=== PATIENT | male | born 1955 | race Caucasian/White ===

== ENCOUNTER 2024-01-02 11:00 | Inpatient (IN) | payer OTHER, SELFPAY ==
[2024-01-02] VITALS (14 sets, daily range): BP systolic 127–182; BP diastolic 35–68; PULSE 38–83; RESP 12–20; TEMP 36.4–36.8; O2SAT 93–99; BMI 33.1
--- NOTE | ~2024-01-02 | XR_ITS ---
EXAMINATION: XR CHEST CLINICAL INFORMATION: Shortness of breath, hypoxic, rule out CHF/pneumonia. COMPARISON: None available. TECHNIQUE: Frontal view of the chest was obtained. FINDINGS: Cardiomediastinal silhouette is within normal limits. There is central vascular congestion and perivascular haziness. Patchy groundglass airspace opacities are seen bilaterally. No dense consolidation. No effusion or pneumothorax. Left axillosubclavian stent, query hemodialysis patient. XR/XR chest 1V IMPRESSION: Central vascular congestion, perivascular haziness, patchy groundglass airspace opacities favor volume overload with mild to moderate pulmonary edema. Multifocal pneumonia not excluded radiographically. Clinical correlation is necessary.
--- NOTE | 2024-01-02 11:30 | ED.GENADULT ---
HPI - General Adult General Chief complaint: Back Pain/Injury Stated complaint: BODY ACHES,REFUSES DIALYSIS FROM SNF PER EMS Time Seen by Provider: 01/02/24 11:21 Source: patient and EMS Mode of arrival: EMS Limitations: no limitations History of Present Illness ED Provider: Dr. Stephen Chand HPI narrative: 68-year-old male with a history of anemia, coronary artery disease, diastolic congestive heart failure, end-stage renal disease on dialysis, diabetes mellitus, hypertension, hyperlipidemia, peripheral vascular disease, right oqgwd-azg-iajh amputation, bradycardia, depression, mood disorder who presents emergency department for evaluation of back pain and shortness of breath. EMS reports that the patient is a dialysis patient but he has been refusing dialysis. The patient denies this and states that he was last dialyzed on 12/28/2023. The patient was found to be hypoxic with an O2 saturation of 80% on room air. Patient was transported on a non-rebreather mask. Here in the emergency department the patient was changed over to an OxyMask on 11 liters/minute. The patient states that he was feeling fatigued but otherwise has no complaints. He denied fever, chills, cough, chest pain, shortness of breath, nausea, vomiting or diarrhea. Related Data Allergies Allergy/AdvReac Type Severity Reaction Status Date / Time garlic Allergy Hives Verified 01/02/24 11:24 onion Allergy Unknown Verified 01/02/24 11:25 Peppers, Green Allergy Unknown Verified 01/02/24 11:25 Review of Systems Review of Systems: Yes all other systems are reviewed and are negative [facility] Past Medical History [facility] Narrative: Social history: Patient states that he has been in the nursing facility for proximally 6 months he states that his was no longer able to care for him at home. Patient is currently residing at the [facility] in [place]. Social History Social History Smoked in Last 30 Days: No Advance Directives: No Advance Directives Information Provided: No Do you have a plan to hurt others: No Plan Physical Exam ED Vital Signs: Vital Signs - 24 hr 01/02/24 11:08 01/02/24 11:30 01/02/24 12:00 Temperature 97.8 F 97.8 F 97.5 F Pulse Rate 38 L 38 L 40 L Respiratory Rate 20 20 13 Blood Pressure 127/46 L 136/35 L 146/46 H Pulse Oximetry 94 95 Oxygen Delivery Method Oxymask Oxymask Room Air Oxygen Flow Rate 11 01/02/24 12:43 Temperature Pulse Rate Respiratory Rate Blood Pressure 146/46 H Pulse Oximetry Oxygen Delivery Method Oxygen Flow Rate BMI result Body Mass Index 33.1 Vital signs revealed a low heart rate of 38 and an O2 saturation of 80% on room air and 94% on OxyMask 11 L per minute. Exam: General: Awake, answers questions appropriately, appears dyspneic but able to talk in full sentences Head: Normocephalic, atraumatic EENT: PERRL, Lids normal, sclera normal, conjunctiva normal, nose normal , ears normal, throat without erythema or exudates Neck: Supple, no adenopathy Lung: Rhonchi and rales at the bases, breath sounds symmetric, no wheezing Chest: symmetric movement, nontender Heart: Bradycardia with a regular rhythm, normal S1, S2, 2/6 systolic murmur best heard at the left lower sternal border Abdomen: soft, non-tender, nondistended, normal bowel sounds Back: no vertebral tenderness, no CVAT Extremities: Right [id number] amputation, left lower extremity with no erythema Neuro: Awake, alert, oriented, normal speech, cranial nerves intact, moves all extremities symmetrically Psych: Pleasant, cooperative Medications Administered Generic Name Dose Route Start Last Admin Trade Name Freq PRN Reason Stop Dose Admin Calcium Gluconate 2 gm in 100 mls @ 50 mls/hr 01/02/24 12:38 01/02/24 12:43 Calcium Gluconate IV 01/02/24 14:37 50 mls/hr ONCE ONE Administration Discontinued Medications Generic Name Dose Route Start Last Admin Trade Name Freq PRN Reason Stop Dose Admin Furosemide 60 mg 01/02/24 12:32 01/02/24 12:43 Furosemide 100 Mg/10 Ml Vial IVPUSH 01/02/24 12:33 60 mg ONCE ONE Administration Protocol Sodium Bicarbonate 50 meq 01/02/24 12:32 01/02/24 12:43 Sodium Bicarbonate 8.4% 50 Meq/50 Ml Syringe IVPUSH 01/02/24 12:33 50 meq ONCE ONE Administration Sodium Zirconium Cyclosilicate 10 gm 01/02/24 12:32 01/02/24 12:43 Sodium Zirconium Cyclosilicate 10 Gm Powd.Pack PO 08/12/24 12:33 10 gm ONCE ONE Administration Medical Decision Making Medical Decision Making MDM Narrative: 68-year-old male with a history of anemia, coronary artery disease, diastolic congestive heart failure, end-stage renal disease on dialysis, diabetes mellitus, hypertension, hyperlipidemia, peripheral vascular disease, right gslgb-vou-jlli amputation, bradycardia, depression, mood disorder who presents emergency department for evaluation of back pain and shortness of breath. Patient states he was last dialyzed on Tuesday12/28/2023 and EMS reports that the patient has refused dialysis who presents for shortness of breath and lethargy. Patient was hypoxic with an O2 saturation of 80% on room air and is currently on OxyMask at 11 liters/minute. Lung exam did reveal rales and rhonchi at the bases otherwise unremarkable. Patient was bradycardic Patient is lethargic but is answering questions appropriately.. Differential diagnosis: ?Includes but is not limited to myocardial infarction, myocardial ischemia, congestive heart failure, hyperkalemia, electrolyte abnormalities, pneumonia, anemia Following evaluation was ordered: CBC, CMP, BNP, magnesium, lactic acid, PTT, lipase, troponin, venous blood gas, blood cultures x2, COVID-19, influenza, RSV, EKG, chest x-ray one view Patient was initially treated with the following: Course: 12:55 My interpretation patient's laboratory evaluation as follows: Normocytic anemia with an H&H of 8.0 and 23.4 with low platelet count of 158,000-most likely caused by his chronic renal disease. Sodium, chloride, CO2 were low 123, 88 and 18. Anion gap was elevated 24. Lactic acid was elevated at 3.2. These abnormalities are secondary to his renal disease and missing 2 dialysis appointments-this is not caused by sepsis/infectious process. Patient's potassium was elevated 7.3. BUN creatinine elevated 64 and 10.8. Troponin was elevated 52.4. BNP elevated 521. Chest x-ray is consistent with congestive heart failure. Patient is elevated potassium, electrolyte abnormality and CHF are secondary to his chronic kidney disease and missing 2 dialysis appointments. Patient's bradycardia may also be caused by these electrolyte abnormalities. The nurse was able to confirm that the patient did miss his Tuesday dialysis and refused to go to dialysis today. Patient's hyper kalemia calcium gluconate 2 g IV, D10 750 mL x1, regular insulin 10 units IV, Lokelma 10 g orally and Lasix 60 mg IV. 13:55 I did discuss the patient's presentation with the covering assistant editor, Dr. Degroot and he states the patient needs urgent dialysis and recommended that the patient be admitted to the intensive care unit. I also discuss the patient's presentation with our rehabilitation services counselor, Dr. Melanie Fontanez and she accepted the patient onto her service. Lab Data 01/02/24 11:34 01/02/24 11:34 Labs: Lab Results 01/02/24 01/02/24 01/02/24 Range/Units 11:34 11:40 12:03 WBC 9.2 (4.8-10.8) X10*3/uL RBC 2.57 L (4.60-5.80) X10*6/uL Hgb 8.0 L (14.0-18.0) g/dl Hct 23.4 L (42.0-52.0) % MCV 91.1 (80.0-98.0) fL MCH 31.1 (27.0-33.0) pg MCHC 34.2 (31.0-36.0) g/dl RDW 13.9 (11.0-16.0) % Plt Count 158 L (160-400) X10*3/uL MPV 9.7 (9.4-12.4) fL Immature Gran % (Auto) 0.8 H (0.0-0.4) % Neut % (Auto) 88.2 H (45-73) % Lymph % (Auto) 5.5 L (20-40) % [place] % (Auto) 5.2 (2-11) % Eos % (Auto) 0.1 (0-4) % Baso % (Auto) 0.2 (0-2) % Lymph # (Auto) 0.5 L (1.2-4.9) X10*3/uL [place] # (Auto) 0.5 (0.1-1.2) X10*3/uL Eos # (Auto) 0.0 (0.0-0.4) X10*3/uL Baso # (Auto) 0.0 (0.0-0.2) X10*3/uL Abs Immat Gran (auto) 0.07 H (0.00-0.03) X10*3/uL Absolute Neuts (auto) 8.1 (2.0-8.3) x10*3/uL Absolute Nucleated RBC 0.000 (0.0-0.012) X10*3/uL Nucleated RBC % (auto) 0.0 (0.0-0.2) /100WBC APTT 33.3 (26.0-36.8) SEC VBG pH 7.28 L (7.32-7.43) VBG pCO2 41 mmHg VBG pO2 51 mmHg VBG HCO3 19 L (22-26) mmol/L VBG O2 Saturation 65.0 % VBG Base Excess -6.2 mmol/L Sodium 123 L (135-145) mmol/L Potassium 7.3 H* (3.3-5.1) mmol/L Chloride 88 L (96-108) mmol/L Carbon Dioxide 18 L (22-29) mmol/L Anion Gap 24 H (12-20) BUN 64 H (9-16) mg/dL Creatinine 10.08 H* (0.5-1.4) mg/dL Estim Creat Clear Calc 8.2 Estimated GFR 5 Random Glucose 139 H (60-115) mg/dL Lactic Acid 3.2 H* (0.5-2.0) mmol/L Calcium 8.4 (8.4-10.2) mg/dL Magnesium 2.3 (1.6-2.6) mg/dL Total Bilirubin 0.5 (0.0-1.0) mg/dL AST 53 H (5-37) U/L ALT 34 (0-40) U/L Alkaline Phosphatase 143 H (39-117) U/L Troponin I High Sens 52.4 H (<3.5-35.0) ng/L B-Natriuretic Peptide 521 H (<100) pg/mL Total Protein 7.2 (6.5-8.0) g/dL Albumin 3.5 (3.5-5.0) g/dL Lipase 24 (8-78) U/L Influenza Type A (PCR) NEGATIVE (Negative) Influenza Type B (PCR) NEGATIVE (Negative) RSV RNA Qual (PCR) NEGATIVE (Negative) SARS-CoV-2 RNA (RT-PCR) NEGATIVE (Negative) Critical Care Time Critical Care Time Critical Care Time: Yes Total Critical Care Time: 80 Attestation: Critical Care: The patient was critically ill with a high probability of imminent or life threatening deterioration. I spent greater than 30 minutes of discontinuous time evaluating the patient,delivering critical care at the bedside, discussing and evaluating pertinent data with consultants. Critical care time does not include time spent performing separately billable procedures or teaching. Total time spent performing critical care was 80 minutes. Discharge Plan Discharge Clinical Impression: Congestive heart failure, Acute hyperkalemia, Bradycardia Patient Disposition: Admitted As Inpatient Print Language: Hong Konger
--- NOTE | 2024-01-02 11:31 | ECG_ITS ---
Test Reason : BRADYCARDIA Blood Pressure : / mmHG Vent. Rate : 038 BPM Atrial Rate : 000 BPM P-R Int : 000 ms QRS Dur : 106 ms QT Int : 568 ms P-R-T Axes : 000 -14 -23 degrees QTc Int : 451 ms Junctional bradycardia Nonspecific T wave abnormality Abnormal ECG No previous ECGs available Referred By: Stephen Chand Electronically Signed By:ROSA JIMENEZ
[2024-01-02 11:48] LABS: VBG Base Excess -6.2 mmol/L; VBG HCO3 19 mmol/L (22-26); VBG pCO2 41 mmHg; VBG pH 7.28 (7.32-7.43); VBG pO2 51 mmHg
[2024-01-02 11:49] LABS: MANUAL DIFF FLAG NO; Venous Blood Gas Refer to POC result
[2024-01-02 11:54] LABS: Basophils Percent Auto 0.2 % (0-2); Eosinophils Percent Auto 0.1 % (0-4); Hematocrit 23.4 % (42.0-52.0); Imm Gran Abs Auto 0.07 X10*3/uL (0.00-0.03); Imm Gran Pct Auto 0.8 % (0.0-0.4); Lymphocytes Absolute Auto 0.5 X10*3/uL (1.2-4.9); Lymphocytes Percent Auto 5.5 % (20-40); Mean Corpuscular HGB Conc 34.2 g/dl (31.0-36.0); Mean Corpuscular Hemoglobin 31.1 pg (27.0-33.0); Mean Corpuscular Volume 91.1 fL (80.0-98.0); Mean Platelet Volume 9.7 fL (9.4-12.4); Monocytes Absolute Auto 0.5 X10*3/uL (0.1-1.2); Monocytes Percent Auto 5.2 % (2-11); Neutrophils Absolute Auto 8.1 x10*3/uL (2.0-8.3); Neutrophils Percent Auto 88.2 % (45-73); Platelet Count 158 X10*3/uL (160-400); Red Blood Count 2.57 X10*6/uL (4.60-5.80); Red Cell Distribution Width 13.9 % (11.0-16.0); White Blood Count 9.2 X10*3/uL (4.8-10.8)
[2024-01-02 12:07] LABS: Lactic Acid 3.2 mmol/L (0.5-2.0); Partial Thromboplastin Time 33.3 SEC (26.0-36.8)
[2024-01-02 12:14] LABS: B Type Natriuretic Peptide 521 pg/mL (<100)
[2024-01-02 12:16] LABS: Troponin-I High Sensitivity 52.4 ng/L (<3.5-35.0)
[2024-01-02 12:26] LABS: Alanine Aminotransferase 34 U/L (0-40); Albumin Level 3.5 g/dL (3.5-5.0); Alkaline Phosphatase 143 U/L (39-117); Anion Gap 24 (12-20); Aspartate Amino Transferase 53 U/L (5-37); Bilirubin Total 0.5 mg/dL (0.0-1.0); Blood Urea Nitrogen 64 mg/dL (9-16); Calcium 8.4 mg/dL (8.4-10.2); Carbon Dioxide 18 mmol/L (22-29); Chloride 88 mmol/L (96-108); Creatinine Clr Calc Pharmacy 8.2; Estimated Glomerular Filt Rate 5; Glucose Random 139 mg/dL (60-115); Lipase 24 U/L (8-78); Magnesium 2.3 mg/dL (1.6-2.6); Potassium 7.3 mmol/L (3.3-5.1); Sodium 123 mmol/L (135-145); Total Protein 7.2 g/dL (6.5-8.0)
[2024-01-02] MEDS: Calcium Gluconate/NaCl,Iso-Osm 2 GM/100 ML PLAST..BAG IV (12:43)
[2024-01-02] MEDS: Sodium Zirconium Cyclosilicate 10 GM POWD.PACK PO (12:43)
[2024-01-02] MEDS: Furosemide 100 MG/10 ML VIAL 60 MG IVPUSH (12:43)
[2024-01-02] MEDS: Sodium Bicarbonate 8.4% 50 MEQ/50 ML SYRINGE IVPUSH ×2 (12:43→15:27)
[2024-01-02 12:49] LABS: Influenza A PCR NEGATIVE (Negative); Influenza B PCR NEGATIVE (Negative); Resp Syncy Virus RNA Qual PCR NEGATIVE (Negative); SARS COV2 PCR INHOUSE NEGATIVE (Negative)
[2024-01-02 13:42] LABS: Reflex Lactate? Lactic Acid Added
--- NOTE | 2024-01-02 13:56 | P.HPCC_ITS ---
History of Present Illness Date of Service: 01/02/24 Attending physician on admission: Melanie Fontanez Chief Complaint: Missed Hemodialysis, Hyperkalemia Patient is a 68 Y M with metabolic syndrome, diabetes mellitus, end-stage renal disease, on hemodialysis M/W/F, reportedly refusing hemodialysis, last dialysis session 12/27, presenting to emergency department on 01/01 w/ dyspnea, found to be hypoxic 80s, bradycardic 30s, and hyperkalemic 7 w/ EKG changes; patient admitted to ICU for emergent hemodialysis Review of Systems 2 Review of Systems: Yes all other systems are reviewed and are negative PMFSH Social History Social History Smoked in Last 30 Days: No Advance Directives: No Advance Directives Information Provided: No Do you have a plan to hurt others: No Plan Meds Allergies Allergy/AdvReac Type Severity Reaction Status Date / Time garlic Allergy Hives Verified 01/02/24 11:24 onion Allergy Unknown Verified 01/02/24 11:25 Peppers, Green Allergy Unknown Verified 01/02/24 11:25 Active Medications: Current Medications Dextrose (D10) 250 mls @ 750 mls/hr IV Q15M PRN PRN Reason: per Hypoglycemia Standing Ord. Calcium Gluconate (Calcium Gluconate) 2 gm in 100 mls @ 50 mls/hr IV ONCE ONE Stop: 01/02/24 14:37 Last Admin: 01/02/24 12:43 Dose: 50 mls/hr Calcium Gluconate (Calcium Gluconate) 1 gm in 50 mls @ 50 mls/hr IV ONCE ONE Stop: 01/02/24 14:50 Sodium Bicarbonate (Sodium Bicarbonate 8.4% 50 Meq/50 Ml Syringe) 50 meq IVPUSH ONCE ONE Stop: 01/02/24 13:55 Home Medications ?Medication ?Instructions ?Recorded ?Confirmed ?Last Taken ?Type acetaminophen 325 mg tablet 650 mg PO Q6H PRN Fever/Pain 01/02/24 01/02/24 Unknown History amlodipine 5 mg tablet 5 mg PO DAILY 01/02/24 01/02/24 Unknown History aspirin 81 mg tablet,delayed 81 mg PO DAILY 01/02/24 01/02/24 Unknown History release atorvastatin 80 mg tablet 80 mg PO DAILY 01/02/24 01/02/24 Unknown History bisacodyl 10 mg rectal suppository 10 mg MD DAILY PRN No BM in 8 Hrs 01/02/24 01/02/24 Unknown History after MoM citalopram 20 mg tablet 20 mg PO DAILY 01/02/24 01/02/24 Unknown History clonazepam 0.5 mg tablet 0.5 mg PO BID anxiety 01/02/24 01/02/24 Unknown History glipizide 2.5 mg tablet 2.5 mg PO DAILY 01/02/24 01/02/24 Unknown History ibuprofen 600 mg tablet 600 mg PO Q6H PRN Pain 01/02/24 01/02/24 Unknown History isosorbide mononitrate 20 mg tablet 40 mg PO DAILY 01/02/24 01/02/24 Unknown History omeprazole 20 mg capsule,delayed 20 mg PO DAILY 01/02/24 01/02/24 Unknown History release ondansetron 4 mg disintegrating 4 mg PO Q8H PRN Nausea/Vomiting 01/02/24 01/02/24 Unknown History tablet polyethylene glycol 3350 17 17 g PO Q24H PRN Constipation 01/02/24 01/02/24 Unknown History gram/dose oral powder sennosides 8.6 mg-docusate sodium 1 tab-cap PO Q24H PRN Constipation 01/02/24 01/02/24 Unknown History 50 mg capsule (Senna Plus) sevelamer HCl 800 mg tablet 1,600 mg PO TID 01/02/24 01/02/24 Unknown History simethicone 80 mg chewable tablet 80 mg PO BEDTIME 01/02/24 01/02/24 Unknown History sodium phosphates 19 gram-7 118 ml MD DAILY PRN No BM in 8 Hrs 01/02/24 01/02/24 Unknown History gram/118 mL enema (Fleet Enema) after Bisacodyl sodium zirconium cyclosilicate 10 10 g PO SUTUTHSA 01/02/24 01/02/24 Unknown History gram oral powder packet (Lokelma) trazodone 50 mg tablet 50 mg PO BEDTIME 01/02/24 01/02/24 Unknown History Physical Exam 2 Vital Signs: Vital Signs: Last Vital Signs Temp 97.5 F 01/02/24 12:00 Pulse 40 L 01/02/24 12:00 Resp 13 01/02/24 12:00 BP 146/46 H 01/02/24 12:43 Pulse Ox 95 01/02/24 12:00 O2 Del Method Room Air 01/02/24 12:00 O2 Flow Rate 11 01/02/24 11:30 Oxygen Flow Rate 01/02/24 11:08 BMI result Body Mass Index 33.1 Const: General: cooperative, no acute distress, well developed, alert, awake and Physically active Orientation/consciousness: patient oriented x3 HEENT: Head: Yes normal to inspection, Yes normocephalic and Yes atraumatic Eyes: General: appearance normal, both eyes and all related structures Neck: Neck: Yes normal visual inspection, Yes full ROM, Yes trachea midline and Yes supple Chest: Chest palpation & inspection: normal inspection of the chest Resp: Other: appreciable rales; no appreciable rhonchi, wheezing Effort & Inspection: normal respiratory effort Cardio: Rate: bradycardic Rhythm: regular rhythm GI: Inspection: Yes normal to inspection, No Abdominal wall edema and No distended Palpation (GI): Soft to palpation, not firm, nontender, no guarding and not rigid : Male General Exam: Yes normal external exam Skin: Other: diffuse abrasions Neuro: General: patient oriented x3, tone normal and moves all extremities Extrem: Other: appreciable R BKA General: Yes full ROM, Yes capillary refill normal and Yes no clubbing, cyanosis or edema Psych: Appearance: grossly normal Results Labs 01/02/24 11:34 01/02/24 11:34 Labs: Laboratory Results - last 24 hr 01/02/24 01/02/24 01/02/24 11:34 11:40 12:03 MCV 91.1 MCH 31.1 MCHC 34.2 RDW 13.9 Plt Count 158 L MPV 9.7 Immature Gran % (Auto) 0.8 H Neut % (Auto) 88.2 H Lymph % (Auto) 5.5 L [place] % (Auto) 5.2 Eos % (Auto) 0.1 Baso % (Auto) 0.2 Lymph # (Auto) 0.5 L [place] # (Auto) 0.5 Eos # (Auto) 0.0 Baso # (Auto) 0.0 Abs Immat Gran (auto) 0.07 H Absolute Neuts (auto) 8.1 Absolute Nucleated RBC 0.000 Nucleated RBC % (auto) 0.0 APTT 33.3 VBG pH 7.28 L VBG pCO2 41 VBG pO2 51 VBG HCO3 19 L VBG O2 Saturation 65.0 VBG Base Excess -6.2 Anion Gap 24 H Estim Creat Clear Calc 8.2 Estimated GFR 5 Random Glucose 139 H Lactic Acid 3.2 H* Calcium 8.4 Magnesium 2.3 Total Bilirubin 0.5 AST 53 H ALT 34 Alkaline Phosphatase 143 H Troponin I High Sens 52.4 H B-Natriuretic Peptide 521 H Total Protein 7.2 Albumin 3.5 Lipase 24 Influenza Type A (PCR) NEGATIVE Influenza Type B (PCR) NEGATIVE RSV RNA Qual (PCR) NEGATIVE SARS-CoV-2 RNA (RT-PCR) NEGATIVE Assessment and Plan (1) Acute hyperkalemia: Status: Acute (2) End stage renal disease on dialysis: Status: Acute (3) Dialysis patient, noncompliant: Status: Acute (4) Hypertension: Status: Acute (5) Diabetes mellitus: Status: Acute Plan Patient is a 68 Y M with metabolic syndrome, diabetes mellitus, end-stage renal disease, on hemodialysis M/W/F, reportedly refusing hemodialysis, last dialysis session 12/27, presenting to emergency department on 01/01 w/ dyspnea, found to be hypoxic 80s, bradycardic 30s, and hyperkalemic 7 w/ EKG changes; patient admitted to ICU for emergent hemodialysis N: no acute issues CV: bradycardia, in setting of hyperkalemia, though w/o hemodynamic compromise; to monitor very closely R: acute hypoxic respiratory failure, in setting of volume overload; to monitor GI: NPO; advance to renal diet as tolerated : end-stage renal disease, non-compliant w/ hemodialysis; emergent hemodialysis 01/01 H: anemia, reportedly chronic ID: no acute issues E: diabetes mellitus; to monitor hypo-/hyper-glycemia
[2024-01-02] MEDS: Albuterol Sulfate 2.5 MG, Albuterol Sulfate (0.083%) 2.5 MG 5 MG INHALE ×2 (14:21→15:49)
--- NOTE | 2024-01-02 14:26 | PC.NURSE ---
Nurse to Nurse report given to Asley RN on ICU.
[2024-01-02 14:36] LABS: ~Lactic Acid-LAB USE ONLY 2.6 mmol/L (0.5-2.0)
--- NOTE | 2024-01-02 14:52 | PHA.MEDREC ---
Addendum entered by Lon Purvis RP 01/02/24 16:50: MED REC CHECKED BY [facility] Original Note: Pharmacy Consult ? Medication Reconciliation Pharmacy has completed the medication reconciliation. Confirmed medications with list provided by [facility] and [facility].
--- NOTE | 2024-01-02 15:00 | PM.CNNEP ---
History of Present Illness Reason for Consult Consult date: 01/02/24 Reason for consult: Hyperkalemia Chief Complaint Chief complaint: Renal Failure Hyperkalemia History of Present Illness Narrative: 68-year-old male with coronary artery disease, diastolic congestive heart failure, end-stage renal disease on dialysis, diabetes mellitus, hypertension, peripheral vascular disease, right ulgbj-nsd-[id number] amputation presented to the emergency department for evaluation of back pain and shortness of breath. EMS reported that the patient is a dialysis patient but he has been refusing dialysis. The patient denies this and states that he was last dialyzed on 12/28/2023. The patient was found to be hypoxic with an O2 saturation of 80% on room air. Patient was transported on a non-rebreather mask. Here in the emergency department the patient was changed over to an OxyMask on 11 liters/minute. The patient states that he was feeling fatigued but otherwise has no complaints. He denied fever, chills, cough, chest pain, shortness of breath, nausea, vomiting or diarrhea. Further workup showed him to have hyperkalemia and bradycardia. Nephrology has been consulted to assist in his clinical care during his current hospital stay. Review of Systems Review of Systems Yes all other systems are reviewed and are negative PMFSH Social History Social History Smoked in Last 30 Days: No Advance Directives: No Advance Directives Information Provided: No Do you have a plan to hurt others: No Plan Meds Allergies Allergy/AdvReac Type Severity Reaction Status Date / Time garlic Allergy Hives Verified 01/02/24 11:24 onion Allergy Unknown Verified 01/02/24 11:25 Peppers, Green Allergy Unknown Verified 01/02/24 11:25 Active Medications: Current Medications Glucose (Glucose Gel 15 Gm Gel..Gram.) 15 gm PO Q15M PRN; Protocol PRN Reason: per Hypoglycemia Standing Ord. Dextrose (D10) 250 mls @ 750 mls/hr IV Q15M PRN PRN Reason: per Hypoglycemia Standing Ord. Dextrose (D10) 250 mls @ 750 mls/hr IV Q15M PRN; Protocol PRN Reason: per Hypoglycemia Standing Ord. Insulin Human Lispro (Insulin Lispro 100 Unit/Ml 3 Ml Vial) [facility]; Protocol Home Medications ?Medication ?Instructions ?Recorded ?Confirmed ?Last Taken ?Type acetaminophen 325 mg tablet 650 mg PO Q6H PRN Fever/Pain 01/02/24 01/02/24 Unknown History amlodipine 5 mg tablet 5 mg PO DAILY 01/02/24 01/02/24 Unknown History aspirin 81 mg tablet,delayed 81 mg PO DAILY 01/02/24 01/02/24 Unknown History release atorvastatin 80 mg tablet 80 mg PO DAILY 01/02/24 01/02/24 Unknown History bisacodyl 10 mg rectal suppository 10 mg LA DAILY PRN No BM in 8 Hrs 01/02/24 01/02/24 Unknown History after MoM citalopram 20 mg tablet 20 mg PO DAILY 01/02/24 01/02/24 Unknown History clonazepam 0.5 mg tablet 0.5 mg PO BID anxiety 01/02/24 01/02/24 Unknown History glipizide 2.5 mg tablet 2.5 mg PO DAILY 01/02/24 01/02/24 Unknown History ibuprofen 600 mg tablet 600 mg PO Q6H PRN Pain 01/02/24 01/02/24 Unknown History isosorbide mononitrate 20 mg tablet 40 mg PO DAILY 01/02/24 01/02/24 Unknown History omeprazole 20 mg capsule,delayed 20 mg PO DAILY 01/02/24 01/02/24 Unknown History release ondansetron 4 mg disintegrating 4 mg PO Q8H PRN Nausea/Vomiting 01/02/24 01/02/24 Unknown History tablet polyethylene glycol 3350 17 17 g PO Q24H PRN Constipation 01/02/24 01/02/24 Unknown History gram/dose oral powder sennosides 8.6 mg-docusate sodium 1 tab-cap PO Q24H PRN Constipation 01/02/24 01/02/24 Unknown History 50 mg capsule (Senna Plus) sevelamer HCl 800 mg tablet 1,600 mg PO TID 01/02/24 01/02/24 Unknown History simethicone 80 mg chewable tablet 80 mg PO BEDTIME 01/02/24 01/02/24 Unknown History sodium phosphates 19 gram-7 118 ml LA DAILY PRN No BM in 8 Hrs 01/02/24 01/02/24 Unknown History gram/118 mL enema (Fleet Enema) after Bisacodyl sodium zirconium cyclosilicate 10 10 g PO SUTUTHSA 01/02/24 01/02/24 Unknown History gram oral powder packet (Mihaelakelwy) trazodone 50 mg tablet 50 mg PO BEDTIME 01/02/24 01/02/24 Unknown History Physical Exam Vital Signs: Last Vital Signs Temp 97.5 F 01/02/24 12:00 Pulse 39 L 01/02/24 14:22 Resp 18 01/02/24 14:22 BP 146/46 H 01/02/24 12:43 Pulse Ox 95 01/02/24 12:00 O2 Del Method Room Air 01/02/24 12:00 O2 Flow Rate 11 01/02/24 11:30 Oxygen Flow Rate 01/02/24 11:08 BMI result Body Mass Index 33.1 Const General: no acute distress Orientation/consciousness: patient oriented x3 Eyes EOM: EOMs intact bilaterally Resp Auscultation: diminished lung sounds Cardio Rate: regular rate GI Palpation (GI): Soft to palpation Neuro General: patient oriented x3 Results Lab Results 01/02/24 11:34 01/02/24 11:34 Lab results: Chemistry 01/02/24 11:34 Sodium 123 L Potassium 7.3 H* Carbon Dioxide 18 L BUN 64 H Creatinine 10.08 H* Calcium 8.4 Hematology 01/02/24 11:34 WBC 9.2 Hgb 8.0 L Plt Count 158 L Assessment and Plan (1) Bradycardia: Status: Acute (2) Acute hyperkalemia: Status: Acute (3) End stage renal disease on dialysis: Status: Acute Plan Hamzah has hyperkalemia and hypervolemia He needs emergent dialysis(arranged) Has a functioning dialysis access Counseled about compliance with dialysis treatment Low-sodium, low-potassium diet with a fluid and phosphorus restrict Phosphorus binders with meals May need another session of dialysis tomorrow If he continues to be hyperkalemic he will need fistulogram Shall optimize his volume status on hemodialysis Shall continue to closely follow-up Procedures Date of Service Date of Service: 01/02/24
[2024-01-02] MEDS: Calcium Gluconate/NaCl,Iso-Osm 1 GM/50 ML PLAST..BAG IV (15:27)
--- NOTE | 2024-01-02 15:50 | PC.NURSE ---
Handoff received from BRYON Strange at 1425. Patient transported to ICU via stretcher by this RN and tap and die maker technician at 1540 without incident. chief drafter at bedside upon arrival to ICU for emergent dialysis.
[2024-01-02 16:21] LABS: Reflex Lactate? 2 Y
[2024-01-02 16:30] LABS: Glucose, Whole Blood 93 mg/dL (60-115)
[2024-01-02 17:05] LABS: ~Lactic Acid-LAB USE ONLY 1.6 mmol/L (0.5-2.0)
[2024-01-02 21:11] LABS: Anion Gap 18 (12-20); Blood Urea Nitrogen 19 mg/dL (9-16); Calcium 9.4 mg/dL (8.4-10.2); Carbon Dioxide 29 mmol/L (22-29); Chloride 96 mmol/L (96-108); Creatinine Clr Calc Pharmacy 20.7; Estimated Glomerular Filt Rate 15; Glucose Random 80 mg/dL (60-115); Magnesium 2.1 mg/dL (1.6-2.6); Phosphorus 3.2 mg/dL (2.7-4.5); Potassium 3.2 mmol/L (3.3-5.1); Sodium 140 mmol/L (135-145)
[2024-01-02] MEDS: Sevelamer Carbonate Tablet 800 MG TABLET 1600 MG PO (21:31)
[2024-01-02] MEDS: Acetaminophen 325 MG TABLET 975 MG PO (21:32)
[2024-01-02] MEDS: Potassium Chloride ER 20 MEQ TAB.ER.PRT 40 MEQ PO (22:53)
[2024-01-03] VITALS (16 sets, daily range): BP systolic 138–176; BP diastolic 42–88; PULSE 66–79; RESP 14–20; TEMP 36.3–37.2; O2SAT 90–97; BMI 29.7
[2024-01-03 05:34] LABS: MANUAL DIFF FLAG NO
[2024-01-03 05:38] LABS: Basophils Percent Auto 0.2 % (0-2); Eosinophils Absolute Auto 0.1 X10*3/uL (0.0-0.4); Eosinophils Percent Auto 1.4 % (0-4); Hematocrit 21.4 % (42.0-52.0); Hemoglobin 7.2 g/dl (14.0-18.0); Imm Gran Abs Auto 0.01 X10*3/uL (0.00-0.03); Imm Gran Pct Auto 0.2 % (0.0-0.4); Lymphocytes Absolute Auto 0.5 X10*3/uL (1.2-4.9); Lymphocytes Percent Auto 10.3 % (20-40); Mean Corpuscular HGB Conc 33.6 g/dl (31.0-36.0); Mean Corpuscular Hemoglobin 30.1 pg (27.0-33.0); Mean Corpuscular Volume 89.5 fL (80.0-98.0); Mean Platelet Volume 9.4 fL (9.4-12.4); Monocytes Absolute Auto 0.4 X10*3/uL (0.1-1.2); Monocytes Percent Auto 7.2 % (2-11); Neutrophils Absolute Auto 3.9 x10*3/uL (2.0-8.3); Neutrophils Percent Auto 80.7 % (45-73); Platelet Count 171 X10*3/uL (160-400); Red Blood Count 2.39 X10*6/uL (4.60-5.80); White Blood Count 4.9 X10*3/uL (4.8-10.8)
[2024-01-03 05:58] LABS: Anion Gap 18 (12-20); Blood Urea Nitrogen 22 mg/dL (9-16); Calcium 9.2 mg/dL (8.4-10.2); Carbon Dioxide 26 mmol/L (22-29); Chloride 97 mmol/L (96-108); Creatinine Clr Calc Pharmacy 14.5; Estimated Glomerular Filt Rate 11; Glucose Random 74 mg/dL (60-115); Magnesium 2.1 mg/dL (1.6-2.6); Phosphorus 3.8 mg/dL (2.7-4.5); Potassium 4.3 mmol/L (3.3-5.1); Sodium 137 mmol/L (135-145)
[2024-01-03 07:24] LABS: Glucose, Whole Blood 76 mg/dL (60-115)
--- NOTE | 2024-01-03 07:59 | P.PNCC_ITS ---
Subjective Subjective Date of Service: 01/03/24 Interval History: no significant overnight events; interval improvement of hyperkalemia s/p hemodialysis Critical Care Time (minutes): 0 Physical Exam 2 Vital Signs: Vital Signs: Last Vital Signs Temp 99.0 F 01/03/24 00:00 Pulse 75 01/03/24 07:00 Resp 15 01/03/24 07:00 BP 161/61 H 01/03/24 07:00 Pulse Ox 92 01/03/24 07:00 O2 Del Method Nasal Cannula 01/03/24 07:00 O2 Flow Rate 2 01/03/24 07:00 Oxygen Flow Rate 11 01/02/24 11:08 BMI result Body Mass Index 29.7 Const: Other: intermittently cooperative w/ care General: comfortable, no acute distress, well developed, alert, awake and Physically active Orientation/consciousness: patient oriented x3 HEENT: Head: Yes normal to inspection, Yes normocephalic and Yes atraumatic Eyes: General: appearance normal, both eyes and all related structures Neck: Neck: Yes normal visual inspection, Yes full ROM, Yes trachea midline and Yes supple Chest: Chest palpation & inspection: normal inspection of the chest Resp: Other: no appreciable rales, rhonchi, wheezing Effort & Inspection: normal respiratory effort Cardio: Rate: regular rate Rhythm: regular rhythm GI: Inspection: Yes normal to inspection, No Abdominal wall edema and No distended Palpation (GI): Soft to palpation, not firm, nontender, no guarding and not rigid Skin: Other: scattered abrasions throughout Neuro: General: patient oriented x3, tone normal and no focal motor deficits Extrem: Other: R BKA General: Yes normal to inspection, Yes full ROM, Yes capillary refill normal and Yes no clubbing, cyanosis or edema Psych: Affect: Indifferent affect present and Irritable affect present Objective Data Labs 01/03/24 05:26 01/03/24 05:26 Labs: Laboratory Results - last 24 hr 01/02/24 01/02/24 01/02/24 11:34 11:40 12:03 WBC 9.2 RBC 2.57 L Hgb 8.0 L Hct 23.4 L MCV 91.1 MCH 31.1 MCHC 34.2 RDW 13.9 Plt Count 158 L MPV 9.7 Immature Gran % (Auto) 0.8 H Neut % (Auto) 88.2 H Lymph % (Auto) 5.5 L [place] % (Auto) 5.2 Eos % (Auto) 0.1 Baso % (Auto) 0.2 Lymph # (Auto) 0.5 L [place] # (Auto) 0.5 Eos # (Auto) 0.0 Baso # (Auto) 0.0 Abs Immat Gran (auto) 0.07 H Absolute Neuts (auto) 8.1 Absolute Nucleated RBC 0.000 Nucleated RBC % (auto) 0.0 APTT 33.3 VBG pH 7.28 L VBG pCO2 41 VBG pO2 51 VBG HCO3 19 L VBG O2 Saturation 65.0 VBG Base Excess -6.2 Sodium 123 L Potassium 7.3 H* Chloride 88 L Carbon Dioxide 18 L Anion Gap 24 H BUN 64 H Creatinine 10.08 H* Estim Creat Clear Calc 8.2 Estimated GFR 5 POC Glucose Random Glucose 139 H Lactic Acid 3.2 H* Lactic Acid F/U @ 2Hr Lactic Acid F/U @ 4Hr Calcium 8.4 Phosphorus Magnesium 2.3 Total Bilirubin 0.5 AST 53 H ALT 34 Alkaline Phosphatase 143 H Troponin I High Sens 52.4 H B-Natriuretic Peptide 521 H Total Protein 7.2 Albumin 3.5 Lipase 24 Influenza Type A (PCR) NEGATIVE Influenza Type B (PCR) NEGATIVE RSV RNA Qual (PCR) NEGATIVE SARS-CoV-2 RNA (RT-PCR) NEGATIVE Blood Type Antibody Screen 01/02/24 01/02/24 01/02/24 14:18 16:27 16:40 WBC RBC Hgb Hct MCV MCH MCHC RDW Plt Count MPV Immature Gran % (Auto) Neut % (Auto) Lymph % (Auto) [place] % (Auto) Eos % (Auto) Baso % (Auto) Lymph # (Auto) [place] # (Auto) Eos # (Auto) Baso # (Auto) Abs Immat Gran (auto) Absolute Neuts (auto) Absolute Nucleated RBC Nucleated RBC % (auto) APTT VBG pH VBG pCO2 VBG pO2 VBG HCO3 VBG O2 Saturation VBG Base Excess Sodium Potassium Chloride Carbon Dioxide Anion Gap BUN Creatinine Estim Creat Clear Calc Estimated GFR POC Glucose 93 Random Glucose Lactic Acid Lactic Acid F/U @ 2Hr 2.6 H* Lactic Acid F/U @ 4Hr 1.6 Calcium Phosphorus Magnesium Total Bilirubin AST ALT Alkaline Phosphatase Troponin I High Sens B-Natriuretic Peptide Total Protein Albumin Lipase Influenza Type A (PCR) Influenza Type B (PCR) RSV RNA Qual (PCR) SARS-CoV-2 RNA (RT-PCR) Blood Type O Positive Antibody Screen NEGATIVE 01/02/24 01/03/24 01/03/24 20:31 05:26 07:20 WBC 4.9 RBC 2.39 L Hgb 7.2 L Hct 21.4 L MCV 89.5 MCH 30.1 MCHC 33.6 RDW 14.0 Plt Count 171 MPV 9.4 Immature Gran % (Auto) 0.2 Neut % (Auto) 80.7 H Lymph % (Auto) 10.3 L [place] % (Auto) 7.2 Eos % (Auto) 1.4 Baso % (Auto) 0.2 Lymph # (Auto) 0.5 L [place] # (Auto) 0.4 Eos # (Auto) 0.1 Baso # (Auto) 0.0 Abs Immat Gran (auto) 0.01 Absolute Neuts (auto) 3.9 Absolute Nucleated RBC 0.000 Nucleated RBC % (auto) 0.0 APTT VBG pH VBG pCO2 VBG pO2 VBG HCO3 VBG O2 Saturation VBG Base Excess Sodium 140 137 Potassium 3.2 L D 4.3 D Chloride 96 97 Carbon Dioxide 29 26 Anion Gap 18 18 BUN 19 H 22 H Creatinine 3.98 H 5.42 H* Estim Creat Clear Calc 20.7 14.5 Estimated GFR 15 11 POC Glucose 76 Random Glucose 80 74 Lactic Acid Lactic Acid F/U @ 2Hr Lactic Acid F/U @ 4Hr Calcium 9.4 D 9.2 Phosphorus 3.2 3.8 Magnesium 2.1 2.1 Total Bilirubin AST ALT Alkaline Phosphatase Troponin I High Sens B-Natriuretic Peptide Total Protein Albumin Lipase Influenza Type A (PCR) Influenza Type B (PCR) RSV RNA Qual (PCR) SARS-CoV-2 RNA (RT-PCR) Blood Type Antibody Screen Progress Note: A&P Assessment and plan (1) Acute hyperkalemia: Status: Acute (2) End stage renal disease on dialysis: Status: Acute (3) Dialysis patient, noncompliant: Status: Acute (4) Diabetes mellitus: Status: Acute (5) Hypertension: Status: Acute Plan Patient is a 68 Y M with metabolic syndrome, diabetes mellitus, end-stage renal disease, on hemodialysis M/W/F, reportedly refusing hemodialysis, last dialysis session 12/27, presenting to emergency department on 01/01 w/ dyspnea, found to be hypoxic 80s, bradycardic 30s, and hyperkalemic 7 w/ EKG changes; patient admitted to ICU for emergent hemodialysis N: no acute issues CV: bradycardia, in setting of hyperkalemia, resolved R: acute hypoxic respiratory failure, in setting of volume overload, improved GI: renal diet : end-stage renal disease, non-compliant w/ hemodialysis; emergent hemodialysis 01/01 H: anemia, reportedly chronic; to avoid chemical DVT prophylaxis until improvement; mechanical device ID: no acute issues E: diabetes mellitus; to monitor hypo-/hyper-glycemia Quality Stroke Does the patient have a stroke diagnosis?: No VTE Prior VTE?: No VTE Risk Level:: Medical - moderate - high VTE Device Contraindication: N/A - Device Ordered VTE Drug Contraindication: Treatment Not Tolerated
[2024-01-03] MEDS: Aspirin 81 MG TAB.CHEW PO (08:57)
[2024-01-03] MEDS: Atorvastatin Calcium 80 MG TABLET PO (08:58)
[2024-01-03] MEDS: Sevelamer Carbonate Tablet 800 MG TABLET 1600 MG PO ×3 (08:58→22:37)
--- NOTE | 2024-01-03 09:37 | MHC.CM.PN ---
IMM DELIVERED PT IS A LTC RESIDENT AT [facility]. PT'S PLAN IS TO RETURN TO CENTER ON DC. PT GIVES PERMISSION TO SPEAK WITH IF NEEDED. RETURN REFERRAL TO [facility] VIA BLS, RETURN REFERRAL SENT. COPY OF HCP REQUESTED. CM WILL CONTINUE TO FOLLOW FOR ANY CHANGE TO DC PLAN/NEEDS.
[2024-01-03] MEDS: amLODIPine Besylate 5 MG TABLET PO (10:26)
[2024-01-03 11:20] LABS: Glucose, Whole Blood 103 mg/dL (60-115)
--- NOTE | 2024-01-03 12:28 | P.PNNP_ITS ---
Subjective Subjective Date of Service: 01/03/24 Interval history: no significant overnight events; interval improvement of hyperkalemia s/p hemodialysis Physical Exam 2 Vital Signs: Vital Signs: Last Vital Signs Temp 98.9 F 01/03/24 12:00 Pulse 75 01/03/24 12:00 Resp 15 01/03/24 12:00 BP 167/54 H 01/03/24 12:00 Pulse Ox 92 01/03/24 12:00 O2 Del Method Nasal Cannula 01/03/24 12:00 O2 Flow Rate 2 01/03/24 12:00 Oxygen Flow Rate 11 01/02/24 11:08 BMI result Body Mass Index 29.7 Const: General: no acute distress Orientation/consciousness: patient oriented x3 Eyes: EOM: EOMs intact bilaterally Neck: Neck: Yes supple Resp: Auscultation: diminished lung sounds Cardio: Rate: regular rate GI: Palpation (GI): Soft to palpation Neuro: General: patient oriented x3 Extrem: Other: R BKA Objective Data Labs 01/03/24 05:26 01/03/24 05:26 Labs: Laboratory Results - last 24 hr 01/02/24 01/02/24 01/02/24 12:03 14:18 16:27 WBC RBC Hgb Hct MCV MCH MCHC RDW Plt Count MPV Immature Gran % (Auto) Neut % (Auto) Lymph % (Auto) [place] % (Auto) Eos % (Auto) Baso % (Auto) Lymph # (Auto) [place] # (Auto) Eos # (Auto) Baso # (Auto) Abs Immat Gran (auto) Absolute Neuts (auto) Absolute Nucleated RBC Nucleated RBC % (auto) Sodium Potassium Chloride Carbon Dioxide Anion Gap BUN Creatinine Estim Creat Clear Calc Estimated GFR POC Glucose 93 Random Glucose Lactic Acid F/U @ 2Hr 2.6 H* Lactic Acid F/U @ 4Hr Calcium Phosphorus Magnesium Influenza Type A (PCR) NEGATIVE Influenza Type B (PCR) NEGATIVE RSV RNA Qual (PCR) NEGATIVE SARS-CoV-2 RNA (RT-PCR) NEGATIVE Blood Type O Positive Antibody Screen NEGATIVE 01/02/24 01/02/24 01/03/24 16:40 20:31 05:26 WBC 4.9 RBC 2.39 L Hgb 7.2 L Hct 21.4 L MCV 89.5 MCH 30.1 MCHC 33.6 RDW 14.0 Plt Count 171 MPV 9.4 Immature Gran % (Auto) 0.2 Neut % (Auto) 80.7 H Lymph % (Auto) 10.3 L [place] % (Auto) 7.2 Eos % (Auto) 1.4 Baso % (Auto) 0.2 Lymph # (Auto) 0.5 L [place] # (Auto) 0.4 Eos # (Auto) 0.1 Baso # (Auto) 0.0 Abs Immat Gran (auto) 0.01 Absolute Neuts (auto) 3.9 Absolute Nucleated RBC 0.000 Nucleated RBC % (auto) 0.0 Sodium 140 137 Potassium 3.2 L D 4.3 D Chloride 96 97 Carbon Dioxide 29 26 Anion Gap 18 18 BUN 19 H 22 H Creatinine 3.98 H 5.42 H* Estim Creat Clear Calc 20.7 14.5 Estimated GFR 15 11 POC Glucose Random Glucose 80 74 Lactic Acid F/U @ 2Hr Lactic Acid F/U @ 4Hr 1.6 Calcium 9.4 D 9.2 Phosphorus 3.2 3.8 Magnesium 2.1 2.1 Influenza Type A (PCR) Influenza Type B (PCR) RSV RNA Qual (PCR) SARS-CoV-2 RNA (RT-PCR) Blood Type Antibody Screen 01/03/24 01/03/24 07:20 11:16 WBC RBC Hgb Hct MCV MCH MCHC RDW Plt Count MPV Immature Gran % (Auto) Neut % (Auto) Lymph % (Auto) [place] % (Auto) Eos % (Auto) Baso % (Auto) Lymph # (Auto) [place] # (Auto) Eos # (Auto) Baso # (Auto) Abs Immat Gran (auto) Absolute Neuts (auto) Absolute Nucleated RBC Nucleated RBC % (auto) Sodium Potassium Chloride Carbon Dioxide Anion Gap BUN Creatinine Estim Creat Clear Calc Estimated GFR POC Glucose 76 103 Random Glucose Lactic Acid F/U @ 2Hr Lactic Acid F/U @ 4Hr Calcium Phosphorus Magnesium Influenza Type A (PCR) Influenza Type B (PCR) RSV RNA Qual (PCR) SARS-CoV-2 RNA (RT-PCR) Blood Type Antibody Screen Procedures Date of Service Date of Service: 01/03/24 Assessment & Plan Assessment and plan (1) Hypertension: Status: Acute (2) End stage renal disease on dialysis: Status: Acute (3) Anemia in chronic kidney disease (CKD): Status: Acute Plan Hamzah had hyperkalemia and hypervolemia needing emergent dialysis yesterday Has a functioning dialysis access; Counseled about compliance with dialysis treatment Low-sodium, low-potassium diet with a fluid and phosphorus restrict Phosphorus binders with meals; If he continues to be hyperkalemic he will need fistulogram Shall optimize his volume status on hemodialysis; Procrit 10992 Units today ( ordered) HD tomorrow ( ordered); Shall continue to closely follow-up Progress Note: Quality Stroke Does the patient have a stroke diagnosis?: No
--- NOTE | 2024-01-03 15:13 | HO.WOUND ---
Wound Consult: Initial 68yr old Male? admitted to [facility] on 01/02/24 13:49 - See progress notes and H&P for detailed history.? Wound consult placed for Left Foot and Leg.? Left Lower Leg Upper lateral area Etiology: ??Excoriation / Abrasions Wound Bed: various sizes and various stages of healing - many are dry stable scabs the upper lateral area has some dry moist slough noted Drainage / Odor: dried Edges: ?irregular [place] wound: ?dry scabs noted No Induration, Fluctuance or Warmth noted Goals of Treatment: ? Foam dressing to allow for moist wound healing Left Lateral Foot Etiology: ??Diabetic Wound Measurements: 1cm x 1cm x 0.1cm Wound Bed: thick adherent yellow slough Drainage / Odor: Erazo drainage no odor noted Edges: ? well defined [place] wound: ? hyperpigmentation noted - dry desquamation noted - scar tissue noted - No Induration, Fluctuance or Warmth noted Goals of Treatment: Triad to aid in autolytic debridement and foam dressing ? Recommendations: 1. Turn and Reposition every 2 hours and as needed for patient comfort.? Use pillows or wedges to support off loading positions. 2. Off Load all bony prominences with use of pillows and heel boots if needed.? Apply Preventative foams where needed. ? 3. Monitor for incontinence and moisture control, use barrier creams when needed for prevention and treatment. 4. Provide adequate and supplemental nutrition.? 5. Continue low air loss mattress. 6. When applicable maintain blood glucose levels per Providers order. 7. Left Lower Leg - Cleanse with NS moist gauze, pat dry. Cover with Foam dressing. Change every 3 days. 8. Left Lateral Foot - [place]man dry eschar with betadine allow to dry. Apply Triad to moist wound bed to allow for autolytic debridement. Cover with foam dressing and change every 3 days. Re-consult wound care Nurse for wound deterioration or wound changes.
[2024-01-03 16:15] LABS: Glucose, Whole Blood 102 mg/dL (60-115)
[2024-01-03 20:47] LABS: Glucose, Whole Blood 118 mg/dL (60-115)
[2024-01-03] MEDS: Acetaminophen 325 MG TABLET 975 MG PO (22:40)
[2024-01-04 03:31] VITALS: BP 180/79; PULSE 63; RESP 18; TEMP 36.9; O2SAT 95
[2024-01-04 05:42] VITALS: BMI 29.7
[2024-01-04 08:36] LABS: MANUAL DIFF FLAG NO
[2024-01-04 08:42] LABS: Basophils Percent Auto 0.6 % (0-2); Eosinophils Absolute Auto 0.2 X10*3/uL (0.0-0.4); Eosinophils Percent Auto 3.7 % (0-4); Hematocrit 24.2 % (42.0-52.0); Hemoglobin 8.1 g/dl (14.0-18.0); Imm Gran Abs Auto 0.02 X10*3/uL (0.00-0.03); Imm Gran Pct Auto 0.4 % (0.0-0.4); Lymphocytes Absolute Auto 0.5 X10*3/uL (1.2-4.9); Lymphocytes Percent Auto 10.2 % (20-40); Mean Corpuscular HGB Conc 33.5 g/dl (31.0-36.0); Mean Corpuscular Hemoglobin 30.7 pg (27.0-33.0); Mean Corpuscular Volume 91.7 fL (80.0-98.0); Mean Platelet Volume 9.1 fL (9.4-12.4); Monocytes Absolute Auto 0.3 X10*3/uL (0.1-1.2); Monocytes Percent Auto 6.6 % (2-11); Neutrophils Absolute Auto 4.1 x10*3/uL (2.0-8.3); Neutrophils Percent Auto 78.5 % (45-73); Platelet Count 193 X10*3/uL (160-400); Red Blood Count 2.64 X10*6/uL (4.60-5.80); Red Cell Distribution Width 14.1 % (11.0-16.0); White Blood Count 5.2 X10*3/uL (4.8-10.8)
[2024-01-04 08:55] LABS: Anion Gap 15 (12-20); Blood Urea Nitrogen 14 mg/dL (9-16); Calcium 9.6 mg/dL (8.4-10.2); Carbon Dioxide 29 mmol/L (22-29); Chloride 96 mmol/L (96-108); Creatinine Clr Calc Pharmacy 24.1; Estimated Glomerular Filt Rate 19; Glucose Random 88 mg/dL (60-115); Magnesium 2.1 mg/dL (1.6-2.6); Phosphorus 1.7 mg/dL (2.7-4.5); Sodium 137 mmol/L (135-145)
--- NOTE | 2024-01-04 09:18 | PM.PNNEP ---
Subjective Subjective Date of Service: 01/04/24 Interval history: no significant overnight events; interval improvement of hyperkalemia s/p hemodialysis; Seen on HD this AM. All recent data reviewed; D/W HD RN Physical Exam Vital Signs: Vital Signs: Last Vital Signs Temp 98.4 F 01/04/24 03:31 Pulse 63 01/04/24 03:31 Resp 18 01/04/24 03:31 BP 180/79 H 01/04/24 03:31 Pulse Ox 95 01/04/24 03:31 O2 Del Method Nasal Cannula 01/04/24 03:31 O2 Flow Rate 2 01/04/24 03:31 Oxygen Flow Rate 11 01/02/24 11:08 BMI result Body Mass Index 29.7 Const: General: comfortable and no acute distress Orientation/consciousness: patient oriented x3 HEENT: Head: Yes normocephalic Mouth: Normal oral and palatal mucosa present Eyes: EOM: EOMs intact bilaterally Neck: Neck: Yes supple Resp: Auscultation: clear to auscultation bilaterally Cardio: Jugular venous distension: no JVD Rate: regular rate Heart sounds: Murmur heart sound present GI: Palpation (GI): Soft to palpation Auscultation: normal bowel sounds : General: Yes no CVA tenderness Back/Spine/Pelvis: Back: no CVA tenderness Skin: General skin exam: no rashes or lesions noted Neuro: General: patient oriented x3 and moves all extremities Extrem: Other: R BKA Objective Data Labs 01/04/24 08:30 01/04/24 08:30 Labs: Laboratory Results - last 24 hr 01/03/24 01/03/24 01/03/24 11:16 16:12 20:44 WBC RBC Hgb Hct MCV MCH MCHC RDW Plt Count MPV Immature Gran % (Auto) Neut % (Auto) Lymph % (Auto) [place] % (Auto) Eos % (Auto) Baso % (Auto) Lymph # (Auto) [place] # (Auto) Eos # (Auto) Baso # (Auto) Abs Immat Gran (auto) Absolute Neuts (auto) Absolute Nucleated RBC Nucleated RBC % (auto) Sodium Potassium Chloride Carbon Dioxide Anion Gap BUN Creatinine Estim Creat Clear Calc Estimated GFR POC Glucose 103 102 118 H Random Glucose Calcium Phosphorus Magnesium 01/04/24 08:30 WBC 5.2 RBC 2.64 L Hgb 8.1 L Hct 24.2 L MCV 91.7 MCH 30.7 MCHC 33.5 RDW 14.1 Plt Count 193 MPV 9.1 L Immature Gran % (Auto) 0.4 Neut % (Auto) 78.5 H Lymph % (Auto) 10.2 L [place] % (Auto) 6.6 Eos % (Auto) 3.7 Baso % (Auto) 0.6 Lymph # (Auto) 0.5 L [place] # (Auto) 0.3 Eos # (Auto) 0.2 Baso # (Auto) 0.0 Abs Immat Gran (auto) 0.02 Absolute Neuts (auto) 4.1 Absolute Nucleated RBC 0.000 Nucleated RBC % (auto) 0.0 Sodium 137 Potassium 3.0 L D Chloride 96 Carbon Dioxide 29 Anion Gap 15 BUN 14 Creatinine 3.26 H Estim Creat Clear Calc 24.1 Estimated GFR 19 POC Glucose Random Glucose 88 Calcium 9.6 Phosphorus 1.7 L Magnesium 2.1 Microbiology Microbiology Results: Microbiology 01/02/24 12:03 Blood - Venous Blood Culture - Preliminary No growth after 24 hours. 01/02/24 12:03 Blood - Venous Blood Culture - Preliminary No growth after 24 hours. Procedures Date of Service Date of Service: 01/04/24 Assessment & Plan Assessment and plan (1) End stage renal disease on dialysis: Status: Acute (2) Anemia in chronic kidney disease (CKD): Status: Acute (3) Hypertension: Status: Acute Plan Hamzah had hyperkalemia and hypervolemia needing emergent dialysis; Seen on HD this AM Has a functioning dialysis access; Counseled about compliance with dialysis treatment Low-sodium, low-potassium diet with a fluid and phosphorus restrict Phosphorus binders with meals;Procrit 31653 Units given yesterday Progress Note: Quality Stroke Does the patient have a stroke diagnosis?: No
--- NOTE | 2024-01-04 11:27 | MHC.CM.PN ---
Addendum entered by Bhumika Spencer 01/04/24 12:25: The [facility] transport auth # is [id number]. Original Note: Per MD, Patient is medically cleared for dc to return to LTC today. Patient will return to LTC @ [facility] today at 2PM, via [facility]. IMM last addressed yesterday. TD spoke with /HCP/Cony @ [phone] and informed her of the dc plan.
[2024-01-04 11:34] LABS: Glucose, Whole Blood 74 mg/dL (60-115)
[2024-01-04 11:44] VITALS: BP 160/108; PULSE 69; O2SAT 97
--- NOTE | 2024-01-04 11:48 | PM.DS ---
DS: Providers Provider Date of Service: 01/04/24 Date of admission: 01/02/24 13:49 Date of discharge: 01/04/24 Primary care physician: Va Kurtz MD Consults: 01/03/24 07:47 Consult to Wound Care Routine Reason for consultation: left foot wound DS: Diagnosis Discharge Diagnosis (1) End stage renal disease on dialysis: Status: Acute (2) Anemia in chronic kidney disease (CKD): Status: Acute (3) Hypertension: Status: Acute DS: Summary Hospital Course Hospital Course: 68-year-old male with coronary artery disease, diastolic congestive heart failure, end-stage renal disease on dialysis, diabetes mellitus, hypertension, peripheral vascular disease, right [id number] amputation presented to the emergency department for evaluation of back pain and shortness of breath. EMS reported that the patient is a dialysis patient but he has been refusing dialysis. The patient denies this and states that he was last dialyzed on 12/28/2023. The patient was found to be hypoxic with an O2 saturation of 80% on room air. Patient was transported on a non-rebreather mask. Here in the emergency department the patient was changed over to an OxyMask on 11 liters/minute. The patient states that he was feeling fatigued but otherwise has no complaints. He denied fever, chills, cough, chest pain, shortness of breath, nausea, vomiting or diarrhea. Further workup showed him to have hyperkalemia and bradycardia. Seen in consultation in the ER by nephro who recommended urgent dialysis. Given his hyperkalemia and degree of hyperkalemia he was transferred to the unit for urgent dialysis. He remained in unit overnight without acute issues. The next morning was transferred to the telemetry unit where monitor failed to demonstrate any acute changes. On the day of discharge he was seen by Nephrology and was deemed medically acceptable for transfer back to long-term care. He will resume his outpatient dialysis spot and is encouraged to be compliant Time Attestation Discharge Coordination Time (in mins): 35 Quality: Safe Use of Opioids Does Pt have an Active Cancer Diagnosis on the Problem List?: No Quality: Stroke Does the patient have a stroke diagnosis?: No Physical Exam Vital Signs: Vital Signs: Last Vital Signs Temp 98.4 F 01/04/24 03:31 Pulse 69 01/04/24 11:44 Resp 18 01/04/24 03:31 BP 160/108 H 01/04/24 11:44 Pulse Ox 97 01/04/24 11:44 O2 Del Method Nasal Cannula 01/04/24 11:44 O2 Flow Rate 2 01/04/24 11:44 Oxygen Flow Rate 11 01/02/24 11:08 BMI result Body Mass Index 29.7 Const: Other: Awake alert no acute distress Resp: Other: Clear to auscultation bilaterally no rales rhonchi or wheezes Cardio: Other: No S4; positive S1-S2; no S3 murmurs rubs or gallops GI: Other: Soft nontender nondistended normoactive bowel sounds Extrem: Other: No edema DS: Data Data Completed and Pending Labs on day of discharge: Laboratory Results - last 24 hr 01/03/24 01/03/24 01/04/24 16:12 20:44 08:30 WBC 5.2 RBC 2.64 L Hgb 8.1 L Hct 24.2 L MCV 91.7 MCH 30.7 MCHC 33.5 RDW 14.1 Plt Count 193 MPV 9.1 L Immature Gran % (Auto) 0.4 Neut % (Auto) 78.5 H Lymph % (Auto) 10.2 L [place] % (Auto) 6.6 Eos % (Auto) 3.7 Baso % (Auto) 0.6 Lymph # (Auto) 0.5 L [place] # (Auto) 0.3 Eos # (Auto) 0.2 Baso # (Auto) 0.0 Abs Immat Gran (auto) 0.02 Absolute Neuts (auto) 4.1 Absolute Nucleated RBC 0.000 Nucleated RBC % (auto) 0.0 Sodium 137 Potassium 3.0 L D Chloride 96 Carbon Dioxide 29 Anion Gap 15 BUN 14 Creatinine 3.26 H Estim Creat Clear Calc 24.1 Estimated GFR 19 POC Glucose 102 118 H Random Glucose 88 Calcium 9.6 Phosphorus 1.7 L Magnesium 2.1 01/04/24 11:26 WBC RBC Hgb Hct MCV MCH MCHC RDW Plt Count MPV Immature Gran % (Auto) Neut % (Auto) Lymph % (Auto) [place] % (Auto) Eos % (Auto) Baso % (Auto) Lymph # (Auto) [place] # (Auto) Eos # (Auto) Baso # (Auto) Abs Immat Gran (auto) Absolute Neuts (auto) Absolute Nucleated RBC Nucleated RBC % (auto) Sodium Potassium Chloride Carbon Dioxide Anion Gap BUN Creatinine Estim Creat Clear Calc Estimated GFR POC Glucose 74 Random Glucose Calcium Phosphorus Magnesium Preliminary micro results at discharge 01/02/24 12:03 Blood Culture - Preliminary Blood - Venous No growth after 24 hours. 01/02/24 12:03 Blood Culture - Preliminary Blood - Venous No growth after 24 hours. Discharge Plan Discharge Anticipated Discharge Date/Time: 01/04/24 11:48 Patient Disposition: [facility] Discharge Diagnosis: Acute hyperkalemia Referrals: [facility] [Outside] - 1 Week Va Kurtz MD [Primary Care Provider] - 1 Week Discharge Medications: Continued atorvastatin 80 mg tablet 80 mg PO DAILY acetaminophen 325 mg Tablet 650 mg PO Q6H PRN (Reason: Fever/Pain) trazodone 50 mg Tablet 50 mg PO BEDTIME isosorbide mononitrate 20 mg Tablet 40 mg PO DAILY Rx Instructions: give doses 7 hrs apart sevelamer HCl 800 mg Tablet 1,600 mg PO TID Rx Instructions: must administer with a meal/food clonazepam 0.5 mg tablet 1 mg PO BID amlodipine 5 mg tablet 5 mg PO DAILY aspirin 81 mg tablet,delayed release (DR/EC) 81 mg PO DAILY citalopram 20 mg tablet 20 mg PO DAILY bisacodyl 10 mg Suppository 10 mg SD DAILY PRN (Reason: No BM in 8 Hrs after MoM) Fleet Enema 19-7 gram/118 mL Enema 118 ml SD DAILY PRN (Reason: No BM in 8 Hrs after Bisacodyl ) omeprazole 20 mg Capsule,Delayed Release(Dr/Ec) 20 mg PO DAILY ibuprofen 600 mg Tablet 600 mg PO Q6H PRN (Reason: Pain) polyethylene glycol 3350 17 gram/dose Powder 17 g PO Q24H PRN (Reason: Constipation) ondansetron 4 mg Tablet,Disintegrating 4 mg PO Q8H PRN (Reason: Nausea/Vomiting) simethicone 80 mg Tablet,Chewable 80 mg PO BEDTIME Lokelma 10 gram Powder In Packet 10 g PO SUTUTHSA Senna Plus 8.6-50 mg Capsule 1 tab-cap PO Q24H PRN (Reason: Constipation) glipizide 2.5 mg Tablet 2.5 mg PO DAILY Discharge Orders: Discharge Order (Routine); Ordered 01/04/24 Ordered By: Ruben Pendleton Diet: Advance to usual diet Activity on Discharge: As tolerated Stand Alone Forms: Patient Portal Discharge page Print Language: Swedish Care Plan Goals: Patient is encouraged to keep his hemodialysis appointments; may resume his regular schedule Health Concerns: Continue all medicines as taken prior to hospitalization Plan of Treatment: Resume plan of care as outlined by receiving facility Assessment: See discharge summary
[2024-01-04] MEDS: Acetaminophen 325 MG TABLET 975 MG PO (13:12)
== END 2024-01-04 14:25 | DRG 640 ==
LOC: HO.ED 13:51 → HO.EDOVER 13:54 → HO.ICU 14:15 → HO.IMC 01-03 15:04
PROVIDERS: Admitting Provider Internal Medicine Critical Care Medicine; Emergency Provider Emergency Medicine Emergency Medical Services; PCP Internal Medicine; Visit Provider Hospitalist
DX: E87.70 Fluid overload, unspecified (principal); J96.01 Acute respiratory failure with hypoxia; N18.6 End stage renal disease; I50.32 Chronic diastolic (congestive) heart failure; I13.2 Hypertensive heart and chronic kidney disease with heart failure and with stage 5 chronic kidney disease, or end stage renal disease; E87.5 Hyperkalemia; E11.51 Type 2 diabetes mellitus with diabetic peripheral angiopathy without gangrene; Z89.511 Acquired absence of right leg below knee; I25.10 Atherosclerotic heart disease of native coronary artery without angina pectoris; D63.1 Anemia in chronic kidney disease; E88.810 Metabolic syndrome; Z99.2 Dependence on renal dialysis; Z20.822 Contact with and (suspected) exposure to COVID-19; Z91.158 Patient's noncompliance with renal dialysis for other reason; E11.22 Type 2 diabetes mellitus with diabetic chronic kidney disease; Z79.82 Long term (current) use of aspirin; Z79.899 Other long term (current) drug therapy
CPT/HCPCS: 0241U; 36415; 71045; 80048; 80053; 82803; 82947; 83605; 83690; 83735; 83880; 84100; 84484; 85025; 85730; 86850; 86900; 86901; 87040; 90999; 93005; 94640; 99285; J0613; J0885; J1940

== ENCOUNTER → 2024-01-02 11:31 | Outpatient (BNV) | payer OTHER, SELFPAY | PROVIDERS: Admitting Provider Internal Medicine Critical Care Medicine; Emergency Provider Emergency Medicine Emergency Medical Services; PCP Internal Medicine; Visit Provider Internal Medicine | DX: R00.1 Bradycardia, unspecified (principal) | CPT/HCPCS: 93010 ==

== ENCOUNTER → 2024-01-02 13:49 | Outpatient (BNV) | payer OTHER, SELFPAY | PROVIDERS: Admitting Provider Internal Medicine Critical Care Medicine; Emergency Provider Emergency Medicine Emergency Medical Services; PCP Internal Medicine; Visit Provider Internal Medicine Critical Care Medicine | DX: E87.5 Hyperkalemia (principal); N18.6 End stage renal disease; Z99.2 Dependence on renal dialysis; Z91.158 Patient's noncompliance with renal dialysis for other reason; E11.9 Type 2 diabetes mellitus without complications; I12.0 Hypertensive chronic kidney disease with stage 5 chronic kidney disease or end stage renal disease | CPT/HCPCS: 99233; 99291 ==

== ENCOUNTER → 2024-01-02 13:49 | Outpatient (BNV) | payer OTHER, SELFPAY | PROVIDERS: Admitting Provider Internal Medicine Critical Care Medicine; Emergency Provider Emergency Medicine Emergency Medical Services; PCP Internal Medicine; Visit Provider Internal Medicine Nephrology | DX: I12.9 Hypertensive chronic kidney disease with stage 1 through stage 4 chronic kidney disease, or unspecified chronic kidney disease (principal); N18.6 End stage renal disease; Z99.2 Dependence on renal dialysis; D63.1 Anemia in chronic kidney disease | CPT/HCPCS: 90935; 99232 ==

== ENCOUNTER → 2024-01-02 13:49 | Outpatient (BNV) | payer OTHER, SELFPAY | PROVIDERS: Admitting Provider Internal Medicine Critical Care Medicine; Emergency Provider Emergency Medicine Emergency Medical Services; PCP Internal Medicine; Visit Provider Hospitalist | DX: I12.0 Hypertensive chronic kidney disease with stage 5 chronic kidney disease or end stage renal disease (principal); N18.6 End stage renal disease; Z99.2 Dependence on renal dialysis; D63.1 Anemia in chronic kidney disease | CPT/HCPCS: 99239 ==

== ENCOUNTER 2024-01-15 14:04 | Emergency (ER) | payer OTHER, SELFPAY ==
[2024-01-15] VITALS (15 sets, daily range): BP systolic 115–218; BP diastolic 51–92; PULSE 62–67; RESP 13–20; TEMP 36.5–37.1; O2SAT 91–100; BMI 25.1
--- NOTE | ~2024-01-15 | XR_ITS ---
EXAMINATION: XR CHEST CLINICAL INFORMATION: Dyspnea. Recent coated. COMPARISON: January 02, 2024. TECHNIQUE: Portable AP view of the chest was obtained. FINDINGS: The study is limited by portable technique and suboptimal inspiration. There may be patchy, predominantly peripheral, bilateral groundglass lung parenchymal densities. Difference diagnosis includes, but is not limited to, viral pneumonia. The findings appear improved compared with January 02, 2024. No consolidation, effusion, or pneumothorax is seen. The cardiac silhouette is suboptimally evaluated, probably within normal limits. The aorta may be mildly atherosclerotic. The mediastinum and diaphragm appear unremarkable. Mild degenerative changes of the spine. Metallic vascular stent projects over the left subclavian region. XR/XR chest 1V IMPRESSION: Findings as above. Electronically signed by: Bogdan Castano MD 01/15/2024 04:55 PM EDT
[2024-01-15] MEDS: Oxymetazoline HCl 0.05 % Nasal 15 ML SPRAY 2 SPRAY NOSTRIL-B (15:30)
--- NOTE | 2024-01-15 15:46 | PC.NURSE ---
rec call from day shift nurse at [facility] checking status of pt- advised pt is still rec tx for nosebleed, unknown disposition at this time.
--- NOTE | 2024-01-15 15:48 | PC.NURSE ---
awaiting silver nitrate from pharmacy
--- NOTE | 2024-01-15 16:21 | ED_ITS ---
History of Present Illness General Chief Complaint: Epistaxis Stated Complaint: nose bleed Time Seen by Provider: 01/15/24 14:11 Source: patient, EMS and old records reviewed Mode of arrival: EMS Limitations: other (very poor historian) History of Present Illness HPI Narrative: 68 yo male with PMH of ESRD on HD, CHF, DM, HTN, PVD, R BKA, HLD, is currently at [facility] he is not a good historian and is adversarial when I ask him questions. I gather he has had a nose bleed since last night. He denies trauma. He is not on blood thinners. He states it was out of the R nares but it is clearly out of the L. He has blood out of the mouth as well. He reportedly is on day 6 of COVID. He told the RN he felt woozy but when I asked him he tells me nothing - he states he is fine. He comes in with gauze stuffed up his nose Location: Yes left naris Onset/current episode: Yes day(s) (1) Duration: Yes intermittent Pertinent past history: Yes hypertension Associated symptoms: Yes weakness and Yes other (states he is dizzy) Treatment prior to arrival: Yes stuff nose with tissue Related Data Home Medications ?Medication ?Instructions ?Recorded ?Confirmed acetaminophen 325 mg tablet 650 mg PO Q6H PRN Fever/Pain 01/02/24 01/02/24 amlodipine 5 mg tablet 5 mg PO DAILY 01/02/24 01/02/24 aspirin 81 mg tablet,delayed 81 mg PO DAILY 01/02/24 01/02/24 release atorvastatin 80 mg tablet 80 mg PO DAILY 01/02/24 01/02/24 bisacodyl 10 mg rectal suppository 10 mg NJ DAILY PRN No BM in 8 Hrs 01/02/24 01/02/24 after MoM citalopram 20 mg tablet 20 mg PO DAILY 01/02/24 01/02/24 clonazepam 0.5 mg tablet 1 mg PO BID anxiety 01/02/24 01/02/24 glipizide 2.5 mg tablet 2.5 mg PO DAILY 01/02/24 01/02/24 ibuprofen 600 mg tablet 600 mg PO Q6H PRN Pain 01/02/24 01/02/24 isosorbide mononitrate 20 mg tablet 40 mg PO DAILY 01/02/24 01/02/24 omeprazole 20 mg capsule,delayed 20 mg PO DAILY 01/02/24 01/02/24 release ondansetron 4 mg disintegrating 4 mg PO Q8H PRN Nausea/Vomiting 01/02/24 01/02/24 tablet polyethylene glycol 3350 17 17 g PO Q24H PRN Constipation 01/02/24 01/02/24 gram/dose oral powder sennosides 8.6 mg-docusate sodium 1 tab-cap PO Q24H PRN Constipation 01/02/24 01/02/24 50 mg capsule (Senna Plus) sevelamer HCl 800 mg tablet 1,600 mg PO TID 01/02/24 01/02/24 simethicone 80 mg chewable tablet 80 mg PO BEDTIME 01/02/24 01/02/24 sodium phosphates 19 gram-7 118 ml NJ DAILY PRN No BM in 8 Hrs 01/02/24 01/02/24 gram/118 mL enema (Fleet Enema) after Bisacodyl sodium zirconium cyclosilicate 10 10 g PO SUTUTHSA 01/02/24 01/02/24 gram oral powder packet (Lokelma) trazodone 50 mg tablet 50 mg PO BEDTIME 01/02/24 01/02/24 Allergies Allergy/AdvReac Type Severity Reaction Status Date / Time garlic Allergy Severe Hives Verified 01/15/24 14:33 onion Allergy Severe Hives Verified 01/15/24 14:33 Peppers, Green Allergy Severe Hives Verified 01/15/24 14:33 Review of Systems Review of Systems: ROS unable to be obtained due to poor historian not answering questions [facility] Past Medical History Source: old records reviewed Medical History Anemia in chronic kidney disease (CKD) Diabetes mellitus Hypertension Dialysis patient, noncompliant End stage renal disease on dialysis Bradycardia Below-knee amputation of right lower extremity Hyperlipidemia Hypertension Peripheral vascular disease Chronic kidney disease on chronic dialysis Diabetes Social History Social History Household Members: Other Household Members Other:: [facility] Do you presently have visiting nurse or other home services: No Patient Tobacco Use Status: Never used Tobacco Advance Directives: No Advance Directives Information Provided: Yes service: No Physical Exam Vital Signs: Vital Signs: Last Vital Signs Temp 97.8 F 01/15/24 14:29 Pulse 63 01/15/24 14:29 Resp 20 01/15/24 14:29 BP 161/51 H 01/15/24 14:29 Pulse Ox 91 L 01/15/24 14:29 O2 Del Method Room Air 01/15/24 14:29 BMI result Body Mass Index 25.1 Appearance: Alert. Oriented X person and place. Mild acute distress. Not answering questions looks unwell agitated Eyes: Pupils equal, round and reactive to light. ENT: Pharynx dried blood in back of tongue and on anterior tongue, coughed up clot x 1, L nares steady non brisk bleeding noted though after afrin it decreased source of ooze seems near turbinates Neck: Normal inspection. Neck supple. CVS: Normal heart rate and rhythm. Pulses normal. Respiratory: Mild respiratory distress - poor effort. Breath sounds diminished Abdomen: Soft and nontender. Skin: Skin warm and dry. pale skin color. chronic ulcerations on anterior leg Extremities: decreased pulses, 1+ ankle edema, R BKA Neuro: Oriented X 2. No motor deficit. No sensory deficit. Medications Administered Discontinued Medications Generic Name Dose Route Start Last Admin Trade Name Freq PRN Reason Stop Dose Admin Oxymetazoline HCl 2 spray 01/15/24 14:37 01/15/24 15:30 Oxymetazoline Hcl 0.05 % Nasal 15 Ml [place] NOSTRIL-B 01/15/24 14:38 2 spray ONCE ONE Administration Medical Decision Making Medical Decision Making MDM Narrative: 68 yo male with PMH of ESRD on HD, CHF, DM, HTN, PVD, R BKA, HLD here with epistaxis L nare but also agitated and RN was told he doesn't like to wear O2 at [facility] at this time he is not responding to topical medications and nasal tongs cannot cauterize anterior site will apply packing. As for his dizziness and his possible encephalopathy I am going to order CXR, EKG, labs possible anemia, metabolic, toxic encephalopathy. He is currently on 4L oxymask sats 92%. He will be signed out to Dr. Chand will need antibiotics prior to discharge or admission. Differential Diagnosis Differential Diagnoses: The differential diagnosis associated with the presentation includes anemia, lyte abnormality, metabolic or toxic encephalopathy Admission/Observation Consideration of admission/observation: Escalation of care including admission/observation considered Independent Interpretation I performed an independent interpretation of an: Plain X-Ray Independent Historian Clinical information obtained from an independent historian. History obtained from or confirmed by: EMS External Record Review External record reviewed: Inpatient record Procedures Epistaxis Control Time Out Performed: Yes Nostril: Yes left Nose prepped with: Yes oxymetazoline Direct inspection: Yes unable to visualize Direct inspection method: Yes nasal speculum Clots removed by: Yes suction and Yes manually Epistaxis treatment: Yes inflatable pack Results of treatment: Yes bleeding controlled Complications: Yes none Discharge Plan Discharge Clinical Impression: Epistaxis Patient Disposition: Still a Patient Prescriptions: No Action atorvastatin 80 mg tablet 80 mg PO DAILY acetaminophen 325 mg Tablet 650 mg PO Q6H PRN (Reason: Fever/Pain) trazodone 50 mg Tablet 50 mg PO BEDTIME isosorbide mononitrate 20 mg Tablet 40 mg PO DAILY Rx Instructions: give doses 7 hrs apart sevelamer HCl 800 mg Tablet 1,600 mg PO TID Rx Instructions: must administer with a meal/food clonazepam 0.5 mg tablet 1 mg PO BID amlodipine 5 mg tablet 5 mg PO DAILY aspirin 81 mg tablet,delayed release (DR/EC) 81 mg PO DAILY citalopram 20 mg tablet 20 mg PO DAILY bisacodyl 10 mg Suppository 10 mg NJ DAILY PRN (Reason: No BM in 8 Hrs after MoM) Fleet Enema 19-7 gram/118 mL Enema 118 ml NJ DAILY PRN (Reason: No BM in 8 Hrs after Bisacodyl ) omeprazole 20 mg Capsule,Delayed Release(Dr/Ec) 20 mg PO DAILY ibuprofen 600 mg Tablet 600 mg PO Q6H PRN (Reason: Pain) polyethylene glycol 3350 17 gram/dose Powder 17 g PO Q24H PRN (Reason: Constipation) ondansetron 4 mg Tablet,Disintegrating 4 mg PO Q8H PRN (Reason: Nausea/Vomiting) simethicone 80 mg Tablet,Chewable 80 mg PO BEDTIME Lokelma 10 gram Powder In Packet 10 g PO SUTUTHSA Senna Plus 8.6-50 mg Capsule 1 tab-cap PO Q24H PRN (Reason: Constipation) glipizide 2.5 mg Tablet 2.5 mg PO DAILY Print Language: [place]
--- NOTE | 2024-01-15 16:35 | ECG_ITS ---
Test Reason : dyspnea Blood Pressure : / mmHG Vent. Rate : 062 BPM Atrial Rate : 062 BPM P-R Int : 258 ms QRS Dur : 106 ms QT Int : 476 ms P-R-T Axes : 036 -35 -03 degrees QTc Int : 483 ms Sinus rhythm with 1st degree A-V block Left axis deviation Minimal voltage criteria for LVH, may be normal variant ( [place] product ) Prolonged QT Abnormal ECG When compared with ECG of 02-JAN-2024 11:33, Sinus rhythm has replaced Junctional rhythm Vent. rate has increased BY 24 BPM T wave inversion no longer evident in Anterior leads Referred By: Flower Patel Electronically Signed By:JOSE MURRAY
[2024-01-15 17:04] LABS: Hematocrit 24.8 % (42.0-52.0); Hemoglobin 8.2 g/dl (14.0-18.0); Mean Corpuscular HGB Conc 33.1 g/dl (31.0-36.0); Mean Corpuscular Hemoglobin 30.8 pg (27.0-33.0); Mean Corpuscular Volume 93.2 fL (80.0-98.0); Mean Platelet Volume 9.7 fL (9.4-12.4); Platelet Count 203 X10*3/uL (160-400); Red Blood Count 2.66 X10*6/uL (4.60-5.80); Red Cell Distribution Width 13.8 % (11.0-16.0); White Blood Count 3.9 X10*3/uL (4.8-10.8)
[2024-01-15 17:09] LABS: Venous Blood Gas Refer to POC result
[2024-01-15 17:09] LABS: VBG Base Excess 3.3 mmol/L; VBG HCO3 25 mmol/L (22-26); VBG pCO2 30 mmHg; VBG pH 7.52 (7.32-7.43); VBG pO2 211 mmHg
[2024-01-15 17:12] LABS: Prothrombin Time 11.8 SEC (11.1-13.3)
--- NOTE | 2024-01-15 17:27 | PC.NURSE ---
t/w notified of pt B/P 197/64 via [facility] no new orders at this time
[2024-01-15 17:42] LABS: B Type Natriuretic Peptide 962 pg/mL (<100)
[2024-01-15 17:50] LABS: Troponin-I High Sensitivity 64.1 ng/L (<3.5-35.0)
[2024-01-15 17:59] LABS: Anion Gap 17 (12-20); Blood Urea Nitrogen 32 mg/dL (9-16); Calcium 8.5 mg/dL (8.4-10.2); Carbon Dioxide 25 mmol/L (22-29); Chloride 95 mmol/L (96-108); Creatinine Clr Calc Pharmacy 10.2; Estimated Glomerular Filt Rate 8; Glucose Random 125 mg/dL (60-115); Potassium 4.5 mmol/L (3.3-5.1); Sodium 132 mmol/L (135-145)
--- NOTE | 2024-01-15 17:59 | PC.NURSE ---
critical creatinine rec 6.85- MD notified via [facility] connect no new orders at this time
--- NOTE | 2024-01-15 19:23 | PC.NURSE ---
rhino rocket in place in left nare, no active bleeding at this time, pending provider re-eval
--- NOTE | 2024-01-15 19:58 | PC.NURSE ---
spoke with BRYON Chan on at [facility]- confirmed last medication admin times- pt medicated up to 1400, med rec completed
[2024-01-15] MEDS: cephALEXin 500 MG CAPSULE PO (21:02)
--- NOTE | 2024-01-15 22:25 | PC.NURSE ---
pt medicated per JUL w/ cephalexin- rhino rocket in place in left nare, no active bleeding. Plan is for pt to return to [facility] rehab.
--- NOTE | 2024-01-15 22:32 | PC.NURSE ---
report given to [facility], BRYON Chan
== END 2024-01-15 23:13 ==
PROVIDERS: Emergency Medicine; Emergency Provider Emergency Medicine Emergency Medical Services; PCP Internal Medicine
DX: R04.0 Epistaxis (principal); R94.31 Abnormal electrocardiogram [ECG] [EKG]; I44.0 Atrioventricular block, first degree; I10 Essential (primary) hypertension; R06.02 Shortness of breath; D52.9 Folate deficiency anemia, unspecified; Z79.899 Other long term (current) drug therapy
CPT/HCPCS: 30901; 36415; 71045; 80048; 82803; 83880; 84484; 85027; 85610; 86850; 86900; 86901; 93005; 99284

== ENCOUNTER → 2024-01-17 18:06 | Outpatient (BNV) | payer OTHER, SELFPAY | PROVIDERS: Emergency Provider Internal Medicine; Visit Provider Student in an Organized Health Care Education/Training Program | DX: U07.1 COVID-19 (principal); N18.6 End stage renal disease; Z99.2 Dependence on renal dialysis; Z91.158 Patient's noncompliance with renal dialysis for other reason | CPT/HCPCS: 99223; 99232; 99233; 99239 ==

== ENCOUNTER 2024-01-17 18:12 | Inpatient (IN) | payer OTHER, SELFPAY ==
--- NOTE | ~2024-01-17 | XR_ITS ---
EXAMINATION: PORTABLE CHEST 1 VIEW CLINICAL INFORMATION: chf. COMPARISON: 01/15/2024. TECHNIQUE: Portable frontal view of the chest was obtained. FINDINGS: The lungs are mildly hypoexpanded. Patchy bilateral airspace disease is seen, increased from the prior study. No dense focal infiltrate, effusion, edema, or pneumothorax. Cardiac and mediastinal silhouettes are within normal limits for technique. No acute bony abnormality seen. XR/XR chest 1V IMPRESSION: Patchy bilateral airspace disease, increased from the prior study. Asymmetric pulmonary edema/fluid overload could have this appearance atypical infectious etiology considered less likely. Electronically signed by: Rayshawn Gomez MD 01/17/2024 08:07 PM EDT RP
--- NOTE | 2024-01-17 18:22 | ED_ITS ---
HPI - General Adult General Chief complaint: Dyspnea Stated complaint: from snf, refuses to wear O2 Time Seen by Provider: 01/17/24 18:21 Source: patient and EMS Mode of arrival: EMS Limitations: no limitations History of Present Illness ED Provider: compa IZAGUIRRE narrative: 68 yo male with PMH of ESRD on HD, CHF, DM, HTN, PVD, R BKA, HLD, [facility] for epistaxis had COVID about 9 days ago comes here as he missed his dialysis and refusing to use oxygen last dialysis was over a week ago patient does not make any urine on arrival patient's blood pressure was 195/60 respiratory 21 pulse was 45 coughing frequently was saturating in 70s at shelter Related Data Home Medications ?Medication ?Instructions ?Recorded ?Confirmed acetaminophen 325 mg tablet 650 mg PO Q6H PRN Fever/Pain 01/02/24 01/17/24 amlodipine 5 mg tablet 5 mg PO DAILY 01/02/24 01/17/24 aspirin 81 mg tablet,delayed 81 mg PO DAILY 01/02/24 01/17/24 release atorvastatin 80 mg tablet 80 mg PO DAILY 01/02/24 01/17/24 bisacodyl 10 mg rectal suppository 10 mg AL DAILY PRN No BM in 8 Hrs 01/02/24 01/17/24 after MoM citalopram 20 mg tablet 20 mg PO DAILY 01/02/24 01/17/24 clonazepam 0.5 mg tablet 1 mg PO BID anxiety 01/02/24 01/17/24 glipizide 2.5 mg tablet 2.5 mg PO DAILY 01/02/24 01/17/24 ibuprofen 600 mg tablet 600 mg PO Q6H PRN Pain 01/02/24 01/17/24 isosorbide mononitrate 20 mg tablet 40 mg PO DAILY 01/02/24 01/17/24 omeprazole 20 mg capsule,delayed 20 mg PO DAILY@0630 01/02/24 01/17/24 release ondansetron 4 mg disintegrating 4 mg PO Q8H PRN Nausea/Vomiting 01/02/24 01/17/24 tablet polyethylene glycol 3350 17 17 g PO Q24H PRN Constipation 01/02/24 01/17/24 gram/dose oral powder sennosides 8.6 mg-docusate sodium 1 tab-cap PO Q24H PRN Constipation 01/02/24 01/17/24 50 mg capsule (Senna Plus) sevelamer HCl 800 mg tablet 1,600 mg PO TID 01/02/24 01/17/24 simethicone 80 mg chewable tablet 80 mg PO Q6H PRN GAS 01/02/24 01/17/24 sodium phosphates 19 gram-7 118 ml AL DAILY PRN No BM in 8 Hrs 01/02/24 01/17/24 gram/118 mL enema (Fleet Enema) after Bisacodyl sodium zirconium cyclosilicate 10 10 g PO SUTUTHSA 01/02/24 01/17/24 gram oral powder packet (Lokelma) trazodone 50 mg tablet 50 mg PO BEDTIME 01/02/24 01/17/24 guaifenesin 100 mg/5 mL oral liquid 200 mg PO Q4H PRN Cough 01/17/24 01/17/24 Previous Rx's ?Medication ?Instructions ?Recorded cephalexin 500 mg capsule 500 mg PO QID 5 days #20 caps 01/15/24 Allergies Allergy/AdvReac Type Severity Reaction Status Date / Time garlic Allergy Severe Hives Verified 01/17/24 18:30 onion Allergy Severe Hives Verified 01/17/24 18:30 Peppers, Green Allergy Severe Hives Verified 01/17/24 18:30 Review of Systems 2 Review of Systems: Yes all other systems are reviewed and are negative PMFSH Past Medical History Medical History Dialysis patient, noncompliant End stage renal disease on dialysis Anemia in chronic kidney disease (CKD) Diabetes mellitus Hypertension Bradycardia Below-knee amputation of right lower extremity Hyperlipidemia Hypertension Peripheral vascular disease Chronic kidney disease on chronic dialysis Diabetes Social History Social History Household Members: Other Household Members Other:: LTC Housing Other:: [facility] Do you presently have visiting nurse or other home services: No Patient Tobacco Use Status: Never used Tobacco Advance Directives: Yes Advance Directives on File: Yes Advance Directives Date on File: 01/17/24 Do you have a plan to hurt others: No Plan service: No Physical Exam ED Vital Signs: Vital Signs - 24 hr 01/17/24 18:23 01/17/24 18:26 01/17/24 19:12 Temperature Pulse Rate 64 45 L 64 Respiratory Rate 21 H 16 20 Blood Pressure 195/60 H 165/45 H 147/45 H Pulse Oximetry 100 100 98 Oxygen Delivery Method Non-Rebreather Mask Non-Rebreather Mask Oxymask Oxygen Flow Rate 8 3 01/17/24 20:06 01/17/24 21:03 Temperature 97.7 F Pulse Rate 63 38 L Respiratory Rate 14 18 Blood Pressure 188/50 H 155/42 H Pulse Oximetry 100 98 Oxygen Delivery Method Oxymask Oxymask Oxygen Flow Rate 3 3 BMI result Body Mass Index 32.4 Appearance: Alert. Oriented X3. No acute distress. Eyes: Pallor++ ENT: Pharynx normal. Oral Mucosa moist Neck: Normal inspection. Neck supple. CVS: Normal heart rate and rhythm. Pulses normal. Respiratory: No respiratory distress. Equal air entry bilateral, bilateral diffuse crackles with decreased air entry Abdomen: Soft and nontender. Bowel sounds are present, no mass palpable, no CVA tenderness Skin: Skin warm and dry. Normal skin color. Normal skin turgor. Extremities: No lower extremity edema. No calf tenderness right BKA Neuro: Oriented X 3. No motor deficit. No sensory deficit.No cerebellar signs , cranial nerves II-XII intact Medications Administered Generic Name Dose Route Start Last Admin Trade Name Freq PRN Reason Stop Dose Admin Heparin Sodium (Porcine) 5,000 unit 01/17/24 20:30 01/17/24 20:55 Heparin Sodium,Porcine 5,000 Unit/Ml Vial SUBCUT Not Given Q12H [facility] Insulin Human Lispro 0 unit 01/17/24 21:00 01/17/24 20:55 Insulin Lispro 100 Unit/Ml 3 Ml Vial SUBCUT Not Given QIDACHS [facility] Protocol Discontinued Medications Generic Name Dose Route Start Last Admin Trade Name Freq PRN Reason Stop Dose Admin Sodium Bicarbonate 50 meq 01/17/24 18:39 01/17/24 18:51 Sodium Bicarbonate 8.4% 50 Meq/50 Ml Syringe IVPUSH 01/17/24 18:40 50 meq ONCE ONE Administration Medical Decision Making Medical Decision Making MDM Narrative: Patient with recent COVID end-stage renal disease on dialysis missed his dialysis with fluid overload with increased shortness of breath refusing to use oxygen saturating 96% on Ventimask in the ER will admit patient plan for dialysis in a.m. chest x-ray with infiltrate from atypical viral infection/CHF Differential Diagnosis Differential Diagnoses: The differential diagnosis associated with the presentation includes Renal failure/fluid overload/atypical pneumonia Admission/Observation Consideration of admission/observation: Escalation of care including admission/observation considered Consult Healthcare Provider Management of the patient was discussed with: Hospitalist Lab Data [facility] Lab Attestation statement: I reviewed the patient's lab results. 01/17/24 18:42 01/17/24 18:41 Labs: Lab Results 01/17/24 01/17/24 01/17/24 Range/Units 18:41 18:42 18:46 WBC 4.9 (4.8-10.8) X10*3/uL RBC 2.69 L (4.60-5.80) X10*6/uL Hgb 8.2 L (14.0-18.0) g/dl Hct 23.8 L (42.0-52.0) % MCV 88.5 (80.0-98.0) fL MCH 30.5 (27.0-33.0) pg MCHC 34.5 (31.0-36.0) g/dl RDW 13.6 (11.0-16.0) % Plt Count 222 (160-400) X10*3/uL MPV 9.5 (9.4-12.4) fL Immature Gran % (Auto) 0.4 (0.0-0.4) % Neut % (Auto) 69.1 (45-73) % Lymph % (Auto) 18.5 L (20-40) % [place] % (Auto) 7.5 (2-11) % Eos % (Auto) 4.1 H (0-4) % Baso % (Auto) 0.4 (0-2) % Lymph # (Auto) 0.9 L (1.2-4.9) X10*3/uL [place] # (Auto) 0.4 (0.1-1.2) X10*3/uL Eos # (Auto) 0.2 (0.0-0.4) X10*3/uL Baso # (Auto) 0.0 (0.0-0.2) X10*3/uL Abs Immat Gran (auto) 0.02 (0.00-0.03) X10*3/uL Absolute Neuts (auto) 3.4 (2.0-8.3) x10*3/uL Absolute Nucleated RBC 0.000 (0.0-0.012) X10*3/uL Nucleated RBC % (auto) 0.0 (0.0-0.2) /100WBC PT 11.9 (11.1-13.3) SEC INR 1.0 (0.9-1.1) VBG pH 7.36 (7.32-7.43) VBG pCO2 41 mmHg VBG pO2 43 mmHg VBG HCO3 23 (22-26) mmol/L VBG O2 Saturation 61.0 % VBG Base Excess -1.5 mmol/L Sodium 127 L (135-145) mmol/L Potassium 4.9 (3.3-5.1) mmol/L Chloride 91 L (96-108) mmol/L Carbon Dioxide 20 L (22-29) mmol/L Anion Gap 21 H (12-20) BUN 63 H (9-16) mg/dL Creatinine 9.76 H* (0.5-1.4) mg/dL Estim Creat Clear Calc 8.1 Estimated GFR 5 POC Glucose (60-115) mg/dL Random Glucose 117 H (60-115) mg/dL Calcium 9.1 D (8.4-10.2) mg/dL Magnesium 2.1 (1.6-2.6) mg/dL Total Bilirubin 0.5 (0.0-1.0) mg/dL AST 9 (5-37) U/L ALT 8 (0-40) U/L Alkaline Phosphatase 163 H (39-117) U/L Troponin I High Sens 65.7 H (<3.5-35.0) ng/L Total Protein 7.3 (6.5-8.0) g/dL Albumin 3.4 L (3.5-5.0) g/dL Influenza Type A (PCR) (Negative) Influenza Type B (PCR) (Negative) RSV RNA Qual (PCR) (Negative) SARS-CoV-2 RNA (RT-PCR) (Negative) 01/17/24 01/17/24 Range/Units 20:52 21:30 WBC (4.8-10.8) X10*3/uL RBC (4.60-5.80) X10*6/uL Hgb (14.0-18.0) g/dl Hct (42.0-52.0) % MCV (80.0-98.0) fL MCH (27.0-33.0) pg MCHC (31.0-36.0) g/dl RDW (11.0-16.0) % Plt Count (160-400) X10*3/uL MPV (9.4-12.4) fL Immature Gran % (Auto) (0.0-0.4) % Neut % (Auto) (45-73) % Lymph % (Auto) (20-40) % [place] % (Auto) (2-11) % Eos % (Auto) (0-4) % Baso % (Auto) (0-2) % Lymph # (Auto) (1.2-4.9) X10*3/uL [place] # (Auto) (0.1-1.2) X10*3/uL Eos # (Auto) (0.0-0.4) X10*3/uL Baso # (Auto) (0.0-0.2) X10*3/uL Abs Immat Gran (auto) (0.00-0.03) X10*3/uL Absolute Neuts (auto) (2.0-8.3) x10*3/uL Absolute Nucleated RBC (0.0-0.012) X10*3/uL Nucleated RBC % (auto) (0.0-0.2) /100WBC PT (11.1-13.3) SEC INR (0.9-1.1) VBG pH (7.32-7.43) VBG pCO2 mmHg VBG pO2 mmHg VBG HCO3 (22-26) mmol/L VBG O2 Saturation % VBG Base Excess mmol/L Sodium (135-145) mmol/L Potassium (3.3-5.1) mmol/L Chloride (96-108) mmol/L Carbon Dioxide (22-29) mmol/L Anion Gap (12-20) BUN (9-16) mg/dL Creatinine (0.5-1.4) mg/dL Estim Creat Clear Calc Estimated GFR POC Glucose 95 (60-115) mg/dL Random Glucose (60-115) mg/dL Calcium (8.4-10.2) mg/dL Magnesium (1.6-2.6) mg/dL Total Bilirubin (0.0-1.0) mg/dL AST (5-37) U/L ALT (0-40) U/L Alkaline Phosphatase (39-117) U/L Troponin I High Sens (<3.5-35.0) ng/L Total Protein (6.5-8.0) g/dL Albumin (3.5-5.0) g/dL Influenza Type A (PCR) NEGATIVE (Negative) Influenza Type B (PCR) NEGATIVE (Negative) RSV RNA Qual (PCR) NEGATIVE (Negative) SARS-CoV-2 RNA (RT-PCR) POSITIVE A (Negative) ABG Data Attestation ABG: I personally reviewed and interpreted this ABG as follows: Interpretation: Respiratory hypoxia Independent Interpretation I performed an independent interpretation of an: EKG Interpretation: Sinus bradycardia heart rate 77 beats per minute LVH nonspecific STT wave changes no acute ST elevation Critical Care Time Critical Care Time Critical Care Time: Yes Total Critical Care Time: 60 Attestation: The patient was critically ill with a high probability of imminent or life threatening deterioration. I spent greater than ?65?minutes of discontinuous time evaluating the patient,delivering critical care at the bedside, discussing and evaluating pertinent data with consultants. Critical care time does not include time spent performing separately billable procedures or teaching. Total time spent performing critical care was 60???minutes. Discharge Plan Discharge Clinical Impression: End stage renal disease on dialysis, Congestive heart failure, COVID-19 virus infection Patient Disposition: Admitted As Inpatient
[2024-01-17 18:23] VITALS: BP 195/60; PULSE 64; RESP 21; O2SAT 100
[2024-01-17 18:26] VITALS: BP 165/45; BP 190/54; PULSE 45; PULSE 63; RESP 16; O2SAT 100; BMI 32.4
--- NOTE | 2024-01-17 18:27 | ECG_ITS ---
Test Reason : heather Blood Pressure : / mmHG Vent. Rate : 037 BPM Atrial Rate : 037 BPM P-R Int : 208 ms QRS Dur : 098 ms QT Int : 554 ms P-R-T Axes : 036 -24 -20 degrees QTc Int : 434 ms Marked sinus bradycardia Minimal voltage criteria for LVH, may be normal variant ( [place] product ) ST & T wave abnormality, consider anterior ischemia Abnormal ECG When compared with ECG of 15-JAN-2024 16:53, SD interval has decreased Vent. rate has decreased BY 25 BPM T wave inversion now evident in Anterior leads QT has shortened Referred By: Bear Dubon Electronically Signed By:JOSE MURRAY
[2024-01-17 18:47] LABS: MANUAL DIFF FLAG NO
[2024-01-17 18:49] LABS: Venous Blood Gas Refer to POC result
[2024-01-17 18:50] LABS: VBG Base Excess -1.5 mmol/L; VBG HCO3 23 mmol/L (22-26); VBG pCO2 41 mmHg; VBG pH 7.36 (7.32-7.43); VBG pO2 43 mmHg
[2024-01-17] MEDS: Sodium Bicarbonate 8.4% 50 MEQ/50 ML SYRINGE IVPUSH (18:51)
[2024-01-17 18:56] LABS: Basophils Percent Auto 0.4 % (0-2); Eosinophils Absolute Auto 0.2 X10*3/uL (0.0-0.4); Eosinophils Percent Auto 4.1 % (0-4); Hematocrit 23.8 % (42.0-52.0); Hemoglobin 8.2 g/dl (14.0-18.0); Imm Gran Abs Auto 0.02 X10*3/uL (0.00-0.03); Imm Gran Pct Auto 0.4 % (0.0-0.4); Lymphocytes Absolute Auto 0.9 X10*3/uL (1.2-4.9); Lymphocytes Percent Auto 18.5 % (20-40); Mean Corpuscular HGB Conc 34.5 g/dl (31.0-36.0); Mean Corpuscular Hemoglobin 30.5 pg (27.0-33.0); Mean Corpuscular Volume 88.5 fL (80.0-98.0); Mean Platelet Volume 9.5 fL (9.4-12.4); Monocytes Absolute Auto 0.4 X10*3/uL (0.1-1.2); Monocytes Percent Auto 7.5 % (2-11); Neutrophils Absolute Auto 3.4 x10*3/uL (2.0-8.3); Neutrophils Percent Auto 69.1 % (45-73); Platelet Count 222 X10*3/uL (160-400); Red Blood Count 2.69 X10*6/uL (4.60-5.80); Red Cell Distribution Width 13.6 % (11.0-16.0); White Blood Count 4.9 X10*3/uL (4.8-10.8)
[2024-01-17 18:59] LABS: Prothrombin Time 11.9 SEC (11.1-13.3)
[2024-01-17 19:12] VITALS: BP 147/45; PULSE 64; RESP 20; O2SAT 98
[2024-01-17 19:15] LABS: Troponin-I High Sensitivity 65.7 ng/L (<3.5-35.0)
--- NOTE | 2024-01-17 19:15 | PC.NURSE ---
assumed care of pt at 1900. RT at bedside as pt hypoxic, placed on 6L oxymask and able to titrate down to 3L. pt is now 98%. nsr on monitor at 64 bpm. pt denies cp/sob resp even and unlabored and resting comfortably. awaiting lab results. call beauchamp within reach.
[2024-01-17 19:45] LABS: Alanine Aminotransferase 8 U/L (0-40); Albumin Level 3.4 g/dL (3.5-5.0); Alkaline Phosphatase 163 U/L (39-117); Anion Gap 21 (12-20); Aspartate Amino Transferase 9 U/L (5-37); Bilirubin Total 0.5 mg/dL (0.0-1.0); Blood Urea Nitrogen 63 mg/dL (9-16); Calcium 9.1 mg/dL (8.4-10.2); Carbon Dioxide 20 mmol/L (22-29); Chloride 91 mmol/L (96-108); Creatinine Clr Calc Pharmacy 8.1; Estimated Glomerular Filt Rate 5; Glucose Random 117 mg/dL (60-115); Magnesium 2.1 mg/dL (1.6-2.6); Potassium 4.9 mmol/L (3.3-5.1); Sodium 127 mmol/L (135-145); Total Protein 7.3 g/dL (6.5-8.0)
[2024-01-17 20:06] VITALS: BP 188/50; PULSE 63; RESP 14; TEMP 36.5; O2SAT 100
--- NOTE | 2024-01-17 20:06 | PC.NURSE ---
MD aware of BP. no further orders at this time.
--- NOTE | 2024-01-17 20:28 | PM.IMHP ---
History of Present Illness Date of Service: 01/17/24 Chief Complaint: Dyspnea This is a 68-year-old male with pertinent history of peripheral vascular disease status post right BKA, congestive heart failure with preserved ejection fraction, ESRD on hemodialysis M/W/F with history of noncompliance with dialysis, metabolic syndrome, non insulin-dependent diabetes mellitus, coronary artery disease who presents to the emergency department for evaluation of dyspnea. Patient does have a history of noncompliance with dialysis and did not go for his last dialysis session. Patient does endorse dyspnea with orthopnea. No cough, fever or chills. No chest pain or palpitations. He denies abdominal pain, changes in urinary or bowel habits. He does not make urine In the emergency department, imaging concerning for pulmonary edema Review of Systems Constitutional: Constitutional: Reports fatigue Cardiovascular: Cardiovascular: Reports dyspnea on exertion and Reports orthopnea Respiratory: Respiratory: Reports dyspnea on exertion Gastrointestinal: Gastrointestinal: Reports no additional gastrointestinal complaints Genitourinary: Genitourinary: Reports no additional male genitourinary complaints Endocrine: Endocrine: Reports fatigue COUNTS INCLUDE 234 BEDS AT THE [facility] Medical History Dialysis patient, noncompliant End stage renal disease on dialysis Anemia in chronic kidney disease (CKD) Diabetes mellitus Hypertension Bradycardia Below-knee amputation of right lower extremity Hyperlipidemia Hypertension Peripheral vascular disease Chronic kidney disease on chronic dialysis Diabetes Social History Household Members: Other Household Members Other:: [facility] Do you presently have visiting nurse or other home services: No Patient Tobacco Use Status: Never used Tobacco Do you have a plan to hurt others: No Plan service: No Meds Allergies Allergy/AdvReac Type Severity Reaction Status Date / Time garlic Allergy Severe Hives Verified 01/17/24 18:30 onion Allergy Severe Hives Verified 01/17/24 18:30 Peppers, Green Allergy Severe Hives Verified 01/17/24 18:30 Home Medications ?Medication ?Instructions ?Recorded ?Confirmed ?Last Taken ?Type acetaminophen 325 mg tablet 650 mg PO Q6H PRN Fever/Pain 01/02/24 01/15/24 Unknown History amlodipine 5 mg tablet 5 mg PO DAILY 01/02/24 01/15/24 01/15/24 08:00 History aspirin 81 mg tablet,delayed 81 mg PO DAILY 01/02/24 01/15/24 01/15/24 08:00 History release atorvastatin 80 mg tablet 80 mg PO DAILY 01/02/24 01/15/24 01/14/24 20:00 History bisacodyl 10 mg rectal suppository 10 mg ME DAILY PRN No BM in 8 Hrs 01/02/24 01/15/24 Unknown History after MoM citalopram 20 mg tablet 20 mg PO DAILY 01/02/24 01/15/24 01/15/24 08:00 History clonazepam 0.5 mg tablet 1 mg PO BID anxiety 01/02/24 01/15/24 Unknown History glipizide 2.5 mg tablet 2.5 mg PO DAILY 01/02/24 01/15/24 01/15/24 08:00 History ibuprofen 600 mg tablet 600 mg PO Q6H PRN Pain 01/02/24 01/15/24 Unknown History isosorbide mononitrate 20 mg tablet 40 mg PO DAILY 01/02/24 01/15/24 01/15/24 08:00 History omeprazole 20 mg capsule,delayed 20 mg PO DAILY 01/02/24 01/15/24 01/15/24 08:00 History release ondansetron 4 mg disintegrating 4 mg PO Q8H PRN Nausea/Vomiting 01/02/24 01/15/24 Unknown History tablet polyethylene glycol 3350 17 17 g PO Q24H PRN Constipation 01/02/24 01/15/24 Unknown History gram/dose oral powder sennosides 8.6 mg-docusate sodium 1 tab-cap PO Q24H PRN Constipation 01/02/24 01/15/24 Unknown History 50 mg capsule (Senna Plus) sevelamer HCl 800 mg tablet 1,600 mg PO TID 01/02/24 01/15/24 01/15/24 12:00 History simethicone 80 mg chewable tablet 80 mg PO BEDTIME 01/02/24 01/15/24 01/14/24 20:00 History sodium phosphates 19 gram-7 118 ml ME DAILY PRN No BM in 8 Hrs 01/02/24 01/15/24 Unknown History gram/118 mL enema (Fleet Enema) after Bisacodyl sodium zirconium cyclosilicate 10 10 g PO SUTUTHSA 01/02/24 01/15/24 01/15/24 14:00 History gram oral powder packet (Lokelal) trazodone 50 mg tablet 50 mg PO BEDTIME 01/02/24 01/15/24 01/14/24 20:00 History Physical Exam Vital Signs and Narrative: Vital Signs: Last Vital Signs Temp 97.7 F 01/17/24 20:06 Pulse 63 01/17/24 20:06 Resp 14 01/17/24 20:06 BP 188/50 H 01/17/24 20:06 Pulse Ox 100 01/17/24 20:06 O2 Del Method Oxymask 01/17/24 20:06 O2 Flow Rate 3 01/17/24 20:06 Oxygen Flow Rate 8 01/17/24 18:26 BMI result Body Mass Index 32.4 Middle-aged male lying in bed in mild distress on supplemental oxygen Neck supple Regular rate and rhythm, S1-S2 heard Bilateral crackles present Abdomen soft nontender, no guarding, no rigidity Patient is awake, alert and oriented to self, place, time and person ; no focal motor deficit Psych: Normal mood Right BKA Results Labs 01/17/24 18:42 01/17/24 18:41 Labs: Laboratory Results - last 24 hr 01/17/24 01/17/24 01/17/24 18:41 18:42 18:46 MCV 88.5 MCH 30.5 MCHC 34.5 RDW 13.6 Plt Count 222 MPV 9.5 Immature Gran % (Auto) 0.4 Neut % (Auto) 69.1 Lymph % (Auto) 18.5 L [place] % (Auto) 7.5 Eos % (Auto) 4.1 H Baso % (Auto) 0.4 Lymph # (Auto) 0.9 L [place] # (Auto) 0.4 Eos # (Auto) 0.2 Baso # (Auto) 0.0 Abs Immat Gran (auto) 0.02 Absolute Neuts (auto) 3.4 Absolute Nucleated RBC 0.000 Nucleated RBC % (auto) 0.0 PT 11.9 INR 1.0 VBG pH 7.36 VBG pCO2 41 VBG pO2 43 VBG HCO3 23 VBG O2 Saturation 61.0 VBG Base Excess -1.5 Anion Gap 21 H Estim Creat Clear Calc 8.1 Estimated GFR 5 Random Glucose 117 H Calcium 9.1 D Magnesium 2.1 Total Bilirubin 0.5 AST 9 ALT 8 Alkaline Phosphatase 163 H Troponin I High Sens 65.7 H Total Protein 7.3 Albumin 3.4 L Imaging Radiologist's Impressions: Impressions Chest X-Ray 01/17/24 18:40 IMPRESSION: Patchy bilateral airspace disease, increased from the prior study. Asymmetric pulmonary edema/fluid overload could have this appearance atypical infectious etiology considered less likely. Electronically signed by: Rayshawn Gomez MD 01/17/2024 08:07 PM EDT RP Assessment and Plan (1) Congestive heart failure: Status: Acute (2) End stage renal disease on dialysis: Status: Acute (3) Dialysis patient, noncompliant: Status: Acute Plan This is a 68-year-old male with pertinent history of peripheral vascular disease status post right BKA, congestive heart failure with preserved ejection fraction, ESRD on hemodialysis M/W/F with history of noncompliance with dialysis, metabolic syndrome, non insulin-dependent diabetes mellitus, coronary artery disease who presents to the emergency department for evaluation of dyspnea. #. Acute hypoxemic respiratory failure due to decompensated diastolic congestive heart failure in the setting of missed hemodialysis: Will admit patient with supplemental oxygen. Currently on 3 L, monitor and wean as tolerated. Consulted Nephrology, appreciate assistance. #. Hyponatremia, hypervolemic #. Metabolic acidosis due to missed hemodialysis #. Gog-txqumzz-xykadnzhc diabetes mellitus: Initiating Accu-Cheks with sliding scale insulin #. Mood disorder: Continue home mood stabilizers #. Peripheral vascular disease/coronary artery disease: On aspirin and high-intensity statin Med rec pending DVT prophylaxis: Heparin Full code Admit as inpatient and will require two night minimum hospital stay for supplemental oxygen, close monitoring of respiratory status (as above), which is not possible in a lesser acute setting. Specialist consult pending Quality Stroke Does the patient have a stroke diagnosis?: No VTE Prior VTE?: No VTE Risk Level:: Medical - moderate - high VTE Device Contraindication: Treatment Not Indicated VTE Drug Contraindication: N/A - Med Ordered
--- NOTE | 2024-01-17 20:53 | PC.NURSE ---
pt is heather on monitor. asymptomatic pt is axo speaking full clear sentences. poc 95. pt refusing heparin states no belly shots, i dont care what it does. pt educated on risks. made aware of all above.
--- NOTE | 2024-01-17 20:54 | MHC.EDTECH ---
Night time POC taken by this tech and reported to RN. POC 95 mg/dL. Belongings list done with pt. Pt signed and states he has no belongings at [facility]. Belongings list placed in pt chart.
[2024-01-17 21:02] LABS: Glucose, Whole Blood 95 mg/dL (60-115)
[2024-01-17 21:03] VITALS: BP 155/42; PULSE 38; RESP 18; O2SAT 98
[2024-01-17 22:11] LABS: Influenza A PCR NEGATIVE (Negative); Influenza B PCR NEGATIVE (Negative); Resp Syncy Virus RNA Qual PCR NEGATIVE (Negative); SARS COV2 PCR INHOUSE POSITIVE (Negative)
[2024-01-17 22:18] VITALS: BP 186/62; PULSE 68; RESP 20; O2SAT 96
--- NOTE | 2024-01-17 22:18 | PC.NURSE ---
MD aware of BP. no further orders at this time.
--- NOTE | 2024-01-17 22:34 | PHA.MEDREC ---
Addendum entered by Rayshawn Haskins, [facility] 01/17/24 22:42: med rec reviewed Original Note: Pharmacy Consult ? Medication Reconciliation Pharmacy has completed the medication reconciliation. Confirmed medications with list provided by [facility]. Patient was able to confirm the facility gave him his medication today at 1200.
[2024-01-18 03:16] VITALS: BP 191/49; PULSE 64; RESP 17; TEMP 36.4; O2SAT 96
--- NOTE | 2024-01-18 03:21 | PC.NURSE ---
MD made aware of BP; to order iv hydralazine.
[2024-01-18] MEDS: hydrALAZINE HCl 20 MG/ML VIAL 10 MG IVPUSH (03:45)
--- NOTE | 2024-01-18 03:45 | PC.NURSE ---
pt medicated per jul. bp cycling q10min to monitor BP.
[2024-01-18 04:11] VITALS: BP 170/48; PULSE 65; RESP 20; O2SAT 98
--- NOTE | 2024-01-18 04:11 | PC.NURSE ---
pt reports back pain, offered prn/other meds pt states no i dont want anything i just want to sleep. pt helped to reposition. call beauchamp within reach.
--- NOTE | 2024-01-18 04:12 | PC.NURSE ---
MD made aware of BP; to order iv hydralazine.
--- NOTE | 2024-01-18 04:13 | PC.NURSE ---
MD made aware of BP; to order iv hydralazine.
[2024-01-18 05:56] VITALS: BP 177/44; PULSE 66; RESP 20; TEMP 37.1; O2SAT 95
--- NOTE | 2024-01-18 06:06 | PC.NURSE ---
MD aware of BP. no further orders at this time.
--- NOTE | 2024-01-18 07:42 | HO.PM.IMPN ---
Subjective Subjective Date of Service: 01/18/24 Interval History: Seen in follow up for ESRD with missed HD with volume overload Interval history: Weak, positional lightheadedness. HR variable intermittently bradycardic in the 40s into 70s with change of position. BP stable. Currently maintaining HR 70s. 95% on oxymask, drops to 88% with exertion. Review of Systems Review of Systems: Yes all other systems are reviewed and are negative Physical Exam Vital Signs: Vital Signs: Last Vital Signs Temp 98.7 F 01/18/24 05:56 Pulse 66 01/18/24 05:56 Resp 20 01/18/24 05:56 BP 177/44 H 01/18/24 05:56 Pulse Ox 95 01/18/24 05:56 O2 Del Method Oxymask 01/18/24 05:56 O2 Flow Rate 3 01/18/24 05:56 Oxygen Flow Rate 8 01/17/24 18:26 BMI result Body Mass Index 32.4 Constitutional - Awake and Alert, No apparent distress Eyes - PERRLA, EOMI Cardiovascular - S1S2, RRR, No edema Respiratory - Normal lung expansion, Normal respiratory effort, No respiratory distress, crackles bilaterally Gastrointestinal - NT / ND; +BS; No rebound or guarding Extremities - no calf tenderness bilaterally, no swelling Skin - Warm/Dry Neurological - Alert & oriented x3 Psychological - Appropriate affect Objective Data Active Medications Acetaminophen (Acetaminophen 325 Mg Tablet) 650 mg PO Q6H PRN PRN Reason: Pain, Mild (Pain Scale 1-3), fever or headache Calcium Carbonate (Calcium Carbonate 750 Mg Tab.Chew) 750 mg PO Q4H PRN PRN Reason: Heartburn Glucose (Glucose Gel 15 Gm Gel..Gram.) 15 gm PO Q15M PRN; Protocol PRN Reason: per Hypoglycemia Standing Ord. Heparin Sodium (Porcine) (Heparin Sodium,Porcine 5,000 Unit/Ml Vial) 5,000 unit SUBCUT Q12H [facility] Last Admin: 01/17/24 20:55 Dose: Not Given Documented By: COURTNEY Non-Admin Reason: Patient Refused Dextrose (D10) 250 mls @ 750 mls/hr IV Q15M PRN; Protocol PRN Reason: per Hypoglycemia Standing Ord. Insulin Human Lispro (Insulin Lispro 100 Unit/Ml 3 Ml Vial) 0 unit SUBCUT QIDACHS [facility]; Protocol Last Admin: 01/18/24 07:40 Dose: Not Given Documented By: SHANE Non-Admin Reason: No Insulin Coverage Magnesium Hydroxide (Milk Of Magnesia 30 Ml Oral.Susp) 30 ml PO DAILY PRN PRN Reason: Constipation Melatonin (Melatonin 3 Mg Tablet) 6 mg PO BEDTIME PRN PRN Reason: Insomnia Ondansetron HCl (Ondansetron Hcl 4 Mg/2 Ml Vial) 4 mg IVPUSH Q8H PRN PRN Reason: Nausea and Vomiting Sodium Chloride (0.9 % Sodium Chloride Flush 3 Ml Syringe) 3 ml IVFLUSH QSINFT [facility] Last Admin: 01/17/24 23:57 Dose: Not Given Documented By: COURTNEY Non-Admin Reason: Patient Asleep Labs 01/17/24 18:42 01/17/24 18:41 Labs: Laboratory Results - last 24 hr 01/17/24 01/17/24 01/17/24 18:41 18:42 18:46 MCV 88.5 MCH 30.5 MCHC 34.5 RDW 13.6 Plt Count 222 MPV 9.5 Immature Gran % (Auto) 0.4 Neut % (Auto) 69.1 Lymph % (Auto) 18.5 L [place] % (Auto) 7.5 Eos % (Auto) 4.1 H Baso % (Auto) 0.4 Lymph # (Auto) 0.9 L [place] # (Auto) 0.4 Eos # (Auto) 0.2 Baso # (Auto) 0.0 Abs Immat Gran (auto) 0.02 Absolute Neuts (auto) 3.4 Absolute Nucleated RBC 0.000 Nucleated RBC % (auto) 0.0 PT 11.9 INR 1.0 VBG pH 7.36 VBG pCO2 41 VBG pO2 43 VBG HCO3 23 VBG O2 Saturation 61.0 VBG Base Excess -1.5 Anion Gap 21 H Estim Creat Clear Calc 8.1 Estimated GFR 5 POC Glucose Random Glucose 117 H Calcium 9.1 D Magnesium 2.1 Total Bilirubin 0.5 AST 9 ALT 8 Alkaline Phosphatase 163 H Troponin I High Sens 65.7 H Total Protein 7.3 Albumin 3.4 L Influenza Type A (PCR) Influenza Type B (PCR) RSV RNA Qual (PCR) SARS-CoV-2 RNA (RT-PCR) 01/17/24 01/17/24 20:52 21:30 MCV MCH MCHC RDW Plt Count MPV Immature Gran % (Auto) Neut % (Auto) Lymph % (Auto) [place] % (Auto) Eos % (Auto) Baso % (Auto) Lymph # (Auto) [place] # (Auto) Eos # (Auto) Baso # (Auto) Abs Immat Gran (auto) Absolute Neuts (auto) Absolute Nucleated RBC Nucleated RBC % (auto) PT INR VBG pH VBG pCO2 VBG pO2 VBG HCO3 VBG O2 Saturation VBG Base Excess Anion Gap Estim Creat Clear Calc Estimated GFR POC Glucose 95 Random Glucose Calcium Magnesium Total Bilirubin AST ALT Alkaline Phosphatase Troponin I High Sens Total Protein Albumin Influenza Type A (PCR) NEGATIVE Influenza Type B (PCR) NEGATIVE RSV RNA Qual (PCR) NEGATIVE SARS-CoV-2 RNA (RT-PCR) POSITIVE A Assessment and Plan (1) Dialysis patient, noncompliant: Status: Acute (2) COVID-19 virus infection: Status: Acute (3) Congestive heart failure: Status: Acute Plan 68-year-old male with pertinent history of peripheral vascular disease status post right BKA, congestive heart failure with preserved ejection fraction, ESRD on hemodialysis M/W/F with history of noncompliance with dialysis, metabolic syndrome, non insulin-dependent diabetes mellitus, coronary artery disease who presents to the emergency department for evaluation of dyspnea. # Acute hypoxemic respiratory failure due to decompensated diastolic congestive heart failure in the setting of missed hemodialysis -continue supplemental O2, wean as tolerated per protocol -Resume HD, plan for 4pm this afternoon -nephrology consult -follow renal function/lytes #COVID-19 infection -hypoxia r/t above, no indication for steroids or antivirals at this time -symptomatic management -airborne/contact precautions. Initial dx 01/14 #Near syncope/intermittent bradycardia -intermittently bradycardic into the 40s, no rate lowering medication. With movement, increase to 70s and then maintains. Does report lightheadedness with change of position. No hypotension -?autonomic r/t COVID-19 infection or DM. ?Vagal- symptoms occurred with need for BM -Check echo. EKK ordered -if recurrent then consider cardiology consult #Weakness -likely r/t COVID-19 infection and missed HD -PT evalulation following HD #Hyponatremia, hypervolemic -as above #Metabolic acidosis due to missed hemodialysis #Cml-ezvjwar-spirxakkn diabetes mellitus -poc glucose, diabetic diet -admelog ss. Hold glipizide #Mood disorder -Continue home mood stabilizers #Peripheral vascular disease/coronary artery disease -On aspirin and high-intensity statin DVT prophylaxis: Heparin Full code Requires ongoing inpt stay due to covid 19 with significant weakness resulting in missed HD now with volume overload and hypoxia resulting Quality Stroke Does the patient have a stroke diagnosis?: No VTE Prior VTE?: No VTE Risk Level:: Medical - moderate - high VTE Device Contraindication: Treatment Not Indicated VTE Drug Contraindication: N/A - Med Ordered
[2024-01-18 07:43] LABS: Glucose, Whole Blood 103 mg/dL (60-115)
--- NOTE | 2024-01-18 08:17 | PC.NURSE ---
Pt assisted to bathroom this morning, 2 assist via wheelchair per pt request. Pt did have bowel movement. Pt is alert and oriented, breathing even and unlabored while at rest, SPO2 >93% on 3L oxymask. Pt is upset and agitated, refusing heparin and flush this morning, wants to be left along to rest.
--- NOTE | 2024-01-18 09:18 | PC.NURSE ---
Attempted to go in and give morning meds, pt sleeping and wants to be left alone.
[2024-01-18 09:51] VITALS: BP 182/84; PULSE 68; RESP 20; TEMP 36.3; O2SAT 96
[2024-01-18] MEDS: Aspirin Enteric Coated 81 MG TABLET.DR PO (09:52)
[2024-01-18] MEDS: Sevelamer Carbonate Tablet 800 MG TABLET 1600 MG PO ×2 (09:52→22:12)
[2024-01-18] MEDS: clonazePAM 1 MG TABLET PO ×2 (09:52→22:12)
[2024-01-18] MEDS: Atorvastatin Calcium 80 MG TABLET PO (09:52)
[2024-01-18] MEDS: amLODIPine Besylate 5 MG TABLET PO (09:53)
[2024-01-18] MEDS: Escitalopram Oxalate 10 MG TABLET PO (09:54)
[2024-01-18 10:12] VITALS: BMI 31.3
--- NOTE | 2024-01-18 10:47 | MHC.CM.PN ---
IMM 01/18/24, Pt resides LTC at [facility]. He uses a W/C for DMe, and goes to HD MWF in [place]. HCP is on file and confirmed: Juanita. PCP at [facility], is Dr. Kurtz. DCP is for pt to return to [facility] via BLS. CM will follow for DC needs.
[2024-01-18 11:45] LABS: Glucose, Whole Blood 116 mg/dL (60-115)
[2024-01-18 11:54] VITALS: BP 162/79; PULSE 67; RESP 18; TEMP 36.6; O2SAT 95
--- NOTE | 2024-01-18 14:10 | CA_ITS ---
Transthoracic Echocardiogram Patient (Last, First, Middle): Hamzah Lewis, Gender: Male Date of : 1955 Age: 68 Procedure Date: 01/18/2024 Procedure Type: Transthoracic [place] [facility] [place]: 170.18 cm Weight: 90.72 kg BSA: 2.02 m2 Heart Rate: 66 bpm BP: 162 / 79 mmHg Hide Washer: JORDAN Terry MD: Viv HICKS Cardiac Monitor Technician: Shiva Hopkins MD Symptoms: near syncope Study Quality: Technically Difficult/Contrast ECG Rhythm: Sinus Conclusions: - 1. Normal LV ejection fraction of 60 65% with moderate LVH with impaired relaxation filling pattern with elevated filling pressures 2. Mildly dilated left atrium 3. Moderate aortic stenosis 4. Mildly dilated ascending aorta at 3.9 cm 5. No gross pericardial effusion Findings Procedure Information Contrast agent, definity, is being given per protocol without apparent complications. The study quality is limited by an uncooperative patient. Left Ventricle Normal left ventricular size and systolic function. There is moderately increased left ventricular wall thickness. The visually estimated ejection fraction is between 60-65%. Spectral Doppler is indicative of an impaired relaxation filling pattern. Elevated filling pressures. E/E prime ratio is >15, consistent with elevated filling pressures. Right Ventricle Normal right ventricular cavity size and systolic function. Atria The left atrium is mildly dilated. There is no evidence of interatrial shunt. The right atrium was not well visualized. Aortic Valve There is mild calcification of the aortic valve. There is mild thickening of the aortic valve. There is moderate aortic valve stenosis. The peak aortic gradient is 27 mmHg.The mean gradient is 14 mmHg. The aortic valve area is 1.41 cm2. There is no aortic valve regurgitation. Mitral Valve There is mild anterior and moderate posterior mitral leaflet thickening. There is moderate mitral annular calcification. There is trace mitral valve regurgitation. There is no mitral valve stenosis. Pulmonic Valve The pulmonic valve was not well visualized. Tricuspid Valve Likely normal tricuspid valve structure and function. Tricuspid regurgitation envelope is inadequate for calculation of right ventricular systolic pressure. Normal right atrial pressure. Great Vessels The pulmonary artery was not well visualized. There is mild dilatation of the ascending aorta measuring 3.90 cm. Venous The inferior vena cava is normal in size and collapses greater than 50% with inspiration. Pericardium/Pleural There is no evidence of pericardial effusion. Prior Study Comparison No prior study available for comparison. Measurements 2D Linear Measurements IVSd: 1.41 0.6-0.9/0.6-1.0 cm LVIDd: 4.76 3.9-5.3/4.2-5.9 cm LVIDd Index: 2.36 2.4-3.2/2.2-3.1 cm/m2 LVIDs: 3.32 2.0-3.6 cm LVPWd: 1.49 0.7-1.1 cm LA Diam: 4.10 2.7-3.8/3.0-4.0 cm LAIDs Index: 2.03 1.5-2.3 cm/m2 LV Mass: 355.27 67-162/88-224 g LV Mass Index: 175.88 43-95/49-115 g/m2 LVOT Diam: 2.10 3.0+(-)1.3 cm 2D Systolic Function EF 4C: 64.80 >55% EF 2C: 61.30 >55% EF BiP: 63.80 >55% Mitral Valve MV Pk E: 1.29 MV PK A: 1.32 MV Decel Time: 168.00 E/A: 1.00 E'Lateral: 5.44 E'Medial: 5.22 E/E' Med: 24.70 E/E' Lat: 23.70 PHT: 49.00 MVA PHT: 4.[address] [place]: 7.69 Aortic Valve AoV Pk Arturo: 2.62 AoV Mn Arturo: 1.75 AoV VTI: 0.67 AoV Pk Grad: 27.00 Aov Mn Grad: 14.00 ERIC Cont.VTI: 1.41 LVOT LVOT Pk Arturo: 1.15 LVOT Mn Arturo: 0.74 LVOT VTI: 0.28 LVOT Pk Grad: 5.00 LVOT Mn Grad: 2.00 LVOT Diam: 2.10 LVOT Area: 3.46 Diastolic Function MV Pk E: 1.29 MV Pk A: 1.32 E/A: 1.00 E'Medial: 5.22 E/E' Med: 24.70 E' Laterial: 5.44 E/E' Lat: 23.70 Right Ventricle TAPSE (mm): 20.80 TVS' Arturo: 12.60 Tricuspid Valve TR Pk Arturo: 3.16 TR Pk Grad: 40.00 Great Vessels Aorta Sinus of Valsalva: 3.80 2.0-3.5 cm Ao Asc: 3.90 2.1-3.4 cm Pulmonary Valve PV Pk Arturo: 1.37 Peak PV Grad: 8.00 Updated in Other Vendor System with Status of Final Shiva Hopkins MD electronically signed on 01/18/2024 4:04:29 PM with status of Final
--- NOTE | 2024-01-18 14:12 | ECG_ITS ---
Test Reason : bradycardia Blood Pressure : / mmHG Vent. Rate : 041 BPM Atrial Rate : 041 BPM P-R Int : 186 ms QRS Dur : 110 ms QT Int : 556 ms P-R-T Axes : 030 -18 -08 degrees QTc Int : 458 ms Marked sinus bradycardia Incomplete left bundle branch block Minimal voltage criteria for LVH, may be normal variant ( [place] product ) ST & T wave abnormality, consider anterior ischemia Abnormal ECG When compared with ECG of 17-JAN-2024 18:23, No significant change was found Referred By: Viv Camacho Electronically Signed By:JOSE MURRAY
[2024-01-18 16:00] VITALS: BP 172/70; PULSE 40; RESP 19; TEMP 36.3; O2SAT 97
[2024-01-18 16:35] LABS: Glucose, Whole Blood 102 mg/dL (60-115)
[2024-01-18] MEDS: Acetaminophen 325 MG TABLET 650 MG PO (18:23)
[2024-01-18] MEDS: traZODone HCL 50 MG TABLET PO (22:12)
[2024-01-18] MEDS: 0.9 % Sodium Chloride Flush 3 ML SYRINGE IVFLUSH (22:12)
[2024-01-18 22:15] LABS: Glucose, Whole Blood 108 mg/dL (60-115)
[2024-01-19] VITALS (7 sets, daily range): BP systolic 133–192; BP diastolic 44–92; PULSE 60–77; RESP 18–20; TEMP 36–36.9; O2SAT 90–99
[2024-01-19] MEDS: Acetaminophen 325 MG TABLET 650 MG PO ×3 (01:01→21:44)
[2024-01-19] MEDS: Melatonin 3 MG TABLET 6 MG PO (01:02)
[2024-01-19 07:29] LABS: Glucose, Whole Blood 92 mg/dL (60-115)
[2024-01-19 09:17] LABS: Anion Gap 18 (12-20); Blood Urea Nitrogen 24 mg/dL (9-16); Calcium 9.2 mg/dL (8.4-10.2); Carbon Dioxide 25 mmol/L (22-29); Chloride 94 mmol/L (96-108); Estimated Glomerular Filt Rate 9; Glucose Random 141 mg/dL (60-115); Potassium 4.2 mmol/L (3.3-5.1); Sodium 133 mmol/L (135-145)
--- NOTE | 2024-01-19 09:53 | P.PNIM_ITS ---
Subjective Subjective Date of Service: 01/19/24 Interval History: sob improving Physical Exam 2 Vital Signs: Vital Signs: Last Vital Signs Temp 98.4 F 01/19/24 08:00 Pulse 66 01/19/24 08:00 Resp 20 01/19/24 08:00 BP 180/68 H 01/19/24 08:00 Pulse Ox 99 01/19/24 08:00 O2 Del Method Nasal Cannula 01/19/24 08:00 O2 Flow Rate 3 01/19/24 08:00 Oxygen Flow Rate 8 01/17/24 18:26 BMI result Body Mass Index 31.3 Constitutional - Awake and Alert, No apparent distress Eyes - PERRLA, EOMI Cardiovascular - S1S2, RRR, No edema Respiratory - Normal lung expansion, Normal respiratory effort, No respiratory distress, crackles bilaterally Gastrointestinal - NT / ND; +BS; No rebound or guarding Extremities - no calf tenderness bilaterally, no swelling Skin - Warm/Dry Neurological - Alert & oriented x3 Psychological - Appropriate affect Objective Data Active Medications Acetaminophen (Acetaminophen 325 Mg Tablet) 650 mg PO Q6H PRN PRN Reason: Pain, Mild (Pain Scale 1-3), fever or headache Last Admin: 01/19/24 01:01 Dose: 650 mg Documented By: LOPEZ Amlodipine Besylate (Amlodipine Besylate 5 Mg Tablet) 5 mg PO DAILY [facility]; Protocol Last Admin: 01/18/24 09:53 Dose: 5 mg Documented By: CARINE Aspirin (Aspirin Enteric Coated 81 Mg Tablet.Dr) 81 mg PO DAILY [facility] Last Admin: 01/18/24 09:52 Dose: 81 mg Documented By: CARINE Atorvastatin Calcium (Atorvastatin Calcium 80 Mg Tablet) 80 mg PO DAILY [facility] Last Admin: 01/18/24 09:52 Dose: 80 mg Documented By: CARINE Bisacodyl (Bisacodyl 10 Mg Supp.Rect) 10 mg DC DAILY PRN PRN Reason: No BM in 8 Hrs after MoM Calcium Carbonate (Calcium Carbonate 750 Mg Tab.Chew) 750 mg PO Q4H PRN PRN Reason: Heartburn Clonazepam (Clonazepam 1 Mg Tablet) 1 mg PO BID [facility] Last Admin: 01/18/24 22:12 Dose: 1 mg Documented By: LOPEZ Escitalopram Oxalate (Escitalopram Oxalate 10 Mg Tablet) 10 mg PO DAILY [facility] Last Admin: 01/18/24 09:54 Dose: 10 mg Documented By: CINDITEKMumtaz Glucose (Glucose Gel 15 Gm Gel..Gram.) 15 gm PO Q15M PRN; Protocol PRN Reason: per Hypoglycemia Standing Ord. Guaifenesin (Guaifenesin 100 Mg/5 Ml Liquid) 10 ml PO Q4H PRN PRN Reason: Cough Heparin Sodium (Porcine) (Heparin Sodium,Porcine 5,000 Unit/Ml Vial) 5,000 unit SUBCUT Q12H [facility] Last Admin: 01/18/24 22:17 Dose: Not Given Documented By: LOPEZ Non-Admin Reason: Patient Refused Dextrose (D10) 250 mls @ 750 mls/hr IV Q15M PRN; Protocol PRN Reason: per Hypoglycemia Standing Ord. Insulin Human Lispro (Insulin Lispro 100 Unit/Ml 3 Ml Vial) 0 unit SUBCUT QIDACHS [facility]; Protocol Last Admin: 01/18/24 22:22 Dose: Not Given Documented By: LOPEZ Non-Admin Reason: No Insulin Coverage Magnesium Hydroxide (Milk Of Magnesia 30 Ml Oral.Susp) 30 ml PO DAILY PRN PRN Reason: Constipation Melatonin (Melatonin 3 Mg Tablet) 6 mg PO BEDTIME PRN PRN Reason: Insomnia Last Admin: 01/19/24 01:02 Dose: 6 mg Documented By: LOPEZ Non-Formulary Medication (Isosorbide Mononitrate) 40 mg PO DAILY [facility] Omeprazole (Omeprazole 20 Mg Capsule.Dr) 20 mg PO DAILY@0630 [facility] Last Admin: 01/19/24 05:40 Dose: Not Given Documented By: LOPEZ Non-Admin Reason: Patient Refused Ondansetron HCl (Ondansetron Hcl 4 Mg/2 Ml Vial) 4 mg IVPUSH Q8H PRN PRN Reason: Nausea and Vomiting Ondansetron HCl (Ondansetron Odt 4 Mg Tab.Rapdis) 4 mg TRANSLINGU Q8H PRN PRN Reason: Nausea/Vomiting Polyethylene Glycol (Polyethylene Glycol 3350 17 Gm Powd.Pack) 17 gm PO Q24H PRN PRN Reason: Constipation Senna/Docusate Sodium (Sennosides/Docusate Sodium Tablet) 1 tab PO Q24H PRN PRN Reason: Constipation Sevelamer Carbonate (Sevelamer Carbonate Tablet 800 Mg Tablet) 1,600 mg PO TID [facility] Last Admin: 01/18/24 22:12 Dose: 1,600 mg Documented By: LOPEZ Simethicone (Simethicone 80 Mg Tab.Chew) 80 mg PO Q6H PRN PRN Reason: Gas Sodium Biphosphate/Sodium Phosphate (Sodium Phosphate,Harper-Dibasic 133 Ml Enema) 118 ml DC DAILY PRN PRN Reason: No BM in 8 Hrs after Bisacodyl Sodium Chloride (0.9 % Sodium Chloride Flush 3 Ml Syringe) 3 ml IVFLUSH QSHIFT [facility] Last Admin: 01/18/24 22:12 Dose: 3 ml Documented By: LOPEZ Sodium Zirconium Cyclosilicate (Sodium Zirconium Cyclosilicate 10 Gm Powd.Pack) 10 gm PO SUTUTHSA [facility] Trazodone HCl (Trazodone Hcl 50 Mg Tablet) 50 mg PO BEDTIME [facility] Last Admin: 01/18/24 22:12 Dose: 50 mg Documented By: LOPEZ Labs 01/17/24 18:42 01/19/24 08:27 Labs: Laboratory Results - last 24 hr 01/18/24 01/18/24 01/18/24 11:41 16:32 22:10 Anion Gap Estim Creat Clear Calc Estimated GFR POC Glucose 116 H 102 108 Random Glucose Calcium 01/19/24 01/19/24 07:24 08:27 Anion Gap 18 Estim Creat Clear Calc 13.0 Estimated GFR 9 POC Glucose 92 Random Glucose 141 H Calcium 9.2 Assessment and Plan (1) Dialysis patient, noncompliant: Status: Acute (2) COVID-19 virus infection: Status: Acute (3) Congestive heart failure: Status: Acute Plan 68M PMH peripheral vascular disease status post right BKA, congestive heart failure with preserved ejection fraction, ESRD on hemodialysis M/W/F with history of noncompliance with dialysis, metabolic syndrome, non insulin- dependent diabetes mellitus, coronary artery disease who presented to the emergency department for evaluation of dyspnea. Acute hypoxemic respiratory failure due to decompensated diastolic congestive heart failure in the setting of missed hemodialysis continue supplemental O2, wean as tolerated per protocol HD nephrology following COVID-19 infection hypoxia r/t above, no indication for steroids or antivirals at this time symptomatic management airborne/contact precautions. Initial dx 01/14 Near syncope/intermittent bradycardia intermittently bradycardic into the 40s, no rate lowering medication. With movement, increase to 70s and then maintains. Does report lightheadedness with change of position. No hypotension ?autonomic r/t COVID-19 infection or DM. ?Vagal- symptoms occurred with need for BM Check echo cardiology consult Weakness likely r/t COVID-19 infection and missed HD PT eval Hyponatremia, hypervolemic -as above Metabolic acidosis due to missed hemodialysis resolved Cic-wkhvwmw-kjasmieto diabetes mellitus poc glucose, diabetic diet admelog ss. Hold glipizide Mood disorder anitaaprleona edward Peripheral vascular disease/coronary artery disease On aspirin and high-intensity statin recent epistaxis will remove rhinorocket today DVT prophylaxis: Heparin Full code reason for continued hospitalization:hypoxia, weakness Quality Stroke Does the patient have a stroke diagnosis?: No VTE Prior VTE?: No VTE Risk Level:: Medical - moderate - high VTE Device Contraindication: Treatment Not Indicated VTE Drug Contraindication: N/A - Med Ordered
--- NOTE | 2024-01-19 10:27 | PM.CNCAR ---
History of Present Illness History of Present Illness Date of Service: 01/19/24 Requesting physician: Viv Camacho Consult reason: congestive heart failure Chief complaint: Dyspnea Narrative: I was consulted to see Hamzah in cardiology consultation today due to diastolic heart failure exacerbation and sinus bradycardia. Patient has no symptoms related to his bradycardia. Came to the hospital after missing dialysis session and not able to breathe. He said he came for days ago with epistaxis and had a nasal packing performed and said he was feeling very weak and short of breath and therefore did not go to the dialysis session. He then came with acute shortness of breath and not able to breathe and was noted to be in decompensated congestive heart failure with pulmonary edema. Underwent dialysis. He has prior history of noncompliance with dialysis. He also has history of noncompliance with meds. Patient is very table. Not a very good historian. He was evasive when asked about compliance with dialysis. He said he knows how to manage his situation. He said he has been doing this for 11 years. Echocardiogram done yesterday showed normal LV ejection fraction with moderate LVH and moderate aortic stenosis. He denies any prior cardiac issues including heart failure. His blood pressure remains uncontrolled. He said he wants his nasal packing to come out. There was concerned about sinus bradycardia although his heart rate current has improved into the 60s. Review of Systems Constitutional: Constitutional: Reports no additional constitutional complaints ENT: Reports sinus pressure Cardiovascular: Cardiovascular: Denies chest pain, Denies lightheadedness, Denies Loss of Consciousness, Denies palpitations, Reports dyspnea and Reports orthopnea Respiratory: Respiratory: Reports dyspnea Musculoskeletal: Musculoskeletal: Reports no additional musculoskeletal complaints Neurologic: Reports system reviewed and no additional complaints, except as documented Psychiatric: Psychiatric: Reports no additional psychiatric complaints Endocrine: Endocrine: Denies palpitations [facility] Past Medical History Medical History Dialysis patient, noncompliant End stage renal disease on dialysis Anemia in chronic kidney disease (CKD) Diabetes mellitus Hypertension Bradycardia Below-knee amputation of right lower extremity Hyperlipidemia Hypertension Peripheral vascular disease Chronic kidney disease on chronic dialysis Diabetes Social History Social History Household Members: Other Household Members Other:: LTC Housing: Skilled Nursing Housing Other:: [facility] [place] Do you presently have visiting nurse or other home services: Yes Patient Tobacco Use Status: Never used Tobacco Smoked in Last 30 Days: No Use of substances other than those prescribed or required for medical reasons: No Currently Displaying Signs/Symptoms of Drug Intoxication Withdrawal: No Have you been hit, kicked, punched, or otherwise hurt by someone within the past year? If so, by whom?: No Do you feel safe in your current relationship?: No Current Relationship Is there a partner from a previous relationship who is making you feel unsafe now?: No Are you made to feel afraid or neglected: No [employer] Healthcare Practices: Church Advance Directives: Yes Advance Directives on File: Yes Advance Directives Date on File: 01/17/24 Do you have a plan to hurt others: No Plan Recently lost weight without trying: No Eating poorly because of decreased appetite: No Nutrition Risks: No Nutritional Risk service: No Meds Allergies Allergy/AdvReac Type Severity Reaction Status Date / Time garlic Allergy Severe Hives Verified 01/17/24 18:30 onion Allergy Severe Hives Verified 01/17/24 18:30 Peppers, Green Allergy Severe Hives Verified 01/17/24 18:30 Active Medications: Current Medications Acetaminophen (Acetaminophen 325 Mg Tablet) 650 mg PO Q6H PRN PRN Reason: Pain, Mild (Pain Scale 1-3), fever or headache Last Admin: 01/19/24 01:01 Dose: 650 mg Amlodipine Besylate (Amlodipine Besylate 5 Mg Tablet) 5 mg PO DAILY [facility]; Protocol Last Admin: 01/18/24 09:53 Dose: 5 mg Aspirin (Aspirin Enteric Coated 81 Mg Tablet.Dr) 81 mg PO DAILY [facility] Last Admin: 01/18/24 09:52 Dose: 81 mg Atorvastatin Calcium (Atorvastatin Calcium 80 Mg Tablet) 80 mg PO DAILY [facility] Last Admin: 01/18/24 09:52 Dose: 80 mg Bisacodyl (Bisacodyl 10 Mg Supp.Rect) 10 mg ND DAILY PRN PRN Reason: No BM in 8 Hrs after MoM Calcium Carbonate (Calcium Carbonate 750 Mg Tab.Chew) 750 mg PO Q4H PRN PRN Reason: Heartburn Clonazepam (Clonazepam 1 Mg Tablet) 1 mg PO BID [facility] Last Admin: 01/18/24 22:12 Dose: 1 mg Escitalopram Oxalate (Escitalopram Oxalate 10 Mg Tablet) 10 mg PO DAILY [facility] Last Admin: 01/18/24 09:54 Dose: 10 mg Glucose (Glucose Gel 15 Gm Gel..Gram.) 15 gm PO Q15M PRN; Protocol PRN Reason: per Hypoglycemia Standing Ord. Guaifenesin (Guaifenesin 100 Mg/5 Ml Liquid) 10 ml PO Q4H PRN PRN Reason: Cough Heparin Sodium (Porcine) (Heparin Sodium,Porcine 5,000 Unit/Ml Vial) 5,000 unit SUBCUT Q12H [facility] Last Admin: 01/18/24 22:17 Dose: Not Given Dextrose (D10) 250 mls @ 750 mls/hr IV Q15M PRN; Protocol PRN Reason: per Hypoglycemia Standing Ord. Insulin Human Lispro (Insulin Lispro 100 Unit/Ml 3 Ml Vial) 0 unit SUBCUT QIDACHS [facility]; Protocol Last Admin: 01/18/24 22:22 Dose: Not Given Magnesium Hydroxide (Milk Of Magnesia 30 Ml Oral.Susp) 30 ml PO DAILY PRN PRN Reason: Constipation Melatonin (Melatonin 3 Mg Tablet) 6 mg PO BEDTIME PRN PRN Reason: Insomnia Last Admin: 01/19/24 01:02 Dose: 6 mg Non-Formulary Medication (Isosorbide Mononitrate) 40 mg PO DAILY [facility] Omeprazole (Omeprazole 20 Mg Capsule.Dr) 20 mg PO DAILY@0630 [facility] Last Admin: 01/19/24 05:40 Dose: Not Given Ondansetron HCl (Ondansetron Hcl 4 Mg/2 Ml Vial) 4 mg IVPUSH Q8H PRN PRN Reason: Nausea and Vomiting Ondansetron HCl (Ondansetron Odt 4 Mg Tab.Rapdis) 4 mg TRANSLINGU Q8H PRN PRN Reason: Nausea/Vomiting Polyethylene Glycol (Polyethylene Glycol 3350 17 Gm Powd.Pack) 17 gm PO Q24H PRN PRN Reason: Constipation Senna/Docusate Sodium (Sennosides/Docusate Sodium Tablet) 1 tab PO Q24H PRN PRN Reason: Constipation Sevelamer Carbonate (Sevelamer Carbonate Tablet 800 Mg Tablet) 1,600 mg PO TID [facility] Last Admin: 01/18/24 22:12 Dose: 1,600 mg Simethicone (Simethicone 80 Mg Tab.Chew) 80 mg PO Q6H PRN PRN Reason: Gas Sodium Biphosphate/Sodium Phosphate (Sodium Phosphate,Jerauld-Dibasic 133 Ml Enema) 118 ml ND DAILY PRN PRN Reason: No BM in 8 Hrs after Bisacodyl Sodium Chloride (0.9 % Sodium Chloride Flush 3 Ml Syringe) 3 ml IVFLUSH QSHIFT [facility] Last Admin: 01/18/24 22:12 Dose: 3 ml Sodium Zirconium Cyclosilicate (Sodium Zirconium Cyclosilicate 10 Gm Powd.Pack) 10 gm PO [facility] Trazodone HCl (Trazodone Hcl 50 Mg Tablet) 50 mg PO BEDTIME [facility] Last Admin: 01/18/24 22:12 Dose: 50 mg Home Medications ?Medication ?Instructions ?Recorded ?Confirmed ?Last Taken ?Type acetaminophen 325 mg tablet 650 mg PO Q6H PRN Fever/Pain 01/02/24 01/17/24 Unknown History amlodipine 5 mg tablet 5 mg PO DAILY 01/02/24 01/17/24 01/17/24 12:00 History aspirin 81 mg tablet,delayed 81 mg PO DAILY 01/02/24 01/17/24 01/17/24 12:00 History release atorvastatin 80 mg tablet 80 mg PO DAILY 01/02/24 01/17/24 01/17/24 12:00 History bisacodyl 10 mg rectal suppository 10 mg ND DAILY PRN No BM in 8 Hrs 01/02/24 01/17/24 Unknown History after MoM citalopram 20 mg tablet 20 mg PO DAILY 01/02/24 01/17/24 01/17/24 12:00 History clonazepam 0.5 mg tablet 1 mg PO BID anxiety 01/02/24 01/17/24 01/17/24 12:00 History glipizide 2.5 mg tablet 2.5 mg PO DAILY 01/02/24 01/17/24 01/17/24 12:00 History ibuprofen 600 mg tablet 600 mg PO Q6H PRN Pain 01/02/24 01/17/24 Unknown History isosorbide mononitrate 20 mg tablet 40 mg PO DAILY 01/02/24 01/17/24 01/17/24 12:00 History omeprazole 20 mg capsule,delayed 20 mg PO DAILY@0630 01/02/24 01/17/24 01/17/24 12:00 History release ondansetron 4 mg disintegrating 4 mg PO Q8H PRN Nausea/Vomiting 01/02/24 01/17/24 Unknown History tablet polyethylene glycol 3350 17 17 g PO Q24H PRN Constipation 01/02/24 01/17/24 Unknown History gram/dose oral powder sennosides 8.6 mg-docusate sodium 1 tab-cap PO Q24H PRN Constipation 01/02/24 01/17/24 Unknown History 50 mg capsule (Senna Plus) sevelamer HCl 800 mg tablet 1,600 mg PO TID 01/02/24 01/17/24 01/17/24 12:00 History simethicone 80 mg chewable tablet 80 mg PO Q6H PRN GAS 01/02/24 01/17/24 01/16/24 History sodium phosphates 19 gram-7 118 ml ND DAILY PRN No BM in 8 Hrs 01/02/24 01/17/24 Unknown History gram/118 mL enema (Fleet Enema) after Bisacodyl sodium zirconium cyclosilicate 10 10 g PO SUTUTHSA 01/02/24 01/17/24 01/17/24 12:00 History gram oral powder packet (Lokelma) trazodone 50 mg tablet 50 mg PO BEDTIME 01/02/24 01/17/24 01/16/24 History guaifenesin 100 mg/5 mL oral liquid 200 mg PO Q4H PRN Cough 01/17/24 01/17/24 Unknown History Physical Exam Vital Signs: Vital Signs: Last Vital Signs Temp 98.4 F 01/19/24 08:00 Pulse 66 01/19/24 08:00 Resp 20 01/19/24 08:00 BP 180/68 H 01/19/24 08:00 Pulse Ox 99 01/19/24 08:00 O2 Del Method Nasal Cannula 01/19/24 08:00 O2 Flow Rate 3 01/19/24 08:00 Oxygen Flow Rate 8 01/17/24 18:26 BMI result Body Mass Index 31.3 Const: General: comfortable, alert and awake Nutritional Appearance: obese Orientation/consciousness: patient oriented x3 HEENT: Head: Yes normocephalic and Yes atraumatic Neck: Neck: Yes trachea midline, Yes supple and Yes no JVD Resp: Effort & Inspection: decreased respiratory effort Auscultation: clear to auscultation bilaterally and diminished lung sounds Cardio: Jugular venous distension: no JVD Rate: regular rate Rhythm: regular rhythm Heart sounds: S1 normal heart sound present, S2 normal heart sound present, no click, no gallops and Murmur heart sound present systolic mid and II/ GI: Auscultation: normal bowel sounds Skin: General skin exam: no rashes or lesions noted Neuro: General: patient oriented x3 and no focal motor deficits Extrem: General: Yes no clubbing, cyanosis or edema Objective Labs and Meds 01/17/24 18:42 01/19/24 08:27 Lab results: Laboratory Results - last 24 hr 01/18/24 01/18/24 01/18/24 11:41 16:32 22:10 Sodium Potassium Chloride Carbon Dioxide Anion Gap BUN Creatinine Estim Creat Clear Calc Estimated GFR POC Glucose 116 H 102 108 Random Glucose Calcium 01/19/24 01/19/24 07:24 08:27 Sodium 133 L Potassium 4.2 Chloride 94 L Carbon Dioxide 25 Anion Gap 18 BUN 24 H Creatinine 6.00 H* Estim Creat Clear Calc 13.0 Estimated GFR 9 POC Glucose 92 Random Glucose 141 H Calcium 9.2 EKG shows marked sinus bradycardia with suggestion of left ventricular hypertrophy with repolarization abnormality Assessment and Plan (1) Acute congestive heart failure: Status: Acute Acute decompensated congestive heart failure due to missed dialysis session patient with hypertensive heart disease uncontrolled blood pressure. CHF seems to have improved with dialysis. Importance of compliance with medication and dialysis was discussed. On suggesting this patient got irritable and says that he can manage his medical condition. Blood pressure remains uncontrolled. There has history of lightheadedness with orthostatic component. Would change amlodipine to 5 mg b.i.d.. Also add hydralazine 10 mg b.i.d. to his regimen. Continue dialysis sessions as prescribed. Discussed with him underlying presence of moderate aortic stenosis as well as hypertensive heart disease. Continue aspirin and statin therapy. Will need follow-up as outpatient if he is compliant. (2) Sinus bradycardia: Status: Acute Sinus bradycardia which has not resolved. He does have appropriate heart rate response changes with change in position. He has had prior history junctional bradycardia, suggestive oral up most likely sinoatrial node dysfunction but does not qualify pacemaker therapy. Would avoid rate lowering medications in the future. Will sign of the case. Thank you for allowing me to partake in his care Procedures Date of Service Date of Service: 01/19/24
--- NOTE | 2024-01-19 10:33 | P.CDIM_ITS ---
PROVIDER RESPONSE TEXT: To clarify, the appropriate diagnosis supported by the clinical indicators: Acute QUERY TEXT: PHYSICIAN'S DOCUMENTATION REQUEST Date of Query: 01/19/2024 10:24 AM EDT Patient Name: Hamzah Lewis Admit Date: 01/18/2024 Dear Huber Morris MD, A review of the medical record indicates additional documentation may be needed. Please review below and update the documentation accordingly. Clinical Indicators: Progress notes within the Plan: Metabolic acidosis due to missed hemodialysis. Resolved. Clarify which of the following accurately represents the acuity of the metabolic acidosis: Acute Chronic Other (explain) Clinically unable to determine (explain) Thank you, Amy Noel, CCS, CDIS Use of terms such as suspected, likely, concern for, or probable (associated with a specific diagnosi s that is being evaluated, monitored, or treated as if it exists) are acceptable and can be coded in the inpatient se tting, when documented at the time of discharge. Please use your independent medical judgment in providing your response. THIS QUERY IS PART OF THE PERMANENT MEDICAL RECORD
--- NOTE | 2024-01-19 10:51 | PM.CNNEP ---
History of Present Illness Reason for Consult Consult date: 01/19/24 Reason for consult: End stage renal disease Chief Complaint Chief complaint: Dyspnea History of Present Illness Narrative: 68-year-old male with pertinent history of peripheral vascular disease status post right BKA, congestive heart failure with preserved ejection fraction, ESRD on hemodialysis M/W/F with history of noncompliance with dialysis, metabolic syndrome, non insulin-dependent diabetes mellitus, coronary artery disease who presents to the emergency department for evaluation of dyspnea. Patient does have a history of noncompliance with dialysis and did not go for his last dialysis session. Patient does endorse dyspnea with orthopnea. No cough, fever or chills. No chest pain or palpitations. He denies abdominal pain, changes in urinary or bowel habits. Had dialysis yesterday prescribed Review of Systems Review of Systems Yes Unobtainable due to mental condition PMFSH Past Medical History Medical History Dialysis patient, noncompliant End stage renal disease on dialysis Anemia in chronic kidney disease (CKD) Diabetes mellitus Hypertension Bradycardia Below-knee amputation of right lower extremity Hyperlipidemia Hypertension Peripheral vascular disease Chronic kidney disease on chronic dialysis Diabetes Social History Social History Household Members: Other Household Members Other:: LTC Housing: [facility] Do you presently have visiting nurse or other home services: Yes Patient Tobacco Use Status: Never used Tobacco Smoked in Last 30 Days: No Use of substances other than those prescribed or required for medical reasons: No Currently Displaying Signs/Symptoms of Drug Intoxication Withdrawal: No Have you been hit, kicked, punched, or otherwise hurt by someone within the past year? If so, by whom?: No Do you feel safe in your current relationship?: No Current Relationship Is there a partner from a previous relationship who is making you feel unsafe now?: No Are you made to feel afraid or neglected: No Hinduism Healthcare Practices: Synagogue Advance Directives: Yes Advance Directives on File: Yes Advance Directives Date on File: 01/17/24 Do you have a plan to hurt others: No Plan Recently lost weight without trying: No Eating poorly because of decreased appetite: No Nutrition Risks: No Nutritional Risk service: No Meds Allergies Allergy/AdvReac Type Severity Reaction Status Date / Time garlic Allergy Severe Hives Verified 01/17/24 18:30 onion Allergy Severe Hives Verified 01/17/24 18:30 Peppers, Green Allergy Severe Hives Verified 01/17/24 18:30 Active Medications: Current Medications Acetaminophen (Acetaminophen 325 Mg Tablet) 650 mg PO Q6H PRN PRN Reason: Pain, Mild (Pain Scale 1-3), fever or headache Last Admin: 01/19/24 01:01 Dose: 650 mg Amlodipine Besylate (Amlodipine Besylate 5 Mg Tablet) 5 mg PO DAILY [facility]; Protocol Last Admin: 01/18/24 09:53 Dose: 5 mg Aspirin (Aspirin Enteric Coated 81 Mg Tablet.Dr) 81 mg PO DAILY [facility] Last Admin: 01/18/24 09:52 Dose: 81 mg Atorvastatin Calcium (Atorvastatin Calcium 80 Mg Tablet) 80 mg PO DAILY [facility] Last Admin: 01/18/24 09:52 Dose: 80 mg Bisacodyl (Bisacodyl 10 Mg Supp.Rect) 10 mg [place] DAILY PRN PRN Reason: No BM in 8 Hrs after MoM Calcium Carbonate (Calcium Carbonate 750 Mg Tab.Chew) 750 mg PO Q4H PRN PRN Reason: Heartburn Clonazepam (Clonazepam 1 Mg Tablet) 1 mg PO BID [facility] Last Admin: 01/18/24 22:12 Dose: 1 mg Escitalopram Oxalate (Escitalopram Oxalate 10 Mg Tablet) 10 mg PO DAILY [facility] Last Admin: 01/18/24 09:54 Dose: 10 mg Glucose (Glucose Gel 15 Gm Gel..Gram.) 15 gm PO Q15M PRN; Protocol PRN Reason: per Hypoglycemia Standing Ord. Guaifenesin (Guaifenesin 100 Mg/5 Ml Liquid) 10 ml PO Q4H PRN PRN Reason: Cough Heparin Sodium (Porcine) (Heparin Sodium,Porcine 5,000 Unit/Ml Vial) 5,000 unit SUBCUT Q12H [facility] Last Admin: 01/18/24 22:17 Dose: Not Given Dextrose (D10) 250 mls @ 750 mls/hr IV Q15M PRN; Protocol PRN Reason: per Hypoglycemia Standing Ord. Insulin Human Lispro (Insulin Lispro 100 Unit/Ml 3 Ml Vial) 0 unit SUBCUT QIDACHS [facility]; Protocol Last Admin: 01/18/24 22:22 Dose: Not Given Magnesium Hydroxide (Milk Of Magnesia 30 Ml Oral.Susp) 30 ml PO DAILY PRN PRN Reason: Constipation Melatonin (Melatonin 3 Mg Tablet) 6 mg PO BEDTIME PRN PRN Reason: Insomnia Last Admin: 01/19/24 01:02 Dose: 6 mg Non-Formulary Medication (Isosorbide Mononitrate) 40 mg PO DAILY [facility] Omeprazole (Omeprazole 20 Mg Capsule.Dr) 20 mg PO DAILY@0630 [facility] Last Admin: 01/19/24 05:40 Dose: Not Given Ondansetron HCl (Ondansetron Hcl 4 Mg/2 Ml Vial) 4 mg IVPUSH Q8H PRN PRN Reason: Nausea and Vomiting Ondansetron HCl (Ondansetron Odt 4 Mg Tab.Rapdis) 4 mg TRANSLINGU Q8H PRN PRN Reason: Nausea/Vomiting Polyethylene Glycol (Polyethylene Glycol 3350 17 Gm Powd.Pack) 17 gm PO Q24H PRN PRN Reason: Constipation Senna/Docusate Sodium (Sennosides/Docusate Sodium Tablet) 1 tab PO Q24H PRN PRN Reason: Constipation Sevelamer Carbonate (Sevelamer Carbonate Tablet 800 Mg Tablet) 1,600 mg PO TID [facility] Last Admin: 01/18/24 22:12 Dose: 1,600 mg Simethicone (Simethicone 80 Mg Tab.Chew) 80 mg PO Q6H PRN PRN Reason: Gas Sodium Biphosphate/Sodium Phosphate (Sodium Phosphate,Valencia-Dibasic 133 Ml Enema) 118 ml [place] DAILY PRN PRN Reason: No BM in 8 Hrs after Bisacodyl Sodium Chloride (0.9 % Sodium Chloride Flush 3 Ml Syringe) 3 ml IVFLUSH QSHIFT [facility] Last Admin: 01/18/24 22:12 Dose: 3 ml Sodium Zirconium Cyclosilicate (Sodium Zirconium Cyclosilicate 10 Gm Powd.Pack) 10 gm PO SUTUTHSA [facility] Trazodone HCl (Trazodone Hcl 50 Mg Tablet) 50 mg PO BEDTIME [facility] Last Admin: 01/18/24 22:12 Dose: 50 mg Home Medications ?Medication ?Instructions ?Recorded ?Confirmed ?Last Taken ?Type acetaminophen 325 mg tablet 650 mg PO Q6H PRN Fever/Pain 01/02/24 01/17/24 Unknown History amlodipine 5 mg tablet 5 mg PO DAILY 01/02/24 01/17/24 01/17/24 12:00 History aspirin 81 mg tablet,delayed 81 mg PO DAILY 01/02/24 01/17/24 01/17/24 12:00 History release atorvastatin 80 mg tablet 80 mg PO DAILY 01/02/24 01/17/24 01/17/24 12:00 History bisacodyl 10 mg rectal suppository 10 mg [place] DAILY PRN No BM in 8 Hrs 01/02/24 01/17/24 Unknown History after MoM citalopram 20 mg tablet 20 mg PO DAILY 01/02/24 01/17/24 01/17/24 12:00 History clonazepam 0.5 mg tablet 1 mg PO BID anxiety 01/02/24 01/17/24 01/17/24 12:00 History glipizide 2.5 mg tablet 2.5 mg PO DAILY 01/02/24 01/17/24 01/17/24 12:00 History ibuprofen 600 mg tablet 600 mg PO Q6H PRN Pain 01/02/24 01/17/24 Unknown History isosorbide mononitrate 20 mg tablet 40 mg PO DAILY 01/02/24 01/17/24 01/17/24 12:00 History omeprazole 20 mg capsule,delayed 20 mg PO DAILY@0630 01/02/24 01/17/24 01/17/24 12:00 History release ondansetron 4 mg disintegrating 4 mg PO Q8H PRN Nausea/Vomiting 01/02/24 01/17/24 Unknown History tablet polyethylene glycol 3350 17 17 g PO Q24H PRN Constipation 01/02/24 01/17/24 Unknown History gram/dose oral powder sennosides 8.6 mg-docusate sodium 1 tab-cap PO Q24H PRN Constipation 01/02/24 01/17/24 Unknown History 50 mg capsule (Senna Plus) sevelamer HCl 800 mg tablet 1,600 mg PO TID 01/02/24 01/17/24 01/17/24 12:00 History simethicone 80 mg chewable tablet 80 mg PO Q6H PRN GAS 01/02/24 01/17/24 01/16/24 History sodium phosphates 19 gram-7 118 ml [place] DAILY PRN No BM in 8 Hrs 01/02/24 01/17/24 Unknown History gram/118 mL enema (Fleet Enema) after Bisacodyl sodium zirconium cyclosilicate 10 10 g PO SUTUTHSA 01/02/24 01/17/24 01/17/24 12:00 History gram oral powder packet (Lokelma) trazodone 50 mg tablet 50 mg PO BEDTIME 01/02/24 01/17/24 01/16/24 History guaifenesin 100 mg/5 mL oral liquid 200 mg PO Q4H PRN Cough 01/17/24 01/17/24 Unknown History Physical Exam Vital Signs: Last Vital Signs Temp 98.4 F 01/19/24 08:00 Pulse 66 01/19/24 08:00 Resp 20 01/19/24 08:00 BP 180/68 H 01/19/24 08:00 Pulse Ox 99 01/19/24 08:00 O2 Del Method Nasal Cannula 01/19/24 08:00 O2 Flow Rate 3 01/19/24 08:00 Oxygen Flow Rate 8 01/17/24 18:26 BMI result Body Mass Index 31.3 Const General: ill appearing Neck Neck: Yes supple Resp Auscultation: rhonchi Cardio Palpation: no palpable S3 Heart sounds: no rubs GI Palpation (GI): Soft to palpation Auscultation: normal bowel sounds Neuro Motor exam (neuro): no asterixis Results Lab Results 01/17/24 18:42 01/19/24 08:27 Lab results: Chemistry 01/17/24 01/19/24 18:41 08:27 Sodium 127 L 133 L Potassium 4.9 4.2 Carbon Dioxide 20 L 25 BUN 63 H 24 H Creatinine 9.76 H* 6.00 H* Calcium 9.1 D 9.2 Hematology 01/17/24 18:42 WBC 4.9 Hgb 8.2 L Plt Count 222 Assessment and Plan (1) End stage renal disease on dialysis: Status: Acute (2) COVID-19 virus infection: Status: Acute Plan End stage renal disease Hemodialysis 3 times weeks on Tuesday. Optimize fluid status with dialysis. Anemia multifactorial Add Retacrit Mild hyponatremia Restrict hypotonic fluids and watch sodium. Procedures Date of Service Date of Service: 01/19/24
[2024-01-19 11:11] LABS: Glucose, Whole Blood 118 mg/dL (60-115)
[2024-01-19] MEDS: Heparin Sodium,Porcine 5,000 UNIT/ML VIAL 5000 UNIT SUBCUT ×2 (11:34→20:45)
[2024-01-19] MEDS: Epoetin Alfa-epbx 10,000 UNIT/ML VIAL 10000 UNIT SUBCUT (11:35)
[2024-01-19] MEDS: Sevelamer Carbonate Tablet 800 MG TABLET 1600 MG PO ×3 (11:35→20:44)
[2024-01-19] MEDS: amLODIPine Besylate 5 MG TABLET PO (11:35)
[2024-01-19] MEDS: Atorvastatin Calcium 80 MG TABLET PO (11:35)
[2024-01-19] MEDS: clonazePAM 1 MG TABLET PO ×2 (11:35→20:45)
[2024-01-19] MEDS: Aspirin Enteric Coated 81 MG TABLET.DR PO (11:36)
[2024-01-19] MEDS: 0.9 % Sodium Chloride Flush 3 ML SYRINGE IVFLUSH ×3 (11:36→20:45)
[2024-01-19] MEDS: Escitalopram Oxalate 10 MG TABLET PO (11:36)
[2024-01-19] MEDS: Sodium Zirconium Cyclosilicate 10 GM POWD.PACK PO (15:31)
[2024-01-19 16:13] LABS: Glucose, Whole Blood 91 mg/dL (60-115)
[2024-01-19 20:21] LABS: Glucose, Whole Blood 140 mg/dL (60-115)
[2024-01-19] MEDS: traZODone HCL 50 MG TABLET PO (20:44)
[2024-01-20 04:00] VITALS: RESP 18
[2024-01-20 08:00] VITALS: BP 194/90; PULSE 61; RESP 20; TEMP 36.2; O2SAT 99
[2024-01-20 08:38] LABS: Glucose, Whole Blood 102 mg/dL (60-115)
--- NOTE | 2024-01-20 09:33 | PM.DS ---
DS: Providers Provider Date of Service: 01/20/24 Date of admission: 01/17/24 22:06 Date of discharge: 01/20/24 Primary care physician: Va Kurtz MD Consults: 01/17/24 20:27 Consult to Nephrology Stat Consulting Provider: [facility] Reason for consultation: Missed HD 01/18/24 14:44 Consult to Cardiology Routine Consulting Provider: [facility] Reason for consultation: intermittent bradycardia DS: Diagnosis Discharge Diagnosis (1) End stage renal disease on dialysis: Status: Acute (2) COVID-19 virus infection: Status: Acute DS: Summary Hospital Course Hospital Course: from initial hpi: 68-year-old male with pertinent history of peripheral vascular disease status post right BKA, congestive heart failure with preserved ejection fraction, ESRD on hemodialysis M/W/F with history of noncompliance with dialysis, metabolic syndrome, non insulin-dependent diabetes mellitus, coronary artery disease who presents to the emergency department for evaluation of dyspnea. Patient does have a history of noncompliance with dialysis and did not go for his last dialysis session. Patient does endorse dyspnea with orthopnea. No cough, fever or chills. No chest pain or palpitations. He denies abdominal pain, changes in urinary or bowel habits. He does not make urine In the emergency department, imaging concerning for pulmonary edema hospital course: Patient was admitted for acute on chronic hypoxic respiratory failure secondary to decompensated chronic diastolic CHF due to missed hemodialysis. He was treated with hemodialysis and shortness of breath resolved. Patient also noted to have COVID-19 infection, hypoxia due to CHF and not COVID therefore was not given any specific COVID directed treatment and symptomatic management only. For recent epistaxis patient had his rhino rocket removed and had no further bleeding. Patient had episode of near-syncope and intermittent bradycardia. Possibly related to rhino rocket versus conduction issue. Was seen by Cardiology who felt patient did not require pacer at this time and recommended avoiding AV li blockade/chronotropic meds. Patient's heart rate did improve appropriately on exertion. For diabetes was continue insulin sliding scale. For mood disorder was continued on Lexapro and Klonopin. For peripheral vascular disease/coronary artery disease was continued on aspirin and statin. Patient is feeling better [facility] Time Attestation Discharge Coordination Time (in mins): 37 Quality: Safe Use of Opioids Does Pt have an Active Cancer Diagnosis on the Problem List?: No Quality: Stroke Does the patient have a stroke diagnosis?: No Physical Exam Vital Signs: Vital Signs: Last Vital Signs Temp 97.1 F 01/20/24 08:00 Pulse 61 01/20/24 08:00 Resp 20 01/20/24 08:00 BP 194/90 H 01/20/24 08:00 Pulse Ox 99 01/20/24 08:00 O2 Del Method Nasal Cannula 01/20/24 08:00 O2 Flow Rate 3 01/20/24 08:00 Oxygen Flow Rate 8 01/17/24 18:26 BMI result Body Mass Index 31.3 Const: General: ill appearing Neck: Neck: Yes supple Cardio: Palpation: no palpable S3 Heart sounds: no rubs GI: Palpation (GI): Soft to palpation Auscultation: normal bowel sounds Neuro: Motor exam (neuro): no asterixis DS: Data Data Completed and Pending Completed studies during hospitalization [Text1]: Procedures Performance of Urinary Filtration, Intermittent, Less than 6 Hours Per Day (01/02/24) Labs on day of discharge: Laboratory Results - last 24 hr 01/19/24 01/19/24 01/19/24 11:02 16:06 20:17 POC Glucose 118 H 91 140 H 01/20/24 07:48 POC Glucose 102 Discharge Plan Discharge Anticipated Discharge Date/Time: 01/20/24 09:30 Patient Disposition: Xfer SNF Discharge Diagnosis: chf, htn Referrals: Va Kurtz MD [Primary Care Provider] - 1 Week Discharge Medications: New hydralazine 10 mg Tablet 10 mg PO BID Qty: 0 0RF Protocol: Hold for SBP< HOLD for SBP < : 90 amlodipine 5 mg Tablet 5 mg PO BID Qty: 0 0RF Protocol: Hold for SBP< HOLD for SBP < : 90 Continued atorvastatin 80 mg tablet 80 mg PO DAILY acetaminophen 325 mg Tablet 650 mg PO Q6H PRN (Reason: Fever/Pain) trazodone 50 mg Tablet 50 mg PO BEDTIME isosorbide mononitrate 20 mg Tablet 40 mg PO DAILY sevelamer HCl 800 mg Tablet 1,600 mg PO TID Rx Instructions: must administer with a meal/food clonazepam 0.5 mg tablet 1 mg PO BID aspirin 81 mg tablet,delayed release (DR/EC) 81 mg PO DAILY citalopram 20 mg tablet 20 mg PO DAILY bisacodyl 10 mg Suppository 10 mg [place] DAILY PRN (Reason: No BM in 8 Hrs after MoM) Fleet Enema 19-7 gram/118 mL Enema 118 ml [place] DAILY PRN (Reason: No BM in 8 Hrs after Bisacodyl ) omeprazole 20 mg Capsule,Delayed Release(Dr/Ec) 20 mg PO DAILY@0630 ibuprofen 600 mg Tablet 600 mg PO Q6H PRN (Reason: Pain) polyethylene glycol 3350 17 gram/dose Powder 17 g PO Q24H PRN (Reason: Constipation) ondansetron 4 mg Tablet,Disintegrating 4 mg PO Q8H PRN (Reason: Nausea/Vomiting) simethicone 80 mg Tablet,Chewable 80 mg PO Q6H PRN (Reason: GAS) Lokelma 10 gram Powder In Packet 10 g PO SUTUTHSA Senna Plus 8.6-50 mg Capsule 1 tab-cap PO Q24H PRN (Reason: Constipation) glipizide 2.5 mg Tablet 2.5 mg PO DAILY guaifenesin 100 mg/5 mL Liquid 200 mg PO Q4H PRN (Reason: Cough) Discontinued cephalexin 500 mg capsule 500 mg PO QID 5 Days Qty: 20 0RF amlodipine 5 mg tablet 5 mg PO DAILY Discharge Orders: Discharge Order (Routine); Ordered 01/20/24 Ordered By: Huber Morris Diet: Diabetic diet Activity on Discharge: As tolerated Stand Alone Forms: Patient Portal Discharge page Print Language: Macedonian Care Plan Goals: recovery Health Concerns: chf, covid Plan of Treatment: continue HD Assessment: see above
[2024-01-20 10:41] LABS: Hematocrit 26.4 % (42.0-52.0); Hemoglobin 8.8 g/dl (14.0-18.0); Mean Corpuscular HGB Conc 33.3 g/dl (31.0-36.0); Mean Corpuscular Hemoglobin 29.9 pg (27.0-33.0); Mean Corpuscular Volume 89.8 fL (80.0-98.0); Mean Platelet Volume 9.3 fL (9.4-12.4); Platelet Count 239 X10*3/uL (160-400); Red Blood Count 2.94 X10*6/uL (4.60-5.80); Red Cell Distribution Width 13.6 % (11.0-16.0); White Blood Count 3.9 X10*3/uL (4.8-10.8)
[2024-01-20 11:10] LABS: Anion Gap 17 (12-20); Blood Urea Nitrogen 35 mg/dL (9-16); Calcium 9.1 mg/dL (8.4-10.2); Carbon Dioxide 31 mmol/L (22-29); Chloride 88 mmol/L (96-108); Creatinine Clr Calc Pharmacy 9.9; Estimated Glomerular Filt Rate 7; Glucose Fasting 167 mg/dL (60-99); Potassium 3.9 mmol/L (3.3-5.1); Sodium 132 mmol/L (135-145)
[2024-01-20 11:10] LABS: Glucose, Whole Blood 155 mg/dL (60-115)
--- NOTE | 2024-01-20 11:18 | P.PNNP_ITS ---
Subjective Subjective Date of Service: 01/20/24 Interval history: sob improving Physical Exam 2 Vital Signs: Vital Signs: Last Vital Signs Temp 97.1 F 01/20/24 08:00 Pulse 61 01/20/24 08:00 Resp 20 01/20/24 08:00 BP 194/90 H 01/20/24 08:00 Pulse Ox 99 01/20/24 08:00 O2 Del Method Nasal Cannula 01/20/24 08:00 O2 Flow Rate 3 01/20/24 08:00 Oxygen Flow Rate 8 01/17/24 18:26 BMI result Body Mass Index 31.3 Const: General: ill appearing Neck: Neck: Yes supple Resp: Auscultation: rhonchi Cardio: Palpation: no palpable S3 Heart sounds: no rubs GI: Palpation (GI): Soft to palpation Auscultation: normal bowel sounds Neuro: Motor exam (neuro): no asterixis Objective Data Labs 01/20/24 10:32 01/20/24 10:32 Labs: Laboratory Results - last 24 hr 01/19/24 01/19/24 01/20/24 16:06 20:17 07:48 WBC RBC Hgb Hct MCV MCH MCHC RDW Plt Count MPV Absolute Nucleated RBC Nucleated RBC % (auto) Sodium Potassium Chloride Carbon Dioxide Anion Gap BUN Creatinine Estim Creat Clear Calc Estimated GFR POC Glucose 91 140 H 102 Fasting Glucose Calcium 01/20/24 01/20/24 10:32 11:05 WBC 3.9 L RBC 2.94 L Hgb 8.8 L Hct 26.4 L MCV 89.8 MCH 29.9 MCHC 33.3 RDW 13.6 Plt Count 239 MPV 9.3 L Absolute Nucleated RBC 0.000 Nucleated RBC % (auto) 0.0 Sodium 132 L Potassium 3.9 Chloride 88 L Carbon Dioxide 31 H Anion Gap 17 BUN 35 H Creatinine 7.82 H* Estim Creat Clear Calc 9.9 Estimated GFR 7 POC Glucose 155 H Fasting Glucose 167 H Calcium 9.1 Procedures Date of Service Date of Service: 01/20/24 Assessment & Plan Assessment and plan (1) End stage renal disease on dialysis: Status: Acute (2) COVID-19 virus infection: Status: Acute Plan End stage renal disease Hemodialysis 3 times weeks on Tuesday. Optimize fluid status with dialysis. Anemia multifactorial Retacrit Mild hyponatremia Restrict hypotonic fluids and watch sodium. Time Spent With Patient Time: Total time managing care of this patient today ____ minutes. Progress Note: Quality Stroke Does the patient have a stroke diagnosis?: No
[2024-01-20 11:47] VITALS: BP 149/59; PULSE 63; RESP 20; TEMP 36.4; O2SAT 99
[2024-01-20] MEDS: Heparin Sodium,Porcine 5,000 UNIT/ML VIAL 5000 UNIT SUBCUT (11:56)
[2024-01-20] MEDS: hydrALAZINE HCl 10 MG TABLET PO (11:56)
[2024-01-20] MEDS: Aspirin Enteric Coated 81 MG TABLET.DR PO (11:56)
[2024-01-20] MEDS: amLODIPine Besylate 5 MG TABLET PO (11:56)
[2024-01-20] MEDS: clonazePAM 1 MG TABLET PO (11:57)
[2024-01-20] MEDS: Escitalopram Oxalate 10 MG TABLET PO (11:57)
[2024-01-20] MEDS: Atorvastatin Calcium 80 MG TABLET PO (11:57)
[2024-01-20] MEDS: Sevelamer Carbonate Tablet 800 MG TABLET 1600 MG PO (11:57)
[2024-01-20] MEDS: 0.9 % Sodium Chloride Flush 3 ML SYRINGE IVFLUSH (11:58)
[2024-01-20] MEDS: Insulin Lispro 100 UNIT/ML 3 ML VIAL SUBCUT (11:58)
--- NOTE | 2024-01-20 14:56 | MHC.CM.PN ---
Pt has been medically cleared for DC, he will go back to [facility] today via BLS.
== END 2024-01-20 18:42 | disposition skilled nursing facility (03) | DRG 291 ==
LOC: HO.ED 22:00 → HO.EDOVER 22:06 → HO.IMC 01-18 08:32
PROVIDERS: Physician Assistant; Admitting Provider Student in an Organized Health Care Education/Training Program; Emergency Provider Internal Medicine; PCP Internal Medicine; Visit Provider Internal Medicine
DX: I13.2 Hypertensive heart and chronic kidney disease with heart failure and with stage 5 chronic kidney disease, or end stage renal disease (principal); I50.33 Acute on chronic diastolic (congestive) heart failure; N18.6 End stage renal disease; U07.1 COVID-19; J96.21 Acute and chronic respiratory failure with hypoxia; E87.21 Acute metabolic acidosis; E87.1 Hypo-osmolality and hyponatremia; E11.51 Type 2 diabetes mellitus with diabetic peripheral angiopathy without gangrene; R00.1 Bradycardia, unspecified; I25.10 Atherosclerotic heart disease of native coronary artery without angina pectoris; F39 Unspecified mood [affective] disorder; D63.1 Anemia in chronic kidney disease; E11.22 Type 2 diabetes mellitus with diabetic chronic kidney disease; Z99.2 Dependence on renal dialysis; Z91.158 Patient's noncompliance with renal dialysis for other reason; Z89.511 Acquired absence of right leg below knee; Z91.199 Patient's noncompliance with other medical treatment and regimen due to unspecified reason; Z79.82 Long term (current) use of aspirin; Z79.84 Long term (current) use of oral hypoglycemic drugs; Z79.899 Other long term (current) drug therapy
CPT/HCPCS: 0241U; 36415; 71045; 80048; 80053; 82803; 82947; 83735; 84484; 85025; 85027; 85610; 90999; 93005; 93306; 99285; J0360; J1644; Q5106; Q9957

== ENCOUNTER 2024-01-17 22:06 | Outpatient (BNV) | payer OTHER, SELFPAY | END 2024-01-18 14:10 | PROVIDERS: Admitting Provider Student in an Organized Health Care Education/Training Program; Emergency Provider Internal Medicine; Visit Provider Internal Medicine Cardiovascular Disease | DX: I35.0 Nonrheumatic aortic (valve) stenosis (principal); I34.81 Nonrheumatic mitral (valve) annulus calcification; I35.8 Other nonrheumatic aortic valve disorders | CPT/HCPCS: 93306 ==

== ENCOUNTER → 2024-01-17 22:06 | Outpatient (BNV) | payer OTHER, SELFPAY | PROVIDERS: Admitting Provider Student in an Organized Health Care Education/Training Program; Emergency Provider Internal Medicine; PCP Internal Medicine; Visit Provider Internal Medicine Hypertension Specialist | DX: N18.6 End stage renal disease (principal); Z99.2 Dependence on renal dialysis; U07.1 COVID-19 | CPT/HCPCS: 99223; 99232 ==

== ENCOUNTER → 2024-01-17 22:06 | Outpatient (BNV) | payer OTHER, SELFPAY | PROVIDERS: Admitting Provider Student in an Organized Health Care Education/Training Program; Emergency Provider Internal Medicine; PCP Internal Medicine; Visit Provider Internal Medicine Cardiovascular Disease | DX: I50.9 Heart failure, unspecified (principal); R00.1 Bradycardia, unspecified | CPT/HCPCS: 99222 ==

== ENCOUNTER 2024-01-26 19:16 | Inpatient (IN) | payer MEDICARE, OTHER, SELFPAY ==
[2024-01-26] VITALS (8 sets, daily range): BP systolic 92–193; BP diastolic 34–63; PULSE 36–47; RESP 12–20; TEMP 36.3–36.5; O2SAT 93–100; BMI 31.1; BMI 31.4
--- NOTE | ~2024-01-26 | XR_ITS ---
EXAMINATION: XR CHEST CLINICAL INFORMATION: Shortness of breath. COMPARISON: Chest x-ray January 17, 2024 TECHNIQUE: Frontal portable view of the chest was obtained. 1937 hours FINDINGS: Worsening bilateral airspace opacities primarily involving coronary lung. Findings consistent with pulmonary edema. No significant pleural effusion. No significant pleural effusion. XR/XR chest 1V IMPRESSION: Worsening bilateral airspace opacities consistent with pulmonary edema. Electronically signed by: Oracio Luna MD 01/26/2024 09:16 PM EDT RP
--- NOTE | ~2024-01-26 | XR_ITS ---
EXAMINATION: XR CHEST CLINICAL INFORMATION: Pneumonia COMPARISON: Chest radiograph 10/26/2023 TECHNIQUE: Frontal view of the chest was obtained. FINDINGS: The lungs are adequately expanded. Patchy bilateral airspace opacities, improved from prior examNo pleural effusions or pneumothorax. The cardiac mediastinal silhouette is unchanged. Degenerative changes of the thoracic spine. XR/XR chest 1V IMPRESSION: Bilateral patchy airspace opacities, improved from prior exam and likely represent improving edema or infection. Electronically signed by: Ruben Rasheed MD 01/27/2024 10:13 AM EDT
--- NOTE | 2024-01-26 19:25 | ECG_ITS ---
Test Reason : SHORTNESS OF BREATHE Blood Pressure : / mmHG Vent. Rate : 040 BPM Atrial Rate : 040 BPM P-R Int : 198 ms QRS Dur : 098 ms QT Int : 524 ms P-R-T Axes : 046 -15 012 degrees QTc Int : 427 ms Marked sinus bradycardia Minimal voltage criteria for LVH, may be normal variant ( [place] product ) Abnormal ECG When compared with ECG of 18-JAN-2024 13:10, T wave inversion no longer evident in Anterior leads Referred By: Carmen Pearce Electronically Signed By:JOSE MURRAY
[2024-01-26 19:43] LABS: Basophils Percent Auto 0.3 % (0-2); Eosinophils Absolute Auto 0.2 X10*3/uL (0.0-0.4); Eosinophils Percent Auto 2.3 % (0-4); Hematocrit 28.7 % (42.0-52.0); Hemoglobin 9.2 g/dl (14.0-18.0); Imm Gran Abs Auto 0.04 X10*3/uL (0.00-0.03); Imm Gran Pct Auto 0.5 % (0.0-0.4); Lymphocytes Absolute Auto 0.8 X10*3/uL (1.2-4.9); Lymphocytes Percent Auto 11.2 % (20-40); MANUAL DIFF FLAG NO; Mean Corpuscular HGB Conc 32.1 g/dl (31.0-36.0); Mean Corpuscular Hemoglobin 30.1 pg (27.0-33.0); Mean Corpuscular Volume 93.8 fL (80.0-98.0); Mean Platelet Volume 9.5 fL (9.4-12.4); Monocytes Absolute Auto 0.4 X10*3/uL (0.1-1.2); Monocytes Percent Auto 5.4 % (2-11); Neutrophils Percent Auto 80.3 % (45-73); Platelet Count 244 X10*3/uL (160-400); Red Blood Count 3.06 X10*6/uL (4.60-5.80); Red Cell Distribution Width 14.1 % (11.0-16.0); White Blood Count 7.4 X10*3/uL (4.8-10.8)
[2024-01-26 19:45] LABS: VBG HCO3 24 mmol/L (22-26); VBG pCO2 50 mmHg; VBG pH 7.29 (7.32-7.43); VBG pO2 38 mmHg
[2024-01-26] MEDS: hydrALAZINE HCl 20 MG/ML VIAL 10 MG IVPUSH (19:55)
[2024-01-26] MEDS: Furosemide 100 MG/10 ML VIAL 80 MG IVPUSH (19:55)
[2024-01-26] MEDS: Nitroglycerin 2 % Oint 1 GM Packet 1 INCH TRANSDERMA (19:55)
[2024-01-26 19:58] LABS: Lactic Acid 1.6 mmol/L (0.5-2.0)
--- NOTE | 2024-01-26 20:04 | MHC.EDTECH ---
at this time the RN requested to place the pt on a [place] catheter r/t the pt getting Lasix. This tech placed a 25mm [place] catheter on the pt. Pt tolerated the procedure well. Pt was also changed over and placed on continuos o2 and youth nutritional monitor
[2024-01-26 20:10] LABS: Troponin-I High Sensitivity 44.5 ng/L (<3.5-35.0)
--- NOTE | 2024-01-26 20:12 | ED.GENADULT ---
HPI - General Adult General Chief complaint: Dyspnea Stated complaint: SOB Time Seen by Provider: 01/26/24 19:17 Source: patient and EMS Mode of arrival: EMS Limitations: no limitations History of Present Illness ED Provider: Dr. Evelin Vasquez HPI narrative: Patient comes to the emergency room via ambulance from [facility]. According to EMS, the staff reported the patient's oxygen saturation was 86% on 2 L nasal cannula, looking diaphoretic and cyanotic. Per EMS, patient was placed on a non-rebreather, oxygen saturation improved to 98%. Patient is known to go to dialysis Tuesday. Patient states that yesterday he did go because he was not feeling well, was nauseous. At this time, patient complaining that he has a headache and feels a bit short of breath. Related Data Home Medications ?Medication ?Instructions ?Recorded ?Confirmed acetaminophen 325 mg tablet 650 mg PO Q6H PRN Fever/Pain 01/02/24 01/17/24 aspirin 81 mg tablet,delayed 81 mg PO DAILY 01/02/24 01/17/24 release atorvastatin 80 mg tablet 80 mg PO DAILY 01/02/24 01/17/24 bisacodyl 10 mg rectal suppository 10 mg VA DAILY PRN No BM in 8 Hrs 01/02/24 01/17/24 after MoM citalopram 20 mg tablet 20 mg PO DAILY 01/02/24 01/17/24 clonazepam 0.5 mg tablet 1 mg PO BID anxiety 01/02/24 01/17/24 glipizide 2.5 mg tablet 2.5 mg PO DAILY 01/02/24 01/17/24 ibuprofen 600 mg tablet 600 mg PO Q6H PRN Pain 01/02/24 01/17/24 isosorbide mononitrate 20 mg tablet 40 mg PO DAILY 01/02/24 01/17/24 omeprazole 20 mg capsule,delayed 20 mg PO DAILY@0630 01/02/24 01/17/24 release ondansetron 4 mg disintegrating 4 mg PO Q8H PRN Nausea/Vomiting 01/02/24 01/17/24 tablet polyethylene glycol 3350 17 17 g PO Q24H PRN Constipation 01/02/24 01/17/24 gram/dose oral powder sennosides 8.6 mg-docusate sodium 1 tab-cap PO Q24H PRN Constipation 01/02/24 01/17/24 50 mg capsule (Senna Plus) sevelamer HCl 800 mg tablet 1,600 mg PO TID 01/02/24 01/17/24 simethicone 80 mg chewable tablet 80 mg PO Q6H PRN GAS 01/02/24 01/17/24 sodium phosphates 19 gram-7 118 ml VA DAILY PRN No BM in 8 Hrs 01/02/24 01/17/24 gram/118 mL enema (Fleet Enema) after Bisacodyl sodium zirconium cyclosilicate 10 10 g PO SUTUTHSA 01/02/24 01/17/24 gram oral powder packet (Lokelma) trazodone 50 mg tablet 50 mg PO BEDTIME 01/02/24 01/17/24 guaifenesin 100 mg/5 mL oral liquid 200 mg PO Q4H PRN Cough 01/17/24 01/17/24 Previous Rx's ?Medication ?Instructions ?Recorded amlodipine 5 mg tablet 5 mg PO BID #0 tabs 01/20/24 hydralazine 10 mg tablet 10 mg PO BID #0 tabs 01/20/24 Allergies Allergy/AdvReac Type Severity Reaction Status Date / Time garlic Allergy Severe Hives Verified 01/26/24 19:40 onion Allergy Severe Hives Verified 01/26/24 19:40 Peppers, Green Allergy Severe Hives Verified 01/26/24 19:40 Review of Systems Review of Systems: Constitutional : No Weight loss, No Fever, No Chills, No Night Sweats, No Fatigue, No Malaise ENT/Mouth : No Hearing loss, No Ear Pain, No Nasal Congestion, No Sinus Pain, No Hoarseness, No sore throat, No Rhinorrhea, No Swallowing Difficulty Eyes: No Eye Pain, No Swelling, No Redness, No Foreign Body, No Discharge, No Vision Changes Cardiovascular : No Chest Pain, No SOB, No Dyspnea on Exertion, No Orthopnea, No Edema, No Palpitations Respiratory : Shortness of breath, per caretakers, oxygen saturation to 86% on his usual 2 L nasal cannula. Gastrointestinal : No Nausea, No Vomiting, No Diarrhea, No Constipation, No abdominal Pain, No Hematochezia, No Melena Genitourinary : no irregular bleeding, No Dysuria, No Urinary Frequency, No Hematuria, No Urinary Incontinence, No Urgency, No Flank Pain, No Urinary Flow Changes, No Hesitancy Musculoskeletal : No joint pain, No Myalgias, No Joint Swelling Skin : No Skin Lesions, No rash Neuro : No Weakness, No Numbness, No Paresthesias, No Loss of Consciousness, No Dizziness, No Headache Psych : No Anxiety/Panic, No Depression, No SI/HI/AH/VH, No Social Issues, Heme/Lymph: No Bruising, No Bleeding,No Lymphadenopathy Endocrine : No Polyuria, No Polydipsia, No Temperature Intolerance [facility] Past Medical History Medical History Dialysis patient, noncompliant End stage renal disease on dialysis Anemia in chronic kidney disease (CKD) Diabetes mellitus Hypertension Bradycardia Below-knee amputation of right lower extremity Hyperlipidemia Hypertension Peripheral vascular disease Chronic kidney disease on chronic dialysis Diabetes Social History Social History Household Members: Other Household Members Other:: LTC Housing: [facility] Do you presently have visiting nurse or other home services: Yes Patient Tobacco Use Status: Never used Tobacco Advance Directives: Yes Advance Directives on File: Yes Advance Directives Date on File: 01/17/24 Do you have a plan to hurt others: No Plan service: No Physical Exam ED Vital Signs: Vital Signs - 24 hr 01/26/24 19:34 01/26/24 19:41 01/26/24 20:22 Temperature 97.7 F 97.7 F Pulse Rate 39 L 38 L Respiratory Rate 20 18 20 Blood Pressure 189/44 H 189/44 H Pulse Oximetry 100 100 Oxygen Delivery Method Non-Rebreather Mask Oxymask Oxygen Flow Rate 15 BMI result Body Mass Index 31.1 Const Other: Appearance: Alert. Oriented X3. Patient ill-appearing, has a diffuse grayish lookibg skin color Eyes: Pupils equal, round and reactive to light. ENT: Pharynx normal. Neck: Normal inspection. Neck supple. No lymph nodes noted. No crepitus CVS: Normal heart rate and rhythm. Pulses normal. Normal S1 and S2 Respiratory: No respiratory distress. Breath sounds normal. No Wheezing. No rales Abdomen: Soft and nontender. No rigidity. No distention. Skin: Skin warm and dry. Grayish hue skin color Normal skin turgor. Extremities: No lower extremity edema. No Lacerations. No Rash Neuro: Oriented X 3. No motor deficit. No sensory deficit. Moving all extremities. No slurred speech. CN 2 through 12 grossly intact Psych: calm, cooperative, normal affect Medications Administered Generic Name Dose Route Start Last Admin Trade Name Freq PRN Reason Stop Dose Admin Azithromycin 500 mg/ Sodium 250 mls @ 125 mls/hr 01/26/24 20:05 01/26/24 21:06 Chloride IV 01/26/24 22:04 125 mls/hr ONCE ONE Administration Discontinued Medications Generic Name Dose Route Start Last Admin Trade Name Freq PRN Reason Stop Dose Admin Furosemide 80 mg 01/26/24 19:39 01/26/24 19:55 Furosemide 100 Mg/10 Ml Vial IVPUSH 01/26/24 19:40 80 mg ONCE ONE Administration Protocol Hydralazine HCl 10 mg 01/26/24 19:47 01/26/24 19:55 Hydralazine Hcl 20 Mg/Ml Vial IVPUSH 01/26/24 19:48 10 mg ONCE ONE Administration Protocol Ceftriaxone Sodium 1 gm/ 50 mls @ 100 mls/hr 01/26/24 20:05 01/26/24 20:25 Sodium Chloride IV 01/26/24 20:34 100 mls/hr ONCE ONE Administration Nitroglycerin 1 inch 01/26/24 19:39 01/26/24 19:55 Nitroglycerin 2 % Oint 1 Gm Packet TRANSDERMA 01/26/24 19:40 1 inch ONCE ONE Administration Medical Decision Making Medical Decision Making MDM Narrative: -patient is ill-appearing, awake. Oxygen saturation is in the mid 90s on 15 L. -a stat chest x-ray was ordered, patient has diffuse pulmonary edema, unclear if there is underlying infection. Patient will be empirically given IV antibiotics. No fluids at this time since the patient would significantly decompensate -blood pressure 189/44, heart rate 39. Patient is chronically bradycardic. -patient was put on BiPAP, given hydralazine IV, Lasix and nitroglycerin patch. -all the labs are pending. Patient's respiratory distress is secondary to pulmonary edema. Sepsis is not suspected at this time, 20:00 -patient will need emergent dialysis. I discussed the patient with Dr. Degroot from Nephrology. Patient will be taken to dialysis tonight -I discussed the patient with Dr. Hui. Patient is on rescue BiPAP, the patient will need ICU. I discussed the patient with Dr. Fontanez from intensive care unit. Patient will be admitted to the ICU for dialysis, and then they will determine if the patient can be moved to the floor or stay in the ICU. My interpretation of labs: White blood cell count 7.4. Chemistry shows sodium of 127, potassium 5.8 patient being given calcium gluconate. Patient will be taken to dialysis shortly. Patient received nebulization treatments per EMS. Creatinine 8.66. Troponin 44.5, likely secondary to a combination of demand ischemia and pulmonary edema. Serology tested positive for COVID Differential Diagnosis Differential Diagnoses: The differential diagnosis associated with the presentation includes (CHF, flash pulmonary edema, viral illness, pneumonia) Admission/Observation Consideration of admission/observation: Escalation of care including admission/observation considered Consult Healthcare Provider Management of the patient was discussed with: Hospitalist and Patient Access Specialist Lab Data MDM Lab Attestation statement: I reviewed the patient's lab results. 01/26/24 19:32 01/26/24 19:32 Labs: Lab Results 01/26/24 01/26/24 01/26/24 Range/Units 19:32 19:42 19:45 WBC 7.4 (4.8-10.8) X10*3/uL RBC 3.06 L (4.60-5.80) X10*6/uL Hgb 9.2 L (14.0-18.0) g/dl Hct 28.7 L (42.0-52.0) % MCV 93.8 (80.0-98.0) fL MCH 30.1 (27.0-33.0) pg MCHC 32.1 (31.0-36.0) g/dl RDW 14.1 (11.0-16.0) % Plt Count 244 (160-400) X10*3/uL MPV 9.5 (9.4-12.4) fL Immature Gran % (Auto) 0.5 H (0.0-0.4) % Neut % (Auto) 80.3 H (45-73) % Lymph % (Auto) 11.2 L (20-40) % [place] % (Auto) 5.4 (2-11) % Eos % (Auto) 2.3 (0-4) % Baso % (Auto) 0.3 (0-2) % Lymph # (Auto) 0.8 L (1.2-4.9) X10*3/uL [place] # (Auto) 0.4 (0.1-1.2) X10*3/uL Eos # (Auto) 0.2 (0.0-0.4) X10*3/uL Baso # (Auto) 0.0 (0.0-0.2) X10*3/uL Abs Immat Gran (auto) 0.04 H (0.00-0.03) X10*3/uL Absolute Neuts (auto) 6.0 (2.0-8.3) x10*3/uL Absolute Nucleated RBC 0.000 (0.0-0.012) X10*3/uL Nucleated RBC % (auto) 0.0 (0.0-0.2) /100WBC Hold Purple Top SEE NOTE PT (11.1-13.3) SEC INR (0.9-1.1) VBG pH 7.29 L (7.32-7.43) VBG pCO2 50 mmHg VBG pO2 38 mmHg VBG HCO3 24 (22-26) mmol/L VBG O2 Saturation 57.0 % VBG Base Excess -2.0 mmol/L Sodium 127 L (135-145) mmol/L Potassium 5.8 H D (3.3-5.1) mmol/L Chloride 92 L (96-108) mmol/L Carbon Dioxide 22 (22-29) mmol/L Anion Gap 19 (12-20) BUN 42 H (9-16) mg/dL Creatinine 8.66 H* (0.5-1.4) mg/dL Estim Creat Clear Calc 8.9 Estimated GFR 6 Random Glucose 163 H (60-115) mg/dL Lactic Acid 1.6 (0.5-2.0) mmol/L Calcium 9.7 D (8.4-10.2) mg/dL Magnesium 2.3 (1.6-2.6) mg/dL Total Bilirubin 0.5 (0.0-1.0) mg/dL Direct Bilirubin 0.4 (0.0-0.5) mg/dL AST 13 (5-37) U/L ALT 9 (0-40) U/L Alkaline Phosphatase 180 H (39-117) U/L Troponin I High Sens 44.5 H (<3.5-35.0) ng/L Total Protein 7.7 (6.5-8.0) g/dL Albumin 3.6 (3.5-5.0) g/dL COVID-19 ([facility]) Positive A (Negative) COVID-19 Clin Com See Note 01/26/24 Range/Units 19:57 WBC (4.8-10.8) X10*3/uL RBC (4.60-5.80) X10*6/uL Hgb (14.0-18.0) g/dl Hct (42.0-52.0) % MCV (80.0-98.0) fL MCH (27.0-33.0) pg MCHC (31.0-36.0) g/dl RDW (11.0-16.0) % Plt Count (160-400) X10*3/uL MPV (9.4-12.4) fL Immature Gran % (Auto) (0.0-0.4) % Neut % (Auto) (45-73) % Lymph % (Auto) (20-40) % [place] % (Auto) (2-11) % Eos % (Auto) (0-4) % Baso % (Auto) (0-2) % Lymph # (Auto) (1.2-4.9) X10*3/uL [place] # (Auto) (0.1-1.2) X10*3/uL Eos # (Auto) (0.0-0.4) X10*3/uL Baso # (Auto) (0.0-0.2) X10*3/uL Abs Immat Gran (auto) (0.00-0.03) X10*3/uL Absolute Neuts (auto) (2.0-8.3) x10*3/uL Absolute Nucleated RBC (0.0-0.012) X10*3/uL Nucleated RBC % (auto) (0.0-0.2) /100WBC Hold Purple Top PT 11.2 (11.1-13.3) SEC INR 0.9 (0.9-1.1) VBG pH (7.32-7.43) VBG pCO2 mmHg VBG pO2 mmHg VBG HCO3 (22-26) mmol/L VBG O2 Saturation % VBG Base Excess mmol/L Sodium (135-145) mmol/L Potassium (3.3-5.1) mmol/L Chloride (96-108) mmol/L Carbon Dioxide (22-29) mmol/L Anion Gap (12-20) BUN (9-16) mg/dL Creatinine (0.5-1.4) mg/dL Estim Creat Clear Calc Estimated GFR Random Glucose (60-115) mg/dL Lactic Acid (0.5-2.0) mmol/L Calcium (8.4-10.2) mg/dL Magnesium (1.6-2.6) mg/dL Total Bilirubin (0.0-1.0) mg/dL Direct Bilirubin (0.0-0.5) mg/dL AST (5-37) U/L ALT (0-40) U/L Alkaline Phosphatase (39-117) U/L Troponin I High Sens (<3.5-35.0) ng/L Total Protein (6.5-8.0) g/dL Albumin (3.5-5.0) g/dL COVID-19 ([facility]) (Negative) COVID-19 Clin Com Independent Interpretation I performed an independent interpretation of an: Plain X-Ray Radiology Impression Discussion of test interpretation with radiology: I have reviewed the radiologist's reading. Radiologist Impression: Worsening bilateral airspace opacities primarily involving coronary lung. Findings consistent with pulmonary edema. No significant pleural effusion. No significant pleural effusion. XR/XR chest 1V IMPRESSION: Worsening bilateral airspace opacities consistent with pulmonary edema. Critical Care Time Critical Care Time Critical Care Time: Yes Total Critical Care Time: 75 Attestation: I have personally provided critical care time. Time includes review of lab data, radiology results, discussion with consultants, and monitoring for potential decompensation. Intervention performed as documented. Discharge Plan Discharge Clinical Impression: Flash pulmonary edema, Dialysis patient, noncompliant, Hypertensive emergency, Acute hyperkalemia, Acute hyponatremia Patient Disposition: Admitted As Inpatient
[2024-01-26 20:17] LABS: COVID-19 Test Positive (Negative); IDNOW Serial# 08D9AD1C
[2024-01-26 20:18] LABS: INTERNATIONAL NORM RATIO 0.9 (0.9-1.1); Prothrombin Time 11.2 SEC (11.1-13.3)
[2024-01-26] MEDS: cefTRIAXone sodium 1 GM in 0.9 % Sodium Chloride 50 ML IV (20:25)
[2024-01-26 20:31] LABS: Alanine Aminotransferase 9 U/L (0-40); Albumin Level 3.6 g/dL (3.5-5.0); Alkaline Phosphatase 180 U/L (39-117); Anion Gap 19 (12-20); Aspartate Amino Transferase 13 U/L (5-37); Bilirubin Direct 0.4 mg/dL (0.0-0.5); Bilirubin Total 0.5 mg/dL (0.0-1.0); Blood Urea Nitrogen 42 mg/dL (9-16); Calcium 9.7 mg/dL (8.4-10.2); Carbon Dioxide 22 mmol/L (22-29); Chloride 92 mmol/L (96-108); Glucose Random 163 mg/dL (60-115); Magnesium 2.3 mg/dL (1.6-2.6); Sodium 127 mmol/L (135-145); Total Protein 7.7 g/dL (6.5-8.0)
[2024-01-26 20:32] LABS: Creatinine Clr Calc Pharmacy 8.9; Estimated Glomerular Filt Rate 6; Potassium 5.8 mmol/L (3.3-5.1)
[2024-01-26 20:35] LABS: Venous Blood Gas Refer to POC result
--- NOTE | 2024-01-26 21:05 | PC.NURSE ---
BP 135/34. nitro paste removed. aware
[2024-01-26] MEDS: Azithromycin 500 MG in 0.9 % Sodium Chloride 250 ML 125 MG IV (21:06)
[2024-01-26 21:53] LABS: Phosphorus 3.6 mg/dL (2.7-4.5)
--- NOTE | 2024-01-26 21:54 | PC.NURSE ---
pt projectile vomited. assist with washing and changing pt
--- NOTE | 2024-01-26 22:11 | PHA.MEDREC ---
Addendum entered by Yuni Napier RPh 01/26/24 22:37: Reviewed by [facility] Original Note: Pharmacy Consult ? Medication Reconciliation Pharmacy has completed the medication reconciliation. Utilized list from [facility] to confirm med list.
--- NOTE | 2024-01-26 22:31 | PM.CCHP ---
History of Present Illness Date of Service: 01/26/24 Attending physician on admission: Melanie Fontanez Chief Complaint: Dyspnea Mr. Lewis is a 68 Y M with ESRD on HD M/W/F, anemia in CKD, diabetes mellitus, end-stage renal disease, HTN, bradycardia, right BKA, HLD, PVD who missed hemodialysis yesterday due to nausea and not feeling well. His last dialysis session was 01/22. He presented to the emergency department today w/dyspnea, found to be hypoxic in the 80s, and bradycardic in the 30s. Serology tested positive for COVID, pulmonary edema seen on CXR. He is admitted to ICU for emergent hemodialysis. On arrival to the? emergency room his BP was 189/44, heart rate 39, O2 sat 100% on 15L non-rebreather. Laboratory data significant for hgb 9.2, hct 28.7, sodium 127, potassium 5.8, chloride 92, BUN 42, creat 8.66, Alk phos 180, Trop 44.5. VBG 7.29/50/38/24. Imaging: CXR consistent with pulmonary edema. ED course: The patient was put on BiPAP. He was given Lasix 80 mg, 1 in nitro transdermal, hydralazine 10 mg, ceftriaxone 1 g, azithromycin 500 mg, Zofran 4 mg. Review of Systems Constitutional: Constitutional: Reports as per HPI and Denies headache(s) Eyes: Eyes: Denies other visual disturbances and Denies eye pain ENT: Denies headache(s), Denies hoarseness, Denies nasal congestion, Denies post nasal drip and Denies sore throat Cardiovascular: Cardiovascular: Reports as per HPI, Denies chest pain, Reports dyspnea and Reports dyspnea on exertion Respiratory: Respiratory: Denies cough, Reports dyspnea and Reports dyspnea on exertion Gastrointestinal: Gastrointestinal: Reports nausea and Reports vomiting Genitourinary: Genitourinary: Denies hematuria and Denies flank pain Musculoskeletal: Musculoskeletal: Denies joint swelling, Denies numbness and Denies tingling Integumentary/Breasts: Skin/Breast: Denies rash, Denies sores and Denies wounds Neurologic: Denies Abnormal speech present, Denies confusion, Denies headache(s), Denies numbness and Denies tingling Psychiatric: Psychiatric: Denies anxiety, Denies confusion and Denies depression Endocrine: Endocrine: Reports no additional endocrine complaints Hematologic/Lymphatic: Hematologic/Lymphatic: Denies easy bleeding and Denies easy bruising PMFSH Past Medical History Medical History (Updated 01/26/24 @ 23:20 by Carmen Pearce NP) Anemia in chronic kidney disease (CKD) Bradycardia Dialysis patient, noncompliant End stage renal disease on dialysis Diabetes mellitus Hypertension Below-knee amputation of right lower extremity Hyperlipidemia Hypertension Peripheral vascular disease Chronic kidney disease on chronic dialysis Diabetes Social History Social History Household Members: Other Household Members Other:: LTC Housing: Skilled Nursing Housing Other:: [facility] Do you presently have visiting nurse or other home services: Yes Patient Tobacco Use Status: Never used Tobacco Use of substances other than those prescribed or required for medical reasons: No Currently Displaying Signs/Symptoms of Drug Intoxication Withdrawal: No Advance Directives: Yes Advance Directives on File: Yes Advance Directives Date on File: 01/17/24 Do you have a plan to hurt others: No Plan Recently lost weight without trying: No Nutrition Risks: No Nutritional Risk Poor oral hygiene: No service: No Meds Allergies Allergy/AdvReac Type Severity Reaction Status Date / Time garlic Allergy Severe Hives Verified 01/26/24 19:40 onion Allergy Severe Hives Verified 01/26/24 19:40 Peppers, Green Allergy Severe Hives Verified 01/26/24 19:40 Active Medications: Current Medications Heparin Sodium (Porcine) (Heparin Sodium,Porcine 5,000 Unit/Ml Vial) 5,000 unit SUBCUT Q8H [facility] Calcium Gluconate (Calcium Gluconate) 2 gm in 100 mls @ 50 mls/hr IV ONCE ONE Stop: 01/26/24 23:53 Lidocaine HCl (Lidocaine Hcl 1 % Mpf 2 Ml Vial) 0.5 ml SUBCUT MOWEFR@1645 [facility] Home Medications ?Medication ?Instructions ?Recorded ?Confirmed ?Last Taken ?Type acetaminophen 325 mg tablet 650 mg PO Q6H PRN Fever/Pain 01/02/24 01/26/24 Unknown History aspirin 81 mg tablet,delayed 81 mg PO DAILY 01/02/24 01/26/24 01/17/24 12:00 History release atorvastatin 80 mg tablet 80 mg PO DAILY 01/02/24 01/26/24 01/17/24 12:00 History bisacodyl 10 mg rectal suppository 10 mg ND DAILY PRN Constipation 01/02/24 01/26/24 Unknown History citalopram 20 mg tablet 20 mg PO DAILY 01/02/24 01/26/24 01/17/24 12:00 History clonazepam 0.5 mg tablet 1 mg PO BID anxiety 01/02/24 01/26/24 01/17/24 12:00 History glipizide 2.5 mg tablet 2.5 mg PO DAILY 01/02/24 01/26/24 01/17/24 12:00 History ibuprofen 600 mg tablet 600 mg PO Q6H PRN Pain 01/02/24 01/26/24 Unknown History isosorbide mononitrate 20 mg tablet 40 mg PO DAILY 01/02/24 01/26/24 01/17/24 12:00 History omeprazole 20 mg capsule,delayed 20 mg PO DAILY@0630 01/02/24 01/26/24 01/17/24 12:00 History release ondansetron 4 mg disintegrating 4 mg PO Q8H PRN Nausea/Vomiting 01/02/24 01/26/24 Unknown History tablet polyethylene glycol 3350 17 17 g PO Q24H PRN Constipation 01/02/24 01/26/24 Unknown History gram/dose oral powder sennosides 8.6 mg-docusate sodium 1 tab-cap PO Q24H PRN Constipation 01/02/24 01/26/24 Unknown History 50 mg capsule (Senna Plus) sevelamer HCl 800 mg tablet 1,600 mg PO TIDWM 01/02/24 01/26/24 01/17/24 12:00 History simethicone 80 mg chewable tablet 80 mg PO Q6H PRN GAS 01/02/24 01/26/24 01/16/24 History sodium phosphates 19 gram-7 118 ml ND DAILY PRN Constipation 01/02/24 01/26/24 Unknown History gram/118 mL enema (Fleet Enema) sodium zirconium cyclosilicate 10 10 g PO SUTUTHSA 01/02/24 01/26/24 01/17/24 12:00 History gram oral powder packet (Lokelma) trazodone 50 mg tablet 50 mg PO BEDTIME 01/02/24 01/26/24 01/16/24 History dextromethorphan HBr 10 mg/5 mL 10 mg PO Q4H PRN Cough 01/26/24 01/26/24 Unknown History oral liquid Physical Exam Vital Signs: Vital Signs: Last Vital Signs Temp 97.4 F 01/26/24 21:01 Pulse 39 L 01/26/24 21:01 Resp 17 01/26/24 21:01 BP 135/34 L 01/26/24 21:01 Pulse Ox 93 01/26/24 21:01 O2 Del Method BiPAP 01/26/24 21:01 O2 Flow Rate 15 01/26/24 21:01 BMI result Body Mass Index 31.1 Const: General: alert, awake and ill appearing; No no acute distress or confusion Nutritional Appearance: obese Orientation/consciousness: patient oriented x3 and No confusion HEENT: Head: Yes normocephalic and Yes atraumatic General nose exam: Normal external nose present (Nares patent, septum midline, sinuses nontender bilaterally.) Neck: Neck: Yes supple (no thyromegaly, trachea midline.) Carotids: normal carotid upstroke Resp: Effort & Inspection: labored Auscultation: no rales and no wheezes Cardio: Jugular venous distension: no JVD Rate: bradycardic Rhythm: regular rhythm GI: Inspection: Yes obesity Palpation (GI): Soft to palpation (nondistended.) and nontender Skin: General skin exam: no rashes or lesions noted Wounds: no wounds Neuro: General: patient oriented x3, CN's II-XI intact bilaterally and No confusion Cognition (Neuro): normal cognition Speech: No Abnormal speech present Extrem: General: Yes full ROM, Yes capillary refill normal and Yes no clubbing, cyanosis or edema Right lower extremity: knee (BKA) Psych: Affect: normal affect Attitude: cooperative Results Labs 01/26/24 19:32 01/26/24 19:32 Labs: Laboratory Results - last 24 hr 01/26/24 01/26/24 01/26/24 19:32 19:42 19:45 MCV 93.8 MCH 30.1 MCHC 32.1 RDW 14.1 Plt Count 244 MPV 9.5 Immature Gran % (Auto) 0.5 H Neut % (Auto) 80.3 H Lymph % (Auto) 11.2 L [place] % (Auto) 5.4 Eos % (Auto) 2.3 Baso % (Auto) 0.3 Lymph # (Auto) 0.8 L [place] # (Auto) 0.4 Eos # (Auto) 0.2 Baso # (Auto) 0.0 Abs Immat Gran (auto) 0.04 H Absolute Neuts (auto) 6.0 Absolute Nucleated RBC 0.000 Nucleated RBC % (auto) 0.0 Hold Purple Top SEE NOTE PT INR VBG pH 7.29 L VBG pCO2 50 VBG pO2 38 VBG HCO3 24 VBG O2 Saturation 57.0 VBG Base Excess -2.0 Anion Gap 19 Estim Creat Clear Calc 8.9 Estimated GFR 6 Random Glucose 163 H Lactic Acid 1.6 Calcium 9.7 D Phosphorus 3.6 Magnesium 2.3 Total Bilirubin 0.5 Direct Bilirubin 0.4 AST 13 ALT 9 Alkaline Phosphatase 180 H Troponin I High Sens 44.5 H Total Protein 7.7 Albumin 3.6 COVID-19 ([facility]) Positive A COVID-19 Clin Com See Note 01/26/24 19:57 MCV MCH MCHC RDW Plt Count MPV Immature Gran % (Auto) Neut % (Auto) Lymph % (Auto) [place] % (Auto) Eos % (Auto) Baso % (Auto) Lymph # (Auto) [place] # (Auto) Eos # (Auto) Baso # (Auto) Abs Immat Gran (auto) Absolute Neuts (auto) Absolute Nucleated RBC Nucleated RBC % (auto) Hold Purple Top PT 11.2 INR 0.9 VBG pH VBG pCO2 VBG pO2 VBG HCO3 VBG O2 Saturation VBG Base Excess Anion Gap Estim Creat Clear Calc Estimated GFR Random Glucose Lactic Acid Calcium Phosphorus Magnesium Total Bilirubin Direct Bilirubin AST ALT Alkaline Phosphatase Troponin I High Sens Total Protein Albumin COVID-19 ([facility]) COVID-19 Clin Com Imaging Radiologist's Impressions: Impressions Chest X-Ray 01/26/24 19:25 IMPRESSION: Worsening bilateral airspace opacities consistent with pulmonary edema. Electronically signed by: Oracio Luna MD 01/26/2024 09:16 PM EDT Assessment and Plan (1) Pulmonary edema: Qualifiers: Chronicity: acute Qualified Code(s): J81.0 - Acute pulmonary edema Status: Acute (2) End stage renal disease on dialysis: Status: Acute (3) Dialysis patient, noncompliant: Status: Acute (4) Acute hyponatremia: Status: Acute (5) Acute hyperkalemia: Status: Acute Plan 68 Y M with ESRD on HD M/W/F, anemia in CKD, diabetes mellitus, end-stage renal disease, HTN, bradycardia, right BKA, HLD, PVD admitted for emergent hemodialysis. Plan:? Neuro:? ? No acute issues. Cardiac: ? Hypertension, bradycardia in setting of hyperkalemia, no hemodynamic compromise. Troponin likely elevated due to demand ischemia and/or pulmonary edema. Continue home antihypertensives.? Monitor very closely. Pulmonary: Pulmonary edema, acute hypoxic respiratory failure in setting of volume overload. Received Lasix,?HD. Renal: Hyperkalemia, end-stage renal disease, non-compliant w/ hemodialysis; emergent hemodialysis 01/25.? Endo: Diabetes mellitus; to monitor hypo-/hyper-glycemia. SS per protocol. GI:? NPO; advance to renal diet as tolerated ID:? Unclear if there is underlying infection. Empiric antibiotics given in the ED.?No fluids at this time since the patient would significantly decompensate? Heme/Onc:? Anemia, reportedly chronic Psych:? No acute issues. Miscellaneous:? No acute issues. Prophylaxis:? pneumatic hoses, heparin Diet: NPO Case discussed with attending Dr. Fontanez Total time managing care of this patient today: 75 minutes.
[2024-01-26] MEDS: Calcium Gluconate/NaCl,Iso-Osm 2 GM/100 ML PLAST..BAG IV (22:59)
[2024-01-27] VITALS (23 sets, daily range): BP systolic 94–173; BP diastolic 36–93; PULSE 36–74; RESP 12–20; TEMP 36.3–36.5; O2SAT 92–100; BMI 30.6; BMI 30.3
[2024-01-27] MEDS: Acetaminophen 325 MG TABLET 650 MG PO ×4 (00:43→21:15)
--- NOTE | 2024-01-27 02:47 | PC.NURSE ---
Addendum entered by Ibrahima Gonzalez RN 01/27/24 05:04: PATIENT SLEEPING AT PRESENT..RESPIRATIONS EASY...NO DISTRESS...PROVIDER STATED 6AM 12-LEAD EKG TO BE DONE LATER IN AM WHEN PATIENT AWAKE Original Note: ADMIT TO ICU APPROX 22:30..AWAKE..ALERT..ORIENTED X3...CONVERSES IN [place]...PATIENT PREVIOUSLY TRANSITIONED TO 100% NRB MASK IN ER DEPT D/T PROJECTILE VOMITING...REMAINED TACHYPNEIC BUT NO ACUTE DISTRESS....SAO2 100%...PATIENT RESISTANT TO CARE...DIALYSIS INITIATED AFTER ARRIVAL TO ICU,,,APPROX 3.5 KG REMOVED PER ART COORDINATOR...REMAINS RESISTANT TO CARE....REFUSED BED/LINEN CHANGE POST-ARRIVAL..REFUSED HEPARIN SC....MONITOR INITIALLY SINUS SHERRELL HR 38-39 TO JUNCTIONAL RHYTHM HR 35-36...DIALYSIS IN PROGRESS AND CALCIUM GLUCONATE 2 GRAMS IV INFUSED PER JUL...MONITOR REVERTED TO NSR 1ST-DEGREE AV-BLOCK DURING DIALYSIS...HR 62-66...RR DECREASED TO 18-20...BP TRENDING UPWARD TO SBP 160'S-170'S...AM HOME BP MEDS RE-ORDERED..PER PROVIDER SBP GOAL <180...TYLENOL GIVEN FOR C/O BACK ACHE PER PATIENT..CURRENTLY DOZING..BRIEFLY AWAKE FOR ASSESSMENT AND STATED LEAVE ME ALONE..IT'S TIME TO SLEEP
[2024-01-27 04:58] LABS: VBG Base Excess 4.7 mmol/L; VBG HCO3 29 mmol/L (22-26); VBG pCO2 45 mmHg; VBG pH 7.42 (7.32-7.43); VBG pO2 41 mmHg; Venous Blood Gas Refer to POC result
[2024-01-27 05:18] LABS: MANUAL DIFF FLAG NO
[2024-01-27 05:23] LABS: Basophils Percent Auto 0.3 % (0-2); Eosinophils Absolute Auto 0.1 X10*3/uL (0.0-0.4); Eosinophils Percent Auto 0.9 % (0-4); Hematocrit 26.5 % (42.0-52.0); Hemoglobin 8.7 g/dl (14.0-18.0); Imm Gran Abs Auto 0.03 X10*3/uL (0.00-0.03); Imm Gran Pct Auto 0.5 % (0.0-0.4); Lymphocytes Absolute Auto 0.8 X10*3/uL (1.2-4.9); Lymphocytes Percent Auto 13.9 % (20-40); Mean Corpuscular HGB Conc 32.8 g/dl (31.0-36.0); Mean Corpuscular Hemoglobin 30.2 pg (27.0-33.0); Mean Platelet Volume 9.3 fL (9.4-12.4); Monocytes Absolute Auto 0.3 X10*3/uL (0.1-1.2); Monocytes Percent Auto 5.9 % (2-11); Neutrophils Absolute Auto 4.5 x10*3/uL (2.0-8.3); Neutrophils Percent Auto 78.5 % (45-73); Platelet Count 198 X10*3/uL (160-400); Red Blood Count 2.88 X10*6/uL (4.60-5.80); Red Cell Distribution Width 14.2 % (11.0-16.0); White Blood Count 5.8 X10*3/uL (4.8-10.8)
[2024-01-27 05:47] LABS: Troponin-I High Sensitivity 54.6 ng/L (<3.5-35.0)
[2024-01-27 05:52] LABS: Albumin Level 3.6 g/dL (3.5-5.0); Anion Gap 18 (12-20); Blood Urea Nitrogen 31 mg/dL (9-16); Calcium 9.9 mg/dL (8.4-10.2); Carbon Dioxide 26 mmol/L (22-29); Chloride 94 mmol/L (96-108); Creatinine Clr Calc Pharmacy 10.8; Estimated Glomerular Filt Rate 8; Glucose Random 102 mg/dL (60-115); Magnesium 2.2 mg/dL (1.6-2.6); Sodium 133 mmol/L (135-145)
--- NOTE | 2024-01-27 06:00 | ECG_ITS ---
Test Reason : bradycardia Blood Pressure : / mmHG Vent. Rate : 066 BPM Atrial Rate : 066 BPM P-R Int : 250 ms QRS Dur : 108 ms QT Int : 458 ms P-R-T Axes : 041 -31 -05 degrees QTc Int : 480 ms Sinus rhythm with 1st degree A-V block Left axis deviation Minimal voltage criteria for LVH, may be normal variant ( Junior product ) Prolonged QT Abnormal ECG When compared with ECG of 26-JAN-2024 19:22, NV interval has increased Vent. rate has increased BY 26 BPM T wave amplitude has increased in Anterior leads QT has lengthened Referred By: Carmen Pearce Electronically Signed By:JOSE MURRAY
[2024-01-27 08:02] LABS: Glucose, Whole Blood 95 mg/dL (60-115)
[2024-01-27] MEDS: amLODIPine Besylate 5 MG TABLET PO ×2 (08:45→20:38)
[2024-01-27] MEDS: Atorvastatin Calcium 80 MG TABLET PO (08:45)
[2024-01-27] MEDS: Escitalopram Oxalate 10 MG TABLET PO (08:45)
[2024-01-27] MEDS: hydrALAZINE HCl 10 MG TABLET PO ×2 (08:45→20:39)
--- NOTE | 2024-01-27 11:33 | PM.CCPN ---
Subjective Subjective Date of Service: 01/27/24 Interval History: Underwent emergent dialysis session last night, his regular session is Tuesday. Breathing much improved, on nasal cannula oxygen this morning Blood pressure is more stable Critical Care Time (minutes): 40 Physical Exam Vital Signs: Vital Signs: Last Vital Signs Temp 97.5 F 01/27/24 08:00 Pulse 67 01/27/24 11:00 Resp 13 01/27/24 11:00 BP 152/56 H 01/27/24 11:00 Pulse Ox 92 01/27/24 11:00 O2 Del Method Nasal Cannula 01/27/24 11:00 O2 Flow Rate 2 01/27/24 11:00 FiO2 100 01/27/24 07:00 BMI result Body Mass Index 30.6 General: Not in acute distress Nutritional Appearance: well nourished and normal weight Eyes: appearance normal, both eyes and all related structures; Alignment and Position: alignment normal and position normal Neck: No lymphadenopathy, no thyromegaly Resp: bilateral air entry equal, bibasilar crackles heard Cardio: Regular rate, regular rhythm; Heart sounds: S1 normal heart sound present and S2 normal heart sound present GI: soft, nontender, no guarding, no hepatosplenomegaly : bladder normal to inspection, bladder normal to palpation, no renal angle tenderness Skin: no rashes or lesions noted and elasticity normal Neuro: oriented to person, oriented to place, oriented to time and moves all extremities, status post BKA Objective Data Labs 01/27/24 04:47 01/27/24 04:47 Labs: Laboratory Results - last 24 hr 01/26/24 01/26/24 01/26/24 19:32 19:42 19:45 WBC 7.4 RBC 3.06 L Hgb 9.2 L Hct 28.7 L MCV 93.8 MCH 30.1 MCHC 32.1 RDW 14.1 Plt Count 244 MPV 9.5 Immature Gran % (Auto) 0.5 H Neut % (Auto) 80.3 H Lymph % (Auto) 11.2 L [place] % (Auto) 5.4 Eos % (Auto) 2.3 Baso % (Auto) 0.3 Lymph # (Auto) 0.8 L [place] # (Auto) 0.4 Eos # (Auto) 0.2 Baso # (Auto) 0.0 Abs Immat Gran (auto) 0.04 H Absolute Neuts (auto) 6.0 Absolute Nucleated RBC 0.000 Nucleated RBC % (auto) 0.0 Hold Purple Top SEE NOTE PT INR VBG pH 7.29 L VBG pCO2 50 VBG pO2 38 VBG HCO3 24 VBG O2 Saturation 57.0 VBG Base Excess -2.0 Sodium 127 L Potassium 5.8 H D Chloride 92 L Carbon Dioxide 22 Anion Gap 19 BUN 42 H Creatinine 8.66 H* Estim Creat Clear Calc 8.9 Estimated GFR 6 POC Glucose Random Glucose 163 H Lactic Acid 1.6 Calcium 9.7 D Phosphorus 3.6 Magnesium 2.3 Total Bilirubin 0.5 Direct Bilirubin 0.4 AST 13 ALT 9 Alkaline Phosphatase 180 H Troponin I High Sens 44.5 H Total Protein 7.7 Albumin 3.6 COVID-19 ([facility]) Positive A COVID-19 Clin Com See Note 01/26/24 01/27/24 01/27/24 19:57 04:46 04:47 WBC 5.8 RBC 2.88 L Hgb 8.7 L Hct 26.5 L MCV 92.0 MCH 30.2 MCHC 32.8 RDW 14.2 Plt Count 198 MPV 9.3 L Immature Gran % (Auto) 0.5 H Neut % (Auto) 78.5 H Lymph % (Auto) 13.9 L [place] % (Auto) 5.9 Eos % (Auto) 0.9 Baso % (Auto) 0.3 Lymph # (Auto) 0.8 L [place] # (Auto) 0.3 Eos # (Auto) 0.1 Baso # (Auto) 0.0 Abs Immat Gran (auto) 0.03 Absolute Neuts (auto) 4.5 Absolute Nucleated RBC 0.000 Nucleated RBC % (auto) 0.0 Hold Purple Top PT 11.2 INR 0.9 VBG pH 7.42 VBG pCO2 45 VBG pO2 41 VBG HCO3 29 H VBG O2 Saturation 70.0 VBG Base Excess 4.7 Sodium 133 L Potassium 5.0 Chloride 94 L Carbon Dioxide 26 Anion Gap 18 BUN 31 H Creatinine 7.08 H* Estim Creat Clear Calc 10.8 Estimated GFR 8 POC Glucose Random Glucose 102 Lactic Acid Calcium 9.9 Phosphorus Magnesium 2.2 Total Bilirubin Direct Bilirubin AST ALT Alkaline Phosphatase Troponin I High Sens 54.6 H Total Protein Albumin 3.6 COVID-19 ([facility]) COVID-19 [employer] 01/27/24 07:52 WBC RBC Hgb Hct MCV MCH MCHC RDW Plt Count MPV Immature Gran % (Auto) Neut % (Auto) Lymph % (Auto) [place] % (Auto) Eos % (Auto) Baso % (Auto) Lymph # (Auto) [place] # (Auto) Eos # (Auto) Baso # (Auto) Abs Immat Gran (auto) Absolute Neuts (auto) Absolute Nucleated RBC Nucleated RBC % (auto) Hold Purple Top PT INR VBG pH VBG pCO2 VBG pO2 VBG HCO3 VBG O2 Saturation VBG Base Excess Sodium Potassium Chloride Carbon Dioxide Anion Gap BUN Creatinine Estim Creat Clear Calc Estimated GFR POC Glucose 95 Random Glucose Lactic Acid Calcium Phosphorus Magnesium Total Bilirubin Direct Bilirubin AST ALT Alkaline Phosphatase Troponin I High Sens Total Protein Albumin COVID-19 ([facility]) COVID-19 Clin Com Progress Note: A&P Assessment and plan (1) Hypertension: Status: Acute (2) Pulmonary edema: Status: Acute (3) Anemia in chronic kidney disease (CKD): Status: Acute (4) Acute hyperkalemia: Status: Acute (5) Acute hyponatremia: Status: Acute (6) Hypertensive emergency: Status: Acute Assessment and Plan: 68-year-old male with PMH of ESRD on HD M/W/F, anemia in CKD, diabetes mellitus, HTN, bradycardia, right BKA, HLD, PVD presented to the hospital after missing sessions of dialysis, admitted last night for uremic symptoms received emergent dialysis following which his symptoms are better. Acute encephalopathy: Secondary to uremia, mental status improved after dialysis Bradycardia: Has history of bradycardia, rhythm improved after session of dialysis overnight. However this morning he had a small event of bradycardia around 08:17 a.m. self-resolved. We will avoid any beta-blockers ESRD: Disorder session of dialysis last night following which his hyperkalemia and uremic symptoms improved. He is scheduled for Tuesday dialysis sessions Hypertension: Home isosorbide mononitrate, amlodipine and hydralazine resumed Diabetes mellitus: Blood sugars under control, sliding scale insulin as needed COVID-19 disease: Initially tested positive for COVID on last week of December. We will continue to closely monitor . Hypoxemic respiratory failure: Secondary to volume overload, chest x-ray this morning post dialysis shows improvement in bilateral lung infiltrates. Currently on 2 L per minute nasal cannula oxygen Prophylaxis: Heparin We will transfer him to floor later this afternoon. Quality Stroke Does the patient have a stroke diagnosis?: No VTE Prior VTE?: No VTE Risk Level:: Medical - moderate - high VTE Device Contraindication: N/A - Device Ordered VTE Drug Contraindication: N/A - Med Ordered
[2024-01-27 12:18] LABS: Glucose, Whole Blood 108 mg/dL (60-115)
--- NOTE | 2024-01-27 13:51 | MHC.CM.PN ---
Pt continues receiving care in ICU for respiratory distress: currently on nasal cannula O2: Pt is a LTC resident of [facility] and will be returning via BLS when medically stable. Message left w/spouse to inform her of d/c plan and IMM at pt bedside. HCP and MOLST on file: MOLST not readable d/t poor quality of copy. Pt is a physical assist for ADL's. CM to follow.
--- NOTE | 2024-01-27 13:52 | HO.SKINPHOTO ---
Location: right BKA stump Location: left inner foot Location left inner foot Location: left anterior leg
[2024-01-27 16:57] LABS: Glucose, Whole Blood 152 mg/dL (60-115)
--- NOTE | 2024-01-27 17:44 | P.CONNP_ITS ---
History of Present Illness Reason for Consult Consult date: 01/27/24 Chief Complaint Chief complaint: Dyspnea History of Present Illness Narrative: 68 Y M with ESRD on HD M/W/F, HTN, PVD who missed hemodialysis on Tuesday due to nausea and not feeling well presented to the emergency department w/dyspnea, found to be hypoxic in the 80s, and bradycardic in the 30s. Serology tested positive for COVID, pulmonary edema seen on CXR. He was admitted to ICU. Nephrology has been consulted to assist in his clinical management during his current hospital stay Review of Systems Review of Systems Yes all other systems are reviewed and are negative FOR[facility]LY [facility] Past Medical History Medical History (Updated 01/26/24 @ 23:20 by Carmen Pearce NP) Anemia in chronic kidney disease (CKD) Bradycardia Dialysis patient, noncompliant End stage renal disease on dialysis Diabetes mellitus Hypertension Below-knee amputation of right lower extremity Hyperlipidemia Hypertension Peripheral vascular disease Chronic kidney disease on chronic dialysis Diabetes Social History Social History Household Members: Other Household Members Other:: LTC Housing: Intermediate Housing Other:: [facility] Do you presently have visiting nurse or other home services: Yes Patient Tobacco Use Status: Never used Tobacco Use of substances other than those prescribed or required for medical reasons: No Currently Displaying Signs/Symptoms of Drug Intoxication Withdrawal: No Advance Directives: Yes Advance Directives on File: Yes Advance Directives Date on File: 01/17/24 Do you have a plan to hurt others: No Plan Recently lost weight without trying: No Nutrition Risks: No Nutritional Risk Poor oral hygiene: No service: No Meds Allergies Allergy/AdvReac Type Severity Reaction Status Date / Time garlic Allergy Severe Hives Verified 01/26/24 19:40 onion Allergy Severe Hives Verified 01/26/24 19:40 Peppers, Green Allergy Severe Hives Verified 01/26/24 19:40 Active Medications: Current Medications Acetaminophen (Acetaminophen 325 Mg Tablet) 650 mg PO Q6H PRN PRN Reason: Fever/Pain Last Admin: 01/27/24 15:15 Dose: 650 mg Amlodipine Besylate (Amlodipine Besylate 5 Mg Tablet) 5 mg PO BID KIA; Protocol Last Admin: 01/27/24 08:45 Dose: 5 mg Atorvastatin Calcium (Atorvastatin Calcium 80 Mg Tablet) 80 mg PO DAILY [facility] Last Admin: 01/27/24 08:45 Dose: 80 mg Escitalopram Oxalate (Escitalopram Oxalate 10 Mg Tablet) 10 mg PO DAILY [facility] Last Admin: 01/27/24 08:45 Dose: 10 mg Heparin Sodium (Porcine) (Heparin Sodium,Porcine 5,000 Unit/Ml Vial) 5,000 unit SUBCUT Q8H [facility] Last Admin: 01/27/24 14:42 Dose: Not Given Hydralazine HCl (Hydralazine Hcl 10 Mg Tablet) 10 mg PO BID [facility]; Protocol Last Admin: 01/27/24 08:45 Dose: 10 mg Insulin Human Lispro (Insulin Lispro 100 Unit/Ml 3 Ml Vial) 0 unit SUBCUT QIDACHS [facility]; Protocol Last Admin: 01/27/24 17:04 Dose: Not Given Lidocaine HCl (Lidocaine Hcl 1 % Mpf 2 Ml Vial) 0.5 ml SUBCUT MOWEFR@1645 [facility] Last Admin: 01/27/24 17:05 Dose: Not Given Non-Formulary Medication (Isosorbide Mononitrate) 40 mg PO DAILY [facility] Home Medications ?Medication ?Instructions ?Recorded ?Confirmed ?Last Taken ?Type acetaminophen 325 mg tablet 650 mg PO Q6H PRN Fever/Pain 01/02/24 01/26/24 Unknown History aspirin 81 mg tablet,delayed 81 mg PO DAILY 01/02/24 01/26/24 01/17/24 12:00 History release atorvastatin 80 mg tablet 80 mg PO DAILY 01/02/24 01/26/24 01/17/24 12:00 History bisacodyl 10 mg rectal suppository 10 mg IA DAILY PRN Constipation 01/02/24 01/26/24 Unknown History citalopram 20 mg tablet 20 mg PO DAILY 01/02/24 01/26/24 01/17/24 12:00 History clonazepam 0.5 mg tablet 1 mg PO BID anxiety 01/02/24 01/26/24 01/17/24 12:00 History glipizide 2.5 mg tablet 2.5 mg PO DAILY 01/02/24 01/26/24 01/17/24 12:00 History ibuprofen 600 mg tablet 600 mg PO Q6H PRN Pain 01/02/24 01/26/24 Unknown History isosorbide mononitrate 20 mg tablet 40 mg PO DAILY 01/02/24 01/26/24 01/17/24 12:00 History omeprazole 20 mg capsule,delayed 20 mg PO DAILY@0630 01/02/24 01/26/24 01/17/24 12:00 History release ondansetron 4 mg disintegrating 4 mg PO Q8H PRN Nausea/Vomiting 01/02/24 01/26/24 Unknown History tablet polyethylene glycol 3350 17 17 g PO Q24H PRN Constipation 01/02/24 01/26/24 Unknown History gram/dose oral powder sennosides 8.6 mg-docusate sodium 1 tab-cap PO Q24H PRN Constipation 01/02/24 01/26/24 Unknown History 50 mg capsule (Senna Plus) sevelamer HCl 800 mg tablet 1,600 mg PO TIDWM 01/02/24 01/26/24 01/17/24 12:00 History simethicone 80 mg chewable tablet 80 mg PO Q6H PRN GAS 01/02/24 01/26/24 01/16/24 History sodium phosphates 19 gram-7 118 ml IA DAILY PRN Constipation 01/02/24 01/26/24 Unknown History gram/118 mL enema (Fleet Enema) sodium zirconium cyclosilicate 10 10 g PO SUTUTHSA 01/02/24 01/26/24 01/17/24 12:00 History gram oral powder packet (Lokelma) trazodone 50 mg tablet 50 mg PO BEDTIME 01/02/24 01/26/24 01/16/24 History dextromethorphan HBr 10 mg/5 mL 10 mg PO Q4H PRN Cough 01/26/24 01/26/24 Unknown History oral liquid Physical Exam Vital Signs: Last Vital Signs Temp 97.5 F 01/27/24 08:00 Pulse 65 01/27/24 16:55 Resp 14 01/27/24 16:55 BP 99/36 L 01/27/24 16:55 Pulse Ox 92 01/27/24 16:55 O2 Del Method Nasal Cannula 01/27/24 16:55 O2 Flow Rate 2 01/27/24 16:55 FiO2 100 01/27/24 07:00 BMI result Body Mass Index 30.3 Const General: no acute distress Orientation/consciousness: patient oriented x3 Eyes EOM: EOMs intact bilaterally Neck Neck: Yes supple Resp Auscultation: diminished lung sounds Cardio Rate: regular rate GI Palpation (GI): Soft to palpation Neuro General: patient oriented x3 Extrem Other: R BKA Results Lab Results 01/27/24 04:47 01/27/24 04:47 Lab results: Chemistry 01/26/24 01/27/24 19:32 04:47 Sodium 127 L 133 L Potassium 5.8 H D 5.0 Carbon Dioxide 22 26 BUN 42 H 31 H Creatinine 8.66 H* 7.08 H* Calcium 9.7 D 9.9 Phosphorus 3.6 Hematology 01/26/24 01/27/24 19:32 04:47 WBC 7.4 5.8 Hgb 9.2 L 8.7 L Plt Count 244 198 Assessment and Plan (1) End stage renal disease on dialysis: Status: Acute Plan ESRD patient- Usually gets HD on MWF Had emergent HD on admission Shall dialyze again today to be back on schedule 2 Gram Na/ K diet with phos and fluid restriction Shall continue to optimize vol status on HD Phos binders with meals; C/W rest of current mgt for now Procedures Date of Service Date of Service: 01/27/24
[2024-01-27 20:24] LABS: Glucose, Whole Blood 99 mg/dL (60-115)
[2024-01-28 03:00] VITALS: BP 136/61; PULSE 68; RESP 18; TEMP 36.2; O2SAT 91
[2024-01-28 07:00] VITALS: BP 148/60; PULSE 76; RESP 20; TEMP 37; O2SAT 94
[2024-01-28 07:16] LABS: Glucose, Whole Blood 107 mg/dL (60-115)
[2024-01-28] MEDS: Atorvastatin Calcium 80 MG TABLET PO (09:47)
[2024-01-28] MEDS: amLODIPine Besylate 5 MG TABLET PO (09:47)
[2024-01-28] MEDS: Escitalopram Oxalate 10 MG TABLET PO (09:47)
[2024-01-28] MEDS: Isosorbide Mononitrate 30 MG TAB.ER.24H PO (09:47)
[2024-01-28] MEDS: hydrALAZINE HCl 10 MG TABLET PO (09:47)
--- NOTE | 2024-01-28 09:54 | MHC.CM.PN ---
PER HOSPITALIST PT MEDICALLY CLEARED TO RETURN TO [facility], CM MEFT DETAILED MESSAGE W/ CHRIS AT 9:50AMAJ FOR BLS TRANSPORT
[2024-01-28 11:00] VITALS: BP 164/73; PULSE 71; RESP 18; TEMP 37; O2SAT 96
--- NOTE | 2024-01-28 11:15 | P.DS_ITS ---
DS: Providers Provider Date of Service: 01/28/24 Date of admission: 01/26/24 20:33 Date of discharge: 01/28/24 Primary care physician: Lucita Jeffery MD Consults: 01/27/24 13:58 Consult to Wound Care Routine Reason for consultation: diabetic ulcer left foot DS: Diagnosis Discharge Diagnosis (1) End stage renal disease on dialysis: Status: Acute (2) Toxic metabolic encephalopathy: Status: Acute (3) Pulmonary edema: Status: Acute (4) Bradycardia: Status: Acute (5) Anemia in chronic kidney disease (CKD): Status: Acute (6) Acute hyponatremia: Status: Acute (7) Acute hyperkalemia: Status: Acute (8) Dialysis patient, noncompliant: Status: Acute (9) Flash pulmonary edema: Status: Acute DS: Summary Hospital Course Hospital Course: Admission note HPI per ICU provider Mr. Lewis is a 68 Y M with ESRD on HD M/W/F, anemia in CKD, diabetes mellitus, end-stage renal disease, HTN, bradycardia, right BKA, HLD, PVD who missed hemodialysis yesterday due to nausea and not feeling well. His last dialysis session was 01/22. He presented to the emergency department today w/dyspnea, found to be hypoxic in the 80s, and bradycardic in the 30s. Serology tested positive for COVID, pulmonary edema seen on CXR. He is admitted to ICU for emergent hemodialysis. On arrival to the? emergency room his BP was 189/44, heart rate 39, O2 sat 100% on 15L non-rebreather. Laboratory data significant for hgb 9.2, hct 28.7, sodium 127, potassium 5.8, chloride 92, BUN 42, creat 8.66, Alk phos 180, Trop 44.5. VBG 7.29/50/38/24. Imaging: CXR consistent with pulmonary edema. ED course: The patient was put on BiPAP. He was given Lasix 80 mg, 1 in nitro transdermal, hydralazine 10 mg, ceftriaxone 1 g, azithromycin 500 mg, Zofran 4 mg. Hospital course # Acute Hypoxemic respiratory failure Secondary to volume overload amd flash pulmondary edema as chest x-ray showed. Resolved after dialysis session and fluid removal. Repeated CXR post dialysis showed improvement in bilateral lung infiltrates. Currently on 2 L per minute nasal cannula oxygen which seems to be his baseline at the facility. continue to wean down as tolerated. # Acute toxic metabolic encephalopathy Secondary to uremia and home medications. His mental status improved after dialysis back to baseline. # Bradycardia. presented with episodes of bradycardia lowest in 40s with no blocks which improved after session of dialysis overnight. # ESRD: He is scheduled for Tuesday dialysis sessions # Hypertension: Continue Home isosorbide mononitrate, amlodipine and hydralazine # Diabetes mellitus: Blood sugars under control, sliding scale insulin as needed. Continue home medications on discharge. # COVID-19 disease: Initially tested positive for COVID on last week of January 16. Asymptomatic at this stage. Discharge plan Continue dialysis sessions as planned Follow with nephrology as scheduled take your medications as prescribed Time Attestation Discharge Coordination Time (in mins): 42 Quality: Safe Use of Opioids Does Pt have an Active Cancer Diagnosis on the Problem List?: No Quality: Stroke Does the patient have a stroke diagnosis?: No Physical Exam Vital Signs: Vital Signs: Last Vital Signs Temp 98.6 F 01/28/24 07:00 Pulse 76 01/28/24 07:00 Resp 20 01/28/24 07:00 BP 148/60 H 01/28/24 07:00 Pulse Ox 94 01/28/24 07:00 O2 Del Method Nasal Cannula 01/28/24 07:00 O2 Flow Rate 2 01/28/24 07:00 FiO2 100 01/27/24 07:00 BMI result Body Mass Index 30.3 Const: Other: Constitutional : interactive, frail looking, not in distress Cardiovascular : no JVP, no lower extremity edema Respiratory : bilateral chest movement, not in resp distress Gastrointestinal: soft, lax, Non tender Skin : Warm, Dry Vascular: Fistula in place with no surrounding erythema Neurological : Alert & oriented , No focal deficit but weakness lower extremities DS: Data Data Completed and Pending Completed studies during hospitalization [Text1]: Procedures Performance of Urinary Filtration, Intermittent, Less than 6 Hours Per Day (01/17/24) Labs on day of discharge: Laboratory Results - last 24 hr 01/27/24 01/27/24 01/27/24 12:10 16:42 20:19 POC Glucose 108 152 H 99 01/28/24 07:07 POC Glucose 107 Preliminary micro results at discharge 01/26/24 19:57 Blood Culture - Preliminary Blood - Venous No growth after 24 hours. 01/26/24 19:32 Blood Culture - Preliminary Blood - Venous No growth after 24 hours. Imaging Chest x-ray: Radiologist's impression: ITS Impressions Chest X-Ray 01/26/24 19:25 IMPRESSION: Worsening bilateral airspace opacities consistent with pulmonary edema. Electronically signed by: Oracio Luna MD 01/26/2024 09:16 PM EDT RP Chest X-Ray 01/27/24 08:57 IMPRESSION: Bilateral patchy airspace opacities, improved from prior exam and likely represent improving edema or infection. Electronically signed by: Ruben Rasheed MD 01/27/2024 10:13 AM EDT RP Discharge Plan Discharge Anticipated Discharge Date/Time: 01/28/24 11:12 Patient Disposition: er SNF Discharge Diagnosis: Need of urgent dialysis for Pulmonary edema Referrals: [facility] [Outside] - 1 Day (RESUMPTION OF LTC) Lucita Jeffery MD [Primary Care Provider] - 1 Week Discharge Medications: Continued dextromethorphan HBr 10 mg/5 mL Liquid 10 mg PO Q4H PRN (Reason: Cough) atorvastatin 80 mg tablet 80 mg PO DAILY acetaminophen 325 mg Tablet 650 mg PO Q6H PRN (Reason: Fever/Pain) trazodone 50 mg Tablet 50 mg PO BEDTIME isosorbide mononitrate 20 mg Tablet 40 mg PO DAILY Protocol: Hold for SBP< HOLD for SBP < : 100 sevelamer HCl 800 mg Tablet 1,600 mg PO TIDWM Rx Instructions: must administer with a meal/food clonazepam 0.5 mg tablet 1 mg PO BID aspirin 81 mg tablet,delayed release (DR/EC) 81 mg PO DAILY citalopram 20 mg tablet 20 mg PO DAILY bisacodyl 10 mg Suppository 10 mg RI DAILY PRN (Reason: Constipation) Rx Instructions: No BM in 8 Hrs after MoM Fleet Enema 19-7 gram/118 mL Enema 118 ml RI DAILY PRN (Reason: Constipation) Rx Instructions: No BM in 8 Hrs after Bisacodyl omeprazole 20 mg Capsule,Delayed Release(Dr/Ec) 20 mg PO DAILY@0630 ibuprofen 600 mg Tablet 600 mg PO Q6H PRN (Reason: Pain) polyethylene glycol 3350 17 gram/dose Powder 17 g PO Q24H PRN (Reason: Constipation) ondansetron 4 mg Tablet,Disintegrating 4 mg PO Q8H PRN (Reason: Nausea/Vomiting) simethicone 80 mg Tablet,Chewable 80 mg PO Q6H PRN (Reason: GAS) Lokelma 10 gram Powder In Packet 10 g PO SUTUTHSA Senna Plus 8.6-50 mg Capsule 1 tab-cap PO Q24H PRN (Reason: Constipation) glipizide 2.5 mg Tablet 2.5 mg PO DAILY hydralazine 10 mg Tablet 10 mg PO BID Qty: 0 0RF Protocol: Hold for SBP< HOLD for SBP < : 90 amlodipine 5 mg Tablet 5 mg PO BID Qty: 0 0RF Protocol: Hold for SBP< HOLD for SBP < : 90 Discharge Orders: Discharge Order (Routine); Ordered 01/28/24 Ordered By: Zana Dorado Diet: Advance to usual diet Activity on Discharge: As tolerated Stand Alone Forms: Patient Portal Discharge page Print Language: [place] Care Plan Goals: You were admitted for the need of urgent dialysis which was done with improvement in breathing and mental status back to baseline. Continue dialysis sessions as planned Follow with nephrology as scheduled take your medications as prescribed Health Concerns: Read below Plan of Treatment: Read below Assessment: Read below Discharge Date/Time: 01/28/24 14:55
[2024-01-28 11:36] LABS: Glucose, Whole Blood 134 mg/dL (60-115)
== END 2024-01-28 14:55 | disposition skilled nursing facility (03) | DRG 640 ==
LOC: HO.ED 20:35 → HO.EDOVER 20:44 → HO.ICU 20:53 → HO.IMC 01-27 18:25
PROVIDERS: Internal Medicine Critical Care Medicine; Admitting Provider Nurse Practitioner Family; Emergency Provider Emergency Medicine; PCP Internal Medicine Geriatric Medicine; Visit Provider Student in an Organized Health Care Education/Training Program
DX: E87.70 Fluid overload, unspecified (principal); G92.8 Other toxic encephalopathy; J81.0 Acute pulmonary edema; J96.01 Acute respiratory failure with hypoxia; N18.6 End stage renal disease; U07.1 COVID-19; I12.0 Hypertensive chronic kidney disease with stage 5 chronic kidney disease or end stage renal disease; I16.1 Hypertensive emergency; E87.1 Hypo-osmolality and hyponatremia; E87.5 Hyperkalemia; Z89.511 Acquired absence of right leg below knee; Z91.158 Patient's noncompliance with renal dialysis for other reason; E11.22 Type 2 diabetes mellitus with diabetic chronic kidney disease; D63.1 Anemia in chronic kidney disease; Z99.2 Dependence on renal dialysis
CPT/HCPCS: 36415; 71045; 80048; 80076; 82040; 82803; 82947; 83605; 83735; 84100; 84484; 85025; 85610; 87040; 87635; 90999; 93005; 99285; J0360; J0456; J0613; J0696; J1940

== ENCOUNTER → 2024-01-26 20:33 | Outpatient (BNV) | payer MEDICARE, MEDICAID, SELFPAY | PROVIDERS: Admitting Provider Nurse Practitioner Family; Emergency Provider Emergency Medicine; PCP Internal Medicine Geriatric Medicine; Visit Provider Nurse Practitioner Family | DX: I12.9 Hypertensive chronic kidney disease with stage 1 through stage 4 chronic kidney disease, or unspecified chronic kidney disease (principal); N18.6 End stage renal disease; Z99.2 Dependence on renal dialysis; J81.0 Acute pulmonary edema; E87.5 Hyperkalemia; E87.1 Hypo-osmolality and hyponatremia | CPT/HCPCS: 99233; 99291 ==

== ENCOUNTER → 2024-01-26 20:33 | Outpatient (BNV) | payer MEDICARE, SELFPAY | PROVIDERS: Admitting Provider Nurse Practitioner Family; Emergency Provider Emergency Medicine; PCP Internal Medicine Geriatric Medicine; Visit Provider Student in an Organized Health Care Education/Training Program | DX: N18.6 End stage renal disease (principal); Z99.2 Dependence on renal dialysis; Z91.158 Patient's noncompliance with renal dialysis for other reason; G92.8 Other toxic encephalopathy; J81.0 Acute pulmonary edema; R00.1 Bradycardia, unspecified; D63.1 Anemia in chronic kidney disease; E87.1 Hypo-osmolality and hyponatremia; E87.5 Hyperkalemia | CPT/HCPCS: 99239 ==

== ENCOUNTER → 2024-01-26 20:33 | Outpatient (BNV) | payer MEDICARE, SELFPAY | PROVIDERS: Admitting Provider Nurse Practitioner Family; Emergency Provider Emergency Medicine; PCP Internal Medicine Geriatric Medicine; Visit Provider Internal Medicine Nephrology | DX: N18.6 End stage renal disease (principal); Z99.2 Dependence on renal dialysis | CPT/HCPCS: 90935 ==

== ENCOUNTER 2024-01-31 14:57 | Inpatient (IN) | payer MEDICARE, OTHER, SELFPAY ==
--- NOTE | ~2024-01-31 | XR_ITS ---
EXAMINATION: XR CHEST CLINICAL INFORMATION: Headache COMPARISON: 01/27/2024, 01/26/2024 and multiple priors TECHNIQUE: Frontal view of the chest was obtained. FINDINGS: On the 01/26/2024 patchy diffuse airspace disease is present which improve significantly in the next day. On the current study, the findings are similar to prior with mild interstitial prominence and cardiomegaly. There is no pleural effusion. XR/XR chest 1V IMPRESSION: Continued improvement in appearances with decrease in the diffuse airspace disease. Differential diagnosis includes CHF with interstitial edema as well as infectious etiologies. Electronically signed by: Ryan Padilla MD 01/31/2024 06:47 PM EDT RP
[2024-01-31 15:08] VITALS: BP 184/40; PULSE 42; O2SAT 93
--- NOTE | 2024-01-31 15:14 | ECG_ITS ---
Test Reason : SOB Blood Pressure : / mmHG Vent. Rate : 041 BPM Atrial Rate : 041 BPM P-R Int : 168 ms QRS Dur : 114 ms QT Int : 548 ms P-R-T Axes : 000 -29 -08 degrees QTc Int : 452 ms Unusual P axis, possible ectopic atrial bradycardia Incomplete left bundle branch block Minimal voltage criteria for LVH, may be normal variant ( Junior product ) Abnormal ECG When compared with ECG of 27-JAN-2024 08:32, NH interval has decreased Vent. rate has decreased BY 25 BPM T wave inversion now evident in Anterior leads Ectopic atrial rhythm has replaced Sinus rhythm Referred By: Generic ED Physician Electronically Signed By:JOSE MURRAY
[2024-01-31 15:15] VITALS: BMI 30.7
[2024-01-31 15:19] VITALS: BP 154/127; PULSE 41; RESP 12; TEMP 36.9; O2SAT 98; BMI 30.7
[2024-01-31 15:20] LABS: MANUAL DIFF FLAG NO
[2024-01-31 15:22] LABS: Basophils Percent Auto 0.5 % (0-2); Eosinophils Absolute Auto 0.2 X10*3/uL (0.0-0.4); Hemoglobin 8.9 g/dl (14.0-18.0); Imm Gran Abs Auto 0.01 X10*3/uL (0.00-0.03); Imm Gran Pct Auto 0.2 % (0.0-0.4); Lymphocytes Percent Auto 23.9 % (20-40); Mean Corpuscular HGB Conc 34.2 g/dl (31.0-36.0); Mean Corpuscular Hemoglobin 30.9 pg (27.0-33.0); Mean Corpuscular Volume 90.3 fL (80.0-98.0); Monocytes Absolute Auto 0.3 X10*3/uL (0.1-1.2); Neutrophils Absolute Auto 2.5 x10*3/uL (2.0-8.3); Neutrophils Percent Auto 61.4 % (45-73); Platelet Count 185 X10*3/uL (160-400); Red Blood Count 2.88 X10*6/uL (4.60-5.80); Red Cell Distribution Width 13.8 % (11.0-16.0)
--- NOTE | 2024-01-31 15:36 | ED.GENADULT ---
HPI - General Adult General Chief complaint: General Medical Stated complaint: MISSED DIALYSIS,FROM SNF PER EMS Time Seen by Provider: 01/31/24 15:31 History of Present Illness ED Provider: Karla IZAGUIRRE narrative: 68-year-old male with past medical history of ESRD on HD, anemia, CHF, DM, HTN, PVD, R BKA, HLD, right BKA presents for hypoxia and missed dialysis session. Patient reportedly missed his dialysis session yesterday and today he was hypoxic at his sniff. EMS was called and when they arrived found that patient was not on his baseline O2 Patient is alert and oriented x4 and states that he was here because his oxygen was low however he denies feeling short of breath, chest pain, abdominal pain, nausea, vomiting. Per staff: patient missed dialysis and he was satting 80-85% on 2L. Pt reportedly canceled his transportation to dialysis Per ems: upon arrival patient did not have nasal cannula on. After it was placed on his sats improved Related Data Home Medications ?Medication ?Instructions ?Recorded ?Confirmed acetaminophen 325 mg tablet 650 mg PO Q6H PRN Fever/Pain 01/02/24 01/26/24 aspirin 81 mg tablet,delayed 81 mg PO DAILY 01/02/24 01/26/24 release atorvastatin 80 mg tablet 80 mg PO DAILY 01/02/24 01/26/24 bisacodyl 10 mg rectal suppository 10 mg CA DAILY PRN Constipation 01/02/24 01/26/24 citalopram 20 mg tablet 20 mg PO DAILY 01/02/24 01/26/24 clonazepam 0.5 mg tablet 1 mg PO BID anxiety 01/02/24 01/26/24 glipizide 2.5 mg tablet 2.5 mg PO DAILY 01/02/24 01/26/24 ibuprofen 600 mg tablet 600 mg PO Q6H PRN Pain 01/02/24 01/26/24 isosorbide mononitrate 20 mg tablet 40 mg PO DAILY 01/02/24 01/26/24 omeprazole 20 mg capsule,delayed 20 mg PO DAILY@0630 01/02/24 01/26/24 release ondansetron 4 mg disintegrating 4 mg PO Q8H PRN Nausea/Vomiting 01/02/24 01/26/24 tablet polyethylene glycol 3350 17 17 g PO Q24H PRN Constipation 01/02/24 01/26/24 gram/dose oral powder sennosides 8.6 mg-docusate sodium 1 tab-cap PO Q24H PRN Constipation 01/02/24 01/26/24 50 mg capsule (Senna Plus) sevelamer HCl 800 mg tablet 1,600 mg PO TIDWM 01/02/24 01/26/24 simethicone 80 mg chewable tablet 80 mg PO Q6H PRN GAS 01/02/24 01/26/24 sodium phosphates 19 gram-7 118 ml CA DAILY PRN Constipation 01/02/24 01/26/24 gram/118 mL enema (Fleet Enema) sodium zirconium cyclosilicate 10 10 g PO SUTUTHSA 01/02/24 01/26/24 gram oral powder packet (Lokelma) trazodone 50 mg tablet 50 mg PO BEDTIME 01/02/24 01/26/24 dextromethorphan HBr 10 mg/5 mL 10 mg PO Q4H PRN Cough 01/26/24 01/26/24 oral liquid Previous Rx's ?Medication ?Instructions ?Recorded amlodipine 5 mg tablet 5 mg PO BID #0 tabs 01/20/24 hydralazine 10 mg tablet 10 mg PO BID #0 tabs 01/20/24 Allergies Allergy/AdvReac Type Severity Reaction Status Date / Time garlic Allergy Severe Hives Verified 01/31/24 15:23 onion Allergy Severe Hives Verified 01/31/24 15:23 Peppers, Green Allergy Severe Hives Verified 01/31/24 15:23 Review of Systems Review of Systems: Patient denies shortness of breath, chest pain, fevers, chills, abdominal pain Yes all other systems are reviewed and are negative PMFSH Past Medical History Medical History Anemia in chronic kidney disease (CKD) Bradycardia Dialysis patient, noncompliant End stage renal disease on dialysis Diabetes mellitus Hypertension Below-knee amputation of right lower extremity Hyperlipidemia Hypertension Peripheral vascular disease Chronic kidney disease on chronic dialysis Diabetes Social History Social History Household Members: Other Household Members Other:: LTC Housing: [facility] Do you presently have visiting nurse or other home services: Yes Patient Tobacco Use Status: Never used Tobacco Advance Directives: Yes Advance Directives on File: Yes Advance Directives Date on File: 01/17/24 Do you have a plan to hurt others: No Plan service: No Physical Exam ED Vital Signs: Vital Signs - 24 hr 01/31/24 15:19 01/31/24 17:30 01/31/24 18:00 Temperature 98.5 F 98.1 F Pulse Rate 41 L 44 L 42 L Respiratory Rate 12 20 18 Blood Pressure 154/127 H 168/39 H 180/50 H Pulse Oximetry 98 94 93 Oxygen Delivery Method Nasal Cannula Room Air Room Air BMI result Body Mass Index 30.7 Head normocephalic atraumatic, diminished lung sounds at the bilateral bases, normal S1-S2 bradycardic regular rhythm, abdomen is soft nontender nondistended Medications Administered Generic Name Dose Route Start Last Admin Trade Name Freq PRN Reason Stop Dose Admin Heparin Sodium (Porcine) 5,000 unit 01/31/24 20:00 01/31/24 20:02 Heparin Sodium,Porcine 5,000 Unit/Ml Vial SUBCUT 5,000 unit Q12H KIA Administration Dextrose 250 mls @ 750 mls/hr 01/31/24 17:19 01/31/24 19:16 D10 IV Infused Q15M PRN Infusion per Hypoglycemia Standing Ord. Discontinued Medications Generic Name Dose Route Start Last Admin Trade Name Freq PRN Reason Stop Dose Admin Calcium Gluconate 1 gm in 50 mls @ 50 mls/hr 01/31/24 16:39 01/31/24 18:44 Calcium Gluconate IV 01/31/24 17:38 Infused ONCE ONE Infusion Insulin Human Regular 3 unit 01/31/24 16:39 01/31/24 19:03 Insulin Regular, Human 100 Unit/Ml 10 Ml Vial IVPUSH 01/31/24 16:40 3 unit ONCE ONE Administration Sodium Zirconium Cyclosilicate 10 gm 01/31/24 16:39 01/31/24 19:31 Sodium Zirconium Cyclosilicate 10 Gm Powd.Pack PO 01/31/24 16:40 10 gm ONCE ONE Administration Medical Decision Making Medical Decision Making MDM Narrative: This is a 68-year-old male hemodialysis with multiple chronic illnesses presenting for hypoxia and concerns for missed dialysis session. I am concerned for the following; pneumonia, electrolyte/metabolic disturbance, volume overload, URI, COVID complications Patient was positive for COVID last week. EKG is similar to prior with no ischemic changes or changes secondary to electrolyte abnormalities I reviewed patient's lab work; hyperkalemic 5.6 Hyper K treatment ordered I spoke with hospitalist regarding admission for patient as he will likely need dialysis tomorrow and staff at his facility is unable to confirm whether he will receive dialysis tomorrow. Patient admitted to medicine Differential Diagnosis Differential Diagnoses: The differential diagnosis associated with the presentation includes Pneumonia, electrolyte/metabolic disturbance, volume overload, URI, COVID complications Consult Healthcare Provider Management of the patient was discussed with: Hospitalist Patient admitted to medicine Lab Data 01/31/24 15:16 01/31/24 15:16 Labs: Lab Results 01/31/24 Range/Units 15:16 WBC 4.0 L (4.8-10.8) X10*3/uL RBC 2.88 L (4.60-5.80) X10*6/uL Hgb 8.9 L (14.0-18.0) g/dl Hct 26.0 L (42.0-52.0) % MCV 90.3 (80.0-98.0) fL MCH 30.9 (27.0-33.0) pg MCHC 34.2 (31.0-36.0) g/dl RDW 13.8 (11.0-16.0) % Plt Count 185 (160-400) X10*3/uL MPV 9.0 L (9.4-12.4) fL Immature Gran % (Auto) 0.2 (0.0-0.4) % Neut % (Auto) 61.4 (45-73) % Lymph % (Auto) 23.9 (20-40) % [place] % (Auto) 8.0 (2-11) % Eos % (Auto) 6.0 H (0-4) % Baso % (Auto) 0.5 (0-2) % Lymph # (Auto) 1.0 L (1.2-4.9) X10*3/uL [place] # (Auto) 0.3 (0.1-1.2) X10*3/uL Eos # (Auto) 0.2 (0.0-0.4) X10*3/uL Baso # (Auto) 0.0 (0.0-0.2) X10*3/uL Abs Immat Gran (auto) 0.01 (0.00-0.03) X10*3/uL Absolute Neuts (auto) 2.5 (2.0-8.3) x10*3/uL Absolute Nucleated RBC 0.000 (0.0-0.012) X10*3/uL Nucleated RBC % (auto) 0.0 (0.0-0.2) /100WBC Sodium 123 L (135-145) mmol/L Potassium 5.6 H (3.3-5.1) mmol/L Chloride 87 L (96-108) mmol/L Carbon Dioxide 24 (22-29) mmol/L Anion Gap 18 (12-20) BUN 47 H (9-16) mg/dL Creatinine 9.26 H* (0.5-1.4) mg/dL Estim Creat Clear Calc 8.6 Estimated GFR 6 Random Glucose 171 H (60-115) mg/dL Calcium 9.0 D (8.4-10.2) mg/dL Total Bilirubin 0.5 (0.0-1.0) mg/dL AST 12 (5-37) U/L ALT 9 (0-40) U/L Alkaline Phosphatase 154 H (39-117) U/L Troponin I High Sens 36.8 H (<3.5-35.0) ng/L B-Natriuretic Peptide 1488 H (<100) pg/mL Total Protein 7.3 (6.5-8.0) g/dL Albumin 3.5 (3.5-5.0) g/dL Discharge Plan Discharge Clinical Impression: Hyperkalemia, Hypoxia Patient Disposition: Admitted As Inpatient Print Language: [place]
[2024-01-31 15:49] LABS: Alanine Aminotransferase 9 U/L (0-40); Albumin Level 3.5 g/dL (3.5-5.0); Alkaline Phosphatase 154 U/L (39-117); Anion Gap 18 (12-20); Aspartate Amino Transferase 12 U/L (5-37); Bilirubin Total 0.5 mg/dL (0.0-1.0); Blood Urea Nitrogen 47 mg/dL (9-16); Carbon Dioxide 24 mmol/L (22-29); Chloride 87 mmol/L (96-108); Creatinine Clr Calc Pharmacy 8.6; Estimated Glomerular Filt Rate 6; Glucose Random 171 mg/dL (60-115); Potassium 5.6 mmol/L (3.3-5.1); Sodium 123 mmol/L (135-145); Total Protein 7.3 g/dL (6.5-8.0)
[2024-01-31 16:19] LABS: B Type Natriuretic Peptide 1488 pg/mL (<100)
[2024-01-31 16:29] LABS: Troponin-I High Sensitivity 36.8 ng/L (<3.5-35.0)
[2024-01-31 17:30] VITALS: BP 168/39; PULSE 44; RESP 20; TEMP 36.7; O2SAT 94
[2024-01-31] MEDS: Calcium Gluconate/NaCl,Iso-Osm 1 GM/50 ML PLAST..BAG IV (17:51)
[2024-01-31 18:00] VITALS: BP 180/50; PULSE 42; RESP 18; O2SAT 93
[2024-01-31] MEDS: Dextrose 10 % 250 ML 750 ML IV (18:44)
[2024-01-31] MEDS: Insulin Regular, Human 100 UNIT/ML 10 ML VIAL IVPUSH (19:03)
--- NOTE | 2024-01-31 19:18 | P.HPHOSP_ITS ---
History of Present Illness Date of Service: 01/31/24 Chief Complaint: Dyspnea This is a 68-year-old male with pertinent history of peripheral vascular disease status post right BKA, congestive heart failure with preserved ejection fraction, ESRD on hemodialysis M/W/F with history of noncompliance with dialysis, metabolic syndrome, non insulin-dependent diabetes mellitus, coronary artery disease who presents to the emergency department for evaluation of dyspnea. Patient does have a history of noncompliance with dialysis and did not go for his last dialysis session on 01/29. His last hemodialysis session was on 01/26. Patient does endorse dyspnea with orthopnea. He was found to be hypoxic at outside facility and placed on supplemental oxygen. He does not make any urine. No cough, fever or chills. No chest pain or palpitations. He denies abdominal pain, changes in urinary or bowel habits. In the emergency department, imaging concerning for pulmonary edema and BNP found to be elevated. Sodium 123 and potassium 5.6. Review of Systems 2 Cardiovascular: Cardiovascular: Reports dyspnea on exertion and Reports orthopnea Respiratory: Respiratory: Reports dyspnea on exertion Gastrointestinal: Gastrointestinal: Reports no additional gastrointestinal complaints Genitourinary: Genitourinary: Reports no additional male genitourinary complaints [facility] Medical History Anemia in chronic kidney disease (CKD) Bradycardia Dialysis patient, noncompliant End stage renal disease on dialysis Diabetes mellitus Hypertension Below-knee amputation of right lower extremity Hyperlipidemia Hypertension Peripheral vascular disease Chronic kidney disease on chronic dialysis Diabetes Social History Household Members: Other Household Members Other:: LTC Housing: [facility] Do you presently have visiting nurse or other home services: Yes Patient Tobacco Use Status: Never used Tobacco Advance Directives: Yes Advance Directives on File: Yes Advance Directives Date on File: 01/17/24 Do you have a plan to hurt others: No Plan service: No Meds Allergies Allergy/AdvReac Type Severity Reaction Status Date / Time garlic Allergy Severe Hives Verified 01/31/24 15:23 onion Allergy Severe Hives Verified 01/31/24 15:23 Peppers, Green Allergy Severe Hives Verified 01/31/24 15:23 Active Medications: Current Medications Dextrose (D10) 250 mls @ 750 mls/hr IV Q15M PRN PRN Reason: per Hypoglycemia Standing Ord. Last Infusion: 01/31/24 19:16 Dose: Infused Home Medications ?Medication ?Instructions ?Recorded ?Confirmed ?Last Taken ?Type acetaminophen 325 mg tablet 650 mg PO Q6H PRN Fever/Pain 01/02/24 01/26/24 Unknown History aspirin 81 mg tablet,delayed 81 mg PO DAILY 01/02/24 01/26/24 01/17/24 12:00 History release atorvastatin 80 mg tablet 80 mg PO DAILY 01/02/24 01/26/24 01/17/24 12:00 History bisacodyl 10 mg rectal suppository 10 mg ND DAILY PRN Constipation 01/02/24 01/26/24 Unknown History citalopram 20 mg tablet 20 mg PO DAILY 01/02/24 01/26/24 01/17/24 12:00 History clonazepam 0.5 mg tablet 1 mg PO BID anxiety 01/02/24 01/26/24 01/17/24 12:00 History glipizide 2.5 mg tablet 2.5 mg PO DAILY 01/02/24 01/26/24 01/17/24 12:00 History ibuprofen 600 mg tablet 600 mg PO Q6H PRN Pain 01/02/24 01/26/24 Unknown History isosorbide mononitrate 20 mg tablet 40 mg PO DAILY 01/02/24 01/26/24 01/17/24 12:00 History omeprazole 20 mg capsule,delayed 20 mg PO DAILY@0630 01/02/24 01/26/24 01/17/24 12:00 History release ondansetron 4 mg disintegrating 4 mg PO Q8H PRN Nausea/Vomiting 01/02/24 01/26/24 Unknown History tablet polyethylene glycol 3350 17 17 g PO Q24H PRN Constipation 01/02/24 01/26/24 Unknown History gram/dose oral powder sennosides 8.6 mg-docusate sodium 1 tab-cap PO Q24H PRN Constipation 01/02/24 01/26/24 Unknown History 50 mg capsule (Senna Plus) sevelamer HCl 800 mg tablet 1,600 mg PO TIDWM 01/02/24 01/26/24 01/17/24 12:00 History simethicone 80 mg chewable tablet 80 mg PO Q6H PRN GAS 01/02/24 01/26/24 01/16/24 History sodium phosphates 19 gram-7 118 ml ND DAILY PRN Constipation 01/02/24 01/26/24 Unknown History gram/118 mL enema (Fleet Enema) sodium zirconium cyclosilicate 10 10 g PO SUTUTHSA 01/02/24 01/26/24 01/17/24 12:00 History gram oral powder packet (Lokelma) trazodone 50 mg tablet 50 mg PO BEDTIME 01/02/24 01/26/24 01/16/24 History dextromethorphan HBr 10 mg/5 mL 10 mg PO Q4H PRN Cough 01/26/24 01/26/24 Unknown History oral liquid Physical Exam 2 Vital Signs and Narrative: Vital Signs: Last Vital Signs Temp 98.1 F 01/31/24 17:30 Pulse 42 L 01/31/24 18:00 Resp 18 01/31/24 18:00 BP 180/50 H 01/31/24 18:00 Pulse Ox 93 01/31/24 18:00 O2 Del Method Room Air 01/31/24 18:00 Oxygen Flow Rate 2 01/31/24 15:19 BMI result Body Mass Index 30.7 Middle-aged male lying in bed in mild distress on supplemental oxygen Neck supple Regular rate and rhythm, S1-S2 heard Bilateral crackles present Abdomen soft nontender, no guarding, no rigidity Patient is awake, alert and oriented to self, place, time and person ; no focal motor deficit Psych: Normal mood Right BKA Results Labs 01/31/24 15:16 01/31/24 15:16 Labs: Laboratory Results - last 24 hr 01/31/24 15:16 MCV 90.3 MCH 30.9 MCHC 34.2 RDW 13.8 Plt Count 185 MPV 9.0 L Immature Gran % (Auto) 0.2 Neut % (Auto) 61.4 Lymph % (Auto) 23.9 [place] % (Auto) 8.0 Eos % (Auto) 6.0 H Baso % (Auto) 0.5 Lymph # (Auto) 1.0 L [place] # (Auto) 0.3 Eos # (Auto) 0.2 Baso # (Auto) 0.0 Abs Immat Gran (auto) 0.01 Absolute Neuts (auto) 2.5 Absolute Nucleated RBC 0.000 Nucleated RBC % (auto) 0.0 Anion Gap 18 Estim Creat Clear Calc 8.6 Estimated GFR 6 Random Glucose 171 H Calcium 9.0 D Total Bilirubin 0.5 AST 12 ALT 9 Alkaline Phosphatase 154 H Troponin I High Sens 36.8 H B-Natriuretic Peptide 1488 H Total Protein 7.3 Albumin 3.5 Imaging Radiologist's Impressions: Impressions Chest X-Ray 01/31/24 15:34 IMPRESSION: Continued improvement in appearances with decrease in the diffuse airspace disease. Differential diagnosis includes CHF with interstitial edema as well as infectious etiologies. Electronically signed by: Ryan Padilla MD 01/31/2024 06:47 PM EDT RP Assessment and Plan (1) CHF (congestive heart failure): Status: Acute (2) Hypoxia: Status: Acute Plan This is a 68-year-old male with pertinent history of peripheral vascular disease status post right BKA, congestive heart failure with preserved ejection fraction, ESRD on hemodialysis M/W/F with history of noncompliance with dialysis, metabolic syndrome, non insulin-dependent diabetes mellitus, coronary artery disease who presents to the emergency department for evaluation of dyspnea. #. Acute hypoxemic respiratory failure due to decompensated diastolic congestive heart failure in the setting of missed hemodialysis: Will admit patient with supplemental oxygen. Consulted Nephrology, appreciate assistance. #. Hyponatremia, hypervolemic #. Hyperkalemia due to missed hemodialysis #. Wee-umxzror-iyliuhysn diabetes mellitus: Initiating Accu-Cheks with sliding scale insulin #. Mood disorder: Continue home mood stabilizers #. Peripheral vascular disease/coronary artery disease: On aspirin and high- intensity statin #. Hypertension: Continue home antihypertensives Med rec pending DVT prophylaxis: Heparin Full code Admit as inpatient and will require two night minimum hospital stay for supplemental oxygen, close monitoring of respiratory status (as above), which is not possible in a lesser acute setting. Specialist consult pending Quality Stroke Does the patient have a stroke diagnosis?: No VTE Prior VTE?: No VTE Risk Level:: Medical - moderate - high VTE Device Contraindication: Treatment Not Indicated VTE Drug Contraindication: N/A - Med Ordered
[2024-01-31] MEDS: Sodium Zirconium Cyclosilicate 10 GM POWD.PACK PO (19:31)
[2024-01-31] MEDS: Heparin Sodium,Porcine 5,000 UNIT/ML VIAL 5000 UNIT SUBCUT (20:02)
[2024-01-31 20:23] LABS: Potassium 5.5 mmol/L (3.3-5.1)
--- NOTE | 2024-01-31 20:37 | PHA.MEDREC ---
Addendum entered by Rayshawn Haskins [facility] 01/31/24 20:42: Med rec reviewed Original Note: Pharmacy Consult ? Medication Reconciliation Pharmacy has completed the medication reconciliation. Utilized med list from [facility] to confirm med list.
--- NOTE | 2024-01-31 21:02 | PC.NURSE ---
This RN assumed pt care @ 2100. Pt resting in bed, no signs of distress. Pt denies pain. Plan of care ongoing.
[2024-01-31 22:55] LABS: Glucose, Whole Blood 82 mg/dL (60-115)
[2024-01-31] MEDS: traMADoL HCL 50 MG TABLET 25 MG PO (22:56)
--- NOTE | 2024-01-31 23:02 | PC.NURSE ---
Pt medicated for pain. Pt requested and given food Provider aware of pts b/p & poc Plan of care ongoing.
[2024-02-01] VITALS (7 sets, daily range): BP systolic 112–180; BP diastolic 42–58; PULSE 44–70; RESP 15–20; TEMP 36.3–37; O2SAT 91–100
[2024-02-01] MEDS: 0.9 % Sodium Chloride Flush 3 ML SYRINGE IVFLUSH ×3 (00:14→17:03)
--- NOTE | 2024-02-01 00:16 | PC.NURSE ---
Pt medicated per jul Pt resting in bed, no signs of distress. Plan of care ongoing.
[2024-02-01 05:15] LABS: Hematocrit 25.9 % (42.0-52.0); Hemoglobin 8.7 g/dl (14.0-18.0); Mean Corpuscular HGB Conc 33.6 g/dl (31.0-36.0); Mean Corpuscular Hemoglobin 29.9 pg (27.0-33.0); Mean Platelet Volume 10.1 fL (9.4-12.4); Platelet Count 201 X10*3/uL (160-400); Red Blood Count 2.91 X10*6/uL (4.60-5.80); Red Cell Distribution Width 13.3 % (11.0-16.0); White Blood Count 4.5 X10*3/uL (4.8-10.8)
[2024-02-01 05:30] LABS: Anion Gap 21 (12-20); Blood Urea Nitrogen 50 mg/dL (9-16); Calcium 9.2 mg/dL (8.4-10.2); Carbon Dioxide 22 mmol/L (22-29); Chloride 88 mmol/L (96-108); Creatinine Clr Calc Pharmacy 7.3; Estimated Glomerular Filt Rate 5; Glucose Random 111 mg/dL (60-115); Potassium 5.5 mmol/L (3.3-5.1); Sodium 125 mmol/L (135-145)
--- NOTE | 2024-02-01 07:48 | PC.NURSE ---
Resumed care of pt at 0700. Pt resting in bed quietly, respirations even and unlabored, no increased wob/sob noted, pt sinus heather on traffic monitor specialist 40s-50s. Pt wears 3L O2 baseline, O2 sat 92-94% on Oxymask. Pt missed dialysis on tuesday, plan for pt to go to dialysis today. Pt admitted for hypoxemia d/t CHF. Pt updated and aware of plan of care, call beauchamp within reach, all needs met at this time.
--- NOTE | 2024-02-01 08:23 | HO.PM.IMPN ---
Subjective Subjective Date of Service: 02/01/24 Physical Exam Vital Signs: Vital Signs: Last Vital Signs Temp 98.6 F 02/01/24 06:06 Pulse 44 L 02/01/24 06:06 Resp 20 02/01/24 06:06 BP 180/45 H 02/01/24 06:06 Pulse Ox 91 L 02/01/24 06:06 O2 Del Method Non-Rebreather Ma sk 02/01/24 06:06 O2 Flow Rate 1.5 02/01/24 06:06 Oxygen Flow Rate 2 01/31/24 15:19 BMI result Body Mass Index 30.7 Objective Data Active Medications Acetaminophen (Acetaminophen 325 Mg Tablet) 650 mg PO Q6H PRN PRN Reason: Pain, Mild (Pain Scale 1-3), fever or headache Calcium Carbonate (Calcium Carbonate 750 Mg Tab.Chew) 750 mg PO Q4H PRN PRN Reason: Heartburn Glucose (Glucose Gel 15 Gm Gel..Gram.) 15 gm PO Q15M PRN; Protocol PRN Reason: per Hypoglycemia Standing Ord. Heparin Sodium (Porcine) (Heparin Sodium,Porcine 5,000 Unit/Ml Vial) 5,000 unit SUBCUT Q12H [facility] Last Admin: 01/31/24 20:02 Dose: 5,000 unit Documented By: LO Dextrose (D10) 250 mls @ 750 mls/hr IV Q15M PRN PRN Reason: per Hypoglycemia Standing Ord. Last Infusion: 01/31/24 19:16 Dose: Infused Documented By: LO Dextrose (D10) 250 mls @ 750 mls/hr IV Q15M PRN; Protocol PRN Reason: per Hypoglycemia Standing Ord. Insulin Human Lispro (Insulin Lispro 100 Unit/Ml 3 Ml Vial) 0 unit SUBCUT QIDACHS [facility]; Protocol Last Admin: 01/31/24 22:52 Dose: Not Given Documented By: EFREN Non-Admin Reason: No Insulin Coverage Lidocaine HCl (Lidocaine Hcl 1 % Mpf 2 Ml Vial) 0.5 ml SUBCUT MOWEFR@1645 [facility] Magnesium Hydroxide (Milk Of Magnesia 30 Ml Oral.Susp) 30 ml PO DAILY PRN PRN Reason: Constipation Melatonin (Melatonin 3 Mg Tablet) 6 mg PO BEDTIME PRN PRN Reason: Insomnia Ondansetron HCl (Ondansetron Hcl 4 Mg/2 Ml Vial) 4 mg IVPUSH Q8H PRN PRN Reason: Nausea and Vomiting Sodium Chloride (0.9 % Sodium Chloride Flush 3 Ml Syringe) [facility] Last Admin: 02/01/24 00:14 Dose: 3 ml Documented By: EFREN Tramadol HCl (Tramadol Hcl 50 Mg Tablet) 25 mg PO Q6H PRN PRN Reason: Pain, Severe (Pain Scale 7-10) Last Admin: 01/31/24 22:56 Dose: 25 mg Documented By: EFREN Labs 02/01/24 04:26 02/01/24 04:26 Labs: Laboratory Results - last 24 hr 01/31/24 01/31/24 02/01/24 15:16 22:51 04:26 MCV 90.3 89.0 MCH 30.9 29.9 MCHC 34.2 33.6 RDW 13.8 13.3 Plt Count 185 201 MPV 9.0 L 10.1 Immature Gran % (Auto) 0.2 Neut % (Auto) 61.4 Lymph % (Auto) 23.9 [place] % (Auto) 8.0 Eos % (Auto) 6.0 H Baso % (Auto) 0.5 Lymph # (Auto) 1.0 L [place] # (Auto) 0.3 Eos # (Auto) 0.2 Baso # (Auto) 0.0 Abs Immat Gran (auto) 0.01 Absolute Neuts (auto) 2.5 Absolute Nucleated RBC 0.000 0.000 Nucleated RBC % (auto) 0.0 0.0 Anion Gap 18 21 H Estim Creat Clear Calc 8.6 7.3 Estimated GFR 6 5 POC Glucose 82 Random Glucose 171 H 111 Calcium 9.0 D 9.2 Total Bilirubin 0.5 AST 12 ALT 9 Alkaline Phosphatase 154 H Troponin I High Sens 36.8 H B-Natriuretic Peptide 1488 H Total Protein 7.3 Albumin 3.5 Quality Stroke Does the patient have a stroke diagnosis?: No VTE Prior VTE?: No VTE Risk Level:: Medical - moderate - high VTE Device Contraindication: Treatment Not Indicated VTE Drug Contraindication: N/A - Med Ordered
--- NOTE | 2024-02-01 08:40 | PC.NURSE ---
Pt transported to dialysis by rail transportation operator. traffic monitor specialist in placed.
--- NOTE | 2024-02-01 09:06 | P.PNIM_ITS ---
Subjective Subjective Date of Service: 02/01/24 Interval History: Seen in follow up for esrd on hd, volume overload in setting of missed hd interval history: in hd. no complaints. remains on 1.5L Review of Systems Review of Systems: Yes all other systems are reviewed and are negative Physical Exam 2 Vital Signs: Vital Signs: Last Vital Signs Temp 98.6 F 02/01/24 06:06 Pulse 44 L 02/01/24 06:06 Resp 20 02/01/24 06:06 BP 180/45 H 02/01/24 06:06 Pulse Ox 91 L 02/01/24 06:06 O2 Del Method Non-Rebreather Ma sk 02/01/24 06:06 O2 Flow Rate 1.5 02/01/24 06:06 Oxygen Flow Rate 2 01/31/24 15:19 BMI result Body Mass Index 30.7 Objective Data Active Medications Acetaminophen (Acetaminophen 325 Mg Tablet) 650 mg PO Q6H PRN PRN Reason: Pain, Mild (Pain Scale 1-3), fever or headache Calcium Carbonate (Calcium Carbonate 750 Mg Tab.Chew) 750 mg PO Q4H PRN PRN Reason: Heartburn Glucose (Glucose Gel 15 Gm Gel..Gram.) 15 gm PO Q15M PRN; Protocol PRN Reason: per Hypoglycemia Standing Ord. Heparin Sodium (Porcine) (Heparin Sodium,Porcine 5,000 Unit/Ml Vial) 5,000 unit SUBCUT Q12H [facility] Last Admin: 01/31/24 20:02 Dose: 5,000 unit Documented By: LO Dextrose (D10) 250 mls @ 750 mls/hr IV Q15M PRN PRN Reason: per Hypoglycemia Standing Ord. Last Infusion: 01/31/24 19:16 Dose: Infused Documented By: LO Dextrose (D10) 250 mls @ 750 mls/hr IV Q15M PRN; Protocol PRN Reason: per Hypoglycemia Standing Ord. Insulin Human Lispro (Insulin Lispro 100 Unit/Ml 3 Ml Vial) 0 unit SUBCUT QIDACHS [facility]; Protocol Last Admin: 01/31/24 22:52 Dose: Not Given Documented By: EFREN Non-Admin Reason: No Insulin Coverage Lidocaine HCl (Lidocaine Hcl 1 % Mpf 2 Ml Vial) 0.5 ml SUBCUT MOWEFR@1645 [facility] Magnesium Hydroxide (Milk Of Magnesia 30 Ml Oral.Susp) 30 ml PO DAILY PRN PRN Reason: Constipation Melatonin (Melatonin 3 Mg Tablet) 6 mg PO BEDTIME PRN PRN Reason: Insomnia Ondansetron HCl (Ondansetron Hcl 4 Mg/2 Ml Vial) 4 mg IVPUSH Q8H PRN PRN Reason: Nausea and Vomiting Sodium Chloride (0.9 % Sodium Chloride Flush 3 Ml Syringe) 3 ml IVFLUSH QSHIFT [facility] Last Admin: 02/01/24 00:14 Dose: 3 ml Documented By: EFREN Tramadol HCl (Tramadol Hcl 50 Mg Tablet) 25 mg PO Q6H PRN PRN Reason: Pain, Severe (Pain Scale 7-10) Last Admin: 01/31/24 22:56 Dose: 25 mg Documented By: EFREN Labs 02/01/24 04:26 02/01/24 04:26 Labs: Laboratory Results - last 24 hr 01/31/24 01/31/24 02/01/24 15:16 22:51 04:26 MCV 90.3 89.0 MCH 30.9 29.9 MCHC 34.2 33.6 RDW 13.8 13.3 Plt Count 185 201 MPV 9.0 L 10.1 Immature Gran % (Auto) 0.2 Neut % (Auto) 61.4 Lymph % (Auto) 23.9 [place] % (Auto) 8.0 Eos % (Auto) 6.0 H Baso % (Auto) 0.5 Lymph # (Auto) 1.[address] [place] # (Auto) 0.3 Eos # (Auto) 0.2 Baso # (Auto) 0.0 Abs Immat Gran (auto) 0.01 Absolute Neuts (auto) 2.5 Absolute Nucleated RBC 0.000 0.000 Nucleated RBC % (auto) 0.0 0.0 Anion Gap 18 21 H Estim Creat Clear Calc 8.6 7.3 Estimated GFR 6 5 POC Glucose 82 Random Glucose 171 H 111 Calcium 9.0 D 9.2 Total Bilirubin 0.5 AST 12 ALT 9 Alkaline Phosphatase 154 H Troponin I High Sens 36.8 H B-Natriuretic Peptide 1488 H Total Protein 7.3 Albumin 3.5 Assessment and Plan (1) Hypoxia: Status: Acute (2) Hyperkalemia: Status: Acute (3) Hypoxia: Status: Acute (4) CHF (congestive heart failure): Status: Acute (5) Dialysis patient, noncompliant: Status: Acute Plan 68-year-old male with pertinent history of peripheral vascular disease status post right BKA, congestive heart failure with preserved ejection fraction, ESRD on hemodialysis M/W/F with history of noncompliance with dialysis, metabolic syndrome, non insulin-dependent diabetes mellitus, coronary artery disease who presents to the emergency department for evaluation of dyspnea. #Acute hypoxemic respiratory failure due to decompensated diastolic congestive heart failure -resume HD today, nephro following -continue supplemental O2, wean as tolerated -follow renal function.lytes in the setting of missed hemodialysis: Will admit patient with supplemental oxygen. Consulted Nephrology, appreciate assistance. #Acute on chronic Hyponatremia -due to hypervolemic, fluid restrictions -follow lytes #Acute yperkalemia due to missed hemodialysis -plan for hd today -follow lytes #Fbw-[id number]-jpgdztveg diabetes mellitus -poc glucose, diabetic diet -admelog ss #Mood disorder -Continue home mood stabilizers #Peripheral vascular disease/coronary artery disease - On aspirin and high-intensity statin #Hypertension: Continue home antihypertensives DVT prophylaxis: Heparin Full code Ongoing inpt stay for hypoxia requiring O2 and hyponatremia in setting of volume overload requiring hd Quality Stroke Does the patient have a stroke diagnosis?: No VTE Prior VTE?: No VTE Risk Level:: Medical - moderate - high VTE Device Contraindication: Treatment Not Indicated VTE Drug Contraindication: N/A - Med Ordered
--- NOTE | 2024-02-01 09:15 | MHC.CM.PN ---
Patient is unavailable; CM spoke with /HCP/Cony @ [phone] and addressed IMM with her (original will be mailed certified letter to Cony and a copy will be placed on the chart). Patient is a LTC/[facility] bed hold at [facility] and returning there is the goal; CM has initiated and will follow for dc planning.
--- NOTE | 2024-02-01 10:07 | PC.NURSE ---
Morning med administration delayed d/t pt being at dialysis.
[2024-02-01 13:20] LABS: Glucose, Whole Blood 102 mg/dL (60-115)
--- NOTE | 2024-02-01 13:35 | PC.NURSE ---
Pt returned from Dialysis. Resting in bed quietly watching tv, pt continues to be on 2L O2 oxymask, maintaining O2 sat 98%. A/ox3, respirations even and unlabored, no increased wob/sob noted, s1 and s2 heard, NSR on rn cardiac rehab HR- 60s, pt HR has been varying from 50s-60s. This RN reached out to KURT Nam about holding BP meds d/t most recent BP 112/42 and HR varying 50s-60s. Per KURT Nam, hold BP meds. Plan to wean pt off Oxymask, O2 down to 1L maintaining O2 sat 96%. Call beauchamp within reach, all needs met at this time.
[2024-02-01] MEDS: Heparin Sodium,Porcine 5,000 UNIT/ML VIAL 5000 UNIT SUBCUT (14:15)
--- NOTE | 2024-02-01 15:29 | PC.NURSE ---
Pt cleaned up by this RN and Barbara Ross. Pt incontinent of stool, washed up and complete bed change. During wash up, pt noted to have a reddened/white area on coccyx. Foam dressing placed on coccyx and pt repositioned onto right side. Pt up in bed eating lunch, watching TV, 100% of lunch eaten. Call beauchamp within reach, all needs met at this time.
--- NOTE | 2024-02-01 16:39 | P.CONNP_ITS ---
History of Present Illness Reason for Consult Consult date: 02/01/24 Chief Complaint Chief complaint: Dyspnea History of Present Illness Narrative: 68-year-old male with ESRD( MWF) , peripheral vascular disease status post right BKA, congestive heart failure with preserved ejection fraction, noncompliance with dialysis, non insulin-dependent diabetes mellitus, coronary artery disease who presented to the emergency department for evaluation of dyspnea. Patient does have a history of noncompliance with dialysis and did not go for his last dialysis session on 01/29. His last hemodialysis session was on 01/26. Patient does endorse dyspnea with orthopnea. He was found to be hypoxic at outside facility and placed on supplemental oxygen. He does not make any urine. No cough, fever or chills. No chest pain or palpitations. He denies abdominal pain, changes in urinary or bowel habits. In the emergency department, imaging concerning for pulmonary edema and BNP found to be elevated. Sodium 123 and potassium 5.6. Nephrology was consulted to assist in his clinical care during his current hospital stay Review of Systems Review of Systems Yes all other systems are reviewed and are negative [facility] Past Medical History Medical History Anemia in chronic kidney disease (CKD) Bradycardia Dialysis patient, noncompliant End stage renal disease on dialysis Diabetes mellitus Hypertension Below-knee amputation of right lower extremity Hyperlipidemia Hypertension Peripheral vascular disease Chronic kidney disease on chronic dialysis Diabetes Social History Social History Household Members: Other Household Members Other:: LTC [facility] Do you presently have visiting nurse or other home services: Yes Patient Tobacco Use Status: Never used Tobacco Advance Directives: Yes Advance Directives on File: Yes Advance Directives Date on File: 01/17/24 Do you have a plan to hurt others: No Plan service: No Meds Allergies Allergy/AdvReac Type Severity Reaction Status Date / Time garlic Allergy Severe Hives Verified 01/31/24 15:23 onion Allergy Severe Hives Verified 01/31/24 15:23 Peppers, Green Allergy Severe Hives Verified 01/31/24 15:23 Active Medications: Current Medications Acetaminophen (Acetaminophen 325 Mg Tablet) 650 mg PO Q6H PRN PRN Reason: Pain, Mild (Pain Scale 1-3), fever or headache Amlodipine Besylate (Amlodipine Besylate 5 Mg Tablet) 5 mg PO BID [facility]; Protocol Last Admin: 02/01/24 13:34 Dose: Not Given Aspirin (Aspirin Enteric Coated 81 Mg Tablet.) 81 mg PO DAILY [facility] Atorvastatin Calcium (Atorvastatin Calcium 80 Mg Tablet) 80 mg PO DAILY [facility] Bisacodyl (Bisacodyl 10 Mg Supp.Rect) 10 mg WA DAILY PRN PRN Reason: Constipation Calcium Carbonate (Calcium Carbonate 750 Mg Tab.Chew) 750 mg PO Q4H PRN PRN Reason: Heartburn Clonazepam (Clonazepam 1 Mg Tablet) 1 mg PO BID [facility] Escitalopram Oxalate (Escitalopram Oxalate 10 Mg Tablet) 10 mg PO DAILY [facility] Glucose (Glucose Gel 15 Gm Gel..Gram.) 15 gm PO Q15M PRN; Protocol PRN Reason: per Hypoglycemia Standing Ord. Heparin Sodium (Porcine) (Heparin Sodium,Porcine 5,000 Unit/Ml Vial) 5,000 unit SUBCUT Q12H [facility] Hydralazine HCl (Hydralazine Hcl 10 Mg Tablet) 10 mg PO BID [facility]; Protocol Last Admin: 02/01/24 13:35 Dose: Not Given Dextrose (D10) 250 mls @ 750 mls/hr IV Q15M PRN PRN Reason: per Hypoglycemia Standing Ord. Last Infusion: 01/31/24 19:16 Dose: Infused Dextrose (D10) 250 mls @ 750 mls/hr IV Q15M PRN; Protocol PRN Reason: per Hypoglycemia Standing Ord. Insulin Human Lispro (Insulin Lispro 100 Unit/Ml 3 Ml Vial) 0 unit SUBCUT QIDACHS [facility]; Protocol Last Admin: 02/01/24 13:28 Dose: Not Given Isosorbide Mononitrate (Isosorbide Mononitrate 30 Mg Tab.Er.24h) 30 mg PO DAILY [facility] Lidocaine HCl (Lidocaine Hcl 1 % Mpf 2 Ml Vial) 0.5 ml SUBCUT MOWEFR@1645 [facility] Magnesium Hydroxide (Milk Of Magnesia 30 Ml Oral.Susp) 30 ml PO DAILY PRN PRN Reason: Constipation Melatonin (Melatonin 3 Mg Tablet) 6 mg PO BEDTIME PRN PRN Reason: Insomnia Omeprazole (Omeprazole 20 Mg Capsule.) 20 mg PO DAILY@0630 [facility] Ondansetron HCl (Ondansetron Hcl 4 Mg/2 Ml Vial) 4 mg IVPUSH Q8H PRN PRN Reason: Nausea and Vomiting Ondansetron HCl (Ondansetron Odt 4 Mg Tab.Rapdis) 4 mg TRANSLINGU Q8H PRN PRN Reason: Nausea/Vomiting Polyethylene Glycol (Polyethylene Glycol 3350 17 Gm Powd.Pack) 17 gm PO Q24H PRN PRN Reason: Constipation Senna/Docusate Sodium (Sennosides/Docusate Sodium Tablet) 1 tab PO Q24H PRN PRN Reason: Constipation Sevelamer Carbonate (Sevelamer Carbonate Tablet 800 Mg Tablet) 1,600 mg PO TIDWM [facility] Simethicone (Simethicone 80 Mg Tab.Chew) 80 mg PO Q6H PRN PRN Reason: Gas Sodium Biphosphate/Sodium Phosphate (Sodium Phosphate,[place]-Dibasic 133 Ml Enema) 118 ml WA DAILY PRN PRN Reason: Constipation Sodium Chloride (0.9 % Sodium Chloride Flush 3 Ml Syringe) 3 ml IVFLUSH [facility] Last Admin: 02/01/24 14:15 Dose: 3 ml Sodium Zirconium Cyclosilicate (Sodium Zirconium Cyclosilicate 10 Gm Powd.Pack) 10 gm PO [facility] Tramadol HCl (Tramadol Hcl 50 Mg Tablet) 25 mg PO Q6H PRN PRN Reason: Pain, Severe (Pain Scale 7-10) Last Admin: 01/31/24 22:56 Dose: 25 mg Trazodone HCl (Trazodone Hcl 50 Mg Tablet) 50 mg PO BEDTIME [facility] Home Medications ?Medication ?Instructions ?Recorded ?Confirmed ?Last Taken ?Type acetaminophen 325 mg tablet 650 mg PO Q6H PRN Fever/Pain 01/02/24 01/31/24 Unknown History aspirin 81 mg tablet,delayed 81 mg PO DAILY 01/02/24 01/31/24 01/17/24 12:00 History release atorvastatin 80 mg tablet 80 mg PO DAILY 01/02/24 01/31/24 01/17/24 12:00 History bisacodyl 10 mg rectal suppository 10 mg WA DAILY PRN Constipation 01/02/24 01/31/24 Unknown History citalopram 20 mg tablet 20 mg PO DAILY 01/02/24 01/31/24 01/17/24 12:00 History clonazepam 0.5 mg tablet 1 mg PO BID anxiety 01/02/24 01/31/24 01/17/24 12:00 History glipizide 2.5 mg tablet 2.5 mg PO DAILY 01/02/24 01/31/24 01/17/24 12:00 History ibuprofen 600 mg tablet 600 mg PO Q6H PRN Pain 01/02/24 01/31/24 Unknown History isosorbide mononitrate 20 mg tablet 40 mg PO DAILY 01/02/24 01/31/24 01/17/24 12:00 History omeprazole 20 mg capsule,delayed 20 mg PO DAILY@0630 01/02/24 01/31/24 01/17/24 12:00 History release ondansetron 4 mg disintegrating 4 mg PO Q8H PRN Nausea/Vomiting 01/02/24 01/31/24 Unknown History tablet polyethylene glycol 3350 17 17 g PO Q24H PRN Constipation 01/02/24 01/31/24 Unknown History gram/dose oral powder sennosides 8.6 mg-docusate sodium 1 tab-cap PO Q24H PRN Constipation 01/02/24 01/31/24 Unknown History 50 mg capsule (Senna Plus) sevelamer HCl 800 mg tablet 1,600 mg PO TIDWM 01/02/24 01/31/24 01/17/24 12:00 History simethicone 80 mg chewable tablet 80 mg PO Q6H PRN GAS 01/02/24 01/31/24 01/16/24 History sodium phosphates 19 gram-7 118 ml WA DAILY PRN Constipation 01/02/24 01/31/24 Unknown History gram/118 mL enema (Fleet Enema) sodium zirconium cyclosilicate 10 10 g PO SUTUTHSA 01/02/24 01/31/24 01/17/24 12:00 History gram oral powder packet (Lokelma) trazodone 50 mg tablet 50 mg PO BEDTIME 01/31/24 01/31/24 Unknown History Physical Exam Vital Signs: Last Vital Signs Temp 97.3 F 02/01/24 16:05 Pulse 70 02/01/24 16:05 Resp 15 02/01/24 16:05 BP 174/58 H 02/01/24 16:05 Pulse Ox 100 02/01/24 16:05 O2 Del Method Nasal Cannula 02/01/24 16:05 O2 Flow Rate 2.5 02/01/24 16:05 Oxygen Flow Rate 2 01/31/24 15:19 BMI result Body Mass Index 30.7 Const General: no acute distress Orientation/consciousness: patient oriented x3 Eyes EOM: EOMs intact bilaterally Resp Auscultation: diminished lung sounds Cardio Rate: regular rate GI Palpation (GI): Soft to palpation Neuro General: patient oriented x3 Extrem Other: BKA Results Lab Results 02/01/24 04:26 02/01/24 04:26 Lab results: Chemistry 01/31/24 01/31/24 02/01/24 15:16 19:59 04:26 Sodium 123 L 125 L Potassium 5.6 H 5.5 H 5.5 H Carbon Dioxide 24 22 BUN 47 H 50 H Creatinine 9.26 H* 10.82 H* Calcium 9.0 D 9.2 Hematology 01/31/24 02/01/24 15:16 04:26 WBC 4.0 L 4.5 L Hgb 8.9 L 8.7 L Plt Count 185 201 Assessment and Plan (1) End stage renal disease on dialysis: Status: Acute Plan Hamzah has hyperkalemia & hypervolemia Usually gets HD on MWF- shall dialyze today Has a functioning dialysis access Counseled about compliance with dialysis treatment Low-sodium, low-potassium diet with a fluid and phosphorus restriction Phosphorus binders with meals Procrit 46425 Units tomorrow if Hb is still low Shall optimize his volume status on hemodialysis Shall continue to closely follow-up Procedures Date of Service Date of Service: 02/01/24
[2024-02-01 16:42] LABS: Glucose, Whole Blood 179 mg/dL (60-115)
[2024-02-01] MEDS: Sevelamer Carbonate Tablet 800 MG TABLET 1600 MG PO (17:02)
--- NOTE | 2024-02-01 18:38 | MHC.EDTECH ---
at this time this tech attempted to give patient his tray and he refused, patient appeared to become very agitated when RN went into room to give him insulin prior to his meal due to his sugar being high, also attempted to reposition patient in order to get him more comfortable and he refused repositioning stating Why do you people keep bothering me? Just leave me alone. , patient also was refusing insulin medication for his high blood sugar. RN aware and notified
[2024-02-01] MEDS: traZODone HCL 50 MG TABLET PO (20:25)
[2024-02-01] MEDS: clonazePAM 1 MG TABLET PO (20:25)
[2024-02-01] MEDS: hydrALAZINE HCl 10 MG TABLET PO (20:25)
[2024-02-01] MEDS: amLODIPine Besylate 5 MG TABLET PO (20:25)
[2024-02-01 21:36] LABS: Glucose, Whole Blood 97 mg/dL (60-115)
[2024-02-02] VITALS: BP 169/75; PULSE 64; RESP 18; TEMP 36.6; O2SAT 94
[2024-02-02] MEDS: Heparin Sodium,Porcine 5,000 UNIT/ML VIAL 5000 UNIT SUBCUT ×2 (02:18→15:02)
[2024-02-02] MEDS: Acetaminophen 325 MG TABLET 650 MG PO ×2 (03:37→15:05)
[2024-02-02 04:00] VITALS: BP 165/69; PULSE 67; RESP 20; TEMP 36.3; O2SAT 94
[2024-02-02] MEDS: Omeprazole 20 MG CAPSULE.DR PO (05:45)
[2024-02-02 07:49] VITALS: PULSE 64; RESP 16; TEMP 36.6; O2SAT 96
[2024-02-02 08:12] LABS: Glucose, Whole Blood 94 mg/dL (60-115)
[2024-02-02 08:27] LABS: Hematocrit 27.9 % (42.0-52.0); Hemoglobin 9.4 g/dl (14.0-18.0); Mean Corpuscular HGB Conc 33.7 g/dl (31.0-36.0); Mean Corpuscular Hemoglobin 30.6 pg (27.0-33.0); Mean Corpuscular Volume 90.9 fL (80.0-98.0); Mean Platelet Volume 9.3 fL (9.4-12.4); Platelet Count 183 X10*3/uL (160-400); Red Blood Count 3.07 X10*6/uL (4.60-5.80); Red Cell Distribution Width 13.8 % (11.0-16.0); White Blood Count 3.4 X10*3/uL (4.8-10.8)
[2024-02-02 08:50] LABS: Anion Gap 16 (12-20); Blood Urea Nitrogen 18 mg/dL (9-16); Calcium 9.6 mg/dL (8.4-10.2); Carbon Dioxide 22 mmol/L (22-29); Chloride 94 mmol/L (96-108); Creatinine Clr Calc Pharmacy 12.4; Estimated Glomerular Filt Rate 9; Glucose Random 96 mg/dL (60-115); Potassium 4.3 mmol/L (3.3-5.1); Sodium 128 mmol/L (135-145)
[2024-02-02] MEDS: hydrALAZINE HCl 10 MG TABLET PO (09:14)
[2024-02-02] MEDS: Sevelamer Carbonate Tablet 800 MG TABLET 1600 MG PO ×3 (09:14→16:53)
[2024-02-02] MEDS: clonazePAM 1 MG TABLET PO (09:14)
[2024-02-02] MEDS: amLODIPine Besylate 5 MG TABLET PO (09:14)
[2024-02-02] MEDS: Aspirin Enteric Coated 81 MG TABLET.DR PO (09:14)
[2024-02-02] MEDS: Isosorbide Mononitrate 30 MG TAB.ER.24H PO (09:14)
[2024-02-02] MEDS: Atorvastatin Calcium 80 MG TABLET PO (09:15)
[2024-02-02] MEDS: Escitalopram Oxalate 10 MG TABLET PO (09:15)
[2024-02-02] MEDS: 0.9 % Sodium Chloride Flush 3 ML SYRINGE IVFLUSH ×2 (09:22→15:08)
[2024-02-02] MEDS: Sodium Zirconium Cyclosilicate 10 GM POWD.PACK PO (09:23)
[2024-02-02 11:43] LABS: Glucose, Whole Blood 152 mg/dL (60-115)
[2024-02-02 12:00] VITALS: BP 124/53; PULSE 65; RESP 16; TEMP 36.9; O2SAT 95
--- NOTE | 2024-02-02 12:38 | P.DS_ITS ---
DS: Providers Provider Date of Service: 02/02/24 Date of admission: 01/31/24 19:17 Date of discharge: 02/02/24 Primary care physician: Va Kurtz MD Consults: 01/31/24 19:16 Consult to Nephrology Routine Consulting Provider: [facility] Reason for consultation: Missed HD Attending physician on discharge: Kana Gómez Discharging clinician: Misty Bush DS: Diagnosis Discharge Diagnosis (1) End stage renal disease on dialysis: Status: Acute DS: Summary Hospital Course Hospital Course: From H&P on the day of admission This is a 68-year-old male with pertinent history of peripheral vascular disease status post right BKA, congestive heart failure with preserved ejection fraction, ESRD on hemodialysis M/W/F with history of noncompliance with dialysis, metabolic syndrome, non insulin- dependent diabetes mellitus, coronary artery disease who presents to the emergency department for evaluation of dyspnea. Patient does have a history of noncompliance with dialysis and did not go for his last dialysis session on 01/29. His last hemodialysis session was on 01/26. Patient does endorse dyspnea with orthopnea. He was found to be hypoxic at outside facility and placed on supplemental oxygen. He does not make any urine. No cough, fever or chills. No chest pain or palpitations. He denies abdominal pain, changes in urinary or bowel habits. In the emergency department, imaging concerning for pulmonary edema and BNP found to be elevated. Sodium 123 and potassium 5.6. Acute hypoxemic respiratory failure due to decompensated diastolic congestive heart failure Underwent hemodialysis 01/31. stable on baseline 2L of supplemental oxygen. Hyponatremia and hyperkalemia improved. Seen by Nephrologyshiraz for discharge back to facility to resume outpatient hemodialysis. Acute on chronic Hyponatremia stable Acute hyperkalemia due to missed hemodialysis. Resolved. Time Attestation Discharge Coordination Time (in mins): 36 Quality: Safe Use of Opioids Does Pt have an Active Cancer Diagnosis on the Problem List?: No Quality: Stroke Does the patient have a stroke diagnosis?: No Physical Exam Vital Signs: Vital Signs: Last Vital Signs Temp 97.8 F 02/02/24 07:49 Pulse 64 02/02/24 07:49 Resp 16 02/02/24 07:49 BP 165/69 H 02/02/24 04:00 Pulse Ox 96 02/02/24 07:49 O2 Del Method Nasal Cannula 02/02/24 07:49 O2 Flow Rate 2.0 02/02/24 07:49 Oxygen Flow Rate 2 01/31/24 15:19 BMI result Body Mass Index 30.7 Const: General: cooperative, comfortable, alert and awake Nutritional Appearance: average body habitus Resp: Effort & Inspection: normal respiratory effort, able to speak in compl ete sentences, no respiratory distress and no use of accessory muscles Cardio: Rate: regular rate GI: Palpation (GI): Soft to palpation Extrem: Other: right bka DS: Data Data Completed and Pending Completed studies during hospitalization [Text1]: Procedures Performance of Urinary Filtration, Intermittent, Less than 6 Hours Per Day (01/17/24) Labs on day of discharge: Laboratory Results - last 24 hr 02/01/24 02/01/24 02/01/24 13:16 16:37 21:32 WBC RBC Hgb Hct MCV MCH MCHC RDW Plt Count MPV Absolute Nucleated RBC Nucleated RBC % (auto) Sodium Potassium Chloride Carbon Dioxide Anion Gap BUN Creatinine Estim Creat Clear Calc Estimated GFR POC Glucose 102 179 H 97 Random Glucose Calcium 02/02/24 02/02/24 02/02/24 07:53 08:20 11:36 WBC 3.4 L RBC 3.07 L Hgb 9.4 L Hct 27.9 L MCV 90.9 MCH 30.6 MCHC 33.7 RDW 13.8 Plt Count 183 MPV 9.3 L Absolute Nucleated RBC 0.000 Nucleated RBC % (auto) 0.0 Sodium 128 L Potassium 4.3 D Chloride 94 L Carbon Dioxide 22 Anion Gap 16 BUN 18 H Creatinine 6.43 H* Estim Creat Clear Calc 12.4 Estimated GFR 9 POC Glucose 94 152 H Random Glucose 96 Calcium 9.6 Discharge Plan Discharge Anticipated Discharge Date/Time: 02/02/24 16:47 Patient Disposition: Xfer [facility] Discharge Diagnosis: fluid overload due to missed HD Referrals: [facility] [Outside] - 1 Week Va Kurtz MD [Primary Care Provider] - 1 Week Discharge Medications: Continued trazodone 50 mg Tablet 50 mg PO BEDTIME atorvastatin 80 mg tablet 80 mg PO DAILY acetaminophen 325 mg Tablet 650 mg PO Q6H PRN (Reason: Fever/Pain) isosorbide mononitrate 20 mg Tablet 40 mg PO DAILY Protocol: Hold for SBP< HOLD for SBP < : 100 sevelamer HCl 800 mg Tablet 1,600 mg PO TIDWM Rx Instructions: must administer with a meal/food clonazepam 0.5 mg tablet 1 mg PO BID aspirin 81 mg tablet,delayed release (DR/EC) 81 mg PO DAILY citalopram 20 mg tablet 20 mg PO DAILY bisacodyl 10 mg Suppository 10 mg DE DAILY PRN (Reason: Constipation) Rx Instructions: No BM in 8 Hrs after M.O.M Fleet Enema 19-7 gram/118 mL Enema 118 ml DE DAILY PRN (Reason: Constipation) Rx Instructions: (step 3) No BM in 8 Hours after Bisacodyl supp. omeprazole 20 mg Capsule,Delayed Release(Dr/Ec) 20 mg PO DAILY@0630 ibuprofen 600 mg Tablet 600 mg PO Q6H PRN (Reason: Pain) polyethylene glycol 3350 17 gram/dose Powder 17 g PO Q24H PRN (Reason: Constipation) ondansetron 4 mg Tablet,Disintegrating 4 mg PO Q8H PRN (Reason: Nausea/Vomiting) simethicone 80 mg Tablet,Chewable 80 mg PO Q6H PRN (Reason: GAS) Lokelma 10 gram Powder In Packet 10 g PO SUTUTHSA Senna Plus 8.6-50 mg Capsule 1 tab-cap PO Q24H PRN (Reason: Constipation) hydralazine 10 mg Tablet 10 mg PO BID Qty: 0 0RF Protocol: Hold for SBP< HOLD for SBP < : 90 amlodipine 5 mg Tablet 5 mg PO BID Qty: 0 0RF Protocol: Hold for SBP< HOLD for SBP < : 90 Discontinued glipizide 2.5 mg Tablet 2.5 mg PO DAILY Discharge Orders: Discharge Order (Routine); Ordered 02/02/24 Ordered By: Misty Bush Activity on Discharge: As tolerated Stand Alone Forms: Patient Portal Discharge page Print Language: Romanian Care Plan Goals: See below Health Concerns: Acute respiratory failure with hypoxia due to missed hemodialysis Acute on chronic hyponatremia-resolved Acute hyperkalemia, due to missed dialysis-resolved Plan of Treatment: Continue baseline 2 L of supplemental oxygen Continue hemodialysis on regular schedule - Tuesday and Tuesday stop glipizide - blood sugar has been controlled on diabetic diet; cover with sliding scale as needed Assessment: See discharge summary
--- NOTE | 2024-02-02 12:48 | MHC.CM.PN ---
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
[2024-02-02 16:00] VITALS: BP 113/50; PULSE 64; RESP 16; TEMP 36.8
[2024-02-02 16:40] LABS: Glucose, Whole Blood 147 mg/dL (60-115)
== END 2024-02-02 18:12 | disposition skilled nursing facility (03) | DRG 640 ==
LOC: HO.ED 20:20 → HO.EDOVER 23:58 → HO.IMC 02-01 19:25
PROVIDERS: Physician Assistant; Admitting Provider Student in an Organized Health Care Education/Training Program; Emergency Provider Student in an Organized Health Care Education/Training Program; PCP Internal Medicine; Visit Provider Physician Assistant Medical
DX: E87.70 Fluid overload, unspecified (principal); I50.43 Acute on chronic combined systolic (congestive) and diastolic (congestive) heart failure; N18.6 End stage renal disease; J96.01 Acute respiratory failure with hypoxia; I13.2 Hypertensive heart and chronic kidney disease with heart failure and with stage 5 chronic kidney disease, or end stage renal disease; E87.5 Hyperkalemia; E87.1 Hypo-osmolality and hyponatremia; D63.1 Anemia in chronic kidney disease; E11.51 Type 2 diabetes mellitus with diabetic peripheral angiopathy without gangrene; F39 Unspecified mood [affective] disorder; I25.10 Atherosclerotic heart disease of native coronary artery without angina pectoris; E11.22 Type 2 diabetes mellitus with diabetic chronic kidney disease; E11.65 Type 2 diabetes mellitus with hyperglycemia; Z99.2 Dependence on renal dialysis; Z91.158 Patient's noncompliance with renal dialysis for other reason; Z89.511 Acquired absence of right leg below knee; Z79.82 Long term (current) use of aspirin; Z79.899 Other long term (current) drug therapy
CPT/HCPCS: 36415; 71045; 80048; 80053; 82947; 83880; 84132; 84484; 85025; 85027; 90999; 93005; 99285; J0613; J1644

== ENCOUNTER → 2024-01-31 15:36 | Outpatient (BNV) | payer MEDICARE, MEDICAID, SELFPAY | PROVIDERS: Emergency Provider Student in an Organized Health Care Education/Training Program; Visit Provider Student in an Organized Health Care Education/Training Program | DX: N18.6 End stage renal disease (principal); Z99.2 Dependence on renal dialysis | CPT/HCPCS: 99222; 99232; 99239 ==

== ENCOUNTER → 2024-01-31 19:17 | Outpatient (BNV) | payer MEDICARE, SELFPAY | PROVIDERS: Admitting Provider Student in an Organized Health Care Education/Training Program; Emergency Provider Student in an Organized Health Care Education/Training Program; PCP Internal Medicine; Visit Provider Internal Medicine Nephrology | DX: N18.6 End stage renal disease (principal); Z99.2 Dependence on renal dialysis; Z91.158 Patient's noncompliance with renal dialysis for other reason | CPT/HCPCS: 90935 ==

== ENCOUNTER 2024-02-06 09:58 | Inpatient (IN) | payer MEDICARE, OTHER, SELFPAY ==
[2024-02-06] VITALS (13 sets, daily range): BP systolic 117–172; BP diastolic 34–97; PULSE 36–82; RESP 12–20; TEMP 36.2–37.6; O2SAT 84–100; BMI 30.1
--- NOTE | 2024-02-06 | ECG_ITS ---
Test Reason : SOB, BRADICARDIA Blood Pressure : / mmHG Vent. Rate : 038 BPM Atrial Rate : 000 BPM P-R Int : 000 ms QRS Dur : 108 ms QT Int : 548 ms P-R-T Axes : 000 -26 -24 degrees QTc Int : 435 ms Junctional bradycardia Incomplete left bundle branch block Minimal voltage criteria for LVH, may be normal variant ( Junior product ) ST & T wave abnormality, consider inferior ischemia Abnormal ECG When compared with ECG of 31-JAN-2024 15:27, Junctional rhythm has replaced Ectopic atrial rhythm T wave inversion no longer evident in Anterior leads T wave inversion more evident in Inferior leads Referred By: Obdulio Hyatt Electronically Signed By:JOSE MURRAY
--- NOTE | ~2024-02-06 | XR_ITS ---
EXAMINATION: XR CHEST CLINICAL INFORMATION: Shortness of breath. COMPARISON: Most recent chest radiograph dated 02/02/2024. TECHNIQUE: Frontal view of the chest was obtained. FINDINGS: Diffuse, patchy bilateral airspace opacities have increased when compared to the chest radiograph dated 01/31/2024. No pleural effusion or pneumothorax. Stable cardiomediastinal silhouette. Left subclavian vascular stent is redemonstrated. XR/XR chest 1V IMPRESSION: Diffuse, patchy bilateral airspace opacities, increased when compared to the chest radiograph dated 01/31/2024. This could represent an infectious or inflammatory process. Electronically signed by: Clyde Corona MD 02/06/2024 12:03 PM EDT
--- NOTE | 2024-02-06 10:12 | ED.SOB ---
HPI - SOB/Dyspnea General Chief Complaint: Dyspnea Stated Complaint: SOB,LAST DIALYSIS WAS TUESDAY,FROM SNF PER EMS Time Seen by Provider: 02/06/24 10:00 Source: patient, EMS and other ([facility] record) Mode of arrival: EMS Limitations: no limitations History of Present Illness HPI Narrative: This is a 68 years old male with history of chronic renal failure on hemodialysis brought from the snf because of shortness of breath and vomiting. Last dialysis was last week. Denies any chest pain. He arrived to us with 100% non-rebreather mask MD elicited complaint: shortness of breath Pertinent past history: other (crf) Onset (ago): day(s) (1) Timing: constant Severity: severe Exacerbating factors: nothing Known history of: congestive heart failure Related Data Home oxygen amount: 2 liters Home Medications ?Medication ?Instructions ?Recorded ?Confirmed acetaminophen 325 mg tablet 650 mg PO Q6H PRN Fever/Pain 01/02/24 02/06/24 aspirin 81 mg tablet,delayed 81 mg PO DAILY 01/02/24 02/06/24 release atorvastatin 80 mg tablet 80 mg PO DAILY 01/02/24 02/06/24 bisacodyl 10 mg rectal suppository 10 mg [place] DAILY PRN Constipation 01/02/24 02/06/24 citalopram 20 mg tablet 20 mg PO DAILY 01/02/24 02/06/24 clonazepam 0.5 mg tablet 1 mg PO BID anxiety 01/02/24 02/06/24 ibuprofen 600 mg tablet 600 mg PO Q6H PRN Pain 01/02/24 02/06/24 isosorbide mononitrate 20 mg tablet 40 mg PO DAILY 01/02/24 02/06/24 omeprazole 20 mg capsule,delayed 20 mg PO DAILY@0630 01/02/24 02/06/24 release ondansetron 4 mg disintegrating 4 mg PO Q8H PRN Nausea/Vomiting 01/02/24 02/06/24 tablet polyethylene glycol 3350 17 17 g PO Q24H PRN Constipation 01/02/24 02/06/24 gram/dose oral powder sennosides 8.6 mg-docusate sodium 1 tab-cap PO Q24H PRN Constipation 01/02/24 02/06/24 50 mg capsule (Senna Plus) sevelamer HCl 800 mg tablet 1,600 mg PO TIDWM 01/02/24 02/06/24 simethicone 80 mg chewable tablet 80 mg PO Q6H PRN GAS 01/02/24 02/06/24 sodium phosphates 19 gram-7 118 ml [place] DAILY PRN Constipation 01/02/24 02/06/24 gram/118 mL enema (Fleet Enema) sodium zirconium cyclosilicate 10 10 g PO SUTUTHSA 01/02/24 02/06/24 gram oral powder packet (Lokelma) trazodone 50 mg tablet 50 mg PO BEDTIME 01/31/24 02/06/24 dextromethorphan HBr 5 mg/5 mL 10 mg PO Q4H PRN Cough 02/06/24 02/06/24 oral syrup Previous Rx's ?Medication ?Instructions ?Recorded amlodipine 5 mg tablet 5 mg PO BID #0 tabs 01/20/24 hydralazine 10 mg tablet 10 mg PO BID #0 tabs 01/20/24 Allergies Allergy/AdvReac Type Severity Reaction Status Date / Time garlic Allergy Severe Hives Verified 02/06/24 10:06 onion Allergy Severe Hives Verified 02/06/24 10:06 Peppers, Green Allergy Severe Hives Verified 02/06/24 10:06 Review of Systems Constitutional: Constitutional: Reports no additional constitutional complaints Cardiovascular: Cardiovascular: Reports dyspnea Respiratory: Respiratory: Reports no additional respiratory complaints and Reports dyspnea PMFSH Past Medical History Attestation statement: The following information was validated with the patient. Medical History Pulmonary edema Dialysis patient, noncompliant Anemia in chronic kidney disease (CKD) Bradycardia Dialysis patient, noncompliant End stage renal disease on dialysis Diabetes mellitus Hypertension Below-knee amputation of right lower extremity Hyperlipidemia Hypertension Peripheral vascular disease Chronic kidney disease on chronic dialysis Diabetes Social History Social History Household Members: Other Household Members Other:: LTC [facility]: Detention [facility] Do you presently have visiting nurse or other home services: No Patient Tobacco Use Status: Never used Tobacco Advance Directives: Yes Advance Directives on File: Yes Advance Directives Date on File: 01/17/24 Do you have a plan to hurt others: No Plan service: No Physical Exam Vital Signs: Vital Signs: Last Vital Signs Temp 98.3 F 02/06/24 12:15 Pulse 42 L 02/06/24 12:15 Resp 16 02/06/24 12:15 BP 172/74 H 02/06/24 12:15 Pulse Ox 97 02/06/24 12:15 O2 Del Method Nasal Cannula 02/06/24 12:15 O2 Flow Rate 2 02/06/24 12:15 Oxygen Flow Rate 4 02/06/24 10:05 BMI result Body Mass Index 30.1 Mild distress awake and alert Const: General: cooperative Nutritional Appearance: well nourished Orientation/consciousness: patient oriented x3 HEENT: Head: Yes normal to inspection General nose exam: Normal external nose present Face and sinus: Yes normal facial exam Mouth: Normal oral and palatal mucosa present Throat: Yes posterior oropharynx normal Neck: Neck: Yes normal visual inspection and Yes full ROM Chest: Chest palpation & inspection: normal inspection of the chest Resp: Effort & Inspection: normal respiratory effort Auscultation: rhonchi Cardio: Rate: bradycardic GI: Inspection: Yes normal to inspection Skin: General skin exam: no rashes or lesions noted and elasticity normal Rashes: no rashes Neuro: General: patient oriented x3 Course Reevaluation(s) Reevaluation #1: spoke with ICU team Dr Enciso Time: 11:38 Reevaluation #2: spoke with Renal Prateek Time: 11:42 Reevaluation #3: Patient was re-examined he is no longer with a junctional rhythm, he is now in a sinus rhythm, we are waiting for the ICU bed at this point renal consult has been placed; ICU attending came and saw the patient Medications Administered Generic Name Dose Route Start Last Admin Trade Name Freq PRN Reason Stop Dose Admin Heparin Sodium (Porcine) 5,000 unit 02/06/24 11:45 02/06/24 11:57 Heparin Sodium,Porcine 5,000 Unit/Ml Vial SUBCUT Not Given Q8H KIA Ondansetron HCl 4 mg 02/06/24 11:41 02/06/24 11:53 Ondansetron Hcl 4 Mg/2 Ml Vial IVPUSH 4 mg Q8H PRN Administration Nausea Discontinued Medications Generic Name Dose Route Start Last Admin Trade Name Freq PRN Reason Stop Dose Admin Albuterol Sulfate 7.5 mg 02/06/24 11:12 02/06/24 11:20 Albuterol Sulfate (0.083%) 2.5 Mg/3 Ml Vial.Neb INHALE 02/06/24 11:13 7.5 mg ONCE ONE Administration Calcium Gluconate 1 gm in 50 mls @ 50 mls/hr 02/06/24 11:11 02/06/24 12:22 Calcium Gluconate IV 02/06/24 12:10 Infused ONCE ONE Infusion Sodium Bicarbonate 50 meq 02/06/24 11:33 02/06/24 12:09 Sodium Bicarbonate 8.4% 50 Meq/50 Ml Syringe IVPUSH 02/06/24 11:34 50 meq ONCE ONE Administration Sodium Bicarbonate 50 meq 02/06/24 11:33 02/06/24 12:09 Sodium Bicarbonate 8.4% 50 Meq/50 Ml Syringe IVPUSH 02/06/24 11:34 50 meq ONCE ONE Administration Sodium Zirconium Cyclosilicate 10 gm 02/06/24 11:42 02/06/24 11:52 Sodium Zirconium Cyclosilicate 10 Gm Powd.Pack PO 02/06/24 11:43 10 gm ONCE ONE Administration Medical Decision Making Medical Decision Making [facility] Narrative: Patient presented with the complaint of nausea vomiting shortness of breath will check labs x-ray Differential Diagnosis Differential Diagnoses: The differential diagnosis associated with the presentation includes Renal failure/pulmonary edema/CHF Admission/Observation Consideration of admission/observation: Escalation of care including admission/observation considered Consult Healthcare Provider Management of the patient was discussed with: Lacquer Shader Lab Data [facility] Lab Attestation statement: I reviewed the patient's lab results. 02/06/24 10:18 02/06/24 10:18 Labs: Lab Results 02/06/24 02/06/24 Range/Units 10:18 10:26 WBC 4.3 L (4.8-10.8) X10*3/uL RBC 2.89 L (4.60-5.80) X10*6/uL Hgb 8.7 L (14.0-18.0) g/dl Hct 26.2 L (42.0-52.0) % MCV 90.7 (80.0-98.0) fL MCH 30.1 (27.0-33.0) pg MCHC 33.2 (31.0-36.0) g/dl RDW 13.6 (11.0-16.0) % Plt Count 206 (160-400) X10*3/uL MPV 9.4 (9.4-12.4) fL Immature Gran % (Auto) 0.2 (0.0-0.4) % Neut % (Auto) 71.6 (45-73) % Lymph % (Auto) 16.7 L (20-40) % [place] % (Auto) 7.0 (2-11) % Eos % (Auto) 4.0 (0-4) % Baso % (Auto) 0.5 (0-2) % Lymph # (Auto) 0.7 L (1.2-4.9) X10*3/uL [place] # (Auto) 0.3 (0.1-1.2) X10*3/uL Eos # (Auto) 0.2 (0.0-0.4) X10*3/uL Baso # (Auto) 0.0 (0.0-0.2) X10*3/uL Abs Immat Gran (auto) 0.01 (0.00-0.03) X10*3/uL Absolute Neuts (auto) 3.1 (2.0-8.3) x10*3/uL Absolute Nucleated RBC 0.000 (0.0-0.012) X10*3/uL Nucleated RBC % (auto) 0.0 (0.0-0.2) /100WBC VBG pH 7.36 (7.32-7.43) VBG pCO2 41 mmHg VBG pO2 35 mmHg VBG HCO3 23 (22-26) mmol/L VBG O2 Saturation 52.0 % VBG Base Excess -1.6 mmol/L Sodium 128 L (135-145) mmol/L Potassium 7.1 H* D (3.3-5.1) mmol/L Chloride 93 L (96-108) mmol/L Carbon Dioxide 21 L (22-29) mmol/L Anion Gap 21 H (12-20) BUN 58 H (9-16) mg/dL Creatinine 11.61 H* (0.5-1.4) mg/dL Estim Creat Clear Calc 6.8 Estimated GFR 4 Random Glucose 132 H (60-115) mg/dL Calcium 10.3 H D (8.4-10.2) mg/dL Total Bilirubin 0.5 (0.0-1.0) mg/dL AST 11 (5-37) U/L ALT 9 (0-40) U/L Alkaline Phosphatase 154 H (39-117) U/L Troponin I High Sens 45.9 H (<3.5-35.0) ng/L B-Natriuretic Peptide 2930 H (<100) pg/mL Total Protein 7.5 (6.5-8.0) g/dL Albumin 3.4 L (3.5-5.0) g/dL Influenza Type A (PCR) NEGATIVE (Negative) Influenza Type B (PCR) NEGATIVE (Negative) RSV RNA Qual (PCR) NEGATIVE (Negative) SARS-CoV-2 RNA (RT-PCR) POSITIVE A (Negative) Independent Interpretation I performed an independent interpretation of an: EKG (Junctional bradycardia rate 34) and Plain X-Ray Interpretation: Chest x-ray was personally in reviewed by me I interpreted as congestive heart failure, EKG also was interpreted by me as junctional bradycardia with a rate of 34 Radiology Impression Discussion of test interpretation with radiology: I have reviewed the radiologist's reading. Independent Historian Clinical information obtained from an independent historian. History obtained from or confirmed by: EMS and Other ([facility] record) External Record Review External record reviewed: Inpatient record Chronic Conditions Patient?s care impacted by: Diabetes Critical Care Time Critical Care Time Critical Care Time: Yes Total Critical Care Time: 90 Attestation: Severe hyperkalemia requiring IV calcium/bicarb/albuterol Discharge Plan Discharge Clinical Impression: Acute hyperkalemia, Junctional bradycardia Renal failure, chronic Qualifiers: Chronic kidney disease stage: stage 5 Qualified Code(s): N18.5 - Chronic kidney disease, stage 5 Patient Disposition: Admitted As Inpatient
[2024-02-06 10:27] LABS: MANUAL DIFF FLAG NO; Venous Blood Gas Refer to POC result
[2024-02-06 10:29] LABS: Basophils Percent Auto 0.5 % (0-2); Eosinophils Absolute Auto 0.2 X10*3/uL (0.0-0.4); Hematocrit 26.2 % (42.0-52.0); Hemoglobin 8.7 g/dl (14.0-18.0); Imm Gran Abs Auto 0.01 X10*3/uL (0.00-0.03); Imm Gran Pct Auto 0.2 % (0.0-0.4); Lymphocytes Absolute Auto 0.7 X10*3/uL (1.2-4.9); Lymphocytes Percent Auto 16.7 % (20-40); Mean Corpuscular HGB Conc 33.2 g/dl (31.0-36.0); Mean Corpuscular Hemoglobin 30.1 pg (27.0-33.0); Mean Corpuscular Volume 90.7 fL (80.0-98.0); Mean Platelet Volume 9.4 fL (9.4-12.4); Monocytes Absolute Auto 0.3 X10*3/uL (0.1-1.2); Neutrophils Absolute Auto 3.1 x10*3/uL (2.0-8.3); Neutrophils Percent Auto 71.6 % (45-73); Platelet Count 206 X10*3/uL (160-400); Red Blood Count 2.89 X10*6/uL (4.60-5.80); Red Cell Distribution Width 13.6 % (11.0-16.0); White Blood Count 4.3 X10*3/uL (4.8-10.8)
[2024-02-06 10:30] LABS: VBG Base Excess -1.6 mmol/L; VBG HCO3 23 mmol/L (22-26); VBG pCO2 41 mmHg; VBG pH 7.36 (7.32-7.43); VBG pO2 35 mmHg
--- NOTE | 2024-02-06 10:50 | PC.NURSE ---
pt biba from [facility] d/t increased sob after being noncompliant w/ dialysis appointments. last dialyzed on last tuesday. pt found at 84% on 2L via NC (baseline). pt then placed on 10L via nonrebreather w/ good effect - 98%. upon ED arrival - a&ox4. vss and up to date aside from being sinus heather on the monitor (37-45bpm). pt removed from nonrebreather and placed on 4L via NC - resting at 100%. pt then titrated to 2L via NC (baseline) where he is resting comfortably at 100% in no apparent distress. per EMS as well as pt, HR is at his baseline. pt denies any chest pain/palpitations. denies sob/difficulty breathing. no sob/wob noted. crackles noted throughout lung watkins upon auscultation. pt has a left fistula - positive bruit/thrill. sign placed on retirement consultant for safety precautions. 20gIV placed in the right AC - labs obtained/sent to lab. right BKA noted - uses wheelchair baseline. skin pwd. pt positioned upright to promote patent airway. plan of care ongoing. call beauchamp placed within reach.
[2024-02-06 10:57] LABS: B Type Natriuretic Peptide 2930 pg/mL (<100)
[2024-02-06 10:58] LABS: Troponin-I High Sensitivity 45.9 ng/L (<3.5-35.0)
[2024-02-06 11:10] LABS: Alanine Aminotransferase 9 U/L (0-40); Albumin Level 3.4 g/dL (3.5-5.0); Alkaline Phosphatase 154 U/L (39-117); Anion Gap 21 (12-20); Aspartate Amino Transferase 11 U/L (5-37); Bilirubin Total 0.5 mg/dL (0.0-1.0); Blood Urea Nitrogen 58 mg/dL (9-16); Calcium 10.3 mg/dL (8.4-10.2); Carbon Dioxide 21 mmol/L (22-29); Chloride 93 mmol/L (96-108); Glucose Random 132 mg/dL (60-115); Sodium 128 mmol/L (135-145); Total Protein 7.5 g/dL (6.5-8.0)
--- NOTE | 2024-02-06 11:11 | PC.NURSE ---
chest xray being completed at this time.
[2024-02-06 11:12] LABS: Creatinine Clr Calc Pharmacy 6.8; Estimated Glomerular Filt Rate 4; Influenza A PCR NEGATIVE (Negative); Influenza B PCR NEGATIVE (Negative); Potassium 7.1 mmol/L (3.3-5.1); Resp Syncy Virus RNA Qual PCR NEGATIVE (Negative); SARS COV2 PCR INHOUSE POSITIVE (Negative)
[2024-02-06] MEDS: Calcium Gluconate/NaCl,Iso-Osm 1 GM/50 ML PLAST..BAG IV (11:17)
[2024-02-06] MEDS: Albuterol Sulfate (0.083%) 2.5 MG/3 ML VIAL.NEB 7.5 MG INHALE (11:20)
--- NOTE | 2024-02-06 11:20 | PC.NURSE ---
MD received critical lab value - medication infusing per provider order. pt currently receiving breathing treatment via RT d/t critical lab result. plan of care ongoing.
[2024-02-06] MEDS: Sodium Zirconium Cyclosilicate 10 GM POWD.PACK PO (11:52)
[2024-02-06] MEDS: ondansetron HCL 4 MG/2 ML VIAL IVPUSH (11:53)
--- NOTE | 2024-02-06 11:53 | PC.NURSE ---
pt actively vomiting - prn medication utilized. effectiveness pending.
--- NOTE | 2024-02-06 12:01 | P.HPCC_ITS ---
History of Present Illness Date of Service: 02/06/24 Chief Complaint: Feeling weak and tired 68-year-old gentleman with past medical history of end-stage renal disease on maintenance hemodialysis M/W/F presents shortness, feeling weak and tired after missing his hemodialysis session on Tuesday. He states his transport did not show up on Tuesday so he could not go to his dialysis session. His potassium was found to be 7.1, patient is in junctional bradycardia with heart rate in 30s so MICU was consulted for admission. His PMH is also pertinent for insulin-dependent diabetes mellitus, coronary artery disease, peripheral artery disease status post right leg BKA , congestive heart failure with preserved ejection fraction, metabolic syndrome. Review of Systems 2 Constitutional: Constitutional: Reports anorexia, Denies chills, Denies daytime sleepiness and Denies difficulty sleeping Eyes: Eyes: Denies blurry vision, Denies exophthalmos, Denies change in vision and Denies decreased night vision ENT: Reports Normal hearing present, Denies bleeding gums and Denies change in voice Cardiovascular: Cardiovascular: Denies Abdominal Cramping after Meds, Denies Abdominal Distension, Denies cool extremities, Denies chest pain and Denies chest pain at rest Respiratory: Respiratory: Denies change in phlegm color, Denies chest congestion and Denies cough Gastrointestinal: Gastrointestinal: Denies abdominal pain, Denies melena and Denies hematochezia Genitourinary: Genitourinary: Denies hematospermia, Denies change in libido and Denies hematuria Musculoskeletal: Musculoskeletal: Reports myalgias and Reports atrophy Neurologic: Reports Normal hearing present, Denies Neuro-related abnormal movements, Denies Abnormal speech present and Denies behavioral changes Psychiatric: Psychiatric: Denies anxiety, Denies behavioral changes and Denies change in libido Endocrine: Endocrine: Denies change in libido, Denies cold intolerance and Denies deepening of the voice PMF Past Medical History Medical History Pulmonary edema Dialysis patient, noncompliant Anemia in chronic kidney disease (CKD) Bradycardia Dialysis patient, noncompliant End stage renal disease on dialysis Diabetes mellitus Hypertension Below-knee amputation of right lower extremity Hyperlipidemia Hypertension Peripheral vascular disease Chronic kidney disease on chronic dialysis Diabetes Social History Social History Household Members: Other Household Members Other:: LTC Housing: Shel[facility] Do you presently have visiting nurse or other home services: No Patient Tobacco Use Status: Never used Tobacco Advance Directives: Yes Advance Directives on File: Yes Advance Directives Date on File: 01/17/24 Do you have a plan to hurt others: No Plan service: No Meds Allergies Allergy/AdvReac Type Severity Reaction Status Date / Time garlic Allergy Severe Hives Verified 02/06/24 10:06 onion Allergy Severe Hives Verified 02/06/24 10:06 Peppers, Green Allergy Severe Hives Verified 02/06/24 10:06 Active Medications: Current Medications Heparin Sodium (Porcine) (Heparin Sodium,Porcine 5,000 Unit/Ml Vial) 5,000 unit SUBCUT Q8H KIA Last Admin: 02/06/24 11:57 Dose: Not Given Calcium Gluconate (Calcium Gluconate) 1 gm in 50 mls @ 50 mls/hr IV ONCE ONE Stop: 02/06/24 12:10 Last Admin: 02/06/24 11:17 Dose: 50 mls/hr Ondansetron HCl (Ondansetron Hcl 4 Mg/2 Ml Vial) 4 mg IVPUSH Q8H PRN PRN Reason: Nausea Last Admin: 02/06/24 11:53 Dose: 4 mg Home Medications ?Medication ?Instructions ?Recorded ?Confirmed ?Last Taken ?Type acetaminophen 325 mg tablet 650 mg PO Q6H PRN Fever/Pain 01/02/24 01/31/24 Unknown History aspirin 81 mg tablet,delayed 81 mg PO DAILY 01/02/24 01/31/24 01/17/24 12:00 History release atorvastatin 80 mg tablet 80 mg PO DAILY 01/02/24 01/31/24 01/17/24 12:00 History bisacodyl 10 mg rectal suppository 10 mg [place] DAILY PRN Constipation 01/02/24 01/31/24 Unknown History citalopram 20 mg tablet 20 mg PO DAILY 01/02/24 01/31/24 01/17/24 12:00 History clonazepam 0.5 mg tablet 1 mg PO BID anxiety 01/02/24 01/31/24 01/17/24 12:00 History ibuprofen 600 mg tablet 600 mg PO Q6H PRN Pain 01/02/24 01/31/24 Unknown History isosorbide mononitrate 20 mg tablet 40 mg PO DAILY 01/02/24 01/31/24 01/17/24 12:00 History omeprazole 20 mg capsule,delayed 20 mg PO DAILY@0630 01/02/24 01/31/24 01/17/24 12:00 History release ondansetron 4 mg disintegrating 4 mg PO Q8H PRN Nausea/Vomiting 01/02/24 01/31/24 Unknown History tablet polyethylene glycol 3350 17 17 g PO Q24H PRN Constipation 01/02/24 01/31/24 Unknown History gram/dose oral powder sennosides 8.6 mg-docusate sodium 1 tab-cap PO Q24H PRN Constipation 01/02/24 01/31/24 Unknown History 50 mg capsule (Senna Plus) sevelamer HCl 800 mg tablet 1,600 mg PO TIDWM 01/02/24 01/31/24 01/17/24 12:00 History simethicone 80 mg chewable tablet 80 mg PO Q6H PRN GAS 01/02/24 01/31/24 01/16/24 History sodium phosphates 19 gram-7 118 ml [place] DAILY PRN Constipation 01/02/24 01/31/24 Unknown History gram/118 mL enema (Fleet Enema) sodium zirconium cyclosilicate 10 10 g PO SUTUTHSA 01/02/24 01/31/24 01/17/24 12:00 History gram oral powder packet (Lokelma) trazodone 50 mg tablet 50 mg PO BEDTIME 01/31/24 01/31/24 Unknown History Physical Exam 2 Vital Signs: Vital Signs: Last Vital Signs Temp 98.4 F 02/06/24 11:23 Pulse 36 L 02/06/24 11:23 Resp 16 02/06/24 11:23 BP 166/39 H 02/06/24 11:23 Pulse Ox 97 02/06/24 11:23 O2 Del Method Nasal Cannula 02/06/24 11:23 O2 Flow Rate 2 02/06/24 11:23 Oxygen Flow Rate 4 02/06/24 10:05 BMI result Body Mass Index 30.1 General: Patient is in acute distress, tired appearing Nutritional Appearance: well nourished and overweight Eyes: appearance normal, both eyes and all related structures; Alignment and Position: alignment normal and position normal Neck: No lymphadenopathy, no thyromegaly Resp: bilateral air entry equal, occasional crackles heard bilaterally Cardio: Regular rate, regular rhythm; Heart sounds: S1 normal heart sound present and S2 normal heart sound present GI: soft, nontender, no guarding, no hepatosplenomegaly : bladder normal to inspection, bladder normal to palpation, no renal angle tenderness Skin: no rashes or lesions noted and elasticity normal Neuro: oriented to person, oriented to place, oriented to time and moves all extremities, right leg BKA Neuro: Cranial nerves: Yes Normal hearing present Speech: No Abnormal speech present Results Labs 02/06/24 10:18 02/06/24 10:18 Labs: Laboratory Results - last 24 hr 02/06/24 02/06/24 10:18 10:26 MCV 90.7 MCH 30.1 MCHC 33.2 RDW 13.6 Plt Count 206 MPV 9.4 Immature Gran % (Auto) 0.2 Neut % (Auto) 71.6 Lymph % (Auto) 16.[address] % (Auto) 7.0 Eos % (Auto) 4.0 Baso % (Auto) 0.5 Lymph # (Auto) 0.[address] [place] # (Auto) 0.3 Eos # (Auto) 0.2 Baso # (Auto) 0.0 Abs Immat Gran (auto) 0.01 Absolute Neuts (auto) 3.1 Absolute Nucleated RBC 0.000 Nucleated RBC % (auto) 0.0 VBG pH 7.36 VBG pCO2 41 VBG pO2 35 VBG HCO3 23 VBG O2 Saturation 52.0 VBG Base Excess -1.6 Anion Gap 21 H Estim Creat Clear Calc 6.8 Estimated GFR 4 Random Glucose 132 H Calcium 10.3 H D Total Bilirubin 0.5 AST 11 ALT 9 Alkaline Phosphatase 154 H Troponin I High Sens 45.9 H B-Natriuretic Peptide 2930 H Total Protein 7.5 Albumin 3.4 L Influenza Type A (PCR) NEGATIVE Influenza Type B (PCR) NEGATIVE RSV RNA Qual (PCR) NEGATIVE SARS-CoV-2 RNA (RT-PCR) POSITIVE A Assessment and Plan (1) Renal failure, chronic: Qualifiers: Chronic kidney disease stage: stage 5 Qualified Code(s): N18.5 - Chronic kidney disease, stage 5 Status: Acute (2) Junctional bradycardia: Status: Acute (3) Acute hyperkalemia: Status: Acute (4) Hypoxia: Status: Acute (5) Hyperkalemia: Status: Acute Plan Neuro: Alert, oriented, no issues Cardiac: Bradycardia: Currently in junctional rhythm possibly secondary to hyperkalemia We will closely monitor in the ICU Respiratory: Pulmonary edema: Secondary to missing dialysis sessions We will up titrate oxygen as needed GI: We will start on diet Renal: End-stage renal disease: On hemodialysis M/W/F Missed his dialysis session on Tuesday as his transport did not show up We will consult Nephrology for emergent need for dialysis as he is uremic Hyperkalemia: We will treat the patient with insulin, dextrose, albuterol We will get 3 amps of sodium bicarbonate Restart the patient on Lokelma We will consult Nephrology for emergent dialysis Heme: Chronic anemia, closely monitor H&H, transfuse for hemoglobin less than 7 grams/deciliter Endocrine: Blood sugars under control Sliding scale insulin as needed Infectious disease: We will send pancultures Musculoskeletal: Decubitus ulcer prevention protocol Lines: Prophylaxis: Heparin, pantoprazole Patient is critically ill with life-threatening hyperkalemia leading to bradycardia. He will be admitted to the ICU for correction of hyperkalemia and close monitoring for any arrhythmias given his hyperkalemia. Critical care time spent is about 40 minutes on evaluation and admission of the patient to critical care unit, formulate and critical care plan and management, management of life- threatening hyperkalemia, close monitoring patient's bradycardia and arrhythmias.
[2024-02-06] MEDS: Sodium Bicarbonate 8.4% 50 MEQ/50 ML SYRINGE IVPUSH ×2 (12:09)
--- NOTE | 2024-02-06 12:22 | PHA.MEDREC ---
Pharmacy Consult ? Medication Reconciliation Pharmacy has completed the medication reconciliation, utilized list from [facility] and [facility].
--- NOTE | 2024-02-06 12:36 | PC.NURSE ---
verbal report given to BRYON Nam in the ICU at this time.
--- NOTE | 2024-02-06 13:38 | PC.NURSE ---
Patient arrived to ICU via stretcher at 1315. Patient placed in ICU bed without incident and placed on monitor. Upon arrival to unit, patient in facility diaper and incontinent of both urine and feces - partial bedside bath completed. Patient reports missing dialysis because transport to center keeps getting cancelled but patient unable to elaborate further details. life sciences manager Josselin notified. director project management at bedside and patient placed on at 1325. Patient witnessed twice pinching dialysis line by this RN and home appliance installer. Educated patient on importance of dialysis line patency for completion of emergent treatment. Patient responds I don't care . Current vitals: 97.5, RR 17, HR 75, 120/97, 94% 2L. High fall risk precautions in place, VMT camera at bedside. Care ongoing.
[2024-02-06 16:24] LABS: Glucose, Whole Blood 110 mg/dL (60-115)
--- NOTE | 2024-02-06 21:39 | PM.CNNEP ---
History of Present Illness Reason for Consult Consult date: 02/06/24 Reason for consult: Hyperkalemia Chief Complaint Chief complaint: Hyperkalemia History of Present Illness Narrative: 68-year-old gentleman with past medical history of end-stage renal disease on maintenance hemodialysis M/W/F presents shortness, feeling weak and tired after missing his hemodialysis session on Tuesday. He states his transport did not show up on Tuesday so he could not go to his dialysis session. His potassium was found to be 7.1, patient is in junctional bradycardia with heart rate in 30s so MICU was consulted for admission. Review of Systems Reports Normal hearing present Reports Normal hearing present and Denies Abnormal speech present FOR[facility]LY [facility], [facility] Past Medical History Medical History (Updated 02/06/24 @ 21:40 by Miguel Mckeon MD) End stage renal disease on dialysis Pulmonary edema Dialysis patient, noncompliant Anemia in chronic kidney disease (CKD) Bradycardia Dialysis patient, noncompliant Diabetes mellitus Hypertension Below-knee amputation of right lower extremity Hyperlipidemia Hypertension Peripheral vascular disease Chronic kidney disease on chronic dialysis Diabetes Social History Social History Household Members: Other Household Members Other:: LTC Housing: Unknown / Unable to assess [facility] Do you presently have visiting nurse or other home services: No Patient Tobacco Use Status: Tobacco use Unknown Advance Directives Date on File: 01/17/24 service: No Meds Allergies Allergy/AdvReac Type Severity Reaction Status Date / Time garlic Allergy Severe Hives Verified 02/06/24 10:06 onion Allergy Severe Hives Verified 02/06/24 10:06 Peppers, Green Allergy Severe Hives Verified 02/06/24 10:06 Active Medications: Current Medications Acetaminophen (Acetaminophen 325 Mg Tablet) 650 mg PO Q6H PRN PRN Reason: Fever/Pain Amlodipine Besylate (Amlodipine Besylate 5 Mg Tablet) 5 mg PO BID [facility]; Protocol Aspirin (Aspirin Enteric Coated 81 Mg Tablet.) 81 mg PO DAILY [facility] Last Admin: 02/06/24 17:52 Dose: Not Given Atorvastatin Calcium (Atorvastatin Calcium 80 Mg Tablet) 80 mg PO DAILY [facility] Last Admin: 02/06/24 17:52 Dose: Not Given Bisacodyl (Bisacodyl 10 Mg Supp.Rect) 10 mg CO DAILY PRN PRN Reason: Constipation Clonazepam (Clonazepam 1 Mg Tablet) 1 mg PO BID [facility] Escitalopram Oxalate (Escitalopram Oxalate 10 Mg Tablet) 10 mg PO DAILY [facility] Guaifenesin/Dextromethorphan (Guaifenesin Dm 100/10/5 Ml 5 Ml Syrup) 5 ml PO Q4H PRN PRN Reason: Cough Heparin Sodium (Porcine) (Heparin Sodium,Porcine 5,000 Unit/Ml Vial) 5,000 unit SUBCUT Q8H [facility] Last Admin: 02/06/24 11:57 Dose: Not Given Hydralazine HCl (Hydralazine Hcl 10 Mg Tablet) 10 mg PO BID [facility]; Protocol Insulin Human Lispro (Insulin Lispro 100 Unit/Ml 3 Ml Vial) 0 unit SUBCUT QIDACHS [facility]; Protocol Last Admin: 02/06/24 16:22 Dose: Not Given Omeprazole (Omeprazole 20 Mg Capsule.Dr) 20 mg PO DAILY@0630 [facility] Ondansetron HCl (Ondansetron Hcl 4 Mg/2 Ml Vial) 4 mg IVPUSH Q8H PRN PRN Reason: Nausea Last Admin: 02/06/24 11:53 Dose: 4 mg Polyethylene Glycol (Polyethylene Glycol 3350 17 Gm Powd.Pack) 17 gm PO Q24H PRN PRN Reason: Constipation Sevelamer Carbonate (Sevelamer Carbonate Tablet 800 Mg Tablet) 1,600 mg PO TIDWM [facility] Simethicone (Simethicone 80 Mg Tab.Chew) 80 mg PO Q6H PRN PRN Reason: Gas Trazodone HCl (Trazodone Hcl 50 Mg Tablet) 50 mg PO BEDTIME [facility] Home Medications ?Medication ?Instructions ?Recorded ?Confirmed ?Last Taken ?Type acetaminophen 325 mg tablet 650 mg PO Q6H PRN Fever/Pain 01/02/24 02/06/24 Unknown History aspirin 81 mg tablet,delayed 81 mg PO DAILY 01/02/24 02/06/24 01/17/24 12:00 History release atorvastatin 80 mg tablet 80 mg PO DAILY 01/02/24 02/06/24 01/17/24 12:00 History bisacodyl 10 mg rectal suppository 10 mg CO DAILY PRN Constipation 01/02/24 02/06/24 Unknown History citalopram 20 mg tablet 20 mg PO DAILY 01/02/24 02/06/24 01/17/24 12:00 History clonazepam 0.5 mg tablet 1 mg PO BID anxiety 01/02/24 02/06/24 01/17/24 12:00 History ibuprofen 600 mg tablet 600 mg PO Q6H PRN Pain 01/02/24 02/06/24 Unknown History isosorbide mononitrate 20 mg tablet 40 mg PO DAILY 01/02/24 02/06/24 01/17/24 12:00 History omeprazole 20 mg capsule,delayed 20 mg PO DAILY@0630 01/02/24 02/06/24 01/17/24 12:00 History release ondansetron 4 mg disintegrating 4 mg PO Q8H PRN Nausea/Vomiting 01/02/24 02/06/24 Unknown History tablet polyethylene glycol 3350 17 17 g PO Q24H PRN Constipation 01/02/24 02/06/24 Unknown History gram/dose oral powder sennosides 8.6 mg-docusate sodium 1 tab-cap PO Q24H PRN Constipation 01/02/24 02/06/24 Unknown History 50 mg capsule (Senna Plus) sevelamer HCl 800 mg tablet 1,600 mg PO TIDWM 01/02/24 02/06/24 01/17/24 12:00 History simethicone 80 mg chewable tablet 80 mg PO Q6H PRN GAS 01/02/24 02/06/24 01/16/24 History sodium phosphates 19 gram-7 118 ml CO DAILY PRN Constipation 01/02/24 02/06/24 Unknown History gram/118 mL enema (Fleet Enema) sodium zirconium cyclosilicate 10 10 g PO SUTUTHSA 01/02/24 02/06/24 01/17/24 12:00 History gram oral powder packet (Lokelma) trazodone 50 mg tablet 50 mg PO BEDTIME 01/31/24 02/06/24 Unknown History dextromethorphan HBr 5 mg/5 mL 10 mg PO Q4H PRN Cough 02/06/24 02/06/24 Unknown History oral syrup Physical Exam Vital Signs: Last Vital Signs Temp 97.7 F 02/06/24 20:34 Pulse 77 02/06/24 20:34 Resp 18 02/06/24 20:34 BP 155/62 H 02/06/24 20:34 Pulse Ox 91 L 02/06/24 20:34 O2 Del Method Nasal Cannula 02/06/24 20:34 O2 Flow Rate 2 02/06/24 20:34 Oxygen Flow Rate 4 02/06/24 10:05 BMI result Body Mass Index 30.1 General: Patient is in acute distress, tired appearing Nutritional Appearance: well nourished and overweight Eyes: appearance normal, both eyes and all related structures; Alignment and Position: alignment normal and position normal Neck: No lymphadenopathy, no thyromegaly Resp: bilateral air entry equal, occasional crackles heard bilaterally Cardio: Regular rate, regular rhythm; Heart sounds: S1 normal heart sound present and S2 normal heart sound present GI: soft, nontender, no guarding, no hepatosplenomegaly : bladder normal to inspection, bladder normal to palpation, no renal angle tenderness Skin: no rashes or lesions noted and elasticity normal Neuro: oriented to person, oriented to place, oriented to time and moves all extremities, right leg BKA Neuro Cranial nerves: Yes Normal hearing present Speech: No Abnormal speech present Results Lab Results 02/06/24 10:18 02/06/24 10:18 Lab results: Chemistry 02/06/24 10:18 Sodium 128 L Potassium 7.1 H* D Carbon Dioxide 21 L BUN 58 H Creatinine 11.61 H* Calcium 10.3 H D Hematology 02/06/24 10:18 WBC 4.3 L Hgb 8.7 L Plt Count 206 Assessment and Plan (1) Acute hyperkalemia: Status: Acute Plan ESRD with severe hyperkalemia Will arrange for emergency D with low K bath to correct hperkalemia Keep on Low K diet Rcheck K post HD Fluide removal based on BP Supportive care Procedures Date of Service Date of Service: 02/06/24
[2024-02-06] MEDS: traZODone HCL 50 MG TABLET PO (21:54)
[2024-02-06] MEDS: clonazePAM 1 MG TABLET PO (21:54)
[2024-02-06] MEDS: hydrALAZINE HCl 10 MG TABLET PO (21:55)
[2024-02-06] MEDS: amLODIPine Besylate 5 MG TABLET PO (21:55)
[2024-02-07 04:00] VITALS: BP 113/54; PULSE 82; RESP 20; TEMP 37.3; O2SAT 90
[2024-02-07] MEDS: Omeprazole 20 MG CAPSULE.DR PO (06:30)
[2024-02-07 07:52] LABS: Glucose, Whole Blood 126 mg/dL (60-115)
[2024-02-07 08:00] VITALS: BP 123/59; PULSE 76; RESP 16; TEMP 36.6; O2SAT 93
[2024-02-07 08:52] LABS: MANUAL DIFF FLAG NO
[2024-02-07 08:55] LABS: Basophils Percent Auto 0.5 % (0-2); Eosinophils Absolute Auto 0.1 X10*3/uL (0.0-0.4); Eosinophils Percent Auto 3.1 % (0-4); Hematocrit 26.5 % (42.0-52.0); Hemoglobin 8.8 g/dl (14.0-18.0); Lymphocytes Absolute Auto 0.7 X10*3/uL (1.2-4.9); Lymphocytes Percent Auto 16.7 % (20-40); Mean Corpuscular HGB Conc 33.2 g/dl (31.0-36.0); Mean Corpuscular Hemoglobin 30.4 pg (27.0-33.0); Mean Corpuscular Volume 91.7 fL (80.0-98.0); Mean Platelet Volume 9.3 fL (9.4-12.4); Monocytes Absolute Auto 0.4 X10*3/uL (0.1-1.2); Monocytes Percent Auto 10.1 % (2-11); Neutrophils Absolute Auto 2.9 x10*3/uL (2.0-8.3); Neutrophils Percent Auto 69.6 % (45-73); Platelet Count 202 X10*3/uL (160-400); Red Blood Count 2.89 X10*6/uL (4.60-5.80); Red Cell Distribution Width 13.8 % (11.0-16.0); White Blood Count 4.1 X10*3/uL (4.8-10.8)
--- NOTE | 2024-02-07 09:00 | MHC.CM.PN ---
IMM 02/06. Pt is a LTC resident of [facility] who returns here for his 4th readmission in the past month due to missed dialysis. Pt is scheduled for HD on // in [place]. Pt uses a wheelchair for DME. Pts Cony is his HCP, verified and on file. DCP: Return to [facility] for LTC with outpt HD in [place] via [facility]. PCP: Dr. Slava Luna
[2024-02-07] MEDS: hydrALAZINE HCl 10 MG TABLET PO (09:16)
[2024-02-07] MEDS: clonazePAM 1 MG TABLET PO (09:16)
[2024-02-07] MEDS: Sevelamer Carbonate Tablet 800 MG TABLET 1600 MG PO ×2 (09:16→13:25)
[2024-02-07] MEDS: Atorvastatin Calcium 80 MG TABLET PO (09:16)
[2024-02-07] MEDS: amLODIPine Besylate 5 MG TABLET PO (09:16)
[2024-02-07] MEDS: Aspirin Enteric Coated 81 MG TABLET.DR PO (09:16)
[2024-02-07 09:18] LABS: Alanine Aminotransferase 8 U/L (0-40); Albumin Level 3.5 g/dL (3.5-5.0); Alkaline Phosphatase 129 U/L (39-117); Anion Gap 19 (12-20); Aspartate Amino Transferase 11 U/L (5-37); Bilirubin Total 0.5 mg/dL (0.0-1.0); Blood Urea Nitrogen 26 mg/dL (9-16); Calcium 9.6 mg/dL (8.4-10.2); Carbon Dioxide 27 mmol/L (22-29); Chloride 96 mmol/L (96-108); Creatinine Clr Calc Pharmacy 10.5; Estimated Glomerular Filt Rate 7; Glucose Random 104 mg/dL (60-115); Potassium 4.6 mmol/L (3.3-5.1); Sodium 137 mmol/L (135-145); Total Protein 7.5 g/dL (6.5-8.0)
[2024-02-07 11:04] LABS: Glucose, Whole Blood 124 mg/dL (60-115)
[2024-02-07 11:20] LABS: Glucose, Whole Blood 127 mg/dL (60-115)
[2024-02-07 11:29] VITALS: BP 155/56; PULSE 67; RESP 16; TEMP 36.1; O2SAT 95
[2024-02-07 11:45] LABS: Glucose, Whole Blood 98 mg/dL (60-115)
[2024-02-07 11:49] LABS: Glucose, Whole Blood 96 mg/dL (60-115)
--- NOTE | 2024-02-07 13:22 | P.DS_ITS ---
DS: Providers Provider Date of Service: 02/07/24 Date of admission: 02/06/24 11:39 Date of discharge: 02/07/24 Primary care physician: Slava Luna MD Consults: 02/06/24 11:38 Consult to Nephrology Stat Consulting Provider: [facility] Reason for consultation: need dyalisis DS: Diagnosis Discharge Diagnosis (1) Acute hyperkalemia: Status: Acute DS: Summary Hospital Course Hospital Course: 68-year-old gentleman with past medical history of end-stage renal disease on maintenance hemodialysis M/W/F presents shortness, feeling weak and tired after missing his hemodialysis session on Tuesday. He states his transport did not show up on Tuesday so he could not go to his dialysis session. His potassium was found to be 7.1, patient is in junctional bradycardia with heart rate in 30s so MICU was consulted for admission. Hospital Course Patient was admitted to ICU secondary to hypokalemia and was urgently dialyzed. He was transferred out of ICU night of admission to telemetry. No acute dysrhythmias. This a.m. potassium 4.6. Discussed with Renal. Okay to transfer back to long-term care and resume previous dialysis schedule Time Attestation Discharge Coordination Time (in mins): 35 Quality: Safe Use of Opioids Does Pt have an Active Cancer Diagnosis on the Problem List?: No Quality: Stroke Does the patient have a stroke diagnosis?: No Physical Exam Vital Signs: Vital Signs: Last Vital Signs Temp 97 F 02/07/24 11:29 Pulse 67 02/07/24 11:29 Resp 16 02/07/24 11:29 BP 155/56 H 02/07/24 11:29 Pulse Ox 95 02/07/24 11:29 O2 Del Method Oxymask 02/07/24 11:29 O2 Flow Rate 2 02/07/24 11:29 Oxygen Flow Rate 4 02/06/24 10:05 BMI result Body Mass Index 30.1 Const: Other: Awake alert no acute distress Resp: Other: Clear to auscultation bilaterally no rales rhonchi or wheezes Cardio: Other: No S4; positive S1-S2; no S3 murmurs rubs or gallops GI: Other: Soft nontender nondistended normoactive bowel sounds Extrem: Other: No edema bilaterally DS: Data Data Completed and Pending Completed studies during hospitalization [Text1]: Procedures Assistance with Respiratory Ventilation, Less than 24 Consecutive Hours, Continuous Positive Airway Pressure (01/26/24) Performance of Urinary Filtration, Intermittent, Less than 6 Hours Per Day (01/26/24) Labs on day of discharge: Laboratory Results - last 24 hr 02/06/24 02/06/24 02/07/24 16:20 21:42 07:53 WBC RBC Hgb Hct MCV MCH MCHC RDW Plt Count MPV Immature Gran % (Auto) Neut % (Auto) Lymph % (Auto) [place] % (Auto) Eos % (Auto) Baso % (Auto) Lymph # (Auto) [place] # (Auto) Eos # (Auto) Baso # (Auto) Abs Immat Gran (auto) Absolute Neuts (auto) Absolute Nucleated RBC Nucleated RBC % (auto) Sodium Potassium Chloride Carbon Dioxide Anion Gap BUN Creatinine Estim Creat Clear Calc Estimated GFR POC Glucose 110 126 H 96 Random Glucose Calcium Total Bilirubin AST ALT Alkaline Phosphatase Total Protein Albumin 02/07/24 02/07/24 02/07/24 08:45 08:47 11:01 WBC 4.1 L RBC 2.89 L Hgb 8.8 L Hct 26.5 L MCV 91.7 MCH 30.4 MCHC 33.2 RDW 13.8 Plt Count 202 MPV 9.3 L Immature Gran % (Auto) 0.0 Neut % (Auto) 69.6 Lymph % (Auto) 16.7 L [place] % (Auto) 10.1 Eos % (Auto) 3.1 Baso % (Auto) 0.5 Lymph # (Auto) 0.7 L [place] # (Auto) 0.4 Eos # (Auto) 0.1 Baso # (Auto) 0.0 Abs Immat Gran (auto) 0.00 Absolute Neuts (auto) 2.9 Absolute Nucleated RBC 0.000 Nucleated RBC % (auto) 0.0 Sodium 137 Potassium 4.6 D Chloride 96 Carbon Dioxide 27 Anion Gap 19 BUN 26 H Creatinine 7.49 H* Estim Creat Clear Calc 10.5 Estimated GFR 7 POC Glucose 98 124 H Random Glucose 104 Calcium 9.6 D Total Bilirubin 0.5 AST 11 ALT 8 Alkaline Phosphatase 129 H Total Protein 7.5 Albumin 3.5 02/07/24 11:16 WBC RBC Hgb Hct MCV MCH MCHC RDW Plt Count MPV Immature Gran % (Auto) Neut % (Auto) Lymph % (Auto) [place] % (Auto) Eos % (Auto) Baso % (Auto) Lymph # (Auto) [place] # (Auto) Eos # (Auto) Baso # (Auto) Abs Immat Gran (auto) Absolute Neuts (auto) Absolute Nucleated RBC Nucleated RBC % (auto) Sodium Potassium Chloride Carbon Dioxide Anion Gap BUN Creatinine Estim Creat Clear Calc Estimated GFR POC Glucose 127 H Random Glucose Calcium Total Bilirubin AST ALT Alkaline Phosphatase Total Protein Albumin Discharge Plan Discharge Anticipated Discharge Date/Time: 02/07/24 13:19 Patient Disposition: er [facility] Discharge Diagnosis: Acute hyperkalemia Referrals: [facility] [Outside] - 1 Week Slava Luna MD [Primary Care Provider] - 1 Week Discharge Medications: Continued trazodone 50 mg Tablet 50 mg PO BEDTIME dextromethorphan HBr 5 mg/5 mL Syrup 10 mg PO Q4H PRN (Reason: Cough) atorvastatin 80 mg tablet 80 mg PO DAILY acetaminophen 325 mg Tablet 650 mg PO Q6H PRN (Reason: Fever/Pain) isosorbide mononitrate 20 mg Tablet 40 mg PO DAILY Protocol: Hold for SBP< HOLD for SBP < : 100 sevelamer HCl 800 mg Tablet 1,600 mg PO TIDWM Rx Instructions: must administer with a meal/food clonazepam 0.5 mg tablet 1 mg PO BID aspirin 81 mg tablet,delayed release (DR/EC) 81 mg PO DAILY citalopram 20 mg tablet 20 mg PO DAILY bisacodyl 10 mg Suppository 10 mg AR DAILY PRN (Reason: Constipation) Rx Instructions: No BM in 8 Hrs after M.O.M Fleet Enema 19-7 gram/118 mL Enema 118 ml AR DAILY PRN (Reason: Constipation) Rx Instructions: (step 3) No BM in 8 Hours after Bisacodyl supp. omeprazole 20 mg Capsule,Delayed Release(Dr/Ec) 20 mg PO DAILY@0630 ibuprofen 600 mg Tablet 600 mg PO Q6H PRN (Reason: Pain) polyethylene glycol 3350 17 gram/dose Powder 17 g PO Q24H PRN (Reason: Constipation) ondansetron 4 mg Tablet,Disintegrating 4 mg PO Q8H PRN (Reason: Nausea/Vomiting) simethicone 80 mg Tablet,Chewable 80 mg PO Q6H PRN (Reason: GAS) Lokelma 10 gram Powder In Packet 10 g PO SUTUTHSA Senna Plus 8.6-50 mg Capsule 1 tab-cap PO Q24H PRN (Reason: Constipation) hydralazine 10 mg Tablet 10 mg PO BID Qty: 0 0RF Protocol: Hold for SBP< HOLD for SBP < : 90 amlodipine 5 mg Tablet 5 mg PO BID Qty: 0 0RF Protocol: Hold for SBP< HOLD for SBP < : 90 Discharge Orders: Discharge Order (Routine); Ordered 02/07/24 Ordered By: Ruben Pendleton Diet: Advance to usual diet Activity on Discharge: As tolerated Stand Alone Forms: Patient Portal Discharge page Print Language: Turkish Care Plan Goals: Resume all previous meds Health Concerns: Urgent hemodialysis with normalization of potassium. Discussed with Renal can return and resume normal schedule Plan of Treatment: Resume all treatments and therapies as previously Assessment: See discharge summary
--- NOTE | 2024-02-07 14:05 | MHC.CM.PN ---
Pt is medically cleared for discharge back to [facility] today via [facility], pts was called and notified.
[2024-02-07 15:25] VITALS: BP 151/76; PULSE 59; RESP 16; TEMP 36.1; O2SAT 95
[2024-02-07 16:24] LABS: Glucose, Whole Blood 135 mg/dL (60-115)
== END 2024-02-07 17:30 | DRG 640 ==
LOC: HO.ED 11:34 → HO.EDOVER 11:48 → HO.ICU 12:26 → HO.IMC 19:09
PROVIDERS: Admitting Provider Internal Medicine Critical Care Medicine; Emergency Provider Emergency Medicine; PCP Internal Medicine Nephrology; Visit Provider Hospitalist
DX: E87.5 Hyperkalemia (principal); N18.6 End stage renal disease; U07.1 COVID-19; I13.2 Hypertensive heart and chronic kidney disease with heart failure and with stage 5 chronic kidney disease, or end stage renal disease; I50.32 Chronic diastolic (congestive) heart failure; I49.8 Other specified cardiac arrhythmias; Z99.2 Dependence on renal dialysis; Z91.158 Patient's noncompliance with renal dialysis for other reason; D63.1 Anemia in chronic kidney disease; Z89.511 Acquired absence of right leg below knee; E11.22 Type 2 diabetes mellitus with diabetic chronic kidney disease; Z79.82 Long term (current) use of aspirin; Z79.899 Other long term (current) drug therapy
CPT/HCPCS: 0241U; 36415; 71045; 80053; 82803; 82947; 83880; 84484; 85025; 90999; 93005; 94640; 99284; J0613; J1644; J2405

== ENCOUNTER → 2024-02-06 11:39 | Outpatient (BNV) | payer MEDICARE, MEDICAID, SELFPAY | PROVIDERS: Admitting Provider Internal Medicine Critical Care Medicine; Emergency Provider Emergency Medicine; PCP Internal Medicine Nephrology; Visit Provider Internal Medicine Hypertension Specialist | DX: N18.6 End stage renal disease (principal); Z99.2 Dependence on renal dialysis; E87.5 Hyperkalemia; Z91.158 Patient's noncompliance with renal dialysis for other reason | CPT/HCPCS: 90935 ==

== ENCOUNTER → 2024-02-06 11:39 | Outpatient (BNV) | payer MEDICARE, MEDICAID, SELFPAY | PROVIDERS: Admitting Provider Internal Medicine Critical Care Medicine; Emergency Provider Emergency Medicine; PCP Internal Medicine Nephrology; Visit Provider Internal Medicine Critical Care Medicine | DX: N18.5 Chronic kidney disease, stage 5 (principal); N17.9 Acute kidney failure, unspecified; J96.01 Acute respiratory failure with hypoxia; R00.1 Bradycardia, unspecified; E87.5 Hyperkalemia | CPT/HCPCS: 99291 ==

== ENCOUNTER → 2024-02-06 11:39 | Outpatient (BNV) | payer MEDICARE, MEDICAID, SELFPAY | PROVIDERS: Admitting Provider Internal Medicine Critical Care Medicine; Emergency Provider Emergency Medicine; PCP Internal Medicine Nephrology; Visit Provider Hospitalist | DX: E87.5 Hyperkalemia (principal); N18.6 End stage renal disease; Z99.2 Dependence on renal dialysis | CPT/HCPCS: 99239 ==

== ENCOUNTER 2024-02-11 11:41 | Inpatient (IN) | payer MEDICARE, MEDICAID, SELFPAY ==
[2024-02-11] VITALS (12 sets, daily range): BP systolic 118–180; BP diastolic 40–62; PULSE 34–70; RESP 12–20; TEMP 36.2–36.8; O2SAT 90–100; BMI 25.1
--- NOTE | ~2024-02-11 | XR_ITS ---
EXAMINATION: XR CHEST CLINICAL INFORMATION: Hypoxia COMPARISON: Multiple previous with last chest x-ray of 02/06/2024 TECHNIQUE: Frontal view of the chest was obtained. FINDINGS: Cardiomediastinal silhouette is stable with mild cardiomegaly. Mild asymmetrical elevation of the right hemidiaphragm is a stable finding. Multiple diffusely scattered interstitial and nodular patchy opacities are again noted bilaterally, without significant interval change compared to previous x-ray of 02/06/2024 however opacities may have been mildly increased in the left lung compared to x-ray of 01/02/2024. Left axillary region vascular stent is redemonstrated. EKG leads and wires overlie the chest. XR/XR chest 1V IMPRESSION: No significant interval change in the diffusely scattered interstitial and nodular patchy opacities in the lungs compared to previous x-ray of 02/06/2024. Mild interval improvement is noted on the x-rays of 01/27/2024 and 01/31/2024. The findings are most probably suggestive of interstitial/pulmonary edema however infectious/inflammatory processes are also in the differential. Recommend clinical correlation. Electronically signed by: Amy Gómez MD 02/11/2024 02:05 PM EDT
--- NOTE | 2024-02-11 11:49 | ECG_ITS ---
Test Reason : BRADICARDIA Blood Pressure : / mmHG Vent. Rate : 035 BPM Atrial Rate : 000 BPM P-R Int : 000 ms QRS Dur : 116 ms QT Int : 578 ms P-R-T Axes : 000 -19 -09 degrees QTc Int : 441 ms Junctional bradycardia Incomplete left bundle branch block Minimal voltage criteria for LVH, may be normal variant ( Junior product ) Nonspecific ST and T wave abnormality Abnormal ECG When compared with ECG of 06-FEB-2024 10:05, T wave inversion now evident in Anterior leads Referred By: Arthur Duggan Electronically Signed By:JOSE MURRAY
--- NOTE | 2024-02-11 11:56 | ED_ITS ---
HPI - General Adult General Chief complaint: General Medical Stated complaint: SOB 60% ON HOME O2 FROM [facility] [place] [facility] Time Seen by Provider: 02/11/24 11:49 Source: patient, EMS and old records reviewed Mode of arrival: EMS Limitations: no limitations History of Present Illness ED Provider: DR. Duggan HPI narrative: 68-year-old male with history of anemia, CAD, CHF, ESRD on dialysis MWF, DM, HTN, PVD, right BKA, chronic bradycardia, depression, [facility] sat of 60% on room air patient normally lives with 2 L of supplemental oxygen, on EMS arrival patient was at 86% saturation patient was placed on 6 L of nasal cannula and O2 sat now is improved to 96%, patient has no complaint currently, no chest pain, no shortness a breath. Patient missed his dialysis yesterday. Related Data Home Medications ?Medication ?Instructions ?Recorded ?Confirmed acetaminophen 325 mg tablet 650 mg PO Q6H PRN Fever/Pain 01/02/24 02/06/24 aspirin 81 mg tablet,delayed 81 mg PO DAILY 01/02/24 02/06/24 release atorvastatin 80 mg tablet 80 mg PO DAILY 01/02/24 02/06/24 bisacodyl 10 mg rectal suppository 10 mg [place] DAILY PRN Constipation 01/02/24 02/06/24 citalopram 20 mg tablet 20 mg PO DAILY 01/02/24 02/06/24 clonazepam 0.5 mg tablet 1 mg PO BID anxiety 01/02/24 02/06/24 ibuprofen 600 mg tablet 600 mg PO Q6H PRN Pain 01/02/24 02/06/24 isosorbide mononitrate 20 mg tablet 40 mg PO DAILY 01/02/24 02/06/24 omeprazole 20 mg capsule,delayed 20 mg PO DAILY@0630 01/02/24 02/06/24 release ondansetron 4 mg disintegrating 4 mg PO Q8H PRN Nausea/Vomiting 01/02/24 02/06/24 tablet polyethylene glycol 3350 17 17 g PO Q24H PRN Constipation 01/02/24 02/06/24 gram/dose oral powder sennosides 8.6 mg-docusate sodium 1 tab-cap PO Q24H PRN Constipation 01/02/24 02/06/24 50 mg capsule (Senna Plus) sevelamer HCl 800 mg tablet 1,600 mg PO TIDWM 01/02/24 02/06/24 simethicone 80 mg chewable tablet 80 mg PO Q6H PRN GAS 01/02/24 02/06/24 sodium phosphates 19 gram-7 118 ml [place] DAILY PRN Constipation 01/02/24 02/06/24 gram/118 mL enema (Fleet Enema) sodium zirconium cyclosilicate 10 10 g PO SUTUTHSA 01/02/24 02/06/24 gram oral powder packet (Lokelma) trazodone 50 mg tablet 50 mg PO BEDTIME 01/31/24 02/06/24 dextromethorphan HBr 5 mg/5 mL 10 mg PO Q4H PRN Cough 02/06/24 02/06/24 oral syrup Previous Rx's ?Medication ?Instructions ?Recorded amlodipine 5 mg tablet 5 mg PO BID #0 tabs 01/20/24 hydralazine 10 mg tablet 10 mg PO BID #0 tabs 01/20/24 Allergies Allergy/AdvReac Type Severity Reaction Status Date / Time garlic Allergy Severe Hives Verified 02/11/24 11:50 onion Allergy Severe Hives Verified 02/11/24 11:50 Peppers, Green Allergy Severe Hives Verified 02/11/24 11:50 Review of Systems 2 Review of Systems: All other systems are reviewed and are negative Constitutional: Reports as per HPI and Reports no additional constitutional complaints Eyes: Reports as per HPI and Reports no additional eye complaints Reports system reviewed and no additional complaints, except as documented Cardiovascular: Reports as per HPI and Reports no additional cardiovascular complaints Respiratory: Reports as per HPI and Reports no additional respiratory complaints Gastrointestinal: Reports as per HPI and Reports no additional gastrointestinal complaints Genitourinary: Reports no additional female genitourinary complaints Musculoskeletal: Reports no additional musculoskeletal complaints Skin/Breast: Reports system reviewed and no additional complaints, except as docu Psychiatric: Reports no additional psychiatric complaints Endocrine: Reports no additional endocrine complaints Hematologic/Lymphatic: Reports no additional hematologic/lymphatic complaints Allergic/Immunologic: Reports no additional allergic/immunologic complaints Reports system reviewed and no additional complaints, except as documented and Reports Abnormal speech present PMFSH Past Medical History Medical History Renal failure, chronic Junctional bradycardia End stage renal disease on dialysis Pulmonary edema Dialysis patient, noncompliant Anemia in chronic kidney disease (CKD) Bradycardia Dialysis patient, noncompliant Diabetes mellitus Hypertension Below-knee amputation of right lower extremity Hyperlipidemia Hypertension Peripheral vascular disease Chronic kidney disease on chronic dialysis Diabetes Social History Social History Household Members: Other Household Members Other:: LTC Housing: Unknown / Unable to assess [facility] Do you presently have visiting nurse or other home services: No Patient Tobacco Use Status: Tobacco use Unknown Smoked in Last 30 Days: No Use of substances other than those prescribed or required for medical reasons: No Advance Directives: Yes Advance Directives on File: Yes Advance Directives Date on File: 01/17/24 Do you have a plan to hurt others: No Plan service: No Physical Exam ED Vital Signs: Vital Signs - 24 hr 02/11/24 11:47 Temperature 97.6 F Pulse Rate 38 L Respiratory Rate 18 Pulse Oximetry 91 L Oxygen Delivery Method Nasal Cannula BMI result Body Mass Index 25.1 Vital signs have been reviewed and appear to be correct. Blood pressure elevated. Heart rate normal. Respiratory rate normal. Temperature normal. Oxygen saturation normal. Appearance: Alert. Oriented X3. No acute distress. Head: Normal external exam. Normocephalic. Atraumatic. No Bonilla signs noted. No raccoon eyes noted Eyes: PERRLA. EOMI. Conjunctiva and sclera normal. Eyelids normal. ENT: TM's Normal. Pharynx normal. Uvula midline. Moist mucous membranes. No trismus noted. No drooling noted. No muffled voice noted. Neck: Normal inspection. Neck supple. FROM. No adenopathy. Thyroid Normal. No meningeal signs. No neck mass noted. CVS: Normal heart rate and rhythm. Heart sound normal. No murmurs noted. Pulses normal throughout. Respiratory: No respiratory distress. Painless inspiration. Breath sounds normal. No wheezes/rales/rhonchi noted. Chest nontender. No accessory muscle usage noted or decreased air movement noted. Abdomen: Soft and nontender. Bowel sounds normal in all 4 quadrants. No distention noted. No organomegaly noted. No visible injury noted. Back: No CVA tenderness. Full range of motion noted. Skin: Skin warm and dry. Normal skin color. Normal skin turgor. No rashes/lesions/lacerations noted. Extremities: No lower extremity edema. Extremities exhibit normal range of motion. Extremities nontender. Neuro: Oriented X 3. Cranial nerve exam: II-XII are grossly intact No motor deficit. No sensory deficit. Reflexes normal. Course Reevaluation(s) Reevaluation #1: ESRD, HD MWF missed his last dialysis, [facility] improved with 6 L of supplemental oxygen hyperkalemia of 6.2 with no EKG changes (patient with chronic bradycardia), BNP is 2200, case discussed with Dr. Mckeon who will arrange for dialysis tonight. Time: 13:47 Medications Administered Discontinued Medications Generic Name Dose Route Start Last Admin Trade Name Freq PRN Reason Stop Dose Admin Acetaminophen 650 mg 02/11/24 13:36 02/11/24 13:45 Acetaminophen 325 Mg Tablet PO 02/11/24 13:37 650 mg ONCE ONE Administration Sodium Zirconium Cyclosilicate 10 gm 02/11/24 13:36 02/11/24 13:47 Sodium Zirconium Cyclosilicate 10 Gm Powd.Pack PO 02/11/24 13:37 10 gm ONCE ONE Administration Medical Decision Making Differential Diagnosis Differential Diagnoses: The differential diagnosis associated with the presentation includes ( Electrolyte derangement, EKG changes, congestive heart failure, fluid overload, pneumonia, pneumothorax.) Admission/Observation Consideration of admission/observation: Escalation of care including admission/observation considered Consult Healthcare Provider Management of the patient was discussed with: Secondary Set Up Man ( Dr. Mckeon) Lab Data MDM Lab Attestation statement: I reviewed the patient's lab results. 02/11/24 12:44 02/11/24 12:44 Labs: Lab Results 02/11/24 02/11/24 Range/Units 12:44 12:50 WBC 5.2 (4.8-10.8) X10*3/uL RBC 2.91 L (4.60-5.80) X10*6/uL Hgb 8.8 L (14.0-18.0) g/dl Hct 26.3 L (42.0-52.0) % MCV 90.4 (80.0-98.0) fL MCH 30.2 (27.0-33.0) pg MCHC 33.5 (31.0-36.0) g/dl RDW 13.2 (11.0-16.0) % Plt Count 172 (160-400) X10*3/uL MPV 9.0 L (9.4-12.4) fL Immature Gran % (Auto) 0.4 (0.0-0.4) % Neut % (Auto) 78.5 H (45-73) % Lymph % (Auto) 11.8 L (20-40) % [place] % (Auto) 7.0 (2-11) % Eos % (Auto) 2.1 (0-4) % Baso % (Auto) 0.2 (0-2) % Lymph # (Auto) 0.6 L (1.2-4.9) X10*3/uL [place] # (Auto) 0.4 (0.1-1.2) X10*3/uL Eos # (Auto) 0.1 (0.0-0.4) X10*3/uL Baso # (Auto) 0.0 (0.0-0.2) X10*3/uL Abs Immat Gran (auto) 0.02 (0.00-0.03) X10*3/uL Absolute Neuts (auto) 4.1 (2.0-8.3) x10*3/uL Absolute Nucleated RBC 0.000 (0.0-0.012) X10*3/uL Nucleated RBC % (auto) 0.0 (0.0-0.2) /100WBC VBG pH 7.40 (7.32-7.43) VBG pCO2 36 mmHg VBG pO2 57 mmHg VBG HCO3 23 (22-26) mmol/L VBG O2 Saturation 85.0 % VBG Base Excess -0.9 mmol/L Sodium 125 L (135-145) mmol/L Potassium 6.2 H* D (3.3-5.1) mmol/L Chloride 87 L (96-108) mmol/L Carbon Dioxide 22 (22-29) mmol/L Anion Gap 22 H (12-20) BUN 50 H (9-16) mg/dL Creatinine 12.38 H* (0.5-1.4) mg/dL Estim Creat Clear Calc 5.4 Estimated GFR 4 Random Glucose 148 H (60-115) mg/dL Calcium 9.4 (8.4-10.2) mg/dL Total Bilirubin 0.5 (0.0-1.0) mg/dL Direct Bilirubin 0.4 (0.0-0.5) mg/dL AST 10 (5-37) U/L ALT 7 (0-40) U/L Alkaline Phosphatase 138 H (39-117) U/L Troponin I High Sens 68.0 H (<3.5-35.0) ng/L B-Natriuretic Peptide 2111 H (<100) pg/mL Total Protein 7.4 (6.5-8.0) g/dL Albumin 3.4 L (3.5-5.0) g/dL Lipase 12 (8-78) U/L Influenza Type A (PCR) NEGATIVE (Negative) Influenza Type B (PCR) NEGATIVE (Negative) RSV RNA Qual (PCR) NEGATIVE (Negative) SARS-CoV-2 RNA (RT-PCR) NEGATIVE (Negative) Discharge Plan Discharge Clinical Impression: Acute hyperkalemia, End stage renal disease on dialysis, Hypoxia Patient Disposition: Admitted As Inpatient Prescriptions: No Action trazodone 50 mg Tablet 50 mg PO BEDTIME dextromethorphan HBr 5 mg/5 mL Syrup 10 mg PO Q4H PRN (Reason: Cough) atorvastatin 80 mg tablet 80 mg PO DAILY acetaminophen 325 mg Tablet 650 mg PO Q6H PRN (Reason: Fever/Pain) isosorbide mononitrate 20 mg Tablet 40 mg PO DAILY Protocol: Hold for SBP< HOLD for SBP < : 100 sevelamer HCl 800 mg Tablet 1,600 mg PO TIDWM Rx Instructions: must administer with a meal/food clonazepam 0.5 mg tablet 1 mg PO BID aspirin 81 mg tablet,delayed release (DR/EC) 81 mg PO DAILY citalopram 20 mg tablet 20 mg PO DAILY bisacodyl 10 mg Suppository 10 mg [place] DAILY PRN (Reason: Constipation) Rx Instructions: No BM in 8 Hrs after M.O.M Fleet Enema 19-7 gram/118 mL Enema 118 ml [place] DAILY PRN (Reason: Constipation) Rx Instructions: (step 3) No BM in 8 Hours after Bisacodyl supp. omeprazole 20 mg Capsule,Delayed Release(Dr/Ec) 20 mg PO DAILY@0630 ibuprofen 600 mg Tablet 600 mg PO Q6H PRN (Reason: Pain) polyethylene glycol 3350 17 gram/dose Powder 17 g PO Q24H PRN (Reason: Constipation) ondansetron 4 mg Tablet,Disintegrating 4 mg PO Q8H PRN (Reason: Nausea/Vomiting) simethicone 80 mg Tablet,Chewable 80 mg PO Q6H PRN (Reason: GAS) Lokelma 10 gram Powder In Packet 10 g PO SUTUTHSA Senna Plus 8.6-50 mg Capsule 1 tab-cap PO Q24H PRN (Reason: Constipation) hydralazine 10 mg Tablet 10 mg PO BID Qty: 0 0RF Protocol: Hold for SBP< HOLD for SBP < : 90 amlodipine 5 mg Tablet 5 mg PO BID Qty: 0 0RF Protocol: Hold for SBP< HOLD for SBP < : 90 Print Language: Tamazight
--- NOTE | 2024-02-11 12:28 | PC.NURSE ---
Pt [facility] from [facility]. Per EMS, facility staff found pt O2 sat to be in low 60s. EMS placed pt on 6L NC, O2 sat up to 86%. Upon arrival pt O2 sat 92% on 4L NC, no increased wob/sob noted. Pt a/ox3, placed on conveyor monitor d/t sinus heather HR- 35-45s. Pacer pads placed on pt for safety. Per pt, missed dialysis Tuesday. Pt states he goes to dialysis three times a week. When asked why he missed dialysis pt states the ride never showed up . Pt c/o no pain, ekg and labs obtained and sent to lab. Pt incontinent of stool upon arrival, washed up and new bed linens placed. Call beauchamp within reach, all needs met at this time, pt aware of plan of care.
[2024-02-11 12:50] LABS: MANUAL DIFF FLAG NO
[2024-02-11 12:52] LABS: Venous Blood Gas Refer to POC result
[2024-02-11 12:54] LABS: VBG Base Excess -0.9 mmol/L; VBG HCO3 23 mmol/L (22-26); VBG pCO2 36 mmHg; VBG pO2 57 mmHg
[2024-02-11 12:59] LABS: Basophils Percent Auto 0.2 % (0-2); Eosinophils Absolute Auto 0.1 X10*3/uL (0.0-0.4); Eosinophils Percent Auto 2.1 % (0-4); Hematocrit 26.3 % (42.0-52.0); Hemoglobin 8.8 g/dl (14.0-18.0); Imm Gran Abs Auto 0.02 X10*3/uL (0.00-0.03); Imm Gran Pct Auto 0.4 % (0.0-0.4); Lymphocytes Absolute Auto 0.6 X10*3/uL (1.2-4.9); Lymphocytes Percent Auto 11.8 % (20-40); Mean Corpuscular HGB Conc 33.5 g/dl (31.0-36.0); Mean Corpuscular Hemoglobin 30.2 pg (27.0-33.0); Mean Corpuscular Volume 90.4 fL (80.0-98.0); Monocytes Absolute Auto 0.4 X10*3/uL (0.1-1.2); Neutrophils Absolute Auto 4.1 x10*3/uL (2.0-8.3); Neutrophils Percent Auto 78.5 % (45-73); Platelet Count 172 X10*3/uL (160-400); Red Blood Count 2.91 X10*6/uL (4.60-5.80); Red Cell Distribution Width 13.2 % (11.0-16.0); White Blood Count 5.2 X10*3/uL (4.8-10.8)
[2024-02-11 13:23] LABS: B Type Natriuretic Peptide 2111 pg/mL (<100)
[2024-02-11 13:30] LABS: Creatinine Clr Calc Pharmacy 5.4; Estimated Glomerular Filt Rate 4
[2024-02-11 13:31] LABS: Alanine Aminotransferase 7 U/L (0-40); Albumin Level 3.4 g/dL (3.5-5.0); Alkaline Phosphatase 138 U/L (39-117); Anion Gap 22 (12-20); Aspartate Amino Transferase 10 U/L (5-37); Bilirubin Direct 0.4 mg/dL (0.0-0.5); Bilirubin Total 0.5 mg/dL (0.0-1.0); Blood Urea Nitrogen 50 mg/dL (9-16); Calcium 9.4 mg/dL (8.4-10.2); Carbon Dioxide 22 mmol/L (22-29); Chloride 87 mmol/L (96-108); Glucose Random 148 mg/dL (60-115); Lipase 12 U/L (8-78); Potassium 6.2 mmol/L (3.3-5.1); Sodium 125 mmol/L (135-145); Total Protein 7.4 g/dL (6.5-8.0)
[2024-02-11 13:36] LABS: Influenza A PCR NEGATIVE (Negative); Influenza B PCR NEGATIVE (Negative); Resp Syncy Virus RNA Qual PCR NEGATIVE (Negative); SARS COV2 PCR INHOUSE NEGATIVE (Negative)
[2024-02-11] MEDS: Acetaminophen 325 MG TABLET 650 MG PO ×2 (13:45→19:26)
[2024-02-11] MEDS: Sodium Zirconium Cyclosilicate 10 GM POWD.PACK PO (13:47)
--- NOTE | 2024-02-11 14:59 | PHA.MEDREC ---
Pharmacy Consult ? Medication Reconciliation Pharmacy has completed the medication reconciliation.
--- NOTE | 2024-02-11 15:07 | PC.NURSE ---
Patient stating he needs to go to the bathroom. declined use of commode or bedpan. states needs to get oob to use toilet. 1 assist oob to wheelchair and stand pivot transfer to toilet. HR remains between 33-37- patient asymptomatic, states this is normal for him. AED pads placed on patient as a precaution.
[2024-02-11 15:09] LABS: Phosphorus 5.1 mg/dL (2.7-4.5)
--- NOTE | 2024-02-11 15:09 | PM.CCPN ---
Subjective Subjective Date of Service: 02/11/24 Critical Care Time (minutes): 35 Comment: 68-year-old gentleman with past medical history of end-stage renal disease on maintenance hemodialysis M/W/F presents feeling weak and tired as he missed his hemodialysis session on Tuesday. He states his transport did not show up on Tuesday so he could not go to his dialysis session; he stated the same reason for the hospital admission earlier this week and his presentation is exactly the same as the previous admission. When contacted the transport company they told us that patient did not show up. His potassium was found to be 6.2, patient is in junctional bradycardia with heart rate in 30s so MICU was consulted for admission. His PMH is also pertinent for insulin-dependent diabetes mellitus, coronary artery disease, peripheral artery disease status post right leg BKA , congestive heart failure with preserved ejection fraction, metabolic syndrome. Physical Exam Vital Signs: Vital Signs: Last Vital Signs Temp 98 F 02/11/24 15:06 Pulse 37 L 02/11/24 15:06 Resp 18 02/11/24 15:06 BP 153/46 H 02/11/24 15:06 Pulse Ox 94 02/11/24 15:06 O2 Del Method Nasal Cannula 02/11/24 15:06 O2 Flow Rate 4 02/11/24 15:06 Oxygen Flow Rate 6 02/11/24 11:47 BMI result Body Mass Index 25.1 General: acute distress, ill appearing and tired appearing Nutritional Appearance: well nourished and overweight Eyes: appearance normal, both eyes and all related structures; Alignment and Position: alignment normal and position normal Neck: No lymphadenopathy, no thyromegaly Resp: bilateral air entry equal, occasional added sounds present Cardio: Regular rate, regular rhythm; Heart sounds: S1 normal heart sound present and S2 normal heart sound present GI: soft, nontender, no guarding, no hepatosplenomegaly : bladder normal to inspection, bladder normal to palpation, no renal angle tenderness Skin: no rashes or lesions noted and elasticity normal Neuro: Drowsy, confusion present, moves all extremities Objective Data Labs 02/11/24 12:44 02/11/24 12:44 Labs: Laboratory Results - last 24 hr 02/11/24 02/11/24 12:44 12:50 WBC 5.2 RBC 2.91 L Hgb 8.8 L Hct 26.3 L MCV 90.4 MCH 30.2 MCHC 33.5 RDW 13.2 Plt Count 172 MPV 9.0 L Immature Gran % (Auto) 0.4 Neut % (Auto) 78.5 H Lymph % (Auto) 11.8 L [place] % (Auto) 7.0 Eos % (Auto) 2.1 Baso % (Auto) 0.2 Lymph # (Auto) 0.6 L [place] # (Auto) 0.4 Eos # (Auto) 0.1 Baso # (Auto) 0.0 Abs Immat Gran (auto) 0.02 Absolute Neuts (auto) 4.1 Absolute Nucleated RBC 0.000 Nucleated RBC % (auto) 0.0 VBG pH 7.40 VBG pCO2 36 VBG pO2 57 VBG HCO3 23 VBG O2 Saturation 85.0 VBG Base Excess -0.9 Sodium 125 L Potassium 6.2 H* D Chloride 87 L Carbon Dioxide 22 Anion Gap 22 H BUN 50 H Creatinine 12.38 H* Estim Creat Clear Calc 5.4 Estimated GFR 4 Random Glucose 148 H Calcium 9.4 Total Bilirubin 0.5 Direct Bilirubin 0.4 AST 10 ALT 7 Alkaline Phosphatase 138 H Troponin I High Sens 68.0 H B-Natriuretic Peptide 2111 H Total Protein 7.4 Albumin 3.4 L Lipase 12 Influenza Type A (PCR) NEGATIVE Influenza Type B (PCR) NEGATIVE RSV RNA Qual (PCR) NEGATIVE SARS-CoV-2 RNA (RT-PCR) NEGATIVE Quality VTE VTE Risk Level:: Medical - low VTE Device Contraindication: N/A - Device Ordered VTE Drug Contraindication: N/A - Med Ordered
[2024-02-11] MEDS: Pantoprazole Sodium 40 MG in 0.9 % Sodium Chloride 100 ML 400 MG IV (15:10)
--- NOTE | 2024-02-11 15:12 | P.HPCC_ITS ---
History of Present Illness Date of Service: 02/11/24 Chief Complaint: Weakness 68-year-old gentleman with past medical history of end-stage renal disease on maintenance hemodialysis M/W/F presents feeling weak and tired as he missed his hemodialysis session on Tuesday. He states his transport did not show up on Tuesday so he could not go to his dialysis session; he stated the same reason for the hospital admission earlier this week and his presentation is exactly the same as the previous admission. When contacted the transport company they told us that patient did not show up. His potassium was found to be 6.2, patient is in junctional bradycardia with heart rate in 30s so MICU was consulted for admission. His PMH is also pertinent for insulin-dependent diabetes mellitus, coronary artery disease, peripheral artery disease status post right leg BKA , congestive heart failure with preserved ejection fraction, metabolic syndrome. Review of Systems 2 Review of Systems: Unable to obtain as patient is confused [facility] Past Medical History Medical History Renal failure, chronic Junctional bradycardia End stage renal disease on dialysis Pulmonary edema Dialysis patient, noncompliant Anemia in chronic kidney disease (CKD) Bradycardia Dialysis patient, noncompliant Diabetes mellitus Hypertension Below-knee amputation of right lower extremity Hyperlipidemia Hypertension Peripheral vascular disease Chronic kidney disease on chronic dialysis Diabetes Social History Social History Household Members: Other Household Members Other:: C Housing: Unknown / Unable to assess [facility] Do you presently have visiting nurse or other home services: No Patient Tobacco Use Status: Tobacco use Unknown Smoked in Last 30 Days: No Use of substances other than those prescribed or required for medical reasons: No Advance Directives: Yes Advance Directives on File: Yes Advance Directives Date on File: 01/17/24 Do you have a plan to hurt others: No Plan service: No Meds Allergies Allergy/AdvReac Type Severity Reaction Status Date / Time garlic Allergy Severe Hives Verified 02/11/24 11:50 onion Allergy Severe Hives Verified 02/11/24 11:50 Peppers, Green Allergy Severe Hives Verified 02/11/24 11:50 Active Medications: Current Medications Heparin Sodium (Porcine) (Heparin Sodium,Porcine 5,000 Unit/Ml Vial) 5,000 unit SUBCUT Q8H [facility] Pantoprazole Sodium 40 mg/ (Sodium Chloride) 110 mls @ 400 mls/hr IV DAILY@0630 [facility] Home Medications ?Medication ?Instructions ?Recorded ?Confirmed ?Last Taken ?Type acetaminophen 325 mg tablet 650 mg PO Q6H PRN Fever/Pain 01/02/24 02/11/24 Unknown History aspirin 81 mg tablet,delayed 81 mg PO DAILY 01/02/24 02/11/24 01/17/24 12:00 History release atorvastatin 80 mg tablet 80 mg PO DAILY 01/02/24 02/11/24 01/17/24 12:00 History bisacodyl 10 mg rectal suppository 10 mg [place] DAILY PRN Constipation 01/02/24 02/11/24 Unknown History citalopram 20 mg tablet 20 mg PO DAILY 01/02/24 02/11/24 01/17/24 12:00 History clonazepam 0.5 mg tablet 1 mg PO BID anxiety 01/02/24 02/11/24 01/17/24 12:00 History ibuprofen 600 mg tablet 600 mg PO Q6H PRN Pain 01/02/24 02/11/24 Unknown History isosorbide mononitrate 20 mg tablet 40 mg PO DAILY 01/02/24 02/11/24 01/17/24 12:00 History omeprazole 20 mg capsule,delayed 20 mg PO DAILY@0630 01/02/24 02/11/24 01/17/24 12:00 History release ondansetron 4 mg disintegrating 4 mg PO Q8H PRN Nausea/Vomiting 01/02/24 02/11/24 Unknown History tablet polyethylene glycol 3350 17 17 g PO Q24H PRN Constipation 01/02/24 02/11/24 Unknown History gram/dose oral powder sennosides 8.6 mg-docusate sodium 1 tab-cap PO Q24H PRN Constipation 01/02/24 02/11/24 Unknown History 50 mg capsule (Senna Plus) sevelamer HCl 800 mg tablet 1,600 mg PO TIDWM 01/02/24 02/11/24 01/17/24 12:00 History simethicone 80 mg chewable tablet 80 mg PO Q6H PRN GAS 01/02/24 02/11/24 01/16/24 History sodium phosphates 19 gram-7 118 ml [place] DAILY PRN Constipation 01/02/24 02/11/24 Unknown History gram/118 mL enema (Fleet Enema) sodium zirconium cyclosilicate 10 10 g PO SUTUTHSA 01/02/24 02/11/24 01/17/24 12:00 History gram oral powder packet (Lokelma) trazodone 50 mg tablet 50 mg PO BEDTIME 01/31/24 02/11/24 Unknown History dextromethorphan HBr 5 mg/5 mL 10 mg PO Q4H PRN Cough 02/06/24 02/11/24 Unknown History oral syrup Physical Exam 2 Vital Signs: Vital Signs: Last Vital Signs Temp 98 F 02/11/24 15:06 Pulse 37 L 02/11/24 15:06 Resp 18 02/11/24 15:06 BP 153/46 H 02/11/24 15:06 Pulse Ox 94 02/11/24 15:06 O2 Del Method Nasal Cannula 02/11/24 15:06 O2 Flow Rate 4 02/11/24 15:06 Oxygen Flow Rate 6 02/11/24 11:47 BMI result Body Mass Index 25.1 General: acute distress, ill appearing and tired appearing Nutritional Appearance: Poor nourished and under weight Eyes: appearance normal, both eyes and all related structures; Alignment and Position: alignment normal and position normal Neck: No lymphadenopathy, no thyromegaly Resp: bilateral air entry equal, occasional added sounds present Cardio: Regular rate, regular rhythm; Heart sounds: S1 normal heart sound present and S2 normal heart sound present GI: soft, nontender, no guarding, no hepatosplenomegaly : bladder normal to inspection, bladder normal to palpation, no renal angle tenderness Skin: no rashes or lesions noted and elasticity normal Neuro: Confusion present, no focal deficit, status post BKA Results Labs 02/11/24 12:44 02/11/24 12:44 Labs: Laboratory Results - last 24 hr 02/11/24 02/11/24 12:44 12:50 MCV 90.4 MCH 30.2 MCHC 33.5 RDW 13.2 Plt Count 172 MPV 9.0 L Immature Gran % (Auto) 0.4 Neut % (Auto) 78.5 H Lymph % (Auto) 11.8 L [place] % (Auto) 7.0 Eos % (Auto) 2.1 Baso % (Auto) 0.2 Lymph # (Auto) 0.6 L [place] # (Auto) 0.4 Eos # (Auto) 0.1 Baso # (Auto) 0.0 Abs Immat Gran (auto) 0.02 Absolute Neuts (auto) 4.1 Absolute Nucleated RBC 0.000 Nucleated RBC % (auto) 0.0 VBG pH 7.40 VBG pCO2 36 VBG pO2 57 VBG HCO3 23 VBG O2 Saturation 85.0 VBG Base Excess -0.9 Anion Gap 22 H Estim Creat Clear Calc 5.4 Estimated GFR 4 Random Glucose 148 H Calcium 9.4 Phosphorus 5.1 H Total Bilirubin 0.5 Direct Bilirubin 0.4 AST 10 ALT 7 Alkaline Phosphatase 138 H Troponin I High Sens 68.0 H B-Natriuretic Peptide 2111 H Total Protein 7.4 Albumin 3.4 L Lipase 12 Influenza Type A (PCR) NEGATIVE Influenza Type B (PCR) NEGATIVE RSV RNA Qual (PCR) NEGATIVE SARS-CoV-2 RNA (RT-PCR) NEGATIVE Imaging Radiologist's Impressions: Impressions Chest X-Ray 02/11/24 11:50 IMPRESSION: No significant interval change in the diffusely scattered interstitial and nodular patchy opacities in the lungs compared to previous x-ray of 02/06/2024. Mild interval improvement is noted on the x-rays of 01/27/2024 and 01/31/2024. The findings are most probably suggestive of interstitial/pulmonary edema however infectious/inflammatory processes are also in the differential. Recommend clinical correlation. Electronically signed by: Amy Gómez MD 02/11/2024 02:05 PM EDT Assessment and Plan (1) Acute hyperkalemia: Status: Acute (2) Hypoxia: Status: Acute (3) End stage renal disease on dialysis: Status: Acute (4) Hypoxia: Status: Acute (5) CHF (congestive heart failure): Status: Acute Plan Neuro: Confusion present Cardiac: Bradycardia: Currently in junctional rhythm possibly secondary to hyperkalemia We will closely monitor in the ICU Respiratory: Pulmonary edema: Secondary to missing dialysis sessions We will up titrate oxygen as needed GI: We will start on diet Renal: End-stage renal disease: On hemodialysis M/W/F Missed his dialysis session on Tuesday as his transport did not show up We will consult Nephrology for emergent need for dialysis as he is uremic Hyperkalemia: We will consult Nephrology for emergent dialysis Heme: Chronic anemia, closely monitor H&H, transfuse for hemoglobin less than 7 grams/deciliter Endocrine: Blood sugars under control Sliding scale insulin as needed Infectious disease: We will send pancultures No concern for an infection Musculoskeletal: Decubitus ulcer prevention protocol Lines: Prophylaxis: Heparin, pantoprazole .
--- NOTE | 2024-02-11 15:20 | PC.NURSE ---
Patient refused heparin, educated on risks of not taking, patient aware
[2024-02-11 16:50] LABS: Glucose, Whole Blood 138 mg/dL (60-115)
[2024-02-11 20:22] LABS: Anion Gap 17 (12-20); Blood Urea Nitrogen 15 mg/dL (9-16); Carbon Dioxide 25 mmol/L (22-29); Chloride 95 mmol/L (96-108); Estimated Glomerular Filt Rate 14; Glucose Random 101 mg/dL (60-115); Magnesium 2.1 mg/dL (1.6-2.6); Phosphorus 2.2 mg/dL (2.7-4.5); Potassium 3.5 mmol/L (3.3-5.1); Sodium 133 mmol/L (135-145)
[2024-02-11 21:11] LABS: Glucose, Whole Blood 98 mg/dL (60-115)
[2024-02-11] MEDS: Potassium Phosphate/NS 15 MMOL/250 ML PLAST..BAG 62.5 MMOL IV (21:11)
[2024-02-12] VITALS (11 sets, daily range): BP systolic 120–182; BP diastolic 45–84; PULSE 60–70; RESP 14–20; TEMP 36.2–36.7; O2SAT 93–100
--- NOTE | 2024-02-12 | ECG_ITS ---
Test Reason : junctional rythem Blood Pressure : / mmHG Vent. Rate : 064 BPM Atrial Rate : 064 BPM P-R Int : 242 ms QRS Dur : 104 ms QT Int : 474 ms P-R-T Axes : 044 -36 056 degrees QTc Int : 489 ms Sinus rhythm with 1st degree A-V block Left axis deviation Cannot rule out Anterior infarct , age undetermined Abnormal ECG When compared with ECG of 11-FEB-2024 12:13, Sinus rhythm has replaced Junctional rhythm Vent. rate has increased BY 29 BPM Incomplete left bundle branch block is no longer Present Minimal criteria for Anterior infarct are now Present Referred By: Rohit Larson Electronically Signed By:JOSE MURRAY
[2024-02-12] MEDS: 0.9 % Sodium Chloride Flush 3 ML SYRINGE IVFLUSH ×4 (01:14→20:32)
[2024-02-12] MEDS: hydrALAZINE HCl 20 MG/ML VIAL 10 MG IVPUSH (01:32)
[2024-02-12] MEDS: Metoprolol Tartrate 5 MG/5 ML VIAL IVPUSH (04:39)
[2024-02-12] MEDS: Pantoprazole Sodium 40 MG in 0.9 % Sodium Chloride 100 ML 400 MG IV (05:21)
[2024-02-12] MEDS: Acetaminophen 325 MG TABLET 650 MG PO ×3 (05:25→20:30)
[2024-02-12 06:31] LABS: MANUAL DIFF FLAG NO
[2024-02-12 06:36] LABS: Basophils Percent Auto 0.4 % (0-2); Eosinophils Absolute Auto 0.2 X10*3/uL (0.0-0.4); Eosinophils Percent Auto 4.9 % (0-4); Hematocrit 26.2 % (42.0-52.0); Hemoglobin 8.8 g/dl (14.0-18.0); Imm Gran Abs Auto 0.01 X10*3/uL (0.00-0.03); Imm Gran Pct Auto 0.2 % (0.0-0.4); Lymphocytes Absolute Auto 0.7 X10*3/uL (1.2-4.9); Lymphocytes Percent Auto 15.2 % (20-40); Mean Corpuscular HGB Conc 33.6 g/dl (31.0-36.0); Mean Corpuscular Hemoglobin 30.3 pg (27.0-33.0); Mean Corpuscular Volume 90.3 fL (80.0-98.0); Mean Platelet Volume 9.2 fL (9.4-12.4); Monocytes Absolute Auto 0.4 X10*3/uL (0.1-1.2); Monocytes Percent Auto 7.5 % (2-11); Neutrophils Absolute Auto 3.3 x10*3/uL (2.0-8.3); Neutrophils Percent Auto 71.8 % (45-73); Platelet Count 184 X10*3/uL (160-400); Red Cell Distribution Width 13.4 % (11.0-16.0); White Blood Count 4.7 X10*3/uL (4.8-10.8)
[2024-02-12 06:56] LABS: Alanine Aminotransferase 7 U/L (0-40); Albumin Level 3.4 g/dL (3.5-5.0); Alkaline Phosphatase 124 U/L (39-117); Anion Gap 17 (12-20); Aspartate Amino Transferase 10 U/L (5-37); Bilirubin Total 0.5 mg/dL (0.0-1.0); Blood Urea Nitrogen 23 mg/dL (9-16); Calcium 9.6 mg/dL (8.4-10.2); Carbon Dioxide 25 mmol/L (22-29); Chloride 95 mmol/L (96-108); Creatinine Clr Calc Pharmacy 9.1; Estimated Glomerular Filt Rate 7; Glucose Random 100 mg/dL (60-115); Potassium 4.6 mmol/L (3.3-5.1); Sodium 132 mmol/L (135-145); Total Protein 7.3 g/dL (6.5-8.0)
[2024-02-12 07:30] LABS: Glucose, Whole Blood 97 mg/dL (60-115)
[2024-02-12] MEDS: Atorvastatin Calcium 80 MG TABLET PO (08:31)
[2024-02-12] MEDS: amLODIPine Besylate 5 MG TABLET PO ×2 (08:31→20:31)
[2024-02-12] MEDS: hydrALAZINE HCl 10 MG TABLET PO ×2 (08:31→20:31)
[2024-02-12] MEDS: Aspirin Enteric Coated 81 MG TABLET.DR PO (08:32)
[2024-02-12 11:19] LABS: Glucose, Whole Blood 141 mg/dL (60-115)
[2024-02-12] MEDS: Escitalopram Oxalate 10 MG TABLET PO (12:24)
--- NOTE | 2024-02-12 14:16 | P.PNIM_ITS ---
Subjective Subjective Date of Service: 02/13/24 Interval History: esrd,hyperkalemia Review of Systems sob seems improving denies new c/o Physical Exam 2 Vital Signs: Vital Signs: Last Vital Signs Temp 97.6 F 02/12/24 12:00 Pulse 64 02/12/24 12:00 Resp 18 02/12/24 12:00 BP 120/58 L 02/12/24 12:00 Pulse Ox 94 02/12/24 12:00 O2 Del Method Room Air 02/12/24 12:00 O2 Flow Rate 2 02/12/24 03:55 FiO2 65 02/11/24 21:00 Oxygen Flow Rate 6 02/11/24 11:47 BMI result Body Mass Index 25.1 Appearance: Alert.? Oriented. cvs: rrr, [id number] . res: air entry abd: no rebound or guarding ,nt, bs present. ext pulses present , no cyanosis . neuro: nonfocal. Objective Data Active Medications Acetaminophen (Acetaminophen 325 Mg Tablet) 650 mg PO Q4H PRN PRN Reason: Pain, Moderate(Pain Scale 4-6) Last Admin: 02/12/24 12:24 Dose: 650 mg Documented By: FERN Amlodipine Besylate (Amlodipine Besylate 5 Mg Tablet) 5 mg PO BID [facility]; Protocol Last Admin: 02/12/24 08:31 Dose: 5 mg Documented By: FERN Aspirin (Aspirin Enteric Coated 81 Mg Tablet.) 81 mg PO DAILY [facility] Last Admin: 02/12/24 08:32 Dose: 81 mg Documented By: FERN Atorvastatin Calcium (Atorvastatin Calcium 80 Mg Tablet) 80 mg PO DAILY [facility] Last Admin: 02/12/24 08:31 Dose: 80 mg Documented By: FERN Bisacodyl (Bisacodyl 10 Mg Supp.Rect) 10 mg GA DAILY PRN PRN Reason: Constipation Clonazepam (Clonazepam 1 Mg Tablet) 1 mg PO BID [facility] Escitalopram Oxalate (Escitalopram Oxalate 10 Mg Tablet) 10 mg PO DAILY [facility] Last Admin: 02/12/24 12:24 Dose: 10 mg Documented By: FERN Heparin Sodium (Porcine) (Heparin Sodium,Porcine 5,000 Unit/Ml Vial) 5,000 unit SUBCUT Q8H [facility] Last Admin: 02/12/24 05:26 Dose: Not Given Documented By: HERBERT Non-Admin Reason: Patient Refused Hydralazine HCl (Hydralazine Hcl 10 Mg Tablet) 10 mg PO BID [facility]; Protocol Last Admin: 02/12/24 08:31 Dose: 10 mg Documented By: FERN Pantoprazole Sodium 40 mg/ (Sodium Chloride) 110 mls @ 400 mls/hr IV DAILY@0630 [facility] Last Infusion: 02/12/24 05:38 Dose: Infused Documented By: HERBERT Insulin Human Lispro (Insulin Lispro 100 Unit/Ml 3 Ml Vial) 0 unit SUBCUT QIDACHS [facility]; Protocol Last Admin: 02/12/24 12:26 Dose: Not Given Documented By: FERN Non-Admin Reason: No Insulin Coverage Polyethylene Glycol (Polyethylene Glycol 3350 17 Gm Powd.Pack) 17 gm PO Q24H PRN PRN Reason: Constipation Senna/Docusate Sodium (Sennosides/Docusate Sodium Tablet) 1 tab PO Q24H PRN PRN Reason: Constipation Simethicone (Simethicone 80 Mg Tab.Chew) 80 mg PO Q6H PRN PRN Reason: Gas Sodium Chloride (0.9 % Sodium Chloride Flush 3 Ml Syringe) 3 ml IVFLUSH QSHIFT [facility] Last Admin: 02/12/24 08:32 Dose: 3 ml Documented By: FERN Sodium Zirconium Cyclosilicate (Sodium Zirconium Cyclosilicate 10 Gm Powd.Pack) 10 gm PO SuTuThSa@0900 [facility] Trazodone HCl (Trazodone Hcl 50 Mg Tablet) 50 mg PO BEDTIME [facility] Labs 02/12/24 06:21 02/12/24 06:21 Labs: Laboratory Results - last 24 hr 02/11/24 02/11/24 02/11/24 12:44 16:47 19:58 MCV MCH MCHC RDW Plt Count MPV Immature Gran % (Auto) Neut % (Auto) Lymph % (Auto) [place] % (Auto) Eos % (Auto) Baso % (Auto) Lymph # (Auto) [place] # (Auto) Eos # (Auto) Baso # (Auto) Abs Immat Gran (auto) Absolute Neuts (auto) Absolute Nucleated RBC Nucleated RBC % (auto) Anion Gap 17 Estim Creat Clear Calc 16.0 Estimated GFR 14 POC Glucose 138 H Random Glucose 101 Calcium 10.0 D Phosphorus 5.1 H 2.2 L Magnesium 2.1 Total Bilirubin AST ALT Alkaline Phosphatase Total Protein Albumin 02/11/24 02/12/24 02/12/24 21:08 06:21 07:24 MCV 90.3 MCH 30.3 MCHC 33.6 RDW 13.4 Plt Count 184 MPV 9.2 L Immature Gran % (Auto) 0.2 Neut % (Auto) 71.8 Lymph % (Auto) 15.2 L [place] % (Auto) 7.5 Eos % (Auto) 4.9 H Baso % (Auto) 0.4 Lymph # (Auto) 0.7 L [place] # (Auto) 0.4 Eos # (Auto) 0.2 Baso # (Auto) 0.0 Abs Immat Gran (auto) 0.01 Absolute Neuts (auto) 3.3 Absolute Nucleated RBC 0.000 Nucleated RBC % (auto) 0.0 Anion Gap 17 Estim Creat Clear Calc 9.1 Estimated GFR 7 POC Glucose 98 97 Random Glucose 100 Calcium 9.6 Phosphorus Magnesium Total Bilirubin 0.5 AST 10 ALT 7 Alkaline Phosphatase 124 H Total Protein 7.3 Albumin 3.4 L 02/12/24 11:13 MCV MCH MCHC RDW Plt Count MPV Immature Gran % (Auto) Neut % (Auto) Lymph % (Auto) [place] % (Auto) Eos % (Auto) Baso % (Auto) Lymph # (Auto) [place] # (Auto) Eos # (Auto) Baso # (Auto) Abs Immat Gran (auto) Absolute Neuts (auto) Absolute Nucleated RBC Nucleated RBC % (auto) Anion Gap Estim Creat Clear Calc Estimated GFR POC Glucose 141 H Random Glucose Calcium Phosphorus Magnesium Total Bilirubin AST ALT Alkaline Phosphatase Total Protein Albumin Assessment and Plan (1) Hypoxia: Status: Acute (2) Acute hyperkalemia: Status: Acute (3) End stage renal disease on dialysis: Status: Acute (4) Bradycardia: Status: Acute Assessment and Plan: 68-year-old male with pertinent history of peripheral vascular disease status post right BKA, congestive heart failure with preserved ejection fraction, ESRD on hemodialysis M/W/F with history of noncompliance with dialysis, metabolic syndrome, non insulin-dependent diabetes mellitus, coronary artery disease: Patient came to the hospital because of hyperkalemia, fluid overload, junctional bradycardia, toxic metabolic encephalopathy Required emergent dialysis and ICU admission downgraded by ICU this morning- Toxic metabolic encephalopathy: Seems to be improving with dialysis. Bradycardia: Possibly related in the setting of hyperkalemia due to missed dialysis. Hyperkalemia resolved, EKG repeated seems NSR. ESRD with fluid overload: Secondary to missing dialysis sessions Improving with dialysis. Continue to monitor respiratory status closely. got emergent HD yesterday On hemodialysis M/W/F nephrology eval pending Hyperkalemia: resolved with hd. Chronic normocytic anemia, closely monitor H&H, transfuse for hemoglobin less than 7 grams/deciliter dm:fs flacutaing Sliding scale insulin as needed Prophylaxis: Heparin, pantoprazole ongoing need for stay-esrd/fluid overload ,hyperkalemia ,junctional rythem- moniter renal function /elctrolytes , nephrology eval,closely moniter repiratory status. . Quality Stroke Does the patient have a stroke diagnosis?: No VTE Prior VTE?: No VTE Risk Level:: Medical - low VTE Device Contraindication: N/A - Device Ordered VTE Drug Contraindication: N/A - Med Ordered
[2024-02-12] MEDS: Sodium Zirconium Cyclosilicate 10 GM POWD.PACK PO (14:24)
--- NOTE | 2024-02-12 16:05 | MHC.CM.PN ---
PT IS A LTC RESIDENT OF [facility] PT IS SUPPOSED TO ATTEND HD IN [facility], HOWEVER HAS HAD SEVERAL ADMISSIONS DUE TO MISSING HD. PT USES A WHEEL CHAIR FOR MOBILITY PTS IS HIS HCP, ON FILE PCP: NICK MYERS [facility] DELIVERED DCP: RETURN TO [facility] VIA BLS
[2024-02-12 16:36] LABS: Glucose, Whole Blood 140 mg/dL (60-115)
[2024-02-12 20:21] LABS: Glucose, Whole Blood 129 mg/dL (60-115)
[2024-02-12] MEDS: clonazePAM 1 MG TABLET PO (20:30)
[2024-02-12] MEDS: traZODone HCL 50 MG TABLET PO (20:31)
[2024-02-13 03:44] VITALS: BP 160/50; PULSE 65; RESP 20; TEMP 36.2; O2SAT 98
[2024-02-13] MEDS: Acetaminophen 325 MG TABLET 650 MG PO ×2 (06:19→15:49)
[2024-02-13] MEDS: Pantoprazole Sodium 40 MG in 0.9 % Sodium Chloride 100 ML 400 MG IV (06:26)
[2024-02-13 07:55] VITALS: BP 158/72; PULSE 63; RESP 20; TEMP 36.4; O2SAT 95
[2024-02-13 07:56] LABS: Glucose, Whole Blood 98 mg/dL (60-115)
--- NOTE | 2024-02-13 11:51 | PM.CNNEP ---
History of Present Illness Reason for Consult Consult date: 02/13/24 Reason for consult: Hyperkalemia Chief Complaint Chief complaint: Missing dialysis History of Present Illness Narrative: 68-year-old gentleman with medical history of end-stage renal disease on maintenance hemodialysis M/W/F, CHF, CAD, DM, PAD s/p right BKA, presents feeling weak and tired after missing his hemodialysis session on Tuesday. Reportedly his transport did not show up on Tuesday so he could not go to his dialysis session. He had a hospital admission last week for the same reason. His potassium was found to be 6.2, HR in the 30s, pulmonary edema and was admitted to the ICU. had emergent HD on 02/10, hyperkalemia resolved and Cr improved from 12.3 to 4.2, though has increased to 7.4 on 02/11 pt has mild hyponatremia, most recent 132 from 02/11 (improved from 125 on admission). today on exam pt is alert and able to answer questions appropriately, though decline to answer orientation questions. He reports his breathing is comfortable he denies nausea/vomiting, no tremor/asterixis he denies new pain/cramps, though reports ongoing chronic back pain Review of Systems Constitutional: Denies anorexia, Denies fever(s) and Denies weakness Cardiovascular: Denies no additional cardiovascular complaints and Denies dyspnea Comments: No LE edema Respiratory: Reports no additional respiratory complaints and Denies dyspnea Gastrointestinal: Denies melena and Denies diarrhea Comments: anuric Musculoskeletal: Reports back pain, Denies muscle cramps and Denies tingling Skin/Breast: Denies rash Denies focal weakness, Denies tingling, Denies tremor(s) and Denies weakness Comments: no asterixis PMFSH Past Medical History Medical History Renal failure, chronic Junctional bradycardia End stage renal disease on dialysis Pulmonary edema Dialysis patient, noncompliant Anemia in chronic kidney disease (CKD) Bradycardia Dialysis patient, noncompliant Diabetes mellitus Hypertension Below-knee amputation of right lower extremity Hyperlipidemia Hypertension Peripheral vascular disease Chronic kidney disease on chronic dialysis Diabetes Social History Social History Household Members: Other Household Members Other:: LTC Housing: Unknown / Unable to assess Housing Other:: [facility] Do you presently have visiting nurse or other home services: No Patient Tobacco Use Status: Tobacco use Unknown Advance Directives Date on File: 01/17/24 service: No Meds Allergies Allergy/AdvReac Type Severity Reaction Status Date / Time garlic Allergy Severe Hives Verified 02/11/24 11:50 onion Allergy Severe Hives Verified 02/11/24 11:50 Peppers, Green Allergy Severe Hives Verified 02/11/24 11:50 Active Medications: Current Medications Acetaminophen (Acetaminophen 325 Mg Tablet) 650 mg PO Q4H PRN PRN Reason: Pain, Moderate(Pain Scale 4-6) Last Admin: 02/13/24 06:19 Dose: 650 mg Amlodipine Besylate (Amlodipine Besylate 5 Mg Tablet) 5 mg PO BID [facility]; Protocol Last Admin: 02/12/24 20:31 Dose: 5 mg Aspirin (Aspirin Enteric Coated 81 Mg Tablet.Dr) 81 mg PO DAILY [facility] Last Admin: 02/12/24 08:32 Dose: 81 mg Atorvastatin Calcium (Atorvastatin Calcium 80 Mg Tablet) 80 mg PO DAILY [facility] Last Admin: 02/12/24 08:31 Dose: 80 mg Bisacodyl (Bisacodyl 10 Mg Supp.Rect) 10 mg NM DAILY PRN PRN Reason: Constipation Clonazepam (Clonazepam 1 Mg Tablet) 1 mg PO BID [facility] Last Admin: 02/12/24 20:30 Dose: 1 mg Escitalopram Oxalate (Escitalopram Oxalate 10 Mg Tablet) 10 mg PO DAILY [facility] Last Admin: 02/12/24 12:24 Dose: 10 mg Heparin Sodium (Porcine) (Heparin Sodium,Porcine 5,000 Unit/Ml Vial) 5,000 unit SUBCUT Q8H [facility] Last Admin: 02/13/24 06:50 Dose: Not Given Hydralazine HCl (Hydralazine Hcl 10 Mg Tablet) 10 mg PO BID [facility]; Protocol Last Admin: 02/12/24 20:31 Dose: 10 mg Pantoprazole Sodium 40 mg/ (Sodium Chloride) 110 mls @ 400 mls/hr IV DAILY@0630 [facility] Last Infusion: 02/13/24 06:43 Dose: Infused Insulin Human Lispro (Insulin Lispro 100 Unit/Ml 3 Ml Vial) 0 unit SUBCUT QIDACHS [facility]; Protocol Last Admin: 02/13/24 08:22 Dose: Not Given Polyethylene Glycol (Polyethylene Glycol 3350 17 Gm Powd.Pack) 17 gm PO Q24H PRN PRN Reason: Constipation Senna/Docusate Sodium (Sennosides/Docusate Sodium Tablet) 1 tab PO Q24H PRN PRN Reason: Constipation Simethicone (Simethicone 80 Mg Tab.Chew) 80 mg PO Q6H PRN PRN Reason: Gas Sodium Chloride (0.9 % Sodium Chloride Flush 3 Ml Syringe) 3 ml IVFLUSH QSHIFT [facility] Last Admin: 02/13/24 09:13 Dose: Not Given Sodium Zirconium Cyclosilicate (Sodium Zirconium Cyclosilicate 10 Gm Powd.Pack) 10 gm PO SuTuThSa@0900 [facility] Last Admin: 02/12/24 14:24 Dose: 10 gm Trazodone HCl (Trazodone Hcl 50 Mg Tablet) 50 mg PO BEDTIME [facility] Last Admin: 02/12/24 20:31 Dose: 50 mg Home Medications ?Medication ?Instructions ?Recorded ?Confirmed ?Last Taken ?Type acetaminophen 325 mg tablet 650 mg PO Q6H PRN Fever/Pain 01/02/24 02/11/24 Unknown History aspirin 81 mg tablet,delayed 81 mg PO DAILY 01/02/24 02/11/24 01/17/24 12:00 History release atorvastatin 80 mg tablet 80 mg PO DAILY 01/02/24 02/11/24 01/17/24 12:00 History bisacodyl 10 mg rectal suppository 10 mg NM DAILY PRN Constipation 01/02/24 02/11/24 Unknown History citalopram 20 mg tablet 20 mg PO DAILY 01/02/24 02/11/24 01/17/24 12:00 History clonazepam 0.5 mg tablet 1 mg PO BID anxiety 01/02/24 02/11/24 01/17/24 12:00 History ibuprofen 600 mg tablet 600 mg PO Q6H PRN Pain 01/02/24 02/11/24 Unknown History isosorbide mononitrate 20 mg tablet 40 mg PO DAILY 01/02/24 02/11/24 01/17/24 12:00 History omeprazole 20 mg capsule,delayed 20 mg PO DAILY@0630 01/02/24 02/11/24 01/17/24 12:00 History release ondansetron 4 mg disintegrating 4 mg PO Q8H PRN Nausea/Vomiting 01/02/24 02/11/24 Unknown History tablet polyethylene glycol 3350 17 17 g PO Q24H PRN Constipation 01/02/24 02/11/24 Unknown History gram/dose oral powder sennosides 8.6 mg-docusate sodium 1 tab-cap PO Q24H PRN Constipation 01/02/24 02/11/24 Unknown History 50 mg capsule (Senna Plus) sevelamer HCl 800 mg tablet 1,600 mg PO TIDWM 01/02/24 02/11/24 01/17/24 12:00 History simethicone 80 mg chewable tablet 80 mg PO Q6H PRN GAS 01/02/24 02/11/24 01/16/24 History sodium phosphates 19 gram-7 118 ml NM DAILY PRN Constipation 01/02/24 02/11/24 Unknown History gram/118 mL enema (Fleet Enema) sodium zirconium cyclosilicate 10 10 g PO SUTUTHSA 01/02/24 02/11/24 01/17/24 12:00 History gram oral powder packet (Lokelma) trazodone 50 mg tablet 50 mg PO BEDTIME 01/31/24 02/11/24 Unknown History dextromethorphan HBr 5 mg/5 mL 10 mg PO Q4H PRN Cough 02/06/24 02/11/24 Unknown History oral syrup Physical Exam Vital Signs: Last Vital Signs Temp 97.6 F 02/13/24 07:55 Pulse 63 02/13/24 07:55 Resp 20 02/13/24 07:55 BP 158/72 H 02/13/24 07:55 Pulse Ox 95 02/13/24 07:55 O2 Del Method Nasal Cannula 02/13/24 07:55 O2 Flow Rate 2 02/13/24 07:55 FiO2 65 02/11/24 21:00 Oxygen Flow Rate 6 02/11/24 11:47 BMI result Body Mass Index 25.1 Const General: comfortable and no acute distress Neck Neck: Yes supple Resp Auscultation: clear to auscultation bilaterally Cardio Jugular venous distension: no JVD Rate: regular rate Heart sounds: Murmur heart sound present GI Palpation (GI): Soft to palpation Auscultation: normal bowel sounds General: Yes no CVA tenderness Back/Spine/Pelvis Back: no CVA tenderness Skin General skin exam: no rashes or lesions noted Neuro General: moves all extremities Extrem General: No edema Results Lab Results 02/12/24 06:21 02/12/24 06:21 Lab results: Chemistry 02/11/24 02/11/24 02/12/24 12:44 19:58 06:21 Sodium 125 L 133 L 132 L Potassium 6.2 H* D 3.5 D 4.6 D Carbon Dioxide 22 25 25 BUN 50 H 15 23 H Creatinine 12.38 H* 4.22 H* 7.40 H* Calcium 9.4 10.0 D 9.6 Phosphorus 5.1 H 2.2 L Hematology 02/11/24 02/12/24 12:44 06:21 WBC 5.2 4.7 L Hgb 8.8 L 8.8 L Plt Count 172 184 Assessment and Plan (1) Dialysis patient, noncompliant: Status: Acute (2) End stage renal disease on dialysis: Status: Acute (3) Acute hyperkalemia: Status: Acute (4) Hypoxia: Status: Acute (5) Hyponatremia: Status: Acute Plan ESRD on dialysis encephalopathy resolved, resolved pulmonary edema and electrolyte imbalance secondary to missed dialysis session he will need HD today (M/W/F) hyperkalemia resolved, hyponatremia improving hypoxia has improved since HD Daily weights, monitor blood pressure PO water restriction for hyponatremia phosphorous is low- hold phos binders no potassium supplementation as pt is on HD Keep on low 2Gm potassium diet check parathyroid hormone anemia due to CKD, needs retacrit 10,000 units x1 maintain hematocrit between 33-36% Discussed with Dr Mike Vyas Date of Service Date of Service: 02/13/24
[2024-02-13] MEDS: amLODIPine Besylate 5 MG TABLET PO (12:58)
[2024-02-13] MEDS: clonazePAM 1 MG TABLET PO (12:58)
[2024-02-13] MEDS: Escitalopram Oxalate 10 MG TABLET PO (12:58)
[2024-02-13] MEDS: hydrALAZINE HCl 10 MG TABLET PO (12:58)
[2024-02-13] MEDS: Aspirin Enteric Coated 81 MG TABLET.DR PO (12:58)
[2024-02-13] MEDS: Atorvastatin Calcium 80 MG TABLET PO (12:59)
[2024-02-13 13:04] VITALS: BP 122/78; PULSE 62; RESP 18; TEMP 36.4; O2SAT 94
[2024-02-13 13:05] LABS: Glucose, Whole Blood 123 mg/dL (60-115)
[2024-02-13] MEDS: Epoetin Alfa-epbx 10,000 UNIT/ML VIAL 10000 UNIT SUBCUT (13:06)
--- NOTE | 2024-02-13 14:27 | P.DS_ITS ---
DS: Providers Provider Date of Service: 02/13/24 Date of admission: 02/11/24 14:21 Date of discharge: 02/13/24 Primary care physician: Unknown Physician Consults: 02/12/24 07:34 Consult to Nephrology Routine Consulting Provider: [facility] Reason for consultation: esrd,hypo NA,Hyper K, fluid overload Has provider been notified: No 02/12/24 07:36 Consult to Wound Care Routine Reason for consultation: wound care Has provider been notified: No Attending physician on discharge: Rohit Larson Discharging clinician: Rohit Larson DS: Diagnosis Discharge Diagnosis (1) Hypoxia: Status: Acute (2) Acute hyperkalemia: Status: Acute (3) End stage renal disease on dialysis: Status: Acute (4) Bradycardia: Status: Acute DS: Summary Hospital Course Hospital Course: 68-year-old gentleman with past medical history of end-stage renal disease on maintenance hemodialysis M/W/F presents feeling weak and tired as he missed his hemodialysis session on Tuesday. He states his transport did not show up on Tuesday so he could not go to his dialysis session; he stated the same reason for the hospital admission earlier this week and his presentation is exactly the same as the previous admission. When contacted the transport company they told us that patient did not show up. His potassium was found to be 6.2, patient is in junctional bradycardia with heart rate in 30s so MICU was consulted for admission. His PMH is also pertinent for insulin-dependent diabetes mellitus, coronary artery disease, peripheral artery disease status post right leg BKA , congestive heart failure with preserved ejection fraction, metabolic syndrome. hospital course: Patient was admitted to the hospital because because ESRD with fluid overload, hyperkalemia, junctional rhythm-patient required emergent dialysis in ICU, [facility]: Subsequently seems to be improved significantly. Denies shortness of breath, hyperkalemia resolved, sats are in 90's range,repeat EKG NSR. Patient was strongly advised for dialysis compliance. Of note: Patient has scratched his nose and had mild epistaxis, which is spontaneously resolved. Patient will be going back to the rehab today. plan: Strongly advised to compliance with dialysis. Assessment and plan coordination time spent 40 minute. Time Attestation Total time managing care of this patient today: 40 mintues. Discharge Coordination Time (in mins): 40 min Quality: Safe Use of Opioids Does Pt have an Active Cancer Diagnosis on the Problem List?: No Quality: Stroke Does the patient have a stroke diagnosis?: No Physical Exam Vital Signs: Vital Signs: Last Vital Signs Temp 97.6 F 02/13/24 13:04 Pulse 62 02/13/24 13:04 Resp 18 02/13/24 13:04 BP 122/78 02/13/24 13:04 Pulse Ox 94 02/13/24 13:04 O2 Del Method Nasal Cannula 02/13/24 13:04 O2 Flow Rate 2 02/13/24 13:04 FiO2 65 02/11/24 21:00 Oxygen Flow Rate 6 02/11/24 11:47 BMI result Body Mass Index 25.1 Appearance: Alert.? Oriented, not in distress. Eyes: Pupils equal, round and reactive to light.? Sclera nonicteric.? ENT: Pharynx normal.? Moist mucous membranes. cvs: rrr, [id number] , no murmur res: clear to auscultation ,no rhonchii or wheezing abd: no rebound or guarding ,nt, bs present. ext pulses present , no cyanosis. neuro: nonfocal. DS: Data Data Completed and Pending Completed studies during hospitalization [Text1]: Procedures Assistance with Respiratory Ventilation, Less than 24 Consecutive Hours, Con tinuous Positive Airway Pressure (01/26/24) Performance of Urinary Filtration, Intermittent, Less than 6 Hours Per Day (01/31/24) Labs on day of discharge: Laboratory Results - last 24 hr 02/12/24 02/12/24 02/13/24 16:17 20:17 07:43 POC Glucose 140 H 129 H 98 02/13/24 12:57 POC Glucose 123 H Imaging Chest x-ray: Radiologist's impression: ITS Impressions Chest X-Ray 02/11/24 11:50 IMPRESSION: No significant interval change in the diffusely scattered interstitial and nodular patchy opacities in the lungs compared to previous x-ray of 02/06/2024. Mild interval improvement is noted on the x-rays of 01/27/2024 and 01/31/2024. The findings are most probably suggestive of interstitial/pulmonary edema however infectious/inflammatory processes are also in the differential. Recommend clinical correlation. Electronically signed by: Amy Gómez MD 02/11/2024 02:05 PM EDT RP Discharge Plan Discharge Anticipated Discharge Date/Time: 02/12/24 15:00 Patient Disposition: Xfer SNF Discharge Diagnosis: acute hypoxemic respiratory failure due to ESRD,hyperkalemia,junctional bradycardia Referrals: Physician,Unknown J [Primary Care Provider] - 1 Week Discharge Medications: Continued trazodone 50 mg Tablet 50 mg PO BEDTIME dextromethorphan HBr 5 mg/5 mL Syrup 10 mg PO Q4H PRN (Reason: Cough) atorvastatin 80 mg tablet 80 mg PO DAILY acetaminophen 325 mg Tablet 650 mg PO Q6H PRN (Reason: Fever/Pain) isosorbide mononitrate 20 mg Tablet 40 mg PO DAILY Protocol: Hold for SBP< HOLD for SBP < : 100 sevelamer HCl 800 mg Tablet 1,600 mg PO TIDWM Rx Instructions: must administer with a meal/food clonazepam 0.5 mg tablet 1 mg PO BID aspirin 81 mg tablet,delayed release (DR/EC) 81 mg PO DAILY citalopram 20 mg tablet 20 mg PO DAILY bisacodyl 10 mg Suppository 10 mg NH DAILY PRN (Reason: Constipation) Rx Instructions: No BM in 8 Hrs after M.O.M Fleet Enema 19-7 gram/118 mL Enema 118 ml NH DAILY PRN (Reason: Constipation) Rx Instructions: (step 3) No BM in 8 Hours after Bisacodyl supp. omeprazole 20 mg Capsule,Delayed Release(Dr/Ec) 20 mg PO DAILY@0630 ibuprofen 600 mg Tablet 600 mg PO Q6H PRN (Reason: Pain) polyethylene glycol 3350 17 gram/dose Powder 17 g PO Q24H PRN (Reason: Constipation) ondansetron 4 mg Tablet,Disintegrating 4 mg PO Q8H PRN (Reason: Nausea/Vomiting) simethicone 80 mg Tablet,Chewable 80 mg PO Q6H PRN (Reason: GAS) Lokelma 10 gram Powder In Packet 10 g PO SUTUTHSA Senna Plus 8.6-50 mg Capsule 1 tab-cap PO Q24H PRN (Reason: Constipation) hydralazine 10 mg Tablet 10 mg PO BID Qty: 0 0RF Protocol: Hold for SBP< HOLD for SBP < : 90 amlodipine 5 mg Tablet 5 mg PO BID Qty: 0 0RF Protocol: Hold for SBP< HOLD for SBP < : 90 Discharge Orders: Discharge Order (Routine); Ordered 02/13/24 Ordered By: Rohit Larson Diet: Advance to usual diet Activity on Discharge: As tolerated Stand Alone Forms: Patient Portal Discharge page Print Language: Vietnamese Care Plan Goals: Patient was admitted to the hospital because because ESRD with fluid overload, hyperkalemia, junctional rhythm-patient required emergent dialysis in ICU, [facility]: Subsequently seems to be improved significantly. Denies shortness of breath, hyperkalemia resolved, repeat EKG NSR. Patient was strongly advised for dialysis compliance. Patient will be going back to the rehab today. Health Concerns: As above. Plan of Treatment: As above. Assessment: As above.
--- NOTE | 2024-02-13 14:45 | MHC.CM.PN ---
Addendum entered by Ashanti Kaiser 02/13/24 15:37: [facility] UNAVAILABLE PRIOR TO 1730 HOURS Original Note: PT CLEARED TO RETURN TO LTC AT [facility] TODAY BLS TRANSPORT BOOKED WITH [facility] FOR 1600 HOURS
[2024-02-13 15:35] VITALS: BP 160/71; PULSE 62; RESP 19; TEMP 36.3; O2SAT 94
[2024-02-13 15:44] LABS: Glucose, Whole Blood 153 mg/dL (60-115)
[2024-02-13] MEDS: 0.9 % Sodium Chloride Flush 3 ML SYRINGE IVFLUSH (15:51)
== END 2024-02-13 18:15 | disposition intermediate care facility (04) | DRG 640 ==
LOC: HO.ED 13:51 → HO.EDOVER 14:26 → HO.ICU 15:20 → HO.IMC 02-12 05:11
PROVIDERS: Registered Nurse Community Health; Admitting Provider Internal Medicine Critical Care Medicine; Emergency Provider Emergency Medicine; PCP Internal Medicine Nephrology; Visit Provider Internal Medicine
DX: E87.70 Fluid overload, unspecified (principal); G92.8 Other toxic encephalopathy; N18.6 End stage renal disease; J96.01 Acute respiratory failure with hypoxia; I13.2 Hypertensive heart and chronic kidney disease with heart failure and with stage 5 chronic kidney disease, or end stage renal disease; I50.32 Chronic diastolic (congestive) heart failure; E88.810 Metabolic syndrome; E87.5 Hyperkalemia; Z20.822 Contact with and (suspected) exposure to COVID-19; I25.10 Atherosclerotic heart disease of native coronary artery without angina pectoris; I49.8 Other specified cardiac arrhythmias; E11.22 Type 2 diabetes mellitus with diabetic chronic kidney disease; D63.1 Anemia in chronic kidney disease; Z99.2 Dependence on renal dialysis; Z91.158 Patient's noncompliance with renal dialysis for other reason; Z99.81 Dependence on supplemental oxygen; Z89.511 Acquired absence of right leg below knee; Z79.82 Long term (current) use of aspirin; Z79.899 Other long term (current) drug therapy
CPT/HCPCS: 0241U; 36415; 71045; 80048; 80053; 80076; 82803; 82947; 83690; 83735; 83880; 84100; 84484; 85025; 90999; 93005; 99285; J0360; J1644; J2470; Q5106

== ENCOUNTER → 2024-02-11 14:21 | Outpatient (BNV) | payer MEDICARE, MEDICAID, SELFPAY | PROVIDERS: Admitting Provider Internal Medicine Critical Care Medicine; Emergency Provider Emergency Medicine; Visit Provider Internal Medicine | DX: E87.5 Hyperkalemia (principal); N18.6 End stage renal disease; Z99.2 Dependence on renal dialysis; Z91.158 Patient's noncompliance with renal dialysis for other reason; R09.02 Hypoxemia; R00.1 Bradycardia, unspecified | CPT/HCPCS: 99231; 99239 ==

== ENCOUNTER → 2024-02-11 14:21 | Outpatient (BNV) | payer MEDICARE, MEDICAID, SELFPAY | PROVIDERS: Admitting Provider Internal Medicine Critical Care Medicine; Emergency Provider Emergency Medicine; Visit Provider Internal Medicine Critical Care Medicine | DX: N18.6 End stage renal disease (principal); Z99.2 Dependence on renal dialysis; E87.5 Hyperkalemia; R09.02 Hypoxemia; I50.9 Heart failure, unspecified | CPT/HCPCS: 99223 ==

== ENCOUNTER → 2024-02-11 14:21 | Outpatient (BNV) | payer MEDICARE, MEDICAID, SELFPAY | PROVIDERS: Admitting Provider Internal Medicine Critical Care Medicine; Emergency Provider Emergency Medicine; Visit Provider Nurse Practitioner Family | DX: Z91.158 Patient's noncompliance with renal dialysis for other reason (principal); N18.6 End stage renal disease; Z99.2 Dependence on renal dialysis; E87.5 Hyperkalemia; R09.02 Hypoxemia; E87.1 Hypo-osmolality and hyponatremia | CPT/HCPCS: 90935 ==

== ENCOUNTER 2024-04-16 20:07 | Inpatient (IN) | payer OTHER, SELFPAY ==
--- NOTE | ~2024-04-16 | XR_ITS ---
EXAMINATION: XR CHEST CLINICAL INFORMATION: dyspnea COMPARISON: February 11, 2024 TECHNIQUE: Frontal view of the chest was obtained. FINDINGS: The cardiomediastinal silhouette is stable. There is perihilar increased markings and patchy perihilar infiltrative change bilaterally. There are significant pleural effusions. The bony structures and the soft tissues are unremarkable. XR/XR chest 1V IMPRESSION: Perihilar increased markings and patchy perihilar infiltrative change bilaterally. Consider interstitial and early pulmonary edema. A similar finding was seen on prior study. Electronically signed by: Nehemiah Jurado MD 04/16/2024 11:35 PM [facility]
[2024-04-16 20:25] VITALS: BP 169/56; PULSE 62; RESP 16; TEMP 36.5; O2SAT 94; BMI 31.4
[2024-04-16 20:26] VITALS: BP 198/66; PULSE 61; O2SAT 98
[2024-04-16] MEDS: Acetaminophen 325 MG TABLET 650 MG PO (21:34)
[2024-04-16 22:51] VITALS: BP 182/57; PULSE 66; RESP 20; TEMP 36.8; O2SAT 94
--- NOTE | 2024-04-16 23:17 | ECG_ITS ---
Test Reason : EPITAXIS Blood Pressure : / mmHG Vent. Rate : 069 BPM Atrial Rate : 069 BPM P-R Int : 250 ms QRS Dur : 104 ms QT Int : 440 ms P-R-T Axes : 039 -27 -17 degrees QTc Int : 471 ms Sinus rhythm with 1st degree A-V block Minimal voltage criteria for LVH, may be normal variant ( [place] product ) T wave abnormality, consider anterior ischemia Abnormal ECG When compared with ECG of 12-FEB-2024 09:14, Minimal criteria for Anterior infarct are no longer Present Referred By: Flower Patel Electronically Signed By:ROSA JIMENEZ
--- NOTE | 2024-04-16 23:24 | ED.EPISTAXIS ---
History of Present Illness General Chief Complaint: Epistaxis Stated Complaint: missed dialysis, from snf Time Seen by Provider: 04/16/24 23:14 Source: patient, EMS and old records reviewed Mode of arrival: EMS Limitations: no limitations History of Present Illness HPI Narrative: 68 yo male with ESRD HD on MWF, HLD, HTN, GERD, noncompliance with HD reports issues with transportation he is at [facility] right now - he comes in today with c/o missing HD but has no complaints other than intermittent x 7 nose bleeds L nares. He is not on blood thinners. He has hx of this in past. He denies swallowing blood now. He has no other complaints. Location: Yes left naris Onset/current episode: Yes day(s) Duration: Yes now resolved Pertinent past history: Yes hypertension and Yes history of previous nose bleed Context: Yes history of previous nose bleed Treatment prior to arrival: Yes nose pinching and Yes head leaning forward Related Data Home Medications ?Medication ?Instructions ?Recorded ?Confirmed acetaminophen 325 mg tablet 650 mg PO Q6H PRN Fever/Pain 01/02/24 02/11/24 aspirin 81 mg tablet,delayed 81 mg PO DAILY 01/02/24 02/11/24 release atorvastatin 80 mg tablet 80 mg PO DAILY 01/02/24 02/11/24 bisacodyl 10 mg rectal suppository 10 mg FL DAILY PRN Constipation 01/02/24 02/11/24 citalopram 20 mg tablet 20 mg PO DAILY 01/02/24 02/11/24 clonazepam 0.5 mg tablet 1 mg PO BID anxiety 01/02/24 02/11/24 isosorbide mononitrate 20 mg tablet 40 mg PO DAILY 01/02/24 02/11/24 omeprazole 20 mg capsule,delayed 20 mg PO DAILY@0630 01/02/24 02/11/24 release ondansetron 4 mg disintegrating 4 mg PO Q8H PRN Nausea/Vomiting 01/02/24 02/11/24 tablet polyethylene glycol 3350 17 17 g PO Q24H PRN Constipation 01/02/24 02/11/24 gram/dose oral powder sennosides 8.6 mg-docusate sodium 1 tab-cap PO Q24H PRN Constipation 01/02/24 02/11/24 50 mg capsule (Senna Plus) sevelamer HCl 800 mg tablet 1,600 mg PO TIDWM 01/02/24 02/11/24 simethicone 80 mg chewable tablet 80 mg PO Q6H PRN GAS 01/02/24 02/11/24 sodium phosphates 19 gram-7 118 ml FL DAILY PRN Constipation 01/02/24 02/11/24 gram/118 mL enema (Fleet Enema) sodium zirconium cyclosilicate 10 10 g PO SUTUTHSA 01/02/24 02/11/24 gram oral powder packet (Lokelma) trazodone 50 mg tablet 50 mg PO BEDTIME 01/31/24 02/11/24 dextromethorphan HBr 5 mg/5 mL 10 mg PO Q4H PRN Cough 02/06/24 02/11/24 oral syrup Previous Rx's ?Medication ?Instructions ?Recorded hydralazine 10 mg tablet 10 mg PO BID #0 tabs 01/20/24 amlodipine 5 mg tablet 5 mg PO BID #0 tabs 02/13/24 Allergies Allergy/AdvReac Type Severity Reaction Status Date / Time garlic Allergy Severe Hives Verified 04/16/24 20:27 onion Allergy Severe Hives Verified 04/16/24 20:27 Peppers, Green Allergy Severe Hives Verified 04/16/24 20:27 Review of Systems Review of Systems: Constitutional : No Fever, No Chills ENT/Mouth : No Ear Pain, No Nasal Congestion, positive nose bleed Eyes: No Eye Pain, No Swelling, No Redness Cardiovascular : No Chest Pain, No SOB Respiratory : No Cough, No Sputum Gastrointestinal : No Nausea, No Vomiting, No Diarrhea Genitourinary : No Dysuria, No Hematuria Musculoskeletal : No joint pain, No Myalgias Skin : No Skin Lesions, No rash Neuro : No Weakness, No Numbness, No headache Psych : No Anxiety/Panic, No Depression Heme/Lymph: positive Bleeding,No Lymphadenopathy Endocrine : No Polyuria, No Polydipsia All other systems reviewed and are negative [facility] Past Medical History Attestation statement: The following information was validated with the patient. Source: old records reviewed Medical History Renal failure, chronic Junctional bradycardia End stage renal disease on dialysis Pulmonary edema Dialysis patient, noncompliant Anemia in chronic kidney disease (CKD) Bradycardia Dialysis patient, noncompliant Diabetes mellitus Hypertension Below-knee amputation of right lower extremity Hyperlipidemia Hypertension Peripheral vascular disease Chronic kidney disease on chronic dialysis Diabetes Social History Social History Household Members: Other Household Members Other:: LTC Housing: Unknown / Unable to assess [facility] Do you presently have visiting nurse or other home services: No Patient Tobacco Use Status: Tobacco use Unknown Smoked in Last 30 Days: No Use of substances other than those prescribed or required for medical reasons: No Advance Directives: Yes Advance Directives on File: Yes Advance Directives Date on File: 01/17/24 Do you have a plan to hurt others: No Plan service: No Physical Exam Vital Signs: Vital Signs: Last Vital Signs Temp 98.3 F 04/16/24 22:51 Pulse 66 04/16/24 22:51 Resp 20 04/16/24 22:51 BP 182/57 H 04/16/24 22:51 Pulse Ox 94 04/16/24 22:51 O2 Del Method Nasal Cannula 04/16/24 22:51 Oxygen Flow Rate 4 04/16/24 20:25 BMI result Body Mass Index 31.4 Appearance: Alert. Oriented X3. No acute distress. Eyes: Pupils equal, round and reactive to light. ENT: Pharynx normal. no blood in back of throat, L nares dried blood noted but also L anterior plexus red and I see one engorged vessel, no active bleeding Neck: Normal inspection. Neck supple. CVS: Normal heart rate and rhythm. Pulses normal. Respiratory: No respiratory distress. Breath sounds normal. Abdomen: Soft and nontender. Skin: Skin warm and dry. Normal skin color. Normal skin turgor. Extremities: No lower extremity edema. R AKA Neuro: Oriented X 3. No motor deficit. No sensory deficit. Course Course Course Narrative: 2L NC due to sats 88% now on oxy mask humidified due to nose bleed - 94% Medications Administered Discontinued Medications Generic Name Dose Route Start Last Admin Trade Name Freq PRN Reason Stop Dose Admin Acetaminophen 650 mg 04/16/24 21:14 04/16/24 21:34 Acetaminophen 325 Mg Tablet PO 04/16/24 21:15 650 mg ONCE ONE Administration Oxymetazoline HCl 2 spray 04/16/24 23:17 04/16/24 23:35 Oxymetazoline Hcl 0.05 % Nasal 15 Ml [place] NOSTRIL-B 04/16/24 23:18 2 spray ONCE ONE Administration Silver Nitrate 1 appl 04/16/24 23:17 04/16/24 23:35 Silver Nitrate Applicator Stick..Ea. TOPICAL 04/16/24 23:18 1 appl ONCE ONE Administration Tranexamic Acid 500 mg 04/16/24 23:17 04/16/24 23:35 Tranexamic Acid 1,000 Mg/10 Ml Vial INTRANASAL 04/16/24 23:18 500 mg ONCE ONE Administration Medical Decision Making Medical Decision Making MDM Narrative: 68 yo male with ESRD HD on MWF, HLD, HTN, GERD, noncompliance with HD now here with resolved L nose bleed at this time I will order labs, EKG, CXR given missed HD - last went Tuesday for nose bleed plan to start on afrin/tranexamic acid and cauterize the area. He has no active bleeding right now. Differential Diagnosis Differential Diagnoses: The differential diagnosis associated with the presentation includes non-compliance, edema/hyperkalemia, epistaxis Admission/Observation Consideration of admission/observation: Escalation of care including admission/observation considered acute on chronic Na baseline 2L supplemental O2 Na 123 plan to admit overnight Consult Healthcare Provider Management of the patient was discussed with: Hospitalist (will admit) Lab Data [facility] Lab Attestation statement: I reviewed the patient's lab results. 04/17/24 00:11 04/17/24 00:11 Labs: Lab Results 04/17/24 Range/Units 00:11 WBC 5.7 (4.8-10.8) X10*3/uL RBC 3.25 L (4.60-5.80) X10*6/uL Hgb 9.7 L (14.0-18.0) g/dl Hct 28.7 L (42.0-52.0) % MCV 88.3 (80.0-98.0) fL MCH 29.8 (27.0-33.0) pg MCHC 33.8 (31.0-36.0) g/dl RDW 14.1 (11.0-16.0) % Plt Count 174 (160-400) X10*3/uL MPV 9.3 L (9.4-12.4) fL Immature Gran % (Auto) 0.5 H (0.0-0.4) % Neut % (Auto) 72.5 (45-73) % Lymph % (Auto) 16.4 L (20-40) % [place] % (Auto) 6.8 (2-11) % Eos % (Auto) 3.5 (0-4) % Baso % (Auto) 0.3 (0-2) % Lymph # (Auto) 0.9 L (1.2-4.9) X10*3/uL [place] # (Auto) 0.4 (0.1-1.2) X10*3/uL Eos # (Auto) 0.2 (0.0-0.4) X10*3/uL Baso # (Auto) 0.0 (0.0-0.2) X10*3/uL Abs Immat Gran (auto) 0.03 (0.00-0.03) X10*3/uL Absolute Neuts (auto) 4.1 (2.0-8.3) x10*3/uL Absolute Nucleated RBC 0.000 (0.0-0.012) X10*3/uL Nucleated RBC % (auto) 0.0 (0.0-0.2) /100WBC Sodium 123 L (135-145) mmol/L Potassium 5.2 H (3.3-5.1) mmol/L Chloride 88 L (96-108) mmol/L Carbon Dioxide 20 L (22-29) mmol/L Anion Gap 20 (12-20) BUN 46 H (9-16) mg/dL Creatinine 8.36 H* (0.5-1.4) mg/dL Estim Creat Clear Calc 9.6 Estimated GFR 6 Random Glucose 118 H (60-115) mg/dL Calcium 9.1 (8.4-10.2) mg/dL Total Bilirubin 0.5 (0.0-1.0) mg/dL AST 19 (5-37) U/L ALT 7 (0-40) U/L Alkaline Phosphatase 131 H (39-117) U/L Total Protein 6.8 (6.5-8.0) g/dL Albumin 3.4 L (3.5-5.0) g/dL Independent Interpretation I performed an independent interpretation of an: EKG and Plain X-Ray (pulm edema) Interpretation: Rate: 69 Rhythm: NSR with 1st degree AVB [place]: left Normal P waves. 1st degree AVB Normal QRS complex. ST T wave : no RAISA, inverted t waves V1, V2, V3, III, aVF qTC: 471 prior studies: hx of similar changes The study has been interpreted contemporaneously by me. . Radiology Impression Discussion of test interpretation with radiology: I have reviewed the radiologist's reading. Independent Historian Clinical information obtained from an independent historian. History obtained from or confirmed by: EMS External Record Review External record reviewed: Outpatient record Procedures Epistaxis Control Time Out Performed: Yes Nostril: Yes left Nose prepped with: Yes oxymetazoline Direct inspection: Yes anterior source identified Direct inspection method: Yes nasal rhinoscope Clots removed by: Yes blowing nose Epistaxis treatment: Yes TXA soaked gauze and Yes silver nitrate cautery Results of treatment: Yes bleeding controlled Complications: Yes none Discharge Plan Discharge Clinical Impression: Epistaxis, Acute hyponatremia Pulmonary edema Qualifiers: Chronicity: acute Qualified Code(s): J81.0 - Acute pulmonary edema Patient Disposition: Admitted As Inpatient Print Language: Mohawk
[2024-04-16] MEDS: Oxymetazoline HCl 0.05 % Nasal 15 ML SPRAY 2 SPRAY NOSTRIL-B (23:35)
[2024-04-16] MEDS: Tranexamic Acid 1,000 MG/10 ML VIAL 500 MG INTRANASAL (23:35)
[2024-04-16] MEDS: Silver Nitrate Applicator STICK..EA. 1 APPL TOPICAL (23:35)
[2024-04-17] VITALS (13 sets, daily range): BP systolic 147–196; BP diastolic 47–86; PULSE 37–73; RESP 16–20; TEMP 36.1–37.1; O2SAT 91–100; BMI 30.9
[2024-04-17 00:15] LABS: MANUAL DIFF FLAG NO
[2024-04-17 00:17] LABS: Basophils Percent Auto 0.3 % (0-2); Eosinophils Absolute Auto 0.2 X10*3/uL (0.0-0.4); Eosinophils Percent Auto 3.5 % (0-4); Hematocrit 28.7 % (42.0-52.0); Hemoglobin 9.7 g/dl (14.0-18.0); Imm Gran Abs Auto 0.03 X10*3/uL (0.00-0.03); Imm Gran Pct Auto 0.5 % (0.0-0.4); Lymphocytes Absolute Auto 0.9 X10*3/uL (1.2-4.9); Lymphocytes Percent Auto 16.4 % (20-40); Mean Corpuscular HGB Conc 33.8 g/dl (31.0-36.0); Mean Corpuscular Hemoglobin 29.8 pg (27.0-33.0); Mean Corpuscular Volume 88.3 fL (80.0-98.0); Mean Platelet Volume 9.3 fL (9.4-12.4); Monocytes Absolute Auto 0.4 X10*3/uL (0.1-1.2); Monocytes Percent Auto 6.8 % (2-11); Neutrophils Absolute Auto 4.1 x10*3/uL (2.0-8.3); Neutrophils Percent Auto 72.5 % (45-73); Platelet Count 174 X10*3/uL (160-400); Red Blood Count 3.25 X10*6/uL (4.60-5.80); Red Cell Distribution Width 14.1 % (11.0-16.0); White Blood Count 5.7 X10*3/uL (4.8-10.8)
[2024-04-17 00:33] LABS: Alanine Aminotransferase 7 U/L (0-40); Albumin Level 3.4 g/dL (3.5-5.0); Alkaline Phosphatase 131 U/L (39-117); Anion Gap 20 (12-20); Aspartate Amino Transferase 19 U/L (5-37); Bilirubin Total 0.5 mg/dL (0.0-1.0); Blood Urea Nitrogen 46 mg/dL (9-16); Calcium 9.1 mg/dL (8.4-10.2); Carbon Dioxide 20 mmol/L (22-29); Chloride 88 mmol/L (96-108); Creatinine Clr Calc Pharmacy 9.6; Estimated Glomerular Filt Rate 6; Glucose Random 118 mg/dL (60-115); Potassium 5.2 mmol/L (3.3-5.1); Sodium 123 mmol/L (135-145); Total Protein 6.8 g/dL (6.5-8.0)
--- NOTE | 2024-04-17 01:34 | MHC.EDTECH ---
This pct assumed care of Patient at 0100 ,vitals taken Patient was reposition and boosted up in bed ,Patient belongings list done .All safety measure in Place ,BRYON Dunbar is aware of Pt high blood Pressure .
--- NOTE | 2024-04-17 02:57 | P.HPHOSP_ITS ---
History of Present Illness Date of Service: 04/17/24 Attending physician on admission: Neil Cornejo Chief Complaint: Nosebleed Hamzah Lewis is a 68 years old man with past medical history significant for ESRD on HD (MWF), hyperlipidemia, hypertension and GERD was brought to the ED via EMS from [facility] due to nosebleed from the left nares and missing last hemodialysis. HPI was obtained from ED provider and ED notes as the patient refused to provide it because he wanted to sleep. He is not using any blood thinner. He was categorized with the emergency provider and no packing was required. In the ED, he was found to have stable vital signs. Last blood pressure is 188/59. He is currently requiring 2 liters/minute supplemental oxygen via OxyMask which is around his baseline. There is no leukocytosis. Hemoglobin is 9.7 which is around baseline. Creatinine is 8.36 and BUN 46. Potassium is 5.3, sodium 123 and CO2 20. LFTs are unremarkable except for slight elevation of alk-phos, 131. CXR showed perihilar increased markings and patchy peripheral infiltrates changes bilaterally. ECG showed normal sinus rhythm, 69 bpm, 1st AV block and T-wave inversions in anterior and inferior leads. ED tx: Tylenol 650 mg p.o., Afrin 2 sprays, TXA 500 mg intranasally, silver nitrate topical Review of Systems 2 Review of Systems: Patient refused [facility] Medical History Renal failure, chronic Junctional bradycardia End stage renal disease on dialysis Pulmonary edema Dialysis patient, noncompliant Anemia in chronic kidney disease (CKD) Bradycardia Dialysis patient, noncompliant Diabetes mellitus Hypertension Below-knee amputation of right lower extremity Hyperlipidemia Hypertension Peripheral vascular disease Chronic kidney disease on chronic dialysis Diabetes Social History Household Members: Other Household Members Other:: LTC Housing: Unknown / Unable to assess Housing Other:: [facility] Do you presently have visiting nurse or other home services: No Patient Tobacco Use Status: Current everyday Tobacco user Advance Directives Date on File: 01/17/24 service: No Meds Allergies Allergy/AdvReac Type Severity Reaction Status Date / Time garlic Allergy Severe Hives Verified 04/16/24 20:27 onion Allergy Severe Hives Verified 04/16/24 20:27 Peppers, Green Allergy Severe Hives Verified 04/16/24 20:27 Active Medications: Current Medications Acetaminophen (Acetaminophen 325 Mg Tablet) 975 mg PO Q6H PRN PRN Reason: Pain, Mild (Pain Scale 1-3), fever or headache Calcium Carbonate (Calcium Carbonate 750 Mg Tab.Chew) 750 mg PO Q4H PRN PRN Reason: Heartburn Heparin Sodium (Porcine) (Heparin Sodium,Porcine 5,000 Unit/Ml Vial) 5,000 unit SUBCUT Q12H [facility] Melatonin (Melatonin 3 Mg Tablet) 6 mg PO BEDTIME PRN PRN Reason: Insomnia Sodium Chloride (0.9 % Sodium Chloride Flush 3 Ml Syringe) 3 ml IVFLUSH QSHIFT [facility] Home Medications ?Medication ?Instructions ?Recorded ?Confirmed ?Last Taken ?Type acetaminophen 325 mg tablet 650 mg PO Q6H PRN Fever/Pain 01/02/24 02/11/24 Unknown History aspirin 81 mg tablet,delayed 81 mg PO DAILY 01/02/24 02/11/24 01/17/24 12:00 History release atorvastatin 80 mg tablet 80 mg PO DAILY 01/02/24 02/11/24 01/17/24 12:00 History bisacodyl 10 mg rectal suppository 10 mg GA DAILY PRN Constipation 01/02/24 02/11/24 Unknown History citalopram 20 mg tablet 20 mg PO DAILY 01/02/24 02/11/24 01/17/24 12:00 History clonazepam 0.5 mg tablet 1 mg PO BID anxiety 01/02/24 02/11/24 01/17/24 12:00 History isosorbide mononitrate 20 mg tablet 40 mg PO DAILY 01/02/24 02/11/24 01/17/24 12:00 History omeprazole 20 mg capsule,delayed 20 mg PO DAILY@0630 01/02/24 02/11/24 01/17/24 12:00 History release ondansetron 4 mg disintegrating 4 mg PO Q8H PRN Nausea/Vomiting 01/02/24 02/11/24 Unknown History tablet polyethylene glycol 3350 17 17 g PO Q24H PRN Constipation 01/02/24 02/11/24 Unknown History gram/dose oral powder sennosides 8.6 mg-docusate sodium 1 tab-cap PO Q24H PRN Constipation 01/02/24 02/11/24 Unknown History 50 mg capsule (Senna Plus) sevelamer HCl 800 mg tablet 1,600 mg PO TIDWM 01/02/24 02/11/24 01/17/24 12:00 History simethicone 80 mg chewable tablet 80 mg PO Q6H PRN GAS 01/02/24 02/11/24 01/16/24 History sodium phosphates 19 gram-7 118 ml GA DAILY PRN Constipation 01/02/24 02/11/24 Unknown History gram/118 mL enema (Fleet Enema) sodium zirconium cyclosilicate 10 10 g PO SUTUTHSA 01/02/24 02/11/24 01/17/24 12:00 History gram oral powder packet (Lokelma) trazodone 50 mg tablet 50 mg PO BEDTIME 01/31/24 02/11/24 Unknown History dextromethorphan HBr 5 mg/5 mL 10 mg PO Q4H PRN Cough 02/06/24 02/11/24 Unknown History oral syrup Physical Exam 2 Vital Signs and Narrative: Vital Signs: Last Vital Signs Temp 98.4 F 04/17/24 02:01 Pulse 68 04/17/24 02:01 Resp 16 04/17/24 02:01 BP 188/59 H 04/17/24 02:01 Pulse Ox 97 04/17/24 02:01 O2 Del Method Oxymask 04/17/24 02:01 O2 Flow Rate 2 04/17/24 02:01 Oxygen Flow Rate 4 04/16/24 20:25 BMI result Body Mass Index 31.4 Patient refused Results Labs 04/17/24 00:11 04/17/24 00:11 Labs: Laboratory Results - last 24 hr 04/17/24 00:11 MCV 88.3 MCH 29.8 MCHC 33.8 RDW 14.1 Plt Count 174 MPV 9.3 L Immature Gran % (Auto) 0.5 H Neut % (Auto) 72.5 Lymph % (Auto) 16.4 L Rincon % (Auto) 6.8 Eos % (Auto) 3.5 Baso % (Auto) 0.3 Lymph # (Auto) 0.9 L Rincon # (Auto) 0.4 Eos # (Auto) 0.2 Baso # (Auto) 0.0 Abs Immat Gran (auto) 0.03 Absolute Neuts (auto) 4.1 Absolute Nucleated RBC 0.000 Nucleated RBC % (auto) 0.0 Anion Gap 20 Estim Creat Clear Calc 9.6 Estimated GFR 6 Random Glucose 118 H Calcium 9.1 Total Bilirubin 0.5 AST 19 ALT 7 Alkaline Phosphatase 131 H Total Protein 6.8 Albumin 3.4 L Imaging Radiologist's Impressions: Impressions Chest X-Ray 04/16/24 23:17 IMPRESSION: Perihilar increased markings and patchy perihilar infiltrative change bilaterally. Consider interstitial and early pulmonary edema. A similar finding was seen on prior study. Electronically signed by: Nehemiah Jurado MD 04/16/2024 11:35 PM [facility] Assessment and Plan (1) Pulmonary edema: Qualifiers: Chronicity: acute Qualified Code(s): J81.0 - Acute pulmonary edema Status: Acute (2) Acute hyponatremia: Status: Acute (3) Epistaxis: Status: Acute Plan Hamzah Lewis is a 68 y/o man with PMHx significant for ESRD on HD (MWF) admitted with: * Mild hyperkalemia, metabolic acidosis and pulmonary edema/fluid overload. Missed hemodialysis/history of noncompliant with hemodialysis. Admit to hospitalist service. Nephrology consult for inpatient hemodialysis. Continue Lokelma. Continue to monitor potassium and CO2 level. Pulse oximetry. * Hyponatremia due to fluid overload/hypervolemic. Nephrology consult for inpatient hemodialysis. Continue to monitor Na+ level. * Epistaxis. Status post cauterization and TXA per ED. H&H stable. Resolved. Aspirin on hold. * T-wave abnormalities. Check troponin. * Hyperlipidemia. Continue statin. * Essential hypertension. Continue hydralazine and amlodipine. * Mood disorder. Continue citalopram. * PVD. Status post right BKA. Continue statin. * Diabetes mellitus. Diabetic diet. Blood glucose checks before meals and bedtime. Insulin sliding scale. DVT prophylaxis: SCDs Code status: Full Patient will need hospitalization for at least 2 midnights for fluid overload, hyperkalemia, metabolic acidosis and hyponatremia treatment with inpatient hemodialysis. Quality Stroke Does the patient have a stroke diagnosis?: No VTE Prior VTE?: No VTE Risk Level:: Medical - moderate - high VTE Device Contraindication: Treatment Not Indicated VTE Drug Contraindication: N/A - Med Ordered
--- NOTE | 2024-04-17 04:59 | PC.NURSE ---
Pts BP continues to gradually rise. Current BP 199/65 HR 60's. Pt is declining to take his 6am meds, hydralazine, amlodipine, and lokelma. And is also refusing to do his morning labs. [place] text sent to Dr. Perry.
--- NOTE | 2024-04-17 05:08 | PC.NURSE ---
Per Dr. Perry try to medicate again within the next two hours.
--- NOTE | 2024-04-17 05:38 | PC.NURSE ---
Pt offered 6am meds. Pt continues to decline.
--- NOTE | 2024-04-17 06:43 | MHC.EDTECH ---
Patient refused morning labs ,BRYON Dunbar aware .
[2024-04-17 07:19] LABS: Glucose, Whole Blood 112 mg/dL (60-115)
--- NOTE | 2024-04-17 08:03 | PC.NURSE ---
this nurse took over pt care at 7am, pt a&ox3, rr equal/non labored, lungs diminished throughout, iv inserted as he did not have one, surveillance monitor intact-nsr on monitor- pt noted to be hypertensive- to medicated patient as soon as pharmacy brings up missing meds, poc obtained, lt av fistula + bruit/thrill, pt has inpt bed will be giving report to go upstairs.
--- NOTE | 2024-04-17 08:13 | PC.NURSE ---
pharmacy called for missing med, pt agreeable to take medications but all at once, will wait for medication before attempting to give the others
--- NOTE | 2024-04-17 08:15 | PHA.MEDREC ---
Addendum entered by Sandra Chaidez RPh 04/17/24 08:32: MED REC REVIEWED BY BRIAN Original Note: Pharmacy Consult ? Medication Reconciliation Pharmacy has completed the medication reconciliation. Confirmed medications with list provided from [facility] and [facility].
[2024-04-17] MEDS: amLODIPine Besylate 5 MG TABLET PO ×2 (08:42→21:44)
[2024-04-17] MEDS: Sodium Zirconium Cyclosilicate 10 GM POWD.PACK PO (08:42)
[2024-04-17] MEDS: hydrALAZINE HCl 10 MG TABLET PO ×2 (08:42→21:44)
[2024-04-17] MEDS: 0.9 % Sodium Chloride Flush 3 ML SYRINGE IVFLUSH ×3 (08:44→21:44)
--- NOTE | 2024-04-17 08:44 | PC.NURSE ---
pt medicated per order
[2024-04-17] MEDS: Pantoprazole Sodium 40 MG/10 ML VIAL IVPUSH ×2 (09:49→17:28)
[2024-04-17] MEDS: Acetaminophen 325 MG TABLET 975 MG PO ×2 (09:49→21:50)
--- NOTE | 2024-04-17 11:20 | PM.EVENT ---
Event Note Date of Service: 04/17/24 Event Note: seen and examined this morning nurse reported one episode of coffee ground emesis. patient reports nausea. This is a 68 y/o man with PMHx significant for ESRD on HD (MWF) admitted with fluid overload and uncontrolled HTN due to missing dialysis Mild hyperkalemia, metabolic acidosis and pulmonary edema/fluid overload. Missed hemodialysis/history of noncompliant with hemodialysis d/w nephro - plan for HD today Continue Lokelma Continue to monitor potassium and CO2 level Hyponatremia due to fluid overload/hypervolemic should improve with HD Epistaxis. Status post cauterization and TXA per ED. H&H stable. hold ASA coffee ground emesis 1 episode ?due to irritation from epistaxis start IV PPI, recheck H/H, downgrade diet to clear liquids if recurrent episode will consult GI T-wave abnormalities troponin pending no chest pain if trop elevated or develops mood continue baseline SSRI reported SI when arriving to floor 1:1 sitter will need care team eval when medically stable Hyperlipidemia. Continue statin. Essential hypertension. Continue hydralazine and amlodipine. Mood disorder. Continue citalopram. PVD. Status post right BKA. Continue statin. Diabetes mellitus. Blood glucose checks before meals and bedtime. Insulin sliding scale. advance to diabetic diet in am if no further episodes of coffee ground emesis/vomiting DVT prophylaxis: SCDs Code status: Full Patient will need hospitalization for at least 2 midnights for fluid overload, hyperkalemia, metabolic acidosis and hyponatremia treatment with inpatient hemodialysis. Time Spent With Patient Time: Total time managing care of this patient today ____ minutes.
[2024-04-17] MEDS: ondansetron HCL 4 MG/2 ML VIAL IVPUSH (11:26)
--- NOTE | 2024-04-17 11:29 | PM.CNNEP ---
History of Present Illness Reason for Consult Consult date: 04/17/24 Chief Complaint Chief complaint: Pulmonary edema, hyponatremia History of Present Illness Narrative: Pt is a 68 y/o male with ESRD on HD hemodialysis M/W/F (states he goes to [facility] in [place] and is followed by Dr Luna [facility]), CHF, CAD, DM, PAD s/p right BKA. presented 04/17 from rehab facility with epistaxis, missed HD session yesterday (reports his last session was Tuesday, 04/13). Pulmonary edema on chest xray, pt requiring supplemental O2. Nephrology consulted for management of ESRD, hyponatremia, hyperkalemia, pulmonary edema. Pt reports his breathing is comfortable (on supplemental O2 mask) pt denies chest pain, abdominal pain, flank pain states he is anuric at baseline denies frequent nosebleeds- states this was 1x occurrence from left nare. denies other bleeding denies other symptoms/concerns Review of Systems Constitutional: Reports fatigue and Denies headache(s) Denies dizziness and Denies headache(s) Cardiovascular: Denies chest pain, Denies leg edema, Denies lightheadedness and Denies dyspnea Respiratory: Denies cough and Denies dyspnea Gastrointestinal: Denies abdominal pain, Denies constipation, Denies diarrhea, Denies nausea and Denies vomiting Genitourinary: Denies flank pain Comments: anuric at baseline Musculoskeletal: Denies arthralgias and Denies muscle cramps Skin/Breast: Denies rash Denies dizziness and Denies headache(s) Endocrine: Reports fatigue PMFSH Past Medical History Medical History Renal failure, chronic Junctional bradycardia End stage renal disease on dialysis Pulmonary edema Dialysis patient, noncompliant Anemia in chronic kidney disease (CKD) Bradycardia Dialysis patient, noncompliant Diabetes mellitus Hypertension Below-knee amputation of right lower extremity Hyperlipidemia Hypertension Peripheral vascular disease Chronic kidney disease on chronic dialysis Diabetes Social History Social History Household Members: Other Household Members Other:: LTC Housing: Long-Term Housing Other:: [facility] Do you presently have visiting nurse or other home services: Yes Patient Tobacco Use Status: Never used Tobacco Advance Directives Date on File: 01/17/24 service: No Meds Allergies Allergy/AdvReac Type Severity Reaction Status Date / Time garlic Allergy Severe Hives Verified 04/16/24 20:27 onion Allergy Severe Hives Verified 04/16/24 20:27 Peppers, Green Allergy Severe Hives Verified 04/16/24 20:27 Active Medications: Current Medications Acetaminophen (Acetaminophen 325 Mg Tablet) 975 mg PO Q6H PRN PRN Reason: Pain, Mild (Pain Scale 1-3), fever or headache Last Admin: 04/17/24 09:49 Dose: 975 mg Amlodipine Besylate (Amlodipine Besylate 5 Mg Tablet) 5 mg PO BID [facility]; Protocol Atorvastatin Calcium (Atorvastatin Calcium 40 Mg Tablet) 40 mg PO BEDTIME [facility] Bisacodyl (Bisacodyl 10 Mg Supp.Rect) 10 mg AR DAILY PRN PRN Reason: Constipation Calcium Carbonate (Calcium Carbonate 750 Mg Tab.Chew) 750 mg PO Q4H PRN PRN Reason: Heartburn Clonazepam (Clonazepam 1 Mg Tablet) 1 mg PO BID PRN PRN Reason: Anxiety Escitalopram Oxalate (Escitalopram Oxalate 10 Mg Tablet) 10 mg PO DAILY [facility] Glucose (Glucose Gel 15 Gm Gel..Gram.) 15 gm PO Q15M PRN; Protocol PRN Reason: per Hypoglycemia Standing Ord. Hydralazine HCl (Hydralazine Hcl 10 Mg Tablet) 10 mg PO BID [facility]; Protocol Dextrose (D10) 250 mls @ 750 mls/hr IV Q15M PRN; Protocol PRN Reason: per Hypoglycemia Standing Ord. Insulin Human Lispro (Insulin Lispro 100 Unit/Ml 3 Ml Vial) 0 unit SUBCUT QIDACHS [facility]; Protocol Last Admin: 04/17/24 07:46 Dose: Not Given Melatonin (Melatonin 3 Mg Tablet) 6 mg PO BEDTIME PRN PRN Reason: Insomnia Ondansetron HCl (Ondansetron Hcl 4 Mg/2 Ml Vial) 4 mg IVPUSH Q8H PRN PRN Reason: Nausea and Vomiting Pantoprazole Sodium (Pantoprazole Sodium 40 Mg/10 Ml Vial) 40 mg IVPUSH BID@0630,1630 [facility] Last Admin: 04/17/24 09:49 Dose: 40 mg Senna/Docusate Sodium (Sennosides/Docusate Sodium Tablet) 1 tab PO Q24H [facility] Sevelamer Carbonate (Sevelamer Carbonate Tablet 800 Mg Tablet) 1,600 mg PO TIDWM [facility] Sodium Chloride (0.9 % Sodium Chloride Flush 3 Ml Syringe) 3 ml IVFLUSH QSHIFT [facility] Last Admin: 04/17/24 08:44 Dose: 3 ml Sodium Zirconium Cyclosilicate (Sodium Zirconium Cyclosilicate 10 Gm Powd.Pack) 10 gm PO SUTUTHSA@1400 [facility] Trazodone HCl (Trazodone Hcl 50 Mg Tablet) 50 mg PO BEDTIME [facility] Home Medications ?Medication ?Instructions ?Recorded ?Confirmed ?Last Taken ?Type aspirin 81 mg tablet,delayed 81 mg PO DAILY 01/02/24 04/17/24 01/17/24 12:00 History release bisacodyl 10 mg rectal suppository 10 mg AR DAILY PRN Constipation 01/02/24 04/17/24 Unknown History citalopram 20 mg tablet 20 mg PO DAILY 01/02/24 04/17/24 01/17/24 12:00 History isosorbide mononitrate 20 mg tablet 40 mg PO DAILY 01/02/24 04/17/24 01/17/24 12:00 History omeprazole 20 mg capsule,delayed 20 mg PO DAILY@0630 01/02/24 04/17/24 01/17/24 12:00 History release ondansetron 4 mg disintegrating 4 mg PO Q8H PRN Nausea/Vomiting 01/02/24 04/17/24 Unknown History tablet polyethylene glycol 3350 17 17 g PO DAILY PRN Constipation 01/02/24 04/17/24 Unknown History gram/dose oral powder sennosides 8.6 mg-docusate sodium 1 tab-cap PO Q24H PRN Constipation 01/02/24 04/17/24 Unknown History 50 mg capsule (Senna Plus) sevelamer HCl 800 mg tablet 1,600 mg PO TIDWM 01/02/24 04/17/24 01/17/24 12:00 History simethicone 80 mg chewable tablet 80 mg PO Q6H PRN GAS 01/02/24 04/17/24 01/16/24 History sodium phosphates 19 gram-7 118 ml AR DAILY PRN Constipation 01/02/24 04/17/24 Unknown History gram/118 mL enema (Fleet Enema) sodium zirconium cyclosilicate 10 10 g PO SUTUTHSA@1400 01/02/24 04/17/24 01/17/24 12:00 History gram oral powder packet (Lokelnicole) trazodone 50 mg tablet 50 mg PO BEDTIME 01/31/24 04/17/24 Unknown History dextromethorphan HBr 5 mg/5 mL 10 mg PO Q4H PRN Cough 02/06/24 04/17/24 Unknown History oral syrup acetaminophen 500 mg tablet 1,000 mg PO TID PRN Pain (Scale 04/17/24 04/17/24 Unknown History Score 4-6) ammonium lactate 12 % topical cream 1 appl topical BID 04/17/24 04/17/24 Unknown History atorvastatin 40 mg tablet 40 mg PO BEDTIME 04/17/24 04/17/24 Unknown History clonazepam 1 mg tablet 1 mg PO BID PRN Anxiety 04/17/24 04/17/24 Unknown History ibuprofen 600 mg tablet 600 mg PO Q6H PRN Pain 04/17/24 04/17/24 Unknown History Physical Exam Vital Signs: Last Vital Signs Temp 97.1 F 04/17/24 09:01 Pulse 50 04/17/24 09:01 Resp 17 04/17/24 09:01 BP 147/86 H 04/17/24 09:01 Pulse Ox 93 04/17/24 09:01 O2 Del Method Oxymask 04/17/24 09:01 O2 Flow Rate 2 04/17/24 09:01 Oxygen Flow Rate 4 04/16/24 20:25 BMI result Body Mass Index 30.9 Const General: no acute distress, alert and awake Neck Neck: Yes no JVD Resp Effort & Inspection: normal respiratory effort and able to speak in complete sentences Auscultation: crackles (bilateral posterior bases) Cardio Jugular venous distension: no JVD Rate: bradycardic Rhythm: regular rhythm Heart sounds: S1 normal heart sound present, S2 normal heart sound present and Murmur heart sound present GI Palpation (GI): Soft to palpation and nontender General: Yes no CVA tenderness Back/Spine/Pelvis Back: no CVA tenderness Skin Lesions: no lesions Rashes: no rashes Extrem General: No edema Results Lab Results 04/17/24 00:11 04/17/24 00:11 Lab results: Chemistry 04/17/24 00:11 Sodium 123 L Potassium 5.2 H Carbon Dioxide 20 L BUN 46 H Creatinine 8.36 H* Calcium 9.1 Hematology 04/17/24 00:11 WBC 5.7 Hgb 9.7 L Plt Count 174 Assessment and Plan (1) Dialysis patient, noncompliant: Status: Acute (2) End stage renal disease on dialysis: Status: Acute (3) Hypoxia: Status: Acute (4) Hyponatremia: Status: Acute Plan ESRD on dialysis with pulmonary edema secondary to missed dialysis session Will get HD for today H&H 9.7 and 28.7, ordered 10,000 units procrit for today sodium 123, K 5.2, mild acidosis (serum bicarb 20), BUN 46, creatinine 8.36, calcium 9.1 pt appears hypervolemic with pulmonary edema, requiring O2 suplpementation no uremic symptoms on exam blood pressures elevated, likely fluid overload, will reassess post HD Pt has left upper extremity AV fistula, +thrill, +bruit hyponatremia likely dilutional from fluid overload, will get HD today potassium mildly elevated, mildly acidotic- will correct with HD today Discussed with Dr Mckeon Procedures Date of Service Date of Service: 04/17/24
[2024-04-17 11:31] LABS: Glucose, Whole Blood 123 mg/dL (60-115)
--- NOTE | 2024-04-17 11:58 | ECG_ITS ---
Test Reason : bradycardia Blood Pressure : / mmHG Vent. Rate : 038 BPM Atrial Rate : 038 BPM P-R Int : 200 ms QRS Dur : 104 ms QT Int : 556 ms P-R-T Axes : 045 -31 -16 degrees QTc Int : 442 ms Marked sinus bradycardia Left axis deviation Minimal voltage criteria for LVH, may be normal variant ( Junior product ) ST & Marked T wave abnormality, consider anterior ischemia Abnormal ECG When compared with ECG of 17-APR-2024 00:50, SC interval has decreased Vent. rate has decreased BY 31 BPM T wave inversion more evident in Anterior leads Referred By: Misty Bush Electronically Signed By:ROSA JIMENEZ
--- NOTE | 2024-04-17 12:05 | P.CDIM_ITS ---
PROVIDER RESPONSE TEXT: To clarify, the appropriate diagnosis supported by the clinical indicators: Acute QUERY TEXT: PHYSICIAN'S DOCUMENTATION REQUEST Date of Query: 04/17/2024 11:34 AM EST Patient Name: Hamzah Lewis Admit Date: 04/17/2024 Dear Misty HICKS, A review of the medical record indicates additional documentation may be needed. Please review below and update the documentation accordingly. Clinical Indicators: H&P and Event note: Metabolic acidosis Missed hemodialysis/history of noncompliant with hemodialysis. Clarify which of the following accurately represents the acuity of the Metabolic acidosis: Possible options might include: Acute Chronic Other (explain) Clinically unable to determine (explain) Thank you, Amy Noel, CCS, CDIS Use of terms such as suspected, likely, concern for, or probable (associated with a specific diagnosi s that is being evaluated, monitored, or treated as if it exists) are acceptable and can be coded in the inpatient se tting, when documented at the time of discharge. Please use your independent medical judgment in providing your response. THIS QUERY IS PART OF THE PERMANENT MEDICAL RECORD
[2024-04-17 12:41] LABS: MANUAL DIFF FLAG NO
[2024-04-17 12:45] LABS: Basophils Percent Auto 0.2 % (0-2); Eosinophils Absolute Auto 0.1 X10*3/uL (0.0-0.4); Hemoglobin 8.9 g/dl (14.0-18.0); Imm Gran Abs Auto 0.02 X10*3/uL (0.00-0.03); Imm Gran Pct Auto 0.4 % (0.0-0.4); Lymphocytes Absolute Auto 0.7 X10*3/uL (1.2-4.9); Lymphocytes Percent Auto 14.2 % (20-40); Mean Corpuscular HGB Conc 34.6 g/dl (31.0-36.0); Mean Corpuscular Hemoglobin 29.8 pg (27.0-33.0); Mean Corpuscular Volume 86.1 fL (80.0-98.0); Mean Platelet Volume 9.3 fL (9.4-12.4); Monocytes Absolute Auto 0.3 X10*3/uL (0.1-1.2); Monocytes Percent Auto 5.5 % (2-11); Neutrophils Absolute Auto 3.6 x10*3/uL (2.0-8.3); Neutrophils Percent Auto 77.7 % (45-73); Platelet Count 161 X10*3/uL (160-400); Red Blood Count 3.02 X10*6/uL (4.60-5.80); White Blood Count 4.6 X10*3/uL (4.8-10.8)
[2024-04-17 12:57] LABS: Phosphorus 3.8 mg/dL (2.7-4.5)
[2024-04-17 13:02] LABS: Anion Gap 20 (12-20); Blood Urea Nitrogen 48 mg/dL (9-16); Calcium 8.4 mg/dL (8.4-10.2); Carbon Dioxide 19 mmol/L (22-29); Chloride 91 mmol/L (96-108); Creatinine Clr Calc Pharmacy 11.3; Estimated Glomerular Filt Rate 8; Glucose Random 131 mg/dL (60-115); Potassium 4.8 mmol/L (3.3-5.1); Sodium 125 mmol/L (135-145)
[2024-04-17 13:15] LABS: Troponin-I High Sensitivity 33.4 ng/L (<3.5-35.0)
--- NOTE | 2024-04-17 15:21 | MHC.CM.PN ---
Addendum entered by Lina Ball 04/18/24 14:07: IMM date in 04/17/24 Original Note: IMM 04/07/24, Pt resides at [facility]. He uses a W/C, he is scheduled to go to HD in [facility]. DCP: return to [facility] via BLS. CM will follow for DC needs.
[2024-04-17 16:10] LABS: Glucose, Whole Blood 104 mg/dL (60-115)
[2024-04-17 16:51] LABS: Troponin-I High Sensitivity 35.2 ng/L (<3.5-35.0)
[2024-04-17] MEDS: Sevelamer Carbonate Tablet 800 MG TABLET 1600 MG PO (17:28)
[2024-04-17 21:17] LABS: Glucose, Whole Blood 113 mg/dL (60-115)
[2024-04-17] MEDS: Atorvastatin Calcium 40 MG TABLET PO (21:44)
[2024-04-17] MEDS: traZODone HCL 50 MG TABLET PO (21:44)
[2024-04-18] VITALS (7 sets, daily range): BP systolic 126–167; BP diastolic 59–74; PULSE 59–68; RESP 14–18; TEMP 36.2–36.9; O2SAT 91–97
[2024-04-18] MEDS: Pantoprazole Sodium 40 MG/10 ML VIAL IVPUSH ×2 (06:20→18:06)
--- NOTE | 2024-04-18 07:00 | CA_ITS ---
Transthoracic Echocardiogram Patient (Last, First, Middle): Hamzah Lewis, Gender: Male Date of : 1955 Age: 68 Procedure Date: 04/18/2024 Procedure Type: Transthoracic Echocardiogram Location: [facility] Height: 172.72 cm Weight: 92.08 kg BSA: 2.06 m2 Heart Rate: bpm BP: 150 / 81 mmHg Marketing And Public Relations Manager: SAKSHI Referring MD: Misty HICKS Symptoms: EKG CHANGES Study Quality: Technically Difficult/Contrast ECG Rhythm: Sinus Conclusions: - The left ventricular systolic function is normal. The visually estimated ejection fraction is between 65-70%. Findings Procedure Information Contrast agent, definity, is being given per protocol without apparent complications. Left Ventricle Normal left ventricular cavity size. There is severely increased left ventricular wall thickness. The left ventricular systolic function is normal. The visually estimated ejection fraction is between 65-70%. There is no evidence of regional wall motion abnormalities. Prior Study Comparison No significant change compared to prior study dated: 01/18/2024. Measurements 2D Linear Measurements IVSd: 1.64 0.6-0.9/0.6-1.0 cm LVIDd: 4.44 3.9-5.3/4.2-5.9 cm LVIDd Index: 2.16 2.4-3.2/2.2-3.1 cm/m2 LVIDs: 3.04 2.0-3.6 cm LVPWd: 1.55 0.7-1.1 cm LV Mass: 370.93 67-162/88-224 g LV Mass Index: 180.06 43-95/49-115 g/m2 LVOT Diam: 2.10 3.0+(-)1.3 cm LVOT LVOT Pk Arturo: 1.16 LVOT Mn Arturo: 0.75 LVOT VTI: 0.17 LVOT Pk Grad: 5.00 LVOT Mn Grad: 3.00 LVOT Diam: 2.10 LVOT Area: 3.46 Updated in Other Vendor System with Status of Final Gabriele Agrawal MD electronically signed on 04/18/2024 4:27:27 PM with status of Final
[2024-04-18 07:34] LABS: Glucose, Whole Blood 100 mg/dL (60-115)
[2024-04-18 08:01] LABS: Hematocrit 29.6 % (42.0-52.0); Hemoglobin 9.8 g/dl (14.0-18.0); Mean Corpuscular HGB Conc 33.1 g/dl (31.0-36.0); Mean Corpuscular Hemoglobin 29.4 pg (27.0-33.0); Mean Corpuscular Volume 88.9 fL (80.0-98.0); Mean Platelet Volume 10.2 fL (9.4-12.4); Platelet Count 197 X10*3/uL (160-400); Red Blood Count 3.33 X10*6/uL (4.60-5.80); Red Cell Distribution Width 14.7 % (11.0-16.0); White Blood Count 4.3 X10*3/uL (4.8-10.8)
[2024-04-18 08:20] LABS: Anion Gap 20 (12-20); Blood Urea Nitrogen 35 mg/dL (9-16); Calcium 9.1 mg/dL (8.4-10.2); Carbon Dioxide 23 mmol/L (22-29); Chloride 95 mmol/L (96-108); Glucose Random 106 mg/dL (60-115); Potassium 4.4 mmol/L (3.3-5.1); Sodium 134 mmol/L (135-145)
[2024-04-18 08:21] LABS: Creatinine Clr Calc Pharmacy 12.7; Estimated Glomerular Filt Rate 9
--- NOTE | 2024-04-18 08:35 | P.PNNP_ITS ---
Subjective Subjective Date of Service: 04/18/24 Interval history: Pt is a 68 y/o male with ESRD on HD hemodialysis M/W/F (states he goes to [facility] in [place] and is followed by Dr [facility]), CHF, CAD, DM, PAD s/p right BKA. presented 04/17 from rehab facility with epistaxis, missed HD session yesterday (reports his last session was Tuesday, 04/13). Pulmonary edema on chest xray, pt requiring supplemental O2. Nephrology consulted for management of ESRD, hyponatremia, hyperkalemia, pulmonary edema. Pt reports his breathing is comfortable (on supplemental O2 mask) pt denies chest pain, abdominal pain, flank pain states he is anuric at baseline denies frequent nosebleeds- states this was 1x occurrence from left nare. denies coffee ground emesis last evening (per chart, pt had witnessed coffee ground emesis and complaining of nausea). denies other bleeding denies other symptoms/concerns Physical Exam 2 Vital Signs: Vital Signs: Last Vital Signs Temp 97.2 F 04/18/24 07:50 Pulse 60 04/18/24 07:50 Resp 18 04/18/24 07:50 BP 158/68 H 04/18/24 07:50 Pulse Ox 92 04/18/24 07:50 O2 Del Method Oxymask 04/18/24 07:50 O2 Flow Rate 3 04/18/24 07:50 Oxygen Flow Rate 4 04/16/24 20:25 BMI result Body Mass Index 30.9 Const: General: no acute distress, alert and awake Neck: Neck: Yes no JVD Resp: Effort & Inspection: normal respiratory effort Auscultation: crackles (mild crackles bilateral posterior middle lobes) GI: Palpation (GI): Soft to palpation and nontender : General: Yes no CVA tenderness Back/Spine/Pelvis: Back: no CVA tenderness Skin: Lesions: no lesions Rashes: no rashes Extrem: General: No edema Objective Data Labs 04/18/24 06:59 04/18/24 06:59 Labs: Laboratory Results - last 24 hr 04/17/24 04/17/24 04/17/24 11: 12:39 12:39 WBC 4.6 L RBC 3.02 L Hgb 9.0 L 8.9 L Hct 26.0 L MCV MCH MCHC RDW Plt Count MPV Immature Gran % (Auto) Neut % (Auto) Lymph % (Auto) [place] % (Auto) Eos % (Auto) Baso % (Auto) Lymph # (Auto) [place] # (Auto) Eos # (Auto) Baso # (Auto) Abs Immat Gran (auto) Absolute Neuts (auto) Absolute Nucleated RBC Nucleated RBC % (auto) Sodium Potassium Chloride Carbon Dioxide Anion Gap BUN Creatinine Estim Creat Clear Calc Estimated GFR POC Glucose 123 H Random Glucose Calcium Phosphorus Magnesium Troponin I High Sens 04/17/24 04/17/24 04/17/24 12:39 12:39 12:39 WBC RBC Hgb Hct 26.0 L MCV 86.1 MCH 29.8 MCHC 34.6 RDW 14.0 Plt Count 161 MPV 9.3 L Immature Gran % (Auto) 0.4 Neut % (Auto) 77.7 H Lymph % (Auto) 14.2 L [place] % (Auto) 5.5 Eos % (Auto) 2.0 Baso % (Auto) 0.2 Lymph # (Auto) 0.7 L [place] # (Auto) 0.3 Eos # (Auto) 0.1 Baso # (Auto) 0.0 Abs Immat Gran (auto) 0.02 Absolute Neuts (auto) 3.6 Absolute Nucleated RBC 0.000 Nucleated RBC % (auto) 0.0 Sodium 125 L Cancelled Potassium 4.8 Cancelled Chloride 91 L Carbon Dioxide Anion Gap BUN Creatinine Estim Creat Clear Calc Estimated GFR POC Glucose Random Glucose Calcium Phosphorus Magnesium Troponin I High Sens 04/17/24 04/17/24 04/17/24 12:39 12:39 12:39 WBC RBC Hgb Hct MCV MCH MCHC RDW Plt Count MPV Immature Gran % (Auto) Neut % (Auto) Lymph % (Auto) [place] % (Auto) Eos % (Auto) Baso % (Auto) Lymph # (Auto) [place] # (Auto) Eos # (Auto) Baso # (Auto) Abs Immat Gran (auto) Absolute Neuts (auto) Absolute Nucleated RBC Nucleated RBC % (auto) Sodium Potassium Chloride Cancelled Carbon Dioxide 19 L Cancelled Anion Gap 20 Cancelled BUN 48 H Creatinine Estim Creat Clear Calc Estimated GFR POC Glucose Random Glucose Calcium Phosphorus Magnesium Troponin I High Sens 04/17/24 04/17/24 04/17/24 12:39 12:39 12:39 WBC RBC Hgb Hct MCV MCH MCHC RDW Plt Count MPV Immature Gran % (Auto) Neut % (Auto) Lymph % (Auto) [place] % (Auto) Eos % (Auto) Baso % (Auto) Lymph # (Auto) [place] # (Auto) Eos # (Auto) Baso # (Auto) Abs Immat Gran (auto) Absolute Neuts (auto) Absolute Nucleated RBC Nucleated RBC % (auto) Sodium Potassium Chloride Carbon Dioxide Anion Gap BUN Cancelled Creatinine 7.04 H* Cancelled Estim Creat Clear Calc 11.3 Cancelled Estimated GFR 8 POC Glucose Random Glucose Calcium Phosphorus Magnesium Troponin I High Sens 04/17/24 04/17/24 04/17/24 12:39 12:39 12:39 WBC RBC Hgb Hct MCV MCH MCHC RDW Plt Count MPV Immature Gran % (Auto) Neut % (Auto) Lymph % (Auto) [place] % (Auto) Eos % (Auto) Baso % (Auto) Lymph # (Auto) [place] # (Auto) Eos # (Auto) Baso # (Auto) Abs Immat Gran (auto) Absolute Neuts (auto) Absolute Nucleated RBC Nucleated RBC % (auto) Sodium Potassium Chloride Carbon Dioxide Anion Gap BUN Creatinine Estim Creat Clear Calc Estimated GFR Cancelled POC Glucose Random Glucose 131 H Cancelled Calcium 8.4 D Cancelled Phosphorus 3.8 Magnesium 2.0 Troponin I High Sens Cancelled 04/17/24 04/17/24 04/17/24 12:39 16:03 16:24 WBC RBC Hgb Hct MCV MCH MCHC RDW Plt Count MPV Immature Gran % (Auto) Neut % (Auto) Lymph % (Auto) [place] % (Auto) Eos % (Auto) Baso % (Auto) Lymph # (Auto) [place] # (Auto) Eos # (Auto) Baso # (Auto) Abs Immat Gran (auto) Absolute Neuts (auto) Absolute Nucleated RBC Nucleated RBC % (auto) Sodium Potassium Chloride Carbon Dioxide Anion Gap BUN Creatinine Estim Creat Clear Calc Estimated GFR POC Glucose 104 Random Glucose Calcium Phosphorus Magnesium Troponin I High Sens 33.4 D 35.2 H 04/17/24 04/18/24 04/18/24 21:13 06:59 07:29 WBC 4.3 L RBC 3.33 L Hgb 9.8 L Hct 29.6 L MCV 88.9 MCH 29.4 MCHC 33.1 RDW 14.7 Plt Count 197 MPV 10.2 Immature Gran % (Auto) Neut % (Auto) Lymph % (Auto) [place] % (Auto) Eos % (Auto) Baso % (Auto) Lymph # (Auto) [place] # (Auto) Eos # (Auto) Baso # (Auto) Abs Immat Gran (auto) Absolute Neuts (auto) Absolute Nucleated RBC 0.000 Nucleated RBC % (auto) 0.0 Sodium 134 L Potassium 4.4 Chloride 95 L Carbon Dioxide 23 Anion Gap 20 BUN 35 H Creatinine 6.28 H* Estim Creat Clear Calc 12.7 Estimated GFR 9 POC Glucose 113 100 Random Glucose 106 Calcium 9.1 D Phosphorus Magnesium Troponin I High Sens Procedures Date of Service Date of Service: 04/18/24 Assessment & Plan Assessment and plan (1) End stage renal disease on dialysis: Status: Acute (2) Pulmonary edema: Status: Acute (3) Acute hyponatremia: Status: Acute (4) Dialysis patient, noncompliant: Status: Acute Plan ESRD on dialysis with pulmonary edema secondary to missed dialysis session Will get HD today to return patient to his normal M,W,F schedule H&H 9.7 and 28.7, last procrit injection 10,000 units on 04/17 sodium 134 (improved post HD yesterday), K 4.4, metabolic acidosis resolved calcium 9.1 pt continues to appear mildly hypervolemic with pulmonary edema, requiring O2 suplpementation no uremic symptoms on exam blood pressures elevated but improving Pt has left upper extremity AV fistula, +thrill, +bruit pt with epistaxis on admission x1, then had report of coffee ground emesis overnight, will administer DDAVP prior to HD today. Discussed with Dr Mckeon Time Spent With Patient Time: Total time managing care of this patient today ____ minutes. Progress Note: Quality Stroke Does the patient have a stroke diagnosis?: No
[2024-04-18] MEDS: 0.9 % Sodium Chloride Flush 3 ML SYRINGE IVFLUSH ×3 (08:39→21:19)
[2024-04-18] MEDS: Desmopressin Acetate 20 MCG in 0.9 % Sodium Chloride 50 ML 100 MCG IV (08:39)
--- NOTE | 2024-04-18 09:59 | P.CONCA_ITS ---
History of Present Illness History of Present Illness Date of Service: 04/18/24 Chief complaint: Pulmonary edema, hyponatremia Narrative: This is a cardiology consultation regarding bradycardia. Per hospitalist from yesterday, patient had an episode of bradycardia late morning as today. Patient himself denies any cardiac symptoms or cardiac issues in the past. He states he feels fine. He does not have any chest pain or shortness of breath or in fact anything cardiac sounding. Also, after the bradycardia issue from yesterday morning, it did not recur and then he has been essentially running normal heart rates. Per notes, it seems that he was admitted with pulmonary edema/fluid overload type presentation due to missing hemodialysis and history of noncompliance with hemodialysis. Review of Systems 2 Review of Systems: Yes all other systems are reviewed and are negative Constitutional: Constitutional: Reports as per HPI and Reports no additional constitutional complaints Eyes: Eyes: Reports as per HPI and Denies no additional eye complaints ENT: Denies system reviewed and no additional complaints, except as documented and Reports as per HPI Cardiovascular: Cardiovascular: Reports as per HPI, Reports no additional cardiovascular complaints, Denies acrocyanosis, Denies cool extremities, Denies chest pain, Denies leg edema, Denies lightheadedness, Denies palpitations and Denies dyspnea Respiratory: Respiratory: Reports as per HPI, Denies no additional respiratory complaints and Denies dyspnea Gastrointestinal: Gastrointestinal: Reports as per HPI and Denies no additional gastrointestinal complaints Genitourinary: Genitourinary: Reports no additional male genitourinary complaints and Reports as per HPI Musculoskeletal: Musculoskeletal: Reports no additional musculoskeletal complaints and Reports as per HPI Integumentary/Breasts: Skin/Breast: Reports system reviewed and no additional complaints, except as docu Neurologic: Reports system reviewed and no additional complaints, except as documented and Reports as per HPI Psychiatric: Psychiatric: Reports no additional psychiatric complaints and Reports as per HPI Endocrine: Endocrine: Reports no additional endocrine complaints, Reports as per HPI and Denies palpitations Hematologic/Lymphatic: Hematologic/Lymphatic: Reports no additional hematologic/lymphatic complaints and Reports as per HPI Allergic/Immunologic: Allergic/Immunologic: Reports no additional allergic/immunologic complaints and Reports as per HPI [facility] Past Medical History Medical History Renal failure, chronic Junctional bradycardia End stage renal disease on dialysis Pulmonary edema Dialysis patient, noncompliant Anemia in chronic kidney disease (CKD) Bradycardia Dialysis patient, noncompliant Diabetes mellitus Hypertension Below-knee amputation of right lower extremity Hyperlipidemia Hypertension Peripheral vascular disease Chronic kidney disease on chronic dialysis Diabetes Family History Family History Unknown No problems noted. Social History Social History Household Members: Other Household Members Other:: LTC Housing: [facility] Do you presently have visiting nurse or other home services: Yes Comment: 1:1 sitter Patient Tobacco Use Status: Never used Tobacco Advance Directives Date on File: 01/17/24 service: No Meds Allergies Allergy/AdvReac Type Severity Reaction Status Date / Time garlic Allergy Severe Hives Verified 04/16/24 20:27 onion Allergy Severe Hives Verified 04/16/24 20:27 Peppers, Green Allergy Severe Hives Verified 04/16/24 20:27 Active Medications: Current Medications Acetaminophen (Acetaminophen 325 Mg Tablet) 975 mg PO Q6H PRN PRN Reason: Pain, Mild (Pain Scale 1-3), fever or headache Last Admin: 04/17/24 21:50 Dose: 975 mg Amlodipine Besylate (Amlodipine Besylate 5 Mg Tablet) 5 mg PO BID KIA; Protocol Last Admin: 04/17/24 21:44 Dose: 5 mg Atorvastatin Calcium (Atorvastatin Calcium 40 Mg Tablet) 40 mg PO BEDTIME KIA Last Admin: 04/17/24 21:44 Dose: 40 mg Bisacodyl (Bisacodyl 10 Mg Supp.Rect) 10 mg TX DAILY PRN PRN Reason: Constipation Calcium Carbonate (Calcium Carbonate 750 Mg Tab.Chew) 750 mg PO Q4H PRN PRN Reason: Heartburn Clonazepam (Clonazepam 1 Mg Tablet) 1 mg PO BID PRN PRN Reason: Anxiety Escitalopram Oxalate (Escitalopram Oxalate 10 Mg Tablet) 10 mg PO DAILY KIA Glucose (Glucose Gel 15 Gm Gel..Gram.) 15 gm PO Q15M PRN; Protocol PRN Reason: per Hypoglycemia Standing Ord. Hydralazine HCl (Hydralazine Hcl 10 Mg Tablet) 10 mg PO BID KIA; Protocol Last Admin: 04/17/24 21:44 Dose: 10 mg Dextrose (D10) 250 mls @ 750 mls/hr IV Q15M PRN; Protocol PRN Reason: per Hypoglycemia Standing Ord. Insulin Human Lispro (Insulin Lispro 100 Unit/Ml 3 Ml Vial) 0 unit SUBCUT QIDACHS [facility]; Protocol Last Admin: 04/18/24 07:56 Dose: Not Given Melatonin (Melatonin 3 Mg Tablet) 6 mg PO BEDTIME PRN PRN Reason: Insomnia Ondansetron HCl (Ondansetron Hcl 4 Mg/2 Ml Vial) 4 mg IVPUSH Q8H PRN PRN Reason: Nausea and Vomiting Last Admin: 04/17/24 11:26 Dose: 4 mg Pantoprazole Sodium (Pantoprazole Sodium 40 Mg/10 Ml Vial) 40 mg IVPUSH BID@0630,1630 [facility] Last Admin: 04/18/24 06:20 Dose: 40 mg Senna/Docusate Sodium (Sennosides/Docusate Sodium Tablet) 1 tab PO Q24H [facility] Last Admin: 04/17/24 12:26 Dose: Not Given Sevelamer Carbonate (Sevelamer Carbonate Tablet 800 Mg Tablet) 1,600 mg PO TIDWM [facility] Last Admin: 04/17/24 17:28 Dose: 1,600 mg Sodium Chloride (0.9 % Sodium Chloride Flush 3 Ml Syringe) 3 ml IVFLUSH QSHIFT [facility] Last Admin: 04/18/24 08:39 Dose: 3 ml Sodium Zirconium Cyclosilicate (Sodium Zirconium Cyclosilicate 10 Gm Powd.Pack) 10 gm PO SUTUTHSA@1400 KIA Trazodone HCl (Trazodone Hcl 50 Mg Tablet) 50 mg PO BEDTIME [facility] Last Admin: 04/17/24 21:44 Dose: 50 mg Home Medications ?Medication ?Instructions ?Recorded ?Confirmed ?Last Taken ?Type aspirin 81 mg tablet,delayed 81 mg PO DAILY 01/02/24 04/17/24 01/17/24 12:00 History release bisacodyl 10 mg rectal suppository 10 mg TX DAILY PRN Constipation 01/02/24 04/17/24 Unknown History citalopram 20 mg tablet 20 mg PO DAILY 01/02/24 04/17/24 01/17/24 12:00 History isosorbide mononitrate 20 mg tablet 40 mg PO DAILY 01/02/24 04/17/24 01/17/24 12:00 History omeprazole 20 mg capsule,delayed 20 mg PO DAILY@0630 01/02/24 04/17/24 01/17/24 12:00 History release ondansetron 4 mg disintegrating 4 mg PO Q8H PRN Nausea/Vomiting 01/02/24 04/17/24 Unknown History tablet polyethylene glycol 3350 17 17 g PO DAILY PRN Constipation 01/02/24 04/17/24 Unknown History gram/dose oral powder sennosides 8.6 mg-docusate sodium 1 tab-cap PO Q24H PRN Constipation 01/02/24 04/17/24 Unknown History 50 mg capsule (Senna Plus) sevelamer HCl 800 mg tablet 1,600 mg PO TIDWM 01/02/24 04/17/24 01/17/24 12:00 History simethicone 80 mg chewable tablet 80 mg PO Q6H PRN GAS 01/02/24 04/17/24 01/16/24 History sodium phosphates 19 gram-7 118 ml TX DAILY PRN Constipation 01/02/24 04/17/24 Unknown History gram/118 mL enema (Fleet Enema) sodium zirconium cyclosilicate 10 10 g PO SUTUTHSA@1400 01/02/24 04/17/24 01/17/24 12:00 History gram oral powder packet (Lokelma) trazodone 50 mg tablet 50 mg PO BEDTIME 01/31/24 04/17/24 Unknown History dextromethorphan HBr 5 mg/5 mL 10 mg PO Q4H PRN Cough 02/06/24 04/17/24 Unknown History oral syrup acetaminophen 500 mg tablet 1,000 mg PO TID PRN Pain (Scale 04/17/24 04/17/24 Unknown History Score 4-6) ammonium lactate 12 % topical cream 1 appl topical BID 04/17/24 04/17/24 Unknown History atorvastatin 40 mg tablet 40 mg PO BEDTIME 04/17/24 04/17/24 Unknown History clonazepam 1 mg tablet 1 mg PO BID PRN Anxiety 04/17/24 04/17/24 Unknown History ibuprofen 600 mg tablet 600 mg PO Q6H PRN Pain 04/17/24 04/17/24 Unknown History Physical Exam 2 Vital Signs: Vital Signs: Last Vital Signs Temp 97.2 F 04/18/24 07:50 Pulse 60 04/18/24 07:50 Resp 18 04/18/24 07:50 BP 158/68 H 04/18/24 07:50 Pulse Ox 92 04/18/24 07:50 O2 Del Method Oxymask 04/18/24 07:50 O2 Flow Rate 3 04/18/24 07:50 Oxygen Flow Rate 4 04/16/24 20:25 BMI result Body Mass Index 30.9 Const: General: comfortable, no acute distress and lethargic O rientation/consciousness: patient oriented x3 and lethargic HEENT: Other: Unremarkable Head: Yes normal to inspection Neck: Neck: Yes normal visual inspection Chest: Chest palpation & inspection: normal inspection of the chest Resp: Auscultation: clear to auscultation bilaterally Cardio: Palpation: normal PMI Heart sounds: S1 normal heart sound present, S2 normal heart sound present, no gallops, Murmur heart sound present systolic II/ and no rubs GI: Palpation (GI): Soft to palpation Back/Spine/Pelvis: Other: unremarkable Skin: General skin exam: no rashes or lesions noted Neuro: General: patient oriented x3 Extrem: General: Yes normal to inspection Psych: Mental Status: mental status grossly normal Objective Labs and Meds 04/18/24 06:59 04/18/24 06:59 Lab results: Laboratory Results - last 24 hr 04/17/24 04/17/24 04/17/24 11:27 12:39 12:39 WBC 4.6 L RBC 3.02 L Hgb 9.0 L 8.9 L Hct 26.0 L MCV MCH MCHC RDW Plt Count MPV Immature Gran % (Auto) Neut % (Auto) Lymph % (Auto) [place] % (Auto) Eos % (Auto) Baso % (Auto) Lymph # (Auto) [place] # (Auto) Eos # (Auto) Baso # (Auto) Abs Immat Gran (auto) Absolute Neuts (auto) Absolute Nucleated RBC Nucleated RBC % (auto) Sodium Potassium Chloride Carbon Dioxide Anion Gap BUN Creatinine Estim Creat Clear Calc Estimated GFR POC Glucose 123 H Random Glucose Calcium Phosphorus Magnesium Troponin I High Sens 04/17/24 04/17/24 04/17/24 12:39 12:39 12:39 WBC RBC Hgb Hct 26.0 L MCV 86.1 MCH 29.8 MCHC 34.6 RDW 14.0 Plt Count 161 MPV 9.3 L Immature Gran % (Auto) 0.4 Neut % (Auto) 77.7 H Lymph % (Auto) 14.[address] [place] % (Auto) 5.5 Eos % (Auto) 2.0 Baso % (Auto) 0.2 Lymph # (Auto) 0.[address] [place] # (Auto) 0.3 Eos # (Auto) 0.1 Baso # (Auto) 0.0 Abs Immat Gran (auto) 0.02 Absolute Neuts (auto) 3.6 Absolute Nucleated RBC 0.000 Nucleated RBC % (auto) 0.0 Sodium 125 L Cancelled Potassium 4.8 Cancelled Chloride 91 L Carbon Dioxide Anion Gap BUN Creatinine Estim Creat Clear Calc Estimated GFR POC Glucose Random Glucose Calcium Phosphorus Magnesium Troponin I High Sens 04/17/24 04/17/24 04/17/24 12:39 12:39 12:39 WBC RBC Hgb Hct MCV MCH MCHC RDW Plt Count MPV Immature Gran % (Auto) Neut % (Auto) Lymph % (Auto) [place] % (Auto) Eos % (Auto) Baso % (Auto) Lymph # (Auto) [place] # (Auto) Eos # (Auto) Baso # (Auto) Abs Immat Gran (auto) Absolute Neuts (auto) Absolute Nucleated RBC Nucleated RBC % (auto) Sodium Potassium Chloride Cancelled Carbon Dioxide 19 L Cancelled Anion Gap 20 Cancelled BUN 48 H Creatinine Estim Creat Clear Calc Estimated GFR POC Glucose Random Glucose Calcium Phosphorus Magnesium Troponin I High Sens 04/17/24 04/17/24 04/17/24 12:39 12:39 12:39 WBC RBC Hgb Hct MCV MCH MCHC RDW Plt Count MPV Immature Gran % (Auto) Neut % (Auto) Lymph % (Auto) [place] % (Auto) Eos % (Auto) Baso % (Auto) Lymph # (Auto) [place] # (Auto) Eos # (Auto) Baso # (Auto) Abs Immat Gran (auto) Absolute Neuts (auto) Absolute Nucleated RBC Nucleated RBC % (auto) Sodium Potassium Chloride Carbon Dioxide Anion Gap BUN Cancelled Creatinine 7.04 H* Cancelled Estim Creat Clear Calc 11.3 Cancelled Estimated GFR 8 POC Glucose Random Glucose Calcium Phosphorus Magnesium Troponin I High Sens 11/26/24 11/26/24 11/26/24 12:39 12:39 12:39 WBC RBC Hgb Hct MCV MCH MCHC RDW Plt Count MPV Immature Gran % (Auto) Neut % (Auto) Lymph % (Auto) [place] % (Auto) Eos % (Auto) Baso % (Auto) Lymph # (Auto) [place] # (Auto) Eos # (Auto) Baso # (Auto) Abs Immat Gran (auto) Absolute Neuts (auto) Absolute Nucleated RBC Nucleated RBC % (auto) Sodium Potassium Chloride Carbon Dioxide Anion Gap BUN Creatinine Estim Creat Clear Calc Estimated GFR Cancelled POC Glucose Random Glucose 131 H Cancelled Calcium 8.4 D Cancelled Phosphorus 3.8 Magnesium 2.0 Troponin I High Sens Cancelled 04/17/24 04/17/24 04/17/24 12:39 16:03 16:24 WBC RBC Hgb Hct MCV MCH MCHC RDW Plt Count MPV Immature Gran % (Auto) Neut % (Auto) Lymph % (Auto) [place] % (Auto) Eos % (Auto) Baso % (Auto) Lymph # (Auto) [place] # (Auto) Eos # (Auto) Baso # (Auto) Abs Immat Gran (auto) Absolute Neuts (auto) Absolute Nucleated RBC Nucleated RBC % (auto) Sodium Potassium Chloride Carbon Dioxide Anion Gap BUN Creatinine Estim Creat Clear Calc Estimated GFR POC Glucose 104 Random Glucose Calcium Phosphorus Magnesium Troponin I High Sens 33.4 D 35.2 H 04/17/24 04/18/24 04/18/24 21:13 06:59 07:29 WBC 4.3 L RBC 3.33 L Hgb 9.8 L Hct 29.6 L MCV 88.9 MCH 29.4 MCHC 33.1 RDW 14.7 Plt Count 197 MPV 10.2 Immature Gran % (Auto) Neut % (Auto) Lymph % (Auto) [place] % (Auto) Eos % (Auto) Baso % (Auto) Lymph # (Auto) [place] # (Auto) Eos # (Auto) Baso # (Auto) Abs Immat Gran (auto) Absolute Neuts (auto) Absolute Nucleated RBC 0.000 Nucleated RBC % (auto) 0.0 Sodium 134 L Potassium 4.4 Chloride 95 L Carbon Dioxide 23 Anion Gap 20 BUN 35 H Creatinine 6.28 H* Estim Creat Clear Calc 12.7 Estimated GFR 9 POC Glucose 113 100 Random Glucose 106 Calcium 9.1 D Phosphorus Magnesium Troponin I High Sens ECG Interpretation: EKG from yesterday shows sinus rhythm at 69/Min; voltage criteria for LVH versus normal variant; T inversions in the anterior/inferior leads. Nonspecific changes elsewhere. TX interval prolonged to 250 milliseconds. Normal corrected QT. In the previous EKG from January, upright T-waves. In the following EKG, sinus bradycardia at 38/Min. Marked T inversions in the anterior leads as well as lead 3/AVF. Currently, ventricular rate is essentially in the normal range. Assessment and Plan (1) Abnormal EKG: Status: Acute (2) Bradycardia: Status: Acute (3) End stage renal disease on dialysis: Status: Acute (4) Dialysis patient, noncompliant: Status: Acute (5) Acute hyponatremia: Status: Acute Plan Sinus bradycardia and T inversions on EKG without any cardiac symptoms. Not clear as to the etiology. One etiology might be fluid overload causing RV strain type pattern which could cause anterior T inversions. Per nephrology note as today, it seems plan was on dialysis yesterday. We will repeat another EKG today to see if any improvement or not. If there is any improvement, then more than likely it is all related to some degree of RV strain/volume overload/electrolytes. Doubt any coronary etiology but certainly possible in someone like him. Troponins are low-grade and essentially not concerning for ACS. Patient also has no such symptoms. We will get an echocardiogram today and go from there. Procedures Date of Service Date of Service: 04/18/24
[2024-04-18 13:27] LABS: Glucose, Whole Blood 97 mg/dL (60-115)
[2024-04-18] MEDS: Sennosides/Docusate Sodium TABLET 1 TAB PO (13:53)
[2024-04-18] MEDS: Escitalopram Oxalate 10 MG TABLET PO (13:53)
[2024-04-18] MEDS: Sevelamer Carbonate Tablet 800 MG TABLET 1600 MG PO ×2 (13:53→18:05)
[2024-04-18] MEDS: amLODIPine Besylate 5 MG TABLET PO ×2 (13:54→21:19)
[2024-04-18] MEDS: hydrALAZINE HCl 10 MG TABLET PO ×2 (13:55→21:19)
[2024-04-18 16:49] LABS: Glucose, Whole Blood 149 mg/dL (60-115)
--- NOTE | 2024-04-18 16:58 | HO.PM.IMPN ---
Subjective Subjective Date of Service: 04/18/24 Interval History: No acute issues. Tolerant of dialysis Review of Systems Denies chest pain Denies shortness of breath Denies nausea vomiting diarrhea Denies fever chills Physical Exam Vital Signs: Vital Signs: Last Vital Signs Temp 98.1 F 04/18/24 15:54 Pulse 65 04/18/24 15:54 Resp 14 04/18/24 15:54 BP 126/59 L 04/18/24 15:54 Pulse Ox 91 L 04/18/24 15:54 O2 Del Method Oxymask 04/18/24 15:54 O2 Flow Rate 2 04/18/24 15:54 Oxygen Flow Rate 4 04/16/24 20:25 BMI result Body Mass Index 30.9 Const: Other: Awake alert no acute distress Resp: Other: Clear to auscultation bilaterally no rales rhonchi or wheezes Cardio: Other: No S4; positive S1-S2; no S3 murmurs rubs or gallops GI: Other: Soft nontender nondistended normoactive bowel sounds Extrem: Other: No edema bilaterally Objective Data Active Medications Acetaminophen (Acetaminophen 325 Mg Tablet) 975 mg PO Q6H PRN PRN Reason: Pain, Mild (Pain Scale 1-3), fever or headache Last Admin: 04/17/24 21:50 Dose: 975 mg Documented By: DAGOBERTO Amlodipine Besylate (Amlodipine Besylate 5 Mg Tablet) 5 mg PO BID [facility]; Protocol Last Admin: 04/18/24 13:54 Dose: 5 mg Documented By: MAN Atorvastatin Calcium (Atorvastatin Calcium 40 Mg Tablet) 40 mg PO BEDTIME [facility] Last Admin: 04/17/24 21:44 Dose: 40 mg Documented By: DAGOBERTO Bisacodyl (Bisacodyl 10 Mg Supp.Rect) 10 mg [place] DAILY PRN PRN Reason: Constipation Calcium Carbonate (Calcium Carbonate 750 Mg Tab.Chew) 750 mg PO Q4H PRN PRN Reason: Heartburn Clonazepam (Clonazepam 1 Mg Tablet) 1 mg PO BID PRN PRN Reason: Anxiety Escitalopram Oxalate (Escitalopram Oxalate 10 Mg Tablet) 10 mg PO DAILY [facility] Last Admin: 04/18/24 13:53 Dose: 10 mg Documented By: MAN Glucose (Glucose Gel 15 Gm Gel..Gram.) 15 gm PO Q15M PRN; Protocol PRN Reason: per Hypoglycemia Standing Ord. Hydralazine HCl (Hydralazine Hcl 10 Mg Tablet) 10 mg PO BID [facility]; Protocol Last Admin: 04/18/24 13:55 Dose: 10 mg Documented By: MAN Dextrose (D10) 250 mls @ 750 mls/hr IV Q15M PRN; Protocol PRN Reason: per Hypoglycemia Standing Ord. Insulin Human Lispro (Insulin Lispro 100 Unit/Ml 3 Ml Vial) 0 unit SUBCUT QIDACHS [facility]; Protocol Last Admin: 04/18/24 13:43 Dose: Not Given Documented By: MAN Non-Admin Reason: No Insulin Coverage Melatonin (Melatonin 3 Mg Tablet) 6 mg PO BEDTIME PRN PRN Reason: Insomnia Ondansetron HCl (Ondansetron Hcl 4 Mg/2 Ml Vial) 4 mg IVPUSH Q8H PRN PRN Reason: Nausea and Vomiting Last Admin: 04/17/24 11:26 Dose: 4 mg Documented By: MAN Pantoprazole Sodium (Pantoprazole Sodium 40 Mg/10 Ml Vial) 40 mg IVPUSH BID@0630,1630 [facility] Last Admin: 04/18/24 06:20 Dose: 40 mg Documented By: DAGOBERTO Senna/Docusate Sodium (Sennosides/Docusate Sodium Tablet) 1 tab PO Q24H [facility] Last Admin: 04/18/24 13:53 Dose: 1 tab Documented By: MAN Sevelamer Carbonate (Sevelamer Carbonate Tablet 800 Mg Tablet) 1,600 mg PO TIDWM [facility] Last Admin: 04/18/24 13:53 Dose: 1,600 mg Documented By: MAN Sodium Chloride (0.9 % Sodium Chloride Flush 3 Ml Syringe) 3 ml IVFLUSH QSHIFT [facility] Last Admin: 04/18/24 08:39 Dose: 3 ml Documented By: MAN Sodium Zirconium Cyclosilicate (Sodium Zirconium Cyclosilicate 10 Gm Powd.Pack) 10 gm PO SUTUTHSA@1400 [facility] Trazodone HCl (Trazodone Hcl 50 Mg Tablet) 50 mg PO BEDTIME [facility] Last Admin: 04/17/24 21:44 Dose: 50 mg Documented By: DAGOBERTO Labs 04/18/24 06:59 04/18/24 06:59 Labs: Laboratory Results - last 24 hr 04/17/24 04/18/24 04/18/24 21:13 06:59 07:29 MCV 88.9 MCH 29.4 MCHC 33.1 RDW 14.7 Plt Count 197 MPV 10.2 Absolute Nucleated RBC 0.000 Nucleated RBC % (auto) 0.0 Anion Gap 20 Estim Creat Clear Calc 12.7 Estimated GFR 9 POC Glucose 113 100 Random Glucose 106 Calcium 9.1 D 04/18/24 04/18/24 13:22 16:44 MCV MCH MCHC RDW Plt Count MPV Absolute Nucleated RBC Nucleated RBC % (auto) Anion Gap Estim Creat Clear Calc Estimated GFR POC Glucose 97 149 H Random Glucose Calcium Assessment and Plan (1) Pulmonary edema: Status: Acute (2) Acute hyponatremia: Status: Acute (3) Acute hyperkalemia: Status: Acute Plan Hamzah Lewis is a 68 y/o man with PMHx significant for ESRD on HD ([facility]) admitted with: 1. End-stage renal disease on HD (noncompliant with therapies) -hyp per kg anemic/hyponatremic on admission -resolved with hemodialysis -follow renals/divalents 2. T wave abnormalities -appreciate cardiology input -2D echo unremarkable -no further workups 3. Hypertension -acceptable control on current therapies -adjust as indicated 4. Dm II -acceptable control on current therapies -lispro correctional scale -adjust as indicated SCDs Full Quality Stroke Does the patient have a stroke diagnosis?: No VTE Prior VTE?: No VTE Risk Level:: Medical - moderate - high VTE Device Contraindication: Treatment Not Indicated VTE Drug Contraindication: N/A - Med Ordered
[2024-04-18] MEDS: traZODone HCL 50 MG TABLET PO (21:19)
[2024-04-18] MEDS: Atorvastatin Calcium 40 MG TABLET PO (21:19)
[2024-04-18 21:28] LABS: Glucose, Whole Blood 114 mg/dL (60-115)
[2024-04-18 22:14] LABS: Glucose, Whole Blood 115 mg/dL (60-115)
[2024-04-18] MEDS: Acetaminophen 325 MG TABLET 975 MG PO (22:43)
[2024-04-19 03:32] VITALS: BP 151/66; PULSE 56; RESP 18; TEMP 36.3; O2SAT 97
[2024-04-19] MEDS: Pantoprazole Sodium 40 MG/10 ML VIAL IVPUSH ×2 (04:52→16:44)
[2024-04-19] MEDS: Acetaminophen 325 MG TABLET 975 MG PO ×3 (04:57→23:45)
[2024-04-19 06:19] LABS: MANUAL DIFF FLAG NO
[2024-04-19 07:05] LABS: Alanine Aminotransferase 14 U/L (0-40); Albumin Level 3.6 g/dL (3.5-5.0); Alkaline Phosphatase 119 U/L (39-117); Anion Gap 18 (12-20); Aspartate Amino Transferase 22 U/L (5-37); Bilirubin Total 0.4 mg/dL (0.0-1.0); Blood Urea Nitrogen 22 mg/dL (9-16); Calcium 9.4 mg/dL (8.4-10.2); Carbon Dioxide 27 mmol/L (22-29); Chloride 96 mmol/L (96-108); Creatinine Clr Calc Pharmacy 15.5; Estimated Glomerular Filt Rate 11; Glucose Fasting 128 mg/dL (60-99); Potassium 3.6 mmol/L (3.3-5.1); Sodium 137 mmol/L (135-145); Total Protein 7.2 g/dL (6.5-8.0)
[2024-04-19 07:12] VITALS: BP 156/69; PULSE 70; RESP 18; TEMP 36.4; O2SAT 100
[2024-04-19 07:34] LABS: Glucose, Whole Blood 142 mg/dL (60-115)
[2024-04-19 08:17] LABS: Basophils Percent Auto 0.6 % (0-2); Eosinophils Absolute Auto 0.2 X10*3/uL (0.0-0.4); Eosinophils Percent Auto 3.2 % (0-4); Hematocrit 29.8 % (42.0-52.0); Hemoglobin 9.6 g/dl (14.0-18.0); Imm Gran Abs Auto 0.02 X10*3/uL (0.00-0.03); Imm Gran Pct Auto 0.4 % (0.0-0.4); Lymphocytes Absolute Auto 0.7 X10*3/uL (1.2-4.9); Lymphocytes Percent Auto 14.3 % (20-40); Mean Corpuscular HGB Conc 32.2 g/dl (31.0-36.0); Mean Corpuscular Hemoglobin 29.9 pg (27.0-33.0); Mean Corpuscular Volume 92.8 fL (80.0-98.0); Mean Platelet Volume 10.1 fL (9.4-12.4); Monocytes Absolute Auto 0.5 X10*3/uL (0.1-1.2); Monocytes Percent Auto 10.1 % (2-11); Neutrophils Absolute Auto 3.3 x10*3/uL (2.0-8.3); Neutrophils Percent Auto 71.4 % (45-73); Platelet Count 194 X10*3/uL (160-400); Red Blood Count 3.21 X10*6/uL (4.60-5.80); Red Cell Distribution Width 14.8 % (11.0-16.0); White Blood Count 4.7 X10*3/uL (4.8-10.8)
[2024-04-19] MEDS: hydrALAZINE HCl 10 MG TABLET PO ×2 (09:02→21:37)
[2024-04-19] MEDS: Sevelamer Carbonate Tablet 800 MG TABLET 1600 MG PO ×3 (09:02→16:43)
[2024-04-19] MEDS: Sennosides/Docusate Sodium TABLET 1 TAB PO (09:02)
[2024-04-19] MEDS: amLODIPine Besylate 5 MG TABLET PO ×2 (09:02→21:36)
[2024-04-19] MEDS: Escitalopram Oxalate 10 MG TABLET PO (09:02)
[2024-04-19] MEDS: 0.9 % Sodium Chloride Flush 3 ML SYRINGE IVFLUSH ×4 (09:03→23:48)
[2024-04-19 11:30] LABS: Glucose, Whole Blood 140 mg/dL (60-115)
[2024-04-19 12:00] VITALS: BP 160/73; PULSE 58; RESP 18; TEMP 37.2; O2SAT 96
--- NOTE | 2024-04-19 14:36 | P.PNIM_ITS ---
Subjective Subjective Date of Service: 04/19/24 Interval History: No acute issues overnight. Back to baseline Review of Systems Denies chest pain Denies shortness of breath Denies nausea vomiting diarrhea Denies fever chills Physical Exam 2 Vital Signs: Vital Signs: Last Vital Signs Temp 98.9 F 04/19/24 12:00 Pulse 58 04/19/24 12:00 Resp 18 04/19/24 12:00 BP 160/73 H 04/19/24 12:00 Pulse Ox 96 04/19/24 12:00 O2 Del Method Oxymask 04/19/24 12:00 O2 Flow Rate 2 04/19/24 12:00 Oxygen Flow Rate 4 04/16/24 20:25 BMI result Body Mass Index 30.9 Const: Other: Awake alert no acute distress Resp: Other: Clear to auscultation bilaterally no rales rhonchi or wheezes Cardio: Other: No S4; positive S1-S2; no S3 murmurs rubs or gallops GI: Other: Soft nontender nondistended normoactive bowel sounds Extrem: Other: No edema bilaterally Objective Data Active Medications Acetaminophen (Acetaminophen 325 Mg Tablet) 975 mg PO Q6H PRN PRN Reason: Pain, Mild (Pain Scale 1-3), fever or headache Last Admin: 04/19/24 12:12 Dose: 975 mg Documented By: JAVY Amlodipine Besylate (Amlodipine Besylate 5 Mg Tablet) 5 mg PO BID [facility]; Protocol Last Admin: 04/19/24 09:02 Dose: 5 mg Documented By: JAVY Atorvastatin Calcium (Atorvastatin Calcium 40 Mg Tablet) 40 mg PO BEDTIME [facility] Last Admin: 04/18/24 21:19 Dose: 40 mg Documented By: FITO Bisacodyl (Bisacodyl 10 Mg Supp.Rect) 10 mg [place] DAILY PRN PRN Reason: Constipation Calcium Carbonate (Calcium Carbonate 750 Mg Tab.Chew) 750 mg PO Q4H PRN PRN Reason: Heartburn Clonazepam (Clonazepam 1 Mg Tablet) 1 mg PO BID PRN PRN Reason: Anxiety Escitalopram Oxalate (Escitalopram Oxalate 10 Mg Tablet) 10 mg PO DAILY [facility] Last Admin: 04/19/24 09:02 Dose: 10 mg Documented By: JAVY Glucose (Glucose Gel 15 Gm Gel..Gram.) 15 gm PO Q15M PRN; Protocol PRN Reason: per Hypoglycemia Standing Ord. Hydralazine HCl (Hydralazine Hcl 10 Mg Tablet) 10 mg PO BID [facility]; Protocol Last Admin: 04/19/24 09:02 Dose: 10 mg Documented By: JAVY Dextrose (D10) 250 mls @ 750 mls/hr IV Q15M PRN; Protocol PRN Reason: per Hypoglycemia Standing Ord. Insulin Human Lispro (Insulin Lispro 100 Unit/Ml 3 Ml Vial) 0 unit SUBCUT QIDACHS [facility]; Protocol Last Admin: 04/19/24 11:32 Dose: Not Given Documented By: JAVY Non-Admin Reason: No Insulin Coverage Melatonin (Melatonin 3 Mg Tablet) 6 mg PO BEDTIME PRN PRN Reason: Insomnia Ondansetron HCl (Ondansetron Hcl 4 Mg/2 Ml Vial) 4 mg IVPUSH Q8H PRN PRN Reason: Nausea and Vomiting Last Admin: 04/17/24 11:26 Dose: 4 mg Documented By: MAN Pantoprazole Sodium (Pantoprazole Sodium 40 Mg/10 Ml Vial) 40 mg IVPUSH BID@0630,1630 [facility] Last Admin: 04/19/24 04:52 Dose: 40 mg Documented By: ERA Senna/Docusate Sodium (Sennosides/Docusate Sodium Tablet) 1 tab PO Q24H [facility] Last Admin: 04/19/24 09:02 Dose: 1 tab Documented By: JAVY Sevelamer Carbonate (Sevelamer Carbonate Tablet 800 Mg Tablet) 1,600 mg PO TIDWM [facility] Last Admin: 04/19/24 12:12 Dose: 1,600 mg Documented By: JAVY Sodium Chloride (0.9 % Sodium Chloride Flush 3 Ml Syringe) 3 ml IVFLUSH QSHIFT [facility] Last Admin: 04/19/24 09:03 Dose: 3 ml Documented By: JAVY Sodium Zirconium Cyclosilicate (Sodium Zirconium Cyclosilicate 10 Gm Powd.Pack) 10 gm PO SUTUTHSA@1400 [facility] Last Admin: 04/19/24 14:04 Dose: Not Given Documented By: JAVY Non-Admin Reason: Patient Refused Trazodone HCl (Trazodone Hcl 50 Mg Tablet) 50 mg PO BEDTIME [facility] Last Admin: 04/18/24 21:19 Dose: 50 mg Documented By: FITO Labs 04/19/24 06:11 04/19/24 06:11 Labs: Laboratory Results - last 24 hr 04/18/24 04/18/24 04/18/24 16:44 21:24 22:01 MCV MCH MCHC RDW Plt Count MPV Immature Gran % (Auto) Neut % (Auto) Lymph % (Auto) Sevier % (Auto) Eos % (Auto) Baso % (Auto) Lymph # (Auto) [place]vier # (Auto) Eos # (Auto) Baso # (Auto) Abs Immat Gran (auto) Absolute Neuts (auto) Absolute Nucleated RBC Nucleated RBC % (auto) Anion Gap Estim Creat Clear Calc Estimated GFR POC Glucose 149 H 114 115 Fasting Glucose Calcium Total Bilirubin AST ALT Alkaline Phosphatase Total Protein Albumin 04/19/24 04/19/24 04/19/24 06:11 07:28 11:26 MCV 92.8 MCH 29.9 MCHC 32.2 RDW 14.8 Plt Count 194 MPV 10.1 Immature Gran % (Auto) 0.4 Neut % (Auto) 71.4 Lymph % (Auto) 14.3 L Sevier % (Auto) 10.1 Eos % (Auto) 3.2 Baso % (Auto) 0.6 Lymph # (Auto) 0.7 L [place] # (Auto) 0.5 Eos # (Auto) 0.2 Baso # (Auto) 0.0 Abs Immat Gran (auto) 0.02 Absolute Neuts (auto) 3.3 Absolute Nucleated RBC 0.000 Nucleated RBC % (auto) 0.0 Anion Gap 18 Estim Creat Clear Calc 15.5 Estimated GFR 11 POC Glucose 142 H 140 H Fasting Glucose 128 H Calcium 9.4 Total Bilirubin 0.4 AST 22 ALT 14 Alkaline Phosphatase 119 H Total Protein 7.2 Albumin 3.6 Assessment and Plan (1) End stage renal disease on dialysis: Status: Acute Plan Hamzah Lewis is a 68 y/o man with PMHx significant for ESRD on HD (MWF) admitted with: 1. End-stage renal disease on HD (noncompliant with therapies) -hyp per kg anemic/hyponatremic on admission -resolved with hemodialysis... DC back to [facility] in a.m. -follow renals/divalents 2. T wave abnormalities -appreciate cardiology input -2D echo unremarkable -no further workups 3. Hypertension -acceptable control on current therapies -adjust as indicated 4. Dm II -acceptable control on current therapies -lispro correctional scale -adjust as indicated SCDs Full Quality Stroke Does the patient have a stroke diagnosis?: No VTE Prior VTE?: No VTE Risk Level:: Medical - moderate - high VTE Device Contraindication: Treatment Not Indicated VTE Drug Contraindication: N/A - Med Ordered
[2024-04-19 15:49] VITALS: BP 133/53; PULSE 59; RESP 16; TEMP 36.4; O2SAT 95
[2024-04-19 16:29] LABS: Glucose, Whole Blood 132 mg/dL (60-115)
[2024-04-19 19:28] VITALS: BP 173/72; PULSE 60; RESP 16; TEMP 36.6; O2SAT 97
[2024-04-19 21:07] LABS: Glucose, Whole Blood 133 mg/dL (60-115)
[2024-04-19] MEDS: Atorvastatin Calcium 40 MG TABLET PO (21:36)
[2024-04-19] MEDS: traZODone HCL 50 MG TABLET PO (21:37)
[2024-04-19 23:40] VITALS: BP 171/73; PULSE 60; RESP 18; TEMP 36.5; O2SAT 93
[2024-04-20 04:00] VITALS: BP 140/50; PULSE 64; RESP 15; TEMP 36.8; O2SAT 94
[2024-04-20] MEDS: Pantoprazole Sodium 40 MG/10 ML VIAL IVPUSH (06:21)
[2024-04-20] MEDS: Acetaminophen 325 MG TABLET 975 MG PO ×2 (06:25→13:02)
[2024-04-20 07:07] LABS: Glucose, Whole Blood 115 mg/dL (60-115)
[2024-04-20 08:00] VITALS: BP 162/70; PULSE 72; RESP 18; TEMP 37; O2SAT 96
[2024-04-20] MEDS: Sevelamer Carbonate Tablet 800 MG TABLET 1600 MG PO ×3 (08:46→16:48)
[2024-04-20] MEDS: Sennosides/Docusate Sodium TABLET 1 TAB PO (08:47)
[2024-04-20] MEDS: hydrALAZINE HCl 10 MG TABLET PO (08:47)
[2024-04-20] MEDS: amLODIPine Besylate 5 MG TABLET PO (08:47)
[2024-04-20] MEDS: Escitalopram Oxalate 10 MG TABLET PO (08:47)
[2024-04-20 11:13] LABS: Glucose, Whole Blood 129 mg/dL (60-115)
[2024-04-20 11:32] VITALS: BP 145/63; PULSE 63; RESP 20; TEMP 37.2; O2SAT 95
--- NOTE | 2024-04-20 12:55 | PM.DS ---
DS: Providers Provider Date of Service: 04/20/24 Date of admission: 04/17/24 03:05 Date of discharge: 04/20/24 Primary care physician: Slava Luna MD Consults: 04/17/24 08:44 Consult to Nephrology Routine Consulting Provider: [facility] Reason for consultation: ESRD on HD, hyponatremia, hyperK, pulm edema Has provider been notified: No 04/17/24 11:30 Consult for Sitter Routine Reason for consultation: SI Has provider been notified: Yes 04/17/24 12:24 Consult to Cardiology Routine Consulting Provider: [facility] Reason for consultation: bradycardia, ekg shae Has provider been notified: No DS: Diagnosis Discharge Diagnosis (1) End stage renal disease on dialysis: Status: Acute (2) Pulmonary edema: Status: Acute (3) Acute hyponatremia: Status: Acute DS: Summary Hospital Course Hospital Course: 68 years old man with past medical history significant for ESRD on HD (MWF), hyperlipidemia, hypertension and GERD was brought to the ED via EMS from [facility] due to nosebleed from the left nares and missing last hemodialysis. HPI was obtained from ED provider and ED notes as the patient refused to provide it because he wanted to sleep. He is not using any blood thinner. He was categorized with the emergency provider and no packing was required. In the ED, he was found to have stable vital signs. Last blood pressure is 188/59. He is currently requiring 2 liters/minute supplemental oxygen via OxyMask which is around his baseline. There is no leukocytosis. Hemoglobin is 9.7 which is around baseline. Creatinine is 8.36 and BUN 46. Potassium is 5.3, sodium 123 and CO2 20. LFTs are unremarkable except for slight elevation of alk-phos, 131. CXR showed perihilar increased markings and patchy peripheral infiltrates changes bilaterally. ECG showed normal sinus rhythm, 69 bpm, 1st AV block and T-wave inversions in anterior and inferior leads. ED tx: Tylenol 650 mg p.o., Afrin 2 sprays, TXA 500 mg intranasally, silver nitrate topical Hospital course Patient admitted to telemetry and seen in consultation by Nephrology. Patient required multiple consecutive hemodialysis to correct hyponatremia, hyperkalemia and pulmonary edema. On the day of discharge he is medically stable for same and will be dialyzed prior to his discharge. He can resume his previous plan of care in his hemodialysis as outpatient Time Attestation Discharge Coordination Time (in mins): 35 Quality: Safe Use of Opioids Does Pt have an Active Cancer Diagnosis on the Problem List?: No Quality: Stroke Does the patient have a stroke diagnosis?: No Physical Exam Vital Signs: Vital Signs: Last Vital Signs Temp 98.9 F 04/20/24 11:32 Pulse 63 04/20/24 11:32 Resp 20 04/20/24 11:32 BP 145/63 H 04/20/24 11:32 Pulse Ox 95 04/20/24 11:32 O2 Del Method Oxymask 04/20/24 11:32 O2 Flow Rate 2 04/20/24 11:32 Oxygen Flow Rate 4 04/16/24 20:25 BMI result Body Mass Index 30.9 Const: Other: Awake alert no acute distress Resp: Other: Clear to auscultation bilaterally no rales rhonchi or wheezes Cardio: Other: No S4; positive S1-S2; no S3 murmurs rubs or gallops GI: Other: Soft nontender nondistended normoactive bowel sounds Extrem: Other: No edema bilaterally DS: Data Data Completed and Pending Completed studies during hospitalization [Text1]: Procedures Assistance with Respiratory Ventilation, Less than 24 Consecutive Hours, Continuous Positive Airway Pressure (01/26/24) Performance of Urinary Filtration, Intermittent, Less than 6 Hours Per Day (02/11/24) Labs on day of discharge: Laboratory Results - last 24 hr 04/19/24 04/19/24 04/20/24 16:26 21:03 07:03 POC Glucose 132 H 133 H 115 04/20/24 11:08 POC Glucose 129 H Discharge Plan Discharge Anticipated Discharge Date/Time: 04/20/24 12:52 Patient Disposition: Xfer [facility] Discharge Diagnosis: Pulmonary edema secondary to missed hemodialysis Referrals: Slava Luna MD [Primary Care Provider] - 1 Week Discharge Medications: Continued trazodone 50 mg Tablet 50 mg PO BEDTIME dextromethorphan HBr 5 mg/5 mL Syrup 10 mg PO Q4H PRN (Reason: Cough) amlodipine 5 mg Tablet 5 mg PO BID Qty: 0 0RF Protocol: Hold for SBP< HOLD for SBP < : 90 ammonium lactate 12 % cream 1 appl topical BID Protocol: Apply to: Apply to: LEFT LEG AND FOOT atorvastatin 40 mg tablet 40 mg PO BEDTIME clonazepam 1 mg tablet 1 mg PO BID PRN (Reason: Anxiety) ibuprofen 600 mg tablet 600 mg PO Q6H PRN (Reason: Pain) acetaminophen 500 mg Tablet 1,000 mg PO TID PRN (Reason: Pain (Scale Score 4-6)) isosorbide mononitrate 20 mg Tablet 40 mg PO DAILY Protocol: Hold for SBP< HOLD for SBP < : 100 sevelamer HCl 800 mg Tablet 1,600 mg PO TIDWM Rx Instructions: must administer with a meal/food aspirin 81 mg tablet,delayed release (DR/EC) 81 mg PO DAILY citalopram 20 mg tablet 20 mg PO DAILY bisacodyl 10 mg Suppository 10 mg [place] DAILY PRN (Reason: Constipation) Rx Instructions: No BM in 8 Hrs after M.O.M Fleet Enema 19-7 gram/118 mL Enema 118 ml [place] DAILY PRN (Reason: Constipation) Rx Instructions: (step 3) No BM in 8 Hours after Bisacodyl supp. omeprazole 20 mg Capsule,Delayed Release(Dr/Ec) 20 mg PO DAILY@0630 polyethylene glycol 3350 17 gram/dose Powder 17 g PO DAILY PRN (Reason: Constipation) ondansetron 4 mg Tablet,Disintegrating 4 mg PO Q8H PRN (Reason: Nausea/Vomiting) simethicone 80 mg Tablet,Chewable 80 mg PO Q6H PRN (Reason: GAS) Lokelma 10 gram Powder In Packet 10 g PO SUTUTHSA@1400 Rx Instructions: GIVE 2 HOURS BEFORE OR 2 HOURS AFTER TAKING OTHER MEDICATIONS Senna Plus 8.6-50 mg Capsule 1 tab-cap PO Q24H PRN (Reason: Constipation) hydralazine 10 mg Tablet 10 mg PO BID Qty: 0 0RF Protocol: Hold for SBP< HOLD for SBP < : 90 Discharge Orders: Discharge Order (Routine); Ordered 04/20/24 Ordered By: Ruben Pendleton Diet: Advance to usual diet Activity on Discharge: As tolerated Stand Alone Forms: Patient Portal Discharge page Print Language: Fijian Care Plan Goals: Resume all meds as taken prior to hospital Health Concerns: Resume all plans of care at long-term care as previous Plan of Treatment: Encouraged compliance with hemodialysis Assessment: See discharge summary
--- NOTE | 2024-04-20 14:23 | MHC.CM.PN ---
Second IMM given 04/20. Pt is medically cleared for discharge back to [facility] today, he will transport there via BLS.
[2024-04-20 16:28] LABS: Glucose, Whole Blood 63 mg/dL (60-115)
== END 2024-04-20 17:34 | DRG 640 ==
LOC: HO.ED 04-17 00:36 → HO.EDOVER 04-17 03:06 → HO.IMC 04-17 07:43
PROVIDERS: Physician Assistant Medical; Admitting Provider Internal Medicine; Emergency Provider Emergency Medicine; PCP Internal Medicine Nephrology; Visit Provider Hospitalist
DX: E87.70 Fluid overload, unspecified (principal); N18.6 End stage renal disease; I12.0 Hypertensive chronic kidney disease with stage 5 chronic kidney disease or end stage renal disease; N39.0 Urinary tract infection, site not specified; E11.22 Type 2 diabetes mellitus with diabetic chronic kidney disease; E11.51 Type 2 diabetes mellitus with diabetic peripheral angiopathy without gangrene; F39 Unspecified mood [affective] disorder; E87.5 Hyperkalemia; E78.5 Hyperlipidemia, unspecified; E87.1 Hypo-osmolality and hyponatremia; K21.9 Gastro-esophageal reflux disease without esophagitis; R04.0 Epistaxis; E87.21 Acute metabolic acidosis; Z99.2 Dependence on renal dialysis; Z89.511 Acquired absence of right leg below knee; Z91.158 Patient's noncompliance with renal dialysis for other reason; Z79.82 Long term (current) use of aspirin; Z79.899 Other long term (current) drug therapy
CPT/HCPCS: 36415; 71045; 80048; 80053; 82947; 83735; 84100; 84484; 85014; 85018; 85025; 85027; 90999; 93005; 93308; 99285; J0885; J2405; J2470; J2597; Q9957

== ENCOUNTER → 2024-04-16 23:17 | Outpatient (BNV) | payer MEDICARE, MEDICAID, SELFPAY | PROVIDERS: Admitting Provider Internal Medicine; Emergency Provider Emergency Medicine; PCP Internal Medicine Nephrology; Visit Provider Internal Medicine | DX: R94.31 Abnormal electrocardiogram [ECG] [EKG] (principal) | CPT/HCPCS: 93010 ==

== ENCOUNTER 2024-04-17 03:05 | Outpatient (BNV) | payer MEDICARE, MEDICAID, SELFPAY | END 2024-04-17 11:58 | PROVIDERS: Admitting Provider Internal Medicine; Emergency Provider Emergency Medicine; PCP Internal Medicine Nephrology; Visit Provider Internal Medicine | DX: R00.1 Bradycardia, unspecified (principal) | CPT/HCPCS: 93010 ==

== ENCOUNTER 2024-04-17 03:05 | Outpatient (BNV) | payer OTHER, SELFPAY | END 2024-04-18 07:00 | PROVIDERS: Admitting Provider Internal Medicine; Emergency Provider Emergency Medicine; PCP Internal Medicine Nephrology; Visit Provider Internal Medicine | DX: R94.31 Abnormal electrocardiogram [ECG] [EKG] (principal) | CPT/HCPCS: 93308 ==

== ENCOUNTER → 2024-04-17 03:05 | Outpatient (BNV) | payer MEDICARE, MEDICAID, SELFPAY | PROVIDERS: Admitting Provider Internal Medicine; Emergency Provider Emergency Medicine; PCP Internal Medicine Nephrology; Visit Provider Nurse Practitioner Family | DX: N18.6 End stage renal disease (principal); Z99.2 Dependence on renal dialysis; J81.0 Acute pulmonary edema; E87.1 Hypo-osmolality and hyponatremia; Z91.158 Patient's noncompliance with renal dialysis for other reason | CPT/HCPCS: 90935 ==

== ENCOUNTER → 2024-04-17 03:05 | Outpatient (BNV) | payer MEDICARE, MEDICAID, SELFPAY | PROVIDERS: Admitting Provider Internal Medicine; Emergency Provider Emergency Medicine; PCP Internal Medicine Nephrology; Visit Provider Internal Medicine | DX: N18.6 End stage renal disease (principal); Z99.2 Dependence on renal dialysis; J81.0 Acute pulmonary edema; E87.1 Hypo-osmolality and hyponatremia | CPT/HCPCS: 99223; 99232; 99233; 99239; 99499 ==

== ENCOUNTER → 2024-04-17 03:05 | Outpatient (BNV) | payer OTHER, SELFPAY | PROVIDERS: Admitting Provider Internal Medicine; Emergency Provider Emergency Medicine; PCP Internal Medicine Nephrology; Visit Provider Internal Medicine | DX: R94.31 Abnormal electrocardiogram [ECG] [EKG] (principal); R00.1 Bradycardia, unspecified; N18.6 End stage renal disease; Z99.2 Dependence on renal dialysis; Z91.158 Patient's noncompliance with renal dialysis for other reason; E87.1 Hypo-osmolality and hyponatremia | CPT/HCPCS: 99223 ==

== ENCOUNTER 2024-05-05 08:52 | Inpatient (IN) | payer OTHER, SELFPAY ==
[2024-05-05] VITALS (11 sets, daily range): BP systolic 113–186; BP diastolic 40–68; PULSE 37–64; RESP 11–20; TEMP 36.4–37.1; O2SAT 94–98; BMI 25.1
--- NOTE | ~2024-05-05 | XR_ITS ---
EXAMINATION: XR CHEST CLINICAL INFORMATION: Bradycardia. Missed dialysis COMPARISON: Chest 04/16/2024. TECHNIQUE: Frontal view of the chest was obtained. FINDINGS: The lungs are hypoexpanded with prominent bilateral parahilar interstitial markings question pneumonitis versus edema. There is no pleural effusion. The heart size is mildly enlarged. Pulmonary vascularity is slightly prominent. No gross bony abnormality seen. XR/XR chest 1V IMPRESSION: Question interstitial pneumonitis versus edema. Prominent bilateral pulmonary vasculature with cardiomegaly. Electronically signed by: Fredi Miller MD 05/05/2024 11:26 AM [facility]
--- NOTE | 2024-05-05 09:03 | ECG_ITS ---
Test Reason : BRADYCARDIA Blood Pressure : / mmHG Vent. Rate : 037 BPM Atrial Rate : 037 BPM P-R Int : 196 ms QRS Dur : 120 ms QT Int : 582 ms P-R-T Axes : 014 -22 -19 degrees QTc Int : 456 ms Marked sinus bradycardia Incomplete left bundle branch block Minimal voltage criteria for LVH, may be normal variant ( [place] product ) ST & Marked T wave abnormality, consider anterolateral ischemia Abnormal ECG When compared with ECG of 17-APR-2024 12:02, Incomplete left bundle branch block is now Present Referred By: Ann Moran Electronically Signed By:ZAID ADRIAN MD
[2024-05-05] MEDS: Sodium Bicarbonate 8.4% 50 MEQ/50 ML SYRINGE IVPUSH (09:08)
[2024-05-05] MEDS: Calcium Gluconate/NaCl,Iso-Osm 1 GM/50 ML PLAST..BAG IV (09:14)
--- NOTE | 2024-05-05 09:22 | PC.NURSE ---
Pt comes to ED today via EMS from SNF for concerns of bradycardia. Pt A&Ox3 BP stable, HR 38. Skin is warm and dry, Breaths and speech are even and unlabored Facial symmetry noted. Pt is agitated/disgruntled with periodic instances of being uncooperative with assessment. Denies pain however c/o nausea with vomiting. 20g to RAC placed by EMS. Pt medicated per JUL. Pt resting comfortably at this time.
--- NOTE | 2024-05-05 09:56 | PC.NURSE ---
Pt refuses blood work. PA and MD to bedside to discuss risks and benefits however Pt continues to refuse. Pt is A&Ox3, denies SI/HI PA t reach out to Pts . 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
--- NOTE | 2024-05-05 10:01 | ED.GENADULT ---
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 Patient offers no complaints at present. States he missed dialysis yesterday due to nausea and vomiting/feeling unwell. Denies fever, CP/SOB, abdominal pain, nausea/vomiting today. Related Data Home Medications ?Medication ?Instructions ?Recorded ?Confirmed aspirin 81 mg tablet,delayed 81 mg PO DAILY 01/02/24 04/17/24 release bisacodyl 10 mg rectal suppository 10 mg HI DAILY PRN Constipation 01/02/24 04/17/24 citalopram 20 mg tablet 20 mg PO DAILY 01/02/24 04/17/24 isosorbide mononitrate 20 mg tablet 40 mg PO DAILY 01/02/24 04/17/24 omeprazole 20 mg capsule,delayed 20 mg PO DAILY@0630 01/02/24 04/17/24 release ondansetron 4 mg disintegrating 4 mg PO Q8H PRN Nausea/Vomiting 01/02/24 04/17/24 tablet polyethylene glycol 3350 17 17 g PO DAILY PRN Constipation 01/02/24 04/17/24 gram/dose oral powder sennosides 8.6 mg-docusate sodium 1 tab-cap PO Q24H PRN Constipation 01/02/24 04/17/24 50 mg capsule (Senna Plus) sevelamer HCl 800 mg tablet 1,600 mg PO TIDWM 01/02/24 04/17/24 simethicone 80 mg chewable tablet 80 mg PO Q6H PRN GAS 01/02/24 04/17/24 sodium phosphates 19 gram-7 118 ml HI DAILY PRN Constipation 01/02/24 04/17/24 gram/118 mL enema (Fleet Enema) sodium zirconium cyclosilicate 10 10 g PO SUTUTHSA@1400 01/02/24 04/17/24 gram oral powder packet (Lokelma) trazodone 50 mg tablet 50 mg PO BEDTIME 01/31/24 04/17/24 dextromethorphan HBr 5 mg/5 mL 10 mg PO Q4H PRN Cough 02/06/24 04/17/24 oral syrup acetaminophen 500 mg tablet 1,000 mg PO TID PRN Pain (Scale 04/17/24 04/17/24 Score 4-6) ammonium lactate 12 % topical cream 1 appl topical BID 04/17/24 04/17/24 atorvastatin 40 mg tablet 40 mg PO BEDTIME 04/17/24 04/17/24 clonazepam 1 mg tablet 1 mg PO BID PRN Anxiety 04/17/24 04/17/24 ibuprofen 600 mg tablet 600 mg PO Q6H PRN Pain 04/17/24 04/17/24 Previous Rx's ?Medication ?Instructions ?Recorded hydralazine 10 mg tablet 10 mg PO BID #0 tabs 01/20/24 amlodipine 5 mg tablet 5 mg PO BID #0 tabs 02/13/24 Allergies Allergy/AdvReac Type Severity Reaction Status Date / Time garlic Allergy Severe Hives Verified 05/05/24 09:18 onion Allergy Severe Hives Verified 05/05/24 09:18 Peppers, Green Allergy Severe Hives Verified 05/05/24 09:18 Review of Systems Review of Systems: Yes all other systems are reviewed and are negative Constitutional: Constitutional: Reports as per [facility] Past Medical History Attestation statement: The following information was validated with the patient. Source: old records reviewed Medical History Abnormal EKG Renal failure, chronic Junctional bradycardia End stage renal disease on dialysis Pulmonary edema Dialysis patient, noncompliant Anemia in chronic kidney disease (CKD) Bradycardia Dialysis patient, noncompliant Diabetes mellitus Hypertension Below-knee amputation of right lower extremity Hyperlipidemia Hypertension Peripheral vascular disease Chronic kidney disease on chronic dialysis Diabetes Family History Family History Unknown No problems noted. Social History Social History Household Members: Other Household Members Other:: LTC Housing: [facility] Do you presently have visiting nurse or other home services: Yes Comment: 1:1 sitter Patient Tobacco Use Status: Never used Tobacco Smoked in Last 30 Days: No Use of substances other than those prescribed or required for medical reasons: No Advance Directives: Yes Advance Directives on File: Yes Advance Directives Date on File: 01/17/24 Do you have a plan to hurt others: No Plan service: No Physical Exam ED Vital Signs: Vital Signs - 24 hr 05/05/24 09:15 05/05/24 09:19 05/05/24 11:10 Temperature 97.6 F Pulse Rate 37 L 37 L 37 L Respiratory Rate 20 20 13 Blood Pressure 145/44 H 145/44 H 113/40 L Pulse Oximetry 97 97 96 Oxygen Delivery Method Nasal Cannula Nasal Cannula Oxygen Flow Rate 05/05/24 13:09 Temperature Pulse Rate 43 L Respiratory Rate 12 Blood Pressure 171/60 H Pulse Oximetry 97 Oxygen Delivery Method Nasal Cannula Oxygen Flow Rate 2 BMI result Body Mass Index 25.1 Const General: no acute distress Orientation/consciousness: patient oriented x3 Limitations: no limitations HENMT Head: Yes normal to inspection and Yes atraumatic Ears: hearing grossly normal bilaterally General nose exam: Normal external nose present Face and sinus: Yes normal facial exam Eyes General: appearance normal, both eyes and all related structures EOM: EOMs intact bilaterally Neck Neck: Yes normal visual inspection and Yes no meningeal signs Resp Effort & Inspection: normal respiratory effort and no respiratory distress Auscultation: clear to auscultation bilaterally Cardio Rate: bradycardic Heart sounds: S1 normal heart sound present and S2 normal heart sound present GI Inspection: Yes normal to inspection Palpation (GI): Soft to palpation, nontender, no guarding and not rigid General: Yes no CVA tenderness Back/Spine/Pelvis Back: no CVA tenderness Skin Rashes: no rashes Wounds: no wounds Neuro General: patient oriented x3, tone normal and no meningeal signs Cranial nerves: Yes CN's II-XII intact bilaterally Gait exam (Neuro): Normal gait present Extrem General: Yes normal to inspection Course Course Course Narrative: -0950--patient currently refusing all labs/blood. He is A&O x3 competent to make his own decisions. Understands and verbalized understanding that this could cause . Called patient's /primary contact with no answer and unable to leave voicemail due to voice mailbox painful. Called secondary contact Rayshawn and left voicemail to return call to the ED. Multiple people have spoken with patient & informed of risks of not obtaining labs -1044--spoke with patient's , Juanita, she is unable to come to the ED due to her own illness however will attempt to have her speak to patient to convince us to draw labs. -patient finally agreeable to lab draw -1220--acute on chronic leukopenia. H&H at patient's baseline. Platelets 124 -hyponatremic to 125. Potassium 5.3. on CKD with a BUN of 34 and creatinine of 8.36. BNP 2247 XR chest 1V IMPRESSION: Question interstitial pneumonitis versus edema. Prominent bilateral pulmonary vasculature with cardiomegaly. > will consult nephrology >>1327--spoke with Nephrology, Dr. Mckeon who recommended 10 g of Lokelma and admission. No need for emergent dialysis at this time Case discussed with hospitalist Dr. Larson Medications Administered Discontinued Medications Generic Name Dose Route Start Last Admin Trade Name Freq PRN Reason Stop Dose Admin Calcium Gluconate 1 gm in 50 mls @ 50 mls/hr 05/05/24 08:56 05/05/24 10:27 Calcium Gluconate IV 05/05/24 09:55 Infused ONCE ONE Infusion Sodium Bicarbonate 50 meq 05/05/24 08:56 05/05/24 09:08 Sodium Bicarbonate 8.4% 50 Meq/50 Ml Syringe IVPUSH 05/05/24 08:57 50 meq ONCE ONE Administration Medical Decision Making Medical Decision Making MDM Narrative: 68-year-old male with a past medical history ESRD on HD (MWF), HLD, HTN, GERD, presenting to the ED via EMS from [facility] due to bradycardia noted at facility 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 On exam bradycardic to 37, NAD/nontoxic appearing, A&O x3, lungs CTA, abdomen soft/nontender. Concern for on CKD with metabolic abnormalities including hyperkalemia. Plan: EKG, labs, CXR, IV calcium gluconate and bicarb Please refer to course for remaining clinical decision making, interpretation of labs/imaging results, and discussions with consultants and/or family members. Differential Diagnosis Differential Diagnoses: The differential diagnosis associated with the presentation includes As above Admission/Observation Consideration of admission/observation: Escalation of care including admission/observation considered Consult Healthcare Provider Management of the patient was discussed with: Hospitalist and Mission Systems Engineer Lab Data MDM Lab Attestation statement: I reviewed the patient's lab results. 05/05/24 11:27 05/05/24 11:27 Labs: Lab Results 05/05/24 Range/Units 11:27 WBC 2.9 L (4.8-10.8) X10*3/uL RBC 3.36 L (4.60-5.80) X10*6/uL Hgb 10.1 L (14.0-18.0) g/dl Hct 29.0 L (42.0-52.0) % MCV 86.3 (80.0-98.0) fL MCH 30.1 (27.0-33.0) pg MCHC 34.8 (31.0-36.0) g/dl RDW 14.5 (11.0-16.0) % Plt Count 124 L D (160-400) X10*3/uL MPV 9.1 L (9.4-12.4) fL Immature Gran % (Auto) 0.3 (0.0-0.4) % Neut % (Auto) 58.0 (45-73) % Lymph % (Auto) 25.3 (20-40) % [place] % (Auto) 10.2 (2-11) % Eos % (Auto) 5.5 H (0-4) % Baso % (Auto) 0.7 (0-2) % Lymph # (Auto) 0.7 L (1.2-4.9) X10*3/uL [place] # (Auto) 0.3 (0.1-1.2) X10*3/uL Eos # (Auto) 0.2 (0.0-0.4) X10*3/uL Baso # (Auto) 0.0 (0.0-0.2) X10*3/uL Abs Immat Gran (auto) 0.01 (0.00-0.03) X10*3/uL Absolute Neuts (auto) 1.7 L (2.0-8.3) x10*3/uL Absolute Nucleated RBC 0.000 (0.0-0.012) X10*3/uL Nucleated RBC % (auto) 0.0 (0.0-0.2) /100WBC PT 12.1 (10.9-12.4) SEC INR 1.0 (0.9-1.1) Sodium 125 L (135-145) mmol/L Potassium 5.3 H D (3.3-5.1) mmol/L Chloride 89 L (96-108) mmol/L Carbon Dioxide 21 L (22-29) mmol/L Anion Gap 20 (12-20) BUN 34 H (9-16) mg/dL Creatinine 8.36 H* (0.5-1.4) mg/dL Estim Creat Clear Calc 8.1 Estimated GFR 6 Random Glucose 96 (60-115) mg/dL Calcium 8.2 L D (8.4-10.2) mg/dL Magnesium 2.0 (1.6-2.6) mg/dL Total Bilirubin 0.4 (0.0-1.0) mg/dL Direct Bilirubin 0.2 (0.0-0.5) mg/dL AST 21 (5-37) U/L ALT 6 (0-40) U/L Alkaline Phosphatase 109 (39-117) U/L Troponin I High Sens 27.6 (<3.5-35.0) ng/L B-Natriuretic Peptide 2247 H (<100) pg/mL Total Protein 6.4 L (6.5-8.0) g/dL Albumin 3.1 L (3.5-5.0) g/dL Influenza Type A (PCR) NEGATIVE (Negative) Influenza Type B (PCR) NEGATIVE (Negative) RSV RNA Qual (PCR) NEGATIVE (Negative) SARS-CoV-2 RNA (RT-PCR) NEGATIVE (Negative) Independent Interpretation I performed an independent interpretation of an: EKG (My interpretation EKG sinus bradycardia rate of 37. Incomplete left bundle-branch block. When compared to priors left bundle branch block is now present. QTC 456. No STEMI) and Plain X-Ray Radiology Impression Discussion of test interpretation with radiology: I have reviewed the radiologist's reading. Independent Historian Clinical information obtained from an independent historian. History obtained from or confirmed by: Spouse and EMS External Record Review External record reviewed: Inpatient record, Office record, Outpatient record, Prior outpatient labs, Prior outpatient radiology, Primary care record and Outside ED record Tests considered The following testing was considered but not selected: As above Prescription Management I considered prescription management with: Other Chronic Conditions Patient?s care impacted by: Other (ESRD on HD) Social Determinants Patient?s care significantly limited by Social Determinants of Health including: Inadequate housing, Problems related to primary support group and Other Social Determinant of Health Critical Care Time Critical Care Time Critical Care Time: Yes Total Critical Care Time: 35 Attestation: I have personally provided critical care time exclusive of time spent on separately billable procedures. Time includes review of lab data, radiology results, discussion with consultants, and monitoring for potential decompensation. Intervention performed as documented. Discharge Plan Discharge Clinical Impression: Bradycardia, Acute hyponatremia, Hyperkalemia, ESRD (end stage renal disease) on dialysis Patient Disposition: Admitted As Inpatient Print Language: Occitan
--- NOTE | 2024-05-05 10:33 | MHC.EDTECH ---
Patient refused to have Labs drawn.
--- NOTE | 2024-05-05 11:30 | PC.NURSE ---
Call placed to Pts with this RN and PA present. Pt continues to be resistive to care and refuses lab work. Shortly after call ended, Pt then states he is agreeable to lab work. wet end tester to room for lab draw.
[2024-05-05 11:33] LABS: MANUAL DIFF FLAG NO
[2024-05-05 11:35] LABS: Eosinophils Absolute Auto 0.2 X10*3/uL (0.0-0.4); Hemoglobin 10.1 g/dl (14.0-18.0); Monocytes Absolute Auto 0.3 X10*3/uL (0.1-1.2); Platelet Count 124 X10*3/uL (160-400); Red Cell Distribution Width 14.5 % (11.0-16.0)
[2024-05-05 11:39] LABS: Basophils Percent Auto 0.7 % (0-2); Eosinophils Percent Auto 5.5 % (0-4); Imm Gran Abs Auto 0.01 X10*3/uL (0.00-0.03); Imm Gran Pct Auto 0.3 % (0.0-0.4); Lymphocytes Absolute Auto 0.7 X10*3/uL (1.2-4.9); Lymphocytes Percent Auto 25.3 % (20-40); Mean Corpuscular HGB Conc 34.8 g/dl (31.0-36.0); Mean Corpuscular Hemoglobin 30.1 pg (27.0-33.0); Mean Corpuscular Volume 86.3 fL (80.0-98.0); Mean Platelet Volume 9.1 fL (9.4-12.4); Monocytes Percent Auto 10.2 % (2-11); Neutrophils Absolute Auto 1.7 x10*3/uL (2.0-8.3); Red Blood Count 3.36 X10*6/uL (4.60-5.80); White Blood Count 2.9 X10*3/uL (4.8-10.8)
[2024-05-05 11:40] LABS: Prothrombin Time 12.1 SEC (10.9-12.4)
[2024-05-05 11:54] LABS: B Type Natriuretic Peptide 2247 pg/mL (<100)
[2024-05-05 11:58] LABS: Troponin-I High Sensitivity 27.6 ng/L (<3.5-35.0)
[2024-05-05 12:08] LABS: Alanine Aminotransferase 6 U/L (0-40); Albumin Level 3.1 g/dL (3.5-5.0); Alkaline Phosphatase 109 U/L (39-117); Anion Gap 20 (12-20); Aspartate Amino Transferase 21 U/L (5-37); Bilirubin Direct 0.2 mg/dL (0.0-0.5); Bilirubin Total 0.4 mg/dL (0.0-1.0); Blood Urea Nitrogen 34 mg/dL (9-16); Calcium 8.2 mg/dL (8.4-10.2); Carbon Dioxide 21 mmol/L (22-29); Chloride 89 mmol/L (96-108); Creatinine Clr Calc Pharmacy 8.1; Estimated Glomerular Filt Rate 6; Glucose Random 96 mg/dL (60-115); Potassium 5.3 mmol/L (3.3-5.1); Sodium 125 mmol/L (135-145); Total Protein 6.4 g/dL (6.5-8.0)
[2024-05-05 12:14] LABS: Influenza A PCR NEGATIVE (Negative); Influenza B PCR NEGATIVE (Negative); Resp Syncy Virus RNA Qual PCR NEGATIVE (Negative); SARS COV2 PCR INHOUSE NEGATIVE (Negative)
--- NOTE | 2024-05-05 13:44 | PC.NURSE ---
Pt adamantly refuses ordered dose of Lokelma. Pt counseled on the his elevated potassium level and this risks of going untreated. Pt refuses to take medication. Provider made aware; will attempt to dose at later time.
--- NOTE | 2024-05-05 14:36 | PM.IMHP ---
History of Present Illness Date of Service: 05/05/24 Chief Complaint: bradycardia Patient is a 68-year-old male with a past medical history of ESRD on hemodialysis Tuesday, hyperlipidemia, hypertension and GERD who was brought to [facility] ED for reported [facility]adycardia at [facility] where [facility]. The patient's last dialysis was on Tuesday, he missed his last scheduled on Tuesday. He states that he was feeling unwell yesterday and N/C did not go to dialysis. He is currently annoyed that he has to be admitted to the hospital and is not forthcoming with much more information. On review of prior hospitalization, similar findings with hyperkalemia and resultant bradycardia. ED workup showed hyperkalemia, mild at 5.3; troponin negative and EKG showing bradycardia in the 40s. Patient seen and examined in the ED around 14:30. Does not we will give much history. On the tele monitor heart rates in the 50s. Blood pressure 180s. In the ED given IV calcium gluconate and IV bicarb and 10 g of Lokelma. Now will be admitted for further care Review of Systems Review of Systems: Negative except HPI/interval history. [facility] Medical History Abnormal EKG Renal failure, chronic Junctional bradycardia End stage renal disease on dialysis Pulmonary edema Dialysis patient, noncompliant Anemia in chronic kidney disease (CKD) Bradycardia Dialysis patient, noncompliant Diabetes mellitus Hypertension Below-knee amputation of right lower extremity Hyperlipidemia Hypertension Peripheral vascular disease Chronic kidney disease on chronic dialysis Diabetes Family History Unknown No problems noted. Social History Household Members: None Household Members Other:: LTC Housing: [facility] Other:: [facility] Do you presently have visiting nurse or other home services: No Comment: 1:1 sitter Patient Tobacco Use Status: Never used Tobacco Smoked in Last 30 Days: No Use of substances other than those prescribed or required for medical reasons: No Currently Displaying Signs/Symptoms of Drug Intoxication Withdrawal: No Any prior treatment program specific to substance use: No Have you been hit, kicked, punched, or otherwise hurt by someone within the past year? If so, by whom?: No Do you feel safe in your current relationship?: No Current Relationship Is there a partner from a previous relationship who is making you feel unsafe now?: No Are you made to feel afraid or neglected: No Advance Directives: Yes Advance Directives Information Provided: No Advance Directives on File: Yes Advance Directives Date on File: 01/17/24 Do you have a plan to hurt others: No Plan Recently lost weight without trying: No Eating poorly because of decreased appetite: No service: No Meds Allergies Allergy/AdvReac Type Severity Reaction Status Date / Time garlic Allergy Severe Hives Verified 05/05/24 09:18 onion Allergy Severe Hives Verified 05/05/24 09:18 Peppers, Green Allergy Severe Hives Verified 05/05/24 09:18 Home Medications ?Medication ?Instructions ?Recorded ?Confirmed ?Last Taken ?Type aspirin 81 mg tablet,delayed 81 mg PO DAILY 01/02/24 05/05/24 01/17/24 12:00 History release bisacodyl 10 mg rectal suppository 10 mg CO DAILY PRN Constipation 01/02/24 05/05/24 Unknown History citalopram 20 mg tablet 20 mg PO DAILY 01/02/24 05/05/24 01/17/24 12:00 History isosorbide mononitrate 20 mg tablet 40 mg PO DAILY 01/02/24 05/05/24 01/17/24 12:00 History omeprazole 20 mg capsule,delayed 20 mg PO DAILY@0630 01/02/24 05/05/24 01/17/24 12:00 History release ondansetron 4 mg disintegrating 4 mg PO Q8H PRN Nausea/Vomiting 01/02/24 05/05/24 Unknown History tablet polyethylene glycol 3350 17 17 g PO DAILY PRN Constipation 01/02/24 05/05/24 Unknown History gram/dose oral powder sennosides 8.6 mg-docusate sodium 1 tab-cap PO Q24H PRN Constipation 01/02/24 05/05/24 Unknown History 50 mg capsule (Senna Plus) sevelamer HCl 800 mg tablet 1,600 mg PO TIDWM 01/02/24 05/05/24 01/17/24 12:00 History simethicone 80 mg chewable tablet 80 mg PO Q6H PRN GAS 01/02/24 05/05/24 01/16/24 History sodium phosphates 19 gram-7 118 ml CO DAILY PRN Constipation 01/02/24 05/05/24 Unknown History gram/118 mL enema (Fleet Enema) sodium zirconium cyclosilicate 10 10 g PO SUTUTHSA@1400 01/02/24 05/05/24 01/17/24 12:00 History gram oral powder packet (Lokelma) trazodone 50 mg tablet 50 mg PO BEDTIME 01/31/24 05/05/24 Unknown History dextromethorphan HBr 5 mg/5 mL 10 mg PO Q4H PRN Cough 02/06/24 05/05/24 Unknown History oral syrup acetaminophen 500 mg tablet 1,000 mg PO Q24H PRN Pain (Scale 04/17/24 05/05/24 Unknown History Score 4-6) atorvastatin 40 mg tablet 40 mg PO BEDTIME 04/17/24 05/05/24 Unknown History clonazepam 1 mg tablet 1 mg PO BID PRN Anxiety 04/17/24 05/05/24 Unknown History ibuprofen 600 mg tablet 600 mg PO Q6H PRN Pain 04/17/24 05/05/24 Unknown History acetaminophen 500 mg tablet 1,000 mg PO BID 05/05/24 05/05/24 Unknown History Physical Exam Vital Signs and Narrative: Vital Signs: Last Vital Signs Temp 97.6 F 05/05/24 11:10 Pulse 44 L 05/05/24 13:39 Resp 12 05/05/24 13:39 BP 176/64 H 05/05/24 13:39 Pulse Ox 98 05/05/24 13:39 O2 Del Method Nasal Cannula 05/05/24 13:39 O2 Flow Rate 2 05/05/24 13:39 Oxygen Flow Rate 2 05/05/24 09:15 BMI result Body Mass Index 25.1 Const: Other: Constitutional - Awake and Alert, No apparent distress Eyes - PERRLA, EOMI Cardiovascular - S1S2, sinus bradycardia on tele monitor without any significant blocks noted Respiratory - Normal lung expansion, Normal respiratory effort, No respiratory distress, CTA bilaterally Gastrointestinal - NT / ND; +BS; No rebound or guarding - No CVA tenderness Extremities - no calf tenderness bilaterally, no swelling Musculoskeletal - Normal inspection, normal ROM Skin - Warm/Dry Neurological - Alert & oriented x3, No focal deficit Psychological - Appropriate affect Results Labs 05/05/24 11:27 05/06/24 06:09 Labs: Laboratory Results - last 24 hr 05/05/24 11:27 MCV 86.3 MCH 30.1 MCHC 34.8 RDW 14.5 Plt Count 124 L D MPV 9.1 L Immature Gran % (Auto) 0.3 Neut % (Auto) 58.0 Lymph % (Auto) 25.3 [place] % (Auto) 10.2 Eos % (Auto) 5.5 H Baso % (Auto) 0.7 Lymph # (Auto) 0.7 L [place] # (Auto) 0.3 Eos # (Auto) 0.2 Baso # (Auto) 0.0 Abs Immat Gran (auto) 0.01 Absolute Neuts (auto) 1.7 L Absolute Nucleated RBC 0.000 Nucleated RBC % (auto) 0.0 PT 12.1 INR 1.0 Anion Gap 20 Estim Creat Clear Calc 8.1 Estimated GFR 6 Random Glucose 96 Calcium 8.2 L D Magnesium 2.0 Total Bilirubin 0.4 Direct Bilirubin 0.2 AST 21 ALT 6 Alkaline Phosphatase 109 Troponin I High Sens 27.6 B-Natriuretic Peptide 2247 H Total Protein 6.4 L Albumin 3.1 L Influenza Type A (PCR) NEGATIVE Influenza Type B (PCR) NEGATIVE RSV RNA Qual (PCR) NEGATIVE SARS-CoV-2 RNA (RT-PCR) NEGATIVE Imaging Radiologist's Impressions: Impressions Chest X-Ray 05/05/24 09:03 IMPRESSION: Question interstitial pneumonitis versus edema. Prominent bilateral pulmonary vasculature with cardiomegaly. Electronically signed by: Fredi Miller MD 05/05/2024 11:26 AM [facility] [place] Plan (1) Sinus bradycardia: Status: Acute (2) ESRD (end stage renal disease) on dialysis: Status: Acute Plan 68-year-old male with ESRD on HD Tuesday who presents with bradycardia from [facility]. Found to have mild hyperkalemia as well as metabolic acidosis. He will be admitted for further workup and treatment. 1. Bradycardia Despite K being elevated at only 5.3, suspect due to this as he has had similar in the past. We will keep atropine and pacer pads at bedside. If continues to be bradycardic post dialysis will involve Cardiology. 2. ESRD Nephrology consulted Dialysis per their recommendations Intermittently noncompliant at facility 3. Uncontrolled hypertension We will resume his baseline meds and up titrate as needed 4. Diabetes mellitus ? not on any meds will check POC and HBA1C 5. HTN continue baseline meds 6. Mood continue baseline meds Full Code DVT pptx - heparin Quality Stroke Does the patient have a stroke diagnosis?: No VTE Prior VTE?: No VTE Risk Level:: Medical - moderate - high VTE Device Contraindication: N/A - Device Ordered VTE Drug Contraindication: N/A - Med Ordered
--- NOTE | 2024-05-05 14:37 | PHA.MEDREC ---
Addendum entered by Keshia Carlos [facility] 05/05/24 15:29: reviewed Original Note: Pharmacy Consult ? Medication Reconciliation Pharmacy has completed the medication reconciliation. Used list from [facility]
[2024-05-05] MEDS: amLODIPine Besylate 5 MG TABLET PO ×2 (15:14→21:11)
[2024-05-05 15:18] LABS: Estimated Average Glucose 97 mg/dL; Total Hemoglobin (HGBA1C) 2554.4811 umol/L
[2024-05-05] MEDS: Heparin Sodium,Porcine 5,000 UNIT/ML VIAL 5000 UNIT SUBCUT ×2 (15:20→23:17)
--- NOTE | 2024-05-05 15:29 | PC.NURSE ---
Addendum entered by Sara Stiles RN 05/05/24 16:10: PRN Atropine pulled and placed at bedside for use as needed for symptomatic bradycardia (hypotension) per admitting attending. Original Note: Pt continues to refuse Lokelma but is willing to take amlodipine and heparin. Pacer pads and zoll placed in room per request of admitting attending. Pt is A&Ox3 HR is steady at 64. Skin is warm and dry Breaths and speech are unlabored. Facial symmetry present. NAD noted.
[2024-05-05 16:39] LABS: Glucose, Whole Blood 88 mg/dL (60-115)
[2024-05-05] MEDS: 0.9 % Sodium Chloride Flush 3 ML SYRINGE IVFLUSH ×2 (16:43→23:16)
[2024-05-05] MEDS: Sevelamer Carbonate Tablet 800 MG TABLET 1600 MG PO (16:45)
[2024-05-05] MEDS: Acetaminophen 325 MG TABLET 650 MG PO (17:50)
[2024-05-05 20:58] LABS: Glucose, Whole Blood 92 mg/dL (60-115)
[2024-05-05] MEDS: Isosorbide Dinitrate 20 MG TABLET PO (21:10)
[2024-05-05] MEDS: hydrALAZINE HCl 10 MG TABLET PO (21:10)
[2024-05-05] MEDS: Atorvastatin Calcium 40 MG TABLET PO (21:10)
[2024-05-05] MEDS: traZODone HCL 50 MG TABLET PO (21:11)
[2024-05-06] VITALS (7 sets, daily range): BP systolic 133–184; BP diastolic 52–79; PULSE 42–70; RESP 13–18; TEMP 36.1–36.6; O2SAT 87–98; BMI 25.1
[2024-05-06] MEDS: oxyCODONE HCl Immed Release 5 MG TABLET PO ×2 (00:19→09:18)
[2024-05-06] MEDS: Acetaminophen 325 MG TABLET 650 MG PO ×3 (03:20→22:49)
[2024-05-06] MEDS: Omeprazole 20 MG CAPSULE.DR PO (05:29)
[2024-05-06 07:11] LABS: Anion Gap 22 (12-20); Blood Urea Nitrogen 39 mg/dL (9-16); Calcium 8.2 mg/dL (8.4-10.2); Carbon Dioxide 18 mmol/L (22-29); Chloride 88 mmol/L (96-108); Creatinine Clr Calc Pharmacy 7.6; Estimated Glomerular Filt Rate 6; Glucose Random 78 mg/dL (60-115); Potassium 5.3 mmol/L (3.3-5.1); Sodium 123 mmol/L (135-145)
[2024-05-06 07:51] LABS: Glucose, Whole Blood 79 mg/dL (60-115)
--- NOTE | 2024-05-06 08:54 | MHC.CM.PN ---
IMM 05/06. Pt is a LTC resident at [facility]. Pt goes to in [place] on Mon/Wed/Fri. He uses a wheelchair. Pt will transport via BLS. HCP on file and verified. PCP: Dr. Va Kurtz
[2024-05-06] MEDS: Aspirin Enteric Coated 81 MG TABLET.DR PO (09:18)
[2024-05-06] MEDS: Sevelamer Carbonate Tablet 800 MG TABLET 1600 MG PO ×3 (09:18→18:32)
[2024-05-06] MEDS: Heparin Sodium,Porcine 5,000 UNIT/ML VIAL 5000 UNIT SUBCUT ×3 (09:19→22:35)
[2024-05-06] MEDS: amLODIPine Besylate 5 MG TABLET PO (09:19)
[2024-05-06] MEDS: Isosorbide Dinitrate 20 MG TABLET PO ×2 (09:19→22:35)
[2024-05-06] MEDS: Escitalopram Oxalate 10 MG TABLET PO (09:19)
[2024-05-06] MEDS: 0.9 % Sodium Chloride Flush 3 ML SYRINGE IVFLUSH ×3 (09:19→22:35)
[2024-05-06] MEDS: hydrALAZINE HCl 10 MG TABLET PO ×2 (09:19→22:34)
[2024-05-06 11:37] LABS: Glucose, Whole Blood 99 mg/dL (60-115)
--- NOTE | 2024-05-06 11:43 | PM.CNCAR ---
History of Present Illness History of Present Illness Date of Service: 05/06/24 Requesting physician: Kana Gómez Consult reason: other (Bradycardia) Chief complaint: Bradycardia Narrative: I was consulted to see Hamzah in cardiology consultation today for bradycardia. Patient is a 68-year-old male referred from long-term facility for bradycardia. He has no symptoms related to it. Denies any lightheadedness, syncope. No syncope in the fdc either. He denies any chest pain, shortness of breath. On admission noted to have marked sinus bradycardia 37 beats per minute deep T-wave inversions, not significantly different than the last admission. Patient was not on any obvious rate lowering medications. Last admission he had similar issue but was dialyzed in his heart rate had improved as per the hospitalist team. Question related to potassium change and baseline hyperkalemia although his hyperkalemia and potassium level is only 5.3. Patient has prior history of congestive heart failure has responded to diuretic treatment. Longstanding history of hypertension, end-stage renal disease on hemodialysis for 10 years. 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 He is currently on amlodipine for blood pressure control. No clear history of coronary artery disease or vascular disease as such. Last echocardiogram shown LVEF of 65-70% with severe left ventricular hypertrophy. Review of Systems Constitutional: Constitutional: Reports no additional constitutional complaints Cardiovascular: Cardiovascular: Reports no additional cardiovascular complaints and Reports slow heart rate Respiratory: Respiratory: Reports no additional respiratory complaints Gastrointestinal: Gastrointestinal: Reports no additional gastrointestinal complaints Genitourinary: Genitourinary: Reports no additional male genitourinary complaints Musculoskeletal: Musculoskeletal: Reports no additional musculoskeletal complaints Integumentary/Breasts: Skin/Breast: Reports system reviewed and no additional complaints, except as docu Neurologic: Reports system reviewed and no additional complaints, except as documented Psychiatric: Psychiatric: Reports no additional psychiatric complaints Endocrine: Endocrine: Reports no additional endocrine complaints Allergic/Immunologic: Allergic/Immunologic: Reports no additional allergic/immunologic complaints [facility] Past Medical History Medical History Abnormal EKG Renal failure, chronic Junctional bradycardia End stage renal disease on dialysis Pulmonary edema Dialysis patient, noncompliant Anemia in chronic kidney disease (CKD) Bradycardia Dialysis patient, noncompliant Diabetes mellitus Hypertension Below-knee amputation of right lower extremity Hyperlipidemia Hypertension Peripheral vascular disease Chronic kidney disease on chronic dialysis Diabetes Family History Family History Unknown No problems noted. Social History Social History Household Members: None Household Members Other:: LTC Housing: Retirement Housing Other:: [facility] Do you presently have visiting nurse or other home services: No Comment: 1:1 sitter Patient Tobacco Use Status: Never used Tobacco Smoked in Last 30 Days: No Use of substances other than those prescribed or required for medical reasons: No Currently Displaying Signs/Symptoms of Drug Intoxication Withdrawal: No Any prior treatment program specific to substance use: No Have you been hit, kicked, punched, or otherwise hurt by someone within the past year? If so, by whom?: No Do you feel safe in your current relationship?: No Current Relationship Is there a partner from a previous relationship who is making you feel unsafe now?: No Are you made to feel afraid or neglected: No Advance Directives: Yes Advance Directives Information Provided: No Advance Directives on File: Yes Advance Directives Date on File: 01/17/24 Do you have a plan to hurt others: No Plan Recently lost weight without trying: No Eating poorly because of decreased appetite: No service: No Meds Allergies Allergy/AdvReac Type Severity Reaction Status Date / Time garlic Allergy Severe Hives Verified 05/05/24 09:18 onion Allergy Severe Hives Verified 05/05/24 09:18 Peppers, Green Allergy Severe Hives Verified 05/05/24 09:18 Active Medications: Current Medications Acetaminophen (Acetaminophen 325 Mg Tablet) 650 mg PO TID PRN PRN Reason: Pain (Scale Score 4-6) Last Admin: 05/06/24 03:20 Dose: 650 mg Aspirin (Aspirin Enteric Coated 81 Mg Tablet.Dr) 81 mg PO DAILY [facility] Last Admin: 05/06/24 09:18 Dose: 81 mg Atorvastatin Calcium (Atorvastatin Calcium 40 Mg Tablet) 40 mg PO BEDTIME [facility] Last Admin: 05/05/24 21:10 Dose: 40 mg Atropine Sulfate (Atropine Sulfate 1 Mg/10 Ml Syringe) 0.5 mg IVPUSH ONCE PRN PRN Reason: symptomatic heather (hypotension Bisacodyl (Bisacodyl 10 Mg Supp.Rect) 10 mg [place] DAILY PRN PRN Reason: Constipation Calcium Carbonate (Calcium Carbonate 750 Mg Tab.Chew) 750 mg PO Q4H PRN PRN Reason: Heartburn Clonazepam (Clonazepam 1 Mg Tablet) 1 mg PO BID PRN PRN Reason: Anxiety Escitalopram Oxalate (Escitalopram Oxalate 10 Mg Tablet) 10 mg PO DAILY [facility] Last Admin: 05/06/24 09:19 Dose: 10 mg Heparin Sodium (Porcine) (Heparin Sodium,Porcine 5,000 Unit/Ml Vial) 5,000 unit SUBCUT Q8H [facility] Last Admin: 05/06/24 09:19 Dose: 5,000 unit Hydralazine HCl (Hydralazine Hcl 10 Mg Tablet) 10 mg PO BID [facility]; Protocol Last Admin: 05/06/24 09:19 Dose: 10 mg Isosorbide Dinitrate (Isosorbide Dinitrate 20 Mg Tablet) 20 mg PO BID [facility] Last Admin: 05/06/24 09:19 Dose: 20 mg Magnesium Hydroxide (Milk Of Magnesia 30 Ml Oral.Susp) 30 ml PO DAILY PRN PRN Reason: Constipation Melatonin (Melatonin 3 Mg Tablet) 6 mg PO BEDTIME PRN PRN Reason: Insomnia Omeprazole (Omeprazole 20 Mg Capsule.Dr) 20 mg PO DAILY@0630 [facility] Last Admin: 05/06/24 05:29 Dose: 20 mg Oxycodone HCl (Oxycodone Hcl Immed Release 5 Mg Tablet) 5 mg PO Q6H PRN PRN Reason: Pain, Severe (Pain Scale 7-10) Last Admin: 05/06/24 09:18 Dose: 5 mg Polyethylene Glycol (Polyethylene Glycol 3350 17 Gm Powd.Pack) 17 gm PO DAILY PRN PRN Reason: Constipation Senna/Docusate Sodium (Sennosides/Docusate Sodium Tablet) 1 tab PO Q24H PRN PRN Reason: Constipation Sevelamer Carbonate (Sevelamer Carbonate Tablet 800 Mg Tablet) 1,600 mg PO TIDWM [facility] Last Admin: 05/06/24 09:18 Dose: 1,600 mg Sodium Chloride (0.9 % Sodium Chloride Flush 3 Ml Syringe) 3 ml IVFLUSH QSHIFT [facility] Last Admin: 05/06/24 09:19 Dose: 3 ml Sodium Zirconium Cyclosilicate (Sodium Zirconium Cyclosilicate 10 Gm Powd.Pack) 10 gm PO SUTUTHSA@1400 [facility] Trazodone HCl (Trazodone Hcl 50 Mg Tablet) 50 mg PO BEDTIME [facility] Last Admin: 05/05/24 21:11 Dose: 50 mg Home Medications ?Medication ?Instructions ?Recorded ?Confirmed ?Last Taken ?Type aspirin 81 mg tablet,delayed 81 mg PO DAILY 01/02/24 05/05/24 01/17/24 12:00 History release bisacodyl 10 mg rectal suppository 10 mg [place] DAILY PRN Constipation 01/02/24 05/05/24 Unknown History citalopram 20 mg tablet 20 mg PO DAILY 01/02/24 05/05/24 01/17/24 12:00 History isosorbide mononitrate 20 mg tablet 40 mg PO DAILY 01/02/24 05/05/24 01/17/24 12:00 History omeprazole 20 mg capsule,delayed 20 mg PO DAILY@0630 01/02/24 05/05/24 01/17/24 12:00 History release ondansetron 4 mg disintegrating 4 mg PO Q8H PRN Nausea/Vomiting 01/02/24 05/05/24 Unknown History tablet polyethylene glycol 3350 17 17 g PO DAILY PRN Constipation 01/02/24 05/05/24 Unknown History gram/dose oral powder sennosides 8.6 mg-docusate sodium 1 tab-cap PO Q24H PRN Constipation 01/02/24 05/05/24 Unknown History 50 mg capsule (Senna Plus) sevelamer HCl 800 mg tablet 1,600 mg PO TIDWM 01/02/24 05/05/24 01/17/24 12:00 History simethicone 80 mg chewable tablet 80 mg PO Q6H PRN GAS 01/02/24 05/05/24 01/16/24 History sodium phosphates 19 gram-7 118 ml [place] DAILY PRN Constipation 01/02/24 05/05/24 Unknown History gram/118 mL enema (Fleet Enema) sodium zirconium cyclosilicate 10 10 g PO SUTUTHSA@1400 01/02/24 05/05/24 01/17/24 12:00 History gram oral powder packet (Lokelma) trazodone 50 mg tablet 50 mg PO BEDTIME 01/31/24 05/05/24 Unknown History dextromethorphan HBr 5 mg/5 mL 10 mg PO Q4H PRN Cough 02/06/24 05/05/24 Unknown History oral syrup acetaminophen 500 mg tablet 1,000 mg PO Q24H PRN Pain (Scale 04/17/24 05/05/24 Unknown History Score 4-6) atorvastatin 40 mg tablet 40 mg PO BEDTIME 04/17/24 05/05/24 Unknown History clonazepam 1 mg tablet 1 mg PO BID PRN Anxiety 04/17/24 05/05/24 Unknown History ibuprofen 600 mg tablet 600 mg PO Q6H PRN Pain 04/17/24 05/05/24 Unknown History acetaminophen 500 mg tablet 1,000 mg PO BID 05/05/24 05/05/24 Unknown History Physical Exam Vital Signs: Vital Signs: Last Vital Signs Temp 97.8 F 05/06/24 07:19 Pulse 42 L 05/06/24 07:19 Resp 18 05/06/24 07:19 BP 142/52 H 05/06/24 09:19 Pulse Ox 94 05/06/24 07:19 O2 Del Method Nasal Cannula 05/06/24 07:19 O2 Flow Rate 1.5 05/06/24 07:19 Oxygen Flow Rate 2 05/05/24 09:15 BMI result Body Mass Index 25.1 Const: General: cooperative, comfortable, alert and awake Nutritional Appearance: average body habitus Orientation/consciousness: patient oriented x3 HEENT: Head: Yes normocephalic and Yes atraumatic Neck: Neck: Yes trachea midline, Yes supple and Yes no JVD Resp: Effort & Inspection: normal respiratory effort Auscultation: clear to auscultation bilaterally Cardio: Jugular venous distension: no JVD Rate: regular rate Rhythm: regular rhythm Heart sounds: S1 normal heart sound present, S2 normal heart sound present, no click, no gallops and Murmur heart sound present systolic early GI: Auscultation: normal bowel sounds Skin: General skin exam: no rashes or lesions noted Neuro: General: patient oriented x3 and no focal motor deficits Extrem: General: Yes other (Right below-knee amputation) Objective Labs and Meds 05/05/24 11:27 05/06/24 06:09 Lab results: Laboratory Results - last 24 hr 05/05/24 05/05/24 05/05/24 11:27 16:36 20:44 WBC 2.9 L RBC 3.36 L Hgb 10.1 L Hct 29.0 L MCV 86.3 MCH 30.1 MCHC 34.8 RDW 14.5 Plt Count 124 L D MPV 9.1 L Immature Gran % (Auto) 0.3 Neut % (Auto) 58.0 Lymph % (Auto) 25.3 Republic % (Auto) 10.2 Eos % (Auto) 5.5 H Baso % (Auto) 0.7 Lymph # (Auto) 0.7 L Republic # (Auto) 0.3 Eos # (Auto) 0.2 Baso # (Auto) 0.0 Abs Immat Gran (auto) 0.01 Absolute Neuts (auto) 1.7 L Absolute Nucleated RBC 0.000 Nucleated RBC % (auto) 0.0 Hold Purple Top Sodium 125 L Potassium 5.3 H D Chloride 89 L Carbon Dioxide 21 L Anion Gap 20 BUN 34 H Creatinine 8.36 H* Estim Creat Clear Calc 8.1 Estimated GFR 6 POC Glucose 88 92 Random Glucose 96 Estimat Average Glucose 97 Hemoglobin A1c % 5.0 Calcium 8.2 L D Magnesium 2.0 Total Bilirubin 0.4 Direct Bilirubin 0.2 AST 21 ALT 6 Alkaline Phosphatase 109 Troponin I High Sens 27.6 B-Natriuretic Peptide 2247 H Total Protein 6.4 L Albumin 3.1 L Influenza Type A (PCR) NEGATIVE Influenza Type B (PCR) NEGATIVE RSV RNA Qual (PCR) NEGATIVE SARS-CoV-2 RNA (RT-PCR) NEGATIVE 05/06/24 05/06/24 05/06/24 06:09 07:32 11:33 WBC RBC Hgb Hct MCV MCH MCHC RDW Plt Count MPV Immature Gran % (Auto) Neut % (Auto) Lymph % (Auto) Republic % (Auto) Eos % (Auto) Baso % (Auto) Lymph # (Auto) Republic # (Auto) Eos # (Auto) Baso # (Auto) Abs Immat Gran (auto) Absolute Neuts (auto) Absolute Nucleated RBC Nucleated RBC % (auto) Hold Purple Top SEE NOTE Sodium 123 L Potassium 5.3 H Chloride 88 L Carbon Dioxide 18 L Anion Gap 22 H BUN 39 H Creatinine 8.88 H* Estim Creat Clear Calc 7.6 Estimated GFR 6 POC Glucose 79 99 Random Glucose 78 Estimat Average Glucose Hemoglobin A1c % Calcium 8.2 L Magnesium Total Bilirubin Direct Bilirubin AST ALT Alkaline Phosphatase Troponin I High Sens B-Natriuretic Peptide Total Protein Albumin Influenza Type A (PCR) Influenza Type B (PCR) RSV RNA Qual (PCR) SARS-CoV-2 RNA (RT-PCR) Assessment and Plan (1) Sinus bradycardia: Status: Acute Patient with significant sinus bradycardia with underlying structural heart disease with severe LVH probably related to hypertension although infiltrative disorder can not be ruled out completely given that his blood pressures been adequately controlled. This is most suggestive of sick sinus syndrome. Although he has no obvious symptoms related to it had no hemodynamic compromise. In this setting in patient with long-term requirement for hemodialysis, permanent pacemaker would be less desirable given his risk of intravascular infection. At this point time I would continue monitor. Potential amlodipine as causative agent is likely and has been reported to cause sinus bradycardia. Will therefore discontinue amlodipine therapy and manage his blood pressure with hydralazine. Watch him closely. If he has any symptoms of lightheadedness for poor perfusion which she currently does not, can consider pacemaker therapy if his heart rate does not significantly improved. In the past his heart rate has improved with dialysis and question this is potentially related to hypovolemia and/or potentially change in potassium level quickly is difficult to say. Will follow after dialysis to see if his heart rate improves. Can pursue outpatient cardiac event monitor with mobile telemetry. Will follow with you. Procedures Date of Service Date of Service: 05/06/24
--- NOTE | 2024-05-06 12:53 | HO.PM.IMPN ---
Subjective Subjective Date of Service: 05/06/24 Interval History: seen and examined this AM reports no complaints denies symptom of bradycardia Physical Exam Vital Signs: Vital Signs: Last Vital Signs Temp 97.8 F 05/06/24 07:19 Pulse 42 L 05/06/24 07:19 Resp 18 05/06/24 07:19 BP 142/52 H 05/06/24 09:19 Pulse Ox 94 05/06/24 07:19 O2 Del Method Nasal Cannula 05/06/24 07:19 O2 Flow Rate 1.5 05/06/24 07:19 Oxygen Flow Rate 2 05/05/24 09:15 BMI result Body Mass Index 25.1 Const: Other: General - no acute distress, appears comfortable Cardiovascular - bradycardic Lungs - normal respiratory effort, clear to auscultation bilaterally, no wheezing Abdomen - soft, nontender, no rebound or guarding Extremities - no edema bilaterally Neuro - awake and alert, no focal deficits Objective Data Active Medications Acetaminophen (Acetaminophen 325 Mg Tablet) 650 mg PO TID PRN PRN Reason: Pain (Scale Score 4-6) Last Admin: 05/06/24 12:00 Dose: 650 mg Documented By: LUDWIG Aspirin (Aspirin Enteric Coated 81 Mg Tablet.Dr) 81 mg PO DAILY [facility] Last Admin: 05/06/24 09:18 Dose: 81 mg Documented By: LUDWIG Atorvastatin Calcium (Atorvastatin Calcium 40 Mg Tablet) 40 mg PO BEDTIME [facility] Last Admin: 05/05/24 21:10 Dose: 40 mg Documented By: ALEENA Atropine Sulfate (Atropine Sulfate 1 Mg/10 Ml Syringe) 0.5 mg IVPUSH ONCE PRN PRN Reason: symptomatic heather (hypotension Bisacodyl (Bisacodyl 10 Mg Supp.Rect) 10 mg [place] DAILY PRN PRN Reason: Constipation Calcium Carbonate (Calcium Carbonate 750 Mg Tab.Chew) 750 mg PO Q4H PRN PRN Reason: Heartburn Clonazepam (Clonazepam 1 Mg Tablet) 1 mg PO BID PRN PRN Reason: Anxiety Escitalopram Oxalate (Escitalopram Oxalate 10 Mg Tablet) 10 mg PO DAILY [facility] Last Admin: 05/06/24 09:19 Dose: 10 mg Documented By: LUDWIG Heparin Sodium (Porcine) (Heparin Sodium,Porcine 5,000 Unit/Ml Vial) 5,000 unit SUBCUT Q8H [facility] Last Admin: 05/06/24 09:19 Dose: 5,000 unit Documented By: LUDWIG Hydralazine HCl (Hydralazine Hcl 10 Mg Tablet) 10 mg PO BID [facility]; Protocol Last Admin: 05/06/24 09:19 Dose: 10 mg Documented By: LUDWIG Isosorbide Dinitrate (Isosorbide Dinitrate 20 Mg Tablet) 20 mg PO BID [facility] Last Admin: 05/06/24 09:19 Dose: 20 mg Documented By: LUDWIG Magnesium Hydroxide (Milk Of Magnesia 30 Ml Oral.Susp) 30 ml PO DAILY PRN PRN Reason: Constipation Melatonin (Melatonin 3 Mg Tablet) 6 mg PO BEDTIME PRN PRN Reason: Insomnia Omeprazole (Omeprazole 20 Mg Capsule.Dr) 20 mg PO DAILY@0630 [facility] Last Admin: 05/06/24 05:29 Dose: 20 mg Documented By: ALEENA Oxycodone HCl (Oxycodone Hcl Immed Release 5 Mg Tablet) 5 mg PO Q6H PRN PRN Reason: Pain, Severe (Pain Scale 7-10) Last Admin: 05/06/24 09:18 Dose: 5 mg Documented By: LUDWIG Polyethylene Glycol (Polyethylene Glycol 3350 17 Gm Powd.Pack) 17 gm PO DAILY PRN PRN Reason: Constipation Senna/Docusate Sodium (Sennosides/Docusate Sodium Tablet) 1 tab PO Q24H PRN PRN Reason: Constipation Sevelamer Carbonate (Sevelamer Carbonate Tablet 800 Mg Tablet) 1,600 mg PO TIDWM [facility] Last Admin: 05/06/24 12:00 Dose: 1,600 mg Documented By: LUDWIG Sodium Chloride (0.9 % Sodium Chloride Flush 3 Ml Syringe) 3 ml IVFLUSH QSHIFT [facility] Last Admin: 05/06/24 09:19 Dose: 3 ml Documented By: LUDWIG Sodium Zirconium Cyclosilicate (Sodium Zirconium Cyclosilicate 10 Gm Powd.Pack) 10 gm PO SUTUTHSA@1400 [facility] Trazodone HCl (Trazodone Hcl 50 Mg Tablet) 50 mg PO BEDTIME [facility] Last Admin: 05/05/24 21:11 Dose: 50 mg Documented By: ALEENA Labs 05/05/24 11:27 05/06/24 06:09 Labs: Laboratory Results - last 24 hr 05/05/24 05/05/24 05/05/24 11:27 16:36 20:44 Hold Purple Top Anion Gap Estim Creat Clear Calc Estimated GFR POC Glucose 88 92 Random Glucose Estimat Average Glucose 97 Hemoglobin A1c % 5.0 Calcium 05/06/24 05/06/24 05/06/24 06:09 07:32 11:33 Hold Purple Top SEE NOTE Anion Gap 22 H Estim Creat Clear Calc 7.6 Estimated GFR 6 POC Glucose 79 99 Random Glucose 78 Estimat Average Glucose Hemoglobin A1c % Calcium 8.2 L Assessment and Plan (1) Sinus bradycardia: Status: Acute Plan 68-year-old male with ESRD on HD Tuesday who [facility] with bradycardia from detention facility. Found to have mild hyperkalemia as well as metabolic acidosis. He will be admitted for further workup and treatment. 1. Bradycardia asymptomatic cardiology consulted -- see their note for full details; will d/c norvasc for now 2. ESRD Nephrology consulted - plan for dilaysis today 3. Uncontrolled hypertension norasvac stoped will continue with hydralazine -- likely will need uptitration to 25mg tid 4. Diabetes mellitus ? not on any meds will check POC and HBA1C 5. HTN continue baseline meds 6. Mood continue baseline meds Full Code DVT pptx - heparin Quality Stroke Does the patient have a stroke diagnosis?: No VTE Prior VTE?: No VTE Risk Level:: Medical - moderate - high VTE Device Contraindication: N/A - Device Ordered VTE Drug Contraindication: N/A - Med Ordered
[2024-05-06] MEDS: Sodium Zirconium Cyclosilicate 10 GM POWD.PACK PO (16:04)
[2024-05-06 16:18] LABS: Glucose, Whole Blood 81 mg/dL (60-115)
[2024-05-06 20:48] LABS: Glucose, Whole Blood 103 mg/dL (60-115)
[2024-05-06] MEDS: traZODone HCL 50 MG TABLET PO (22:35)
[2024-05-06] MEDS: Atorvastatin Calcium 40 MG TABLET PO (22:35)
[2024-05-07] VITALS: BP 119/57; PULSE 65; RESP 18; TEMP 36.3; O2SAT 96
[2024-05-07 03:35] VITALS: BP 142/58; PULSE 67; RESP 16; TEMP 36.6; O2SAT 98
[2024-05-07] MEDS: Omeprazole 20 MG CAPSULE.DR PO (05:58)
[2024-05-07] MEDS: Acetaminophen 325 MG TABLET 650 MG PO ×2 (05:58→14:53)
[2024-05-07] MEDS: Heparin Sodium,Porcine 5,000 UNIT/ML VIAL 5000 UNIT SUBCUT (05:59)
[2024-05-07 07:28] VITALS: BP 156/58; PULSE 66; RESP 16; TEMP 37; O2SAT 97
[2024-05-07 07:45] LABS: Glucose, Whole Blood 71 mg/dL (60-115)
[2024-05-07 07:53] LABS: Hematocrit 31.1 % (42.0-52.0); Hemoglobin 10.5 g/dl (14.0-18.0); Mean Corpuscular HGB Conc 33.8 g/dl (31.0-36.0); Mean Corpuscular Hemoglobin 29.4 pg (27.0-33.0); Mean Corpuscular Volume 87.1 fL (80.0-98.0); Mean Platelet Volume 9.5 fL (9.4-12.4); Platelet Count 133 X10*3/uL (160-400); Red Blood Count 3.57 X10*6/uL (4.60-5.80); Red Cell Distribution Width 14.4 % (11.0-16.0); White Blood Count 3.2 X10*3/uL (4.8-10.8)
[2024-05-07 08:08] LABS: Anion Gap 20 (12-20); Blood Urea Nitrogen 21 mg/dL (9-16); Calcium 8.4 mg/dL (8.4-10.2); Carbon Dioxide 21 mmol/L (22-29); Chloride 93 mmol/L (96-108); Creatinine Clr Calc Pharmacy 10.5; Estimated Glomerular Filt Rate 9; Glucose Random 71 mg/dL (60-115); Phosphorus 4.7 mg/dL (2.7-4.5); Potassium 4.4 mmol/L (3.3-5.1); Sodium 130 mmol/L (135-145)
[2024-05-07] MEDS: hydrALAZINE HCl 10 MG TABLET PO (08:11)
[2024-05-07] MEDS: Aspirin Enteric Coated 81 MG TABLET.DR PO (08:11)
[2024-05-07] MEDS: Sevelamer Carbonate Tablet 800 MG TABLET 1600 MG PO ×2 (08:11→12:28)
[2024-05-07] MEDS: Escitalopram Oxalate 10 MG TABLET PO (08:11)
[2024-05-07] MEDS: Isosorbide Dinitrate 20 MG TABLET PO (08:12)
[2024-05-07] MEDS: 0.9 % Sodium Chloride Flush 3 ML SYRINGE IVFLUSH (08:12)
--- NOTE | 2024-05-07 08:30 | P.CONNP_ITS ---
History of Present Illness Reason for Consult Consult date: 05/07/24 Chief Complaint Chief complaint: Bradycardia History of Present Illness Narrative: Pt is a 68 y/o male with ESRD on HD hemodialysis M/W/F (states he goes to [facility] in [place] and is followed by Dr [facility]), CHF, CAD, DM, PAD s/p right BKA. presented 05/05 with asymptomatic bradycardia from SNF. Reportedly missed HD session Tuesday, 05/04. Nephrology consulted for management of ESRD on HD. pt missed HD session 05/04, received HD Tuesday05/06/24. Pt reports his breathing is comfortable (on supplemental O2 mask) pt denies chest pain, abdominal pain, flank pain states he is anuric at baseline denies other symptoms/concerns Review of Systems Constitutional: Reports as per HPI and Denies headache(s) Denies dizziness and Denies headache(s) Cardiovascular: Denies chest pain, Denies leg edema, Denies lightheadedness and Denies dyspnea Respiratory: Denies cough and Denies dyspnea Gastrointestinal: Denies abdominal pain, Denies constipation, Denies GI cramping, Denies diarrhea, Denies nausea and Denies vomiting Genitourinary: Denies flank pain Comments: anuric at baseline. Musculoskeletal: Denies arthralgias and Denies muscle cramps Skin/Breast: Denies rash Denies dizziness and Denies headache(s) [facility] Past Medical History Medical History Abnormal EKG Renal failure, chronic Junctional bradycardia End stage renal disease on dialysis Pulmonary edema Dialysis patient, noncompliant Anemia in chronic kidney disease (CKD) Bradycardia Dialysis patient, noncompliant Diabetes mellitus Hypertension Below-knee amputation of right lower extremity Hyperlipidemia Hypertension Peripheral vascular disease Chronic kidney disease on chronic dialysis Diabetes Family History Family History Unknown No problems noted. Social History Social History Household Members: None Household Members Other:: LTC [facility] Do you presently have visiting nurse or other home services: No Comment: 1:1 sitter Patient Tobacco Use Status: Never used Tobacco Smoked in Last 30 Days: No Use of substances other than those prescribed or required for medical reasons: No Currently Displaying Signs/Symptoms of Drug Intoxication Withdrawal: No Any prior treatment program specific to substance use: No Have you been hit, kicked, punched, or otherwise hurt by someone within the past year? If so, by whom?: No Do you feel safe in your current relationship?: No Current Relationship Is there a partner from a previous relationship who is making you feel unsafe now?: No Are you made to feel afraid or neglected: No Advance Directives: Yes Advance Directives Information Provided: No Advance Directives on File: Yes Advance Directives Date on File: 01/17/24 Do you have a plan to hurt others: No Plan Recently lost weight without trying: No Eating poorly because of decreased appetite: No service: No Meds Allergies Allergy/AdvReac Type Severity Reaction Status Date / Time garlic Allergy Severe Hives Verified 05/05/24 09:18 onion Allergy Severe Hives Verified 05/05/24 09:18 Peppers, Green Allergy Severe Hives Verified 05/05/24 09:18 Active Medications: Current Medications Acetaminophen (Acetaminophen 325 Mg Tablet) 650 mg PO TID PRN PRN Reason: Pain (Scale Score 4-6) Last Admin: 05/07/24 05:58 Dose: 650 mg Aspirin (Aspirin Enteric Coated 81 Mg Tablet.Dr) 81 mg PO DAILY [facility] Last Admin: 05/07/24 08:11 Dose: 81 mg Atorvastatin Calcium (Atorvastatin Calcium 40 Mg Tablet) 40 mg PO BEDTIME [facility] Last Admin: 05/06/24 22:35 Dose: 40 mg Atropine Sulfate (Atropine Sulfate 1 Mg/10 Ml Syringe) 0.5 mg IVPUSH ONCE PRN PRN Reason: symptomatic heather (hypotension Bisacodyl (Bisacodyl 10 Mg Supp.Rect) 10 mg [place] DAILY PRN PRN Reason: Constipation Calcium Carbonate (Calcium Carbonate 750 Mg Tab.Chew) 750 mg PO Q4H PRN PRN Reason: Heartburn Clonazepam (Clonazepam 1 Mg Tablet) 1 mg PO BID PRN PRN Reason: Anxiety Escitalopram Oxalate (Escitalopram Oxalate 10 Mg Tablet) 10 mg PO DAILY [facility] Last Admin: 05/07/24 08:11 Dose: 10 mg Heparin Sodium (Porcine) (Heparin Sodium,Porcine 5,000 Unit/Ml Vial) 5,000 unit SUBCUT Q8H [facility] Last Admin: 05/07/24 05:59 Dose: 5,000 unit Hydralazine HCl (Hydralazine Hcl 10 Mg Tablet) 10 mg PO BID [facility]; Protocol Last Admin: 05/07/24 08:11 Dose: 10 mg Isosorbide Dinitrate (Isosorbide Dinitrate 20 Mg Tablet) 20 mg PO BID [facility] Last Admin: 05/07/24 08:12 Dose: 20 mg Magnesium Hydroxide (Milk Of Magnesia 30 Ml Oral.Susp) 30 ml PO DAILY PRN PRN Reason: Constipation Melatonin (Melatonin 3 Mg Tablet) 6 mg PO BEDTIME PRN PRN Reason: Insomnia Omeprazole (Omeprazole 20 Mg Capsule.Dr) 20 mg PO DAILY@0630 [facility] Last Admin: 05/07/24 05:58 Dose: 20 mg Oxycodone HCl (Oxycodone Hcl Immed Release 5 Mg Tablet) 5 mg PO Q6H PRN PRN Reason: Pain, Severe (Pain Scale 7-10) Last Admin: 05/06/24 09:18 Dose: 5 mg Polyethylene Glycol (Polyethylene Glycol 3350 17 Gm Powd.Pack) 17 gm PO DAILY PRN PRN Reason: Constipation Senna/Docusate Sodium (Sennosides/Docusate Sodium Tablet) 1 tab PO Q24H PRN PRN Reason: Constipation Sevelamer Carbonate (Sevelamer Carbonate Tablet 800 Mg Tablet) 1,600 mg PO TIDWM [facility] Last Admin: 05/07/24 08:11 Dose: 1,600 mg Sodium Chloride (0.9 % Sodium Chloride Flush 3 Ml Syringe) 3 ml IVFLUSH QSHIFT [facility] Last Admin: 05/07/24 08:12 Dose: 3 ml Sodium Zirconium Cyclosilicate (Sodium Zirconium Cyclosilicate 10 Gm Powd.Pack) 10 gm PO SUTUTHSA@1400 [facility] Last Admin: 05/06/24 16:04 Dose: 10 gm Trazodone HCl (Trazodone Hcl 50 Mg Tablet) 50 mg PO BEDTIME [facility] Last Admin: 05/06/24 22:35 Dose: 50 mg Home Medications ?Medication ?Instructions ?Recorded ?Confirmed ?Last Taken ?Type aspirin 81 mg tablet,delayed 81 mg PO DAILY 01/02/24 05/05/24 01/17/24 12:00 History release bisacodyl 10 mg rectal suppository 10 mg AZ DAILY PRN Constipation 01/02/24 05/05/24 Unknown History citalopram 20 mg tablet 20 mg PO DAILY 01/02/24 05/05/24 01/17/24 12:00 History isosorbide mononitrate 20 mg tablet 40 mg PO DAILY 01/02/24 05/05/24 01/17/24 12:00 History omeprazole 20 mg capsule,delayed 20 mg PO DAILY@0630 01/02/24 05/05/24 01/17/24 12:00 History release ondansetron 4 mg disintegrating 4 mg PO Q8H PRN Nausea/Vomiting 01/02/24 05/05/24 Unknown History tablet polyethylene glycol 3350 17 17 g PO DAILY PRN Constipation 01/02/24 05/05/24 Unknown History gram/dose oral powder sennosides 8.6 mg-docusate sodium 1 tab-cap PO Q24H PRN Constipation 01/02/24 05/05/24 Unknown History 50 mg capsule (Senna Plus) sevelamer HCl 800 mg tablet 1,600 mg PO TIDWM 01/02/24 05/05/24 01/17/24 12:00 History simethicone 80 mg chewable tablet 80 mg PO Q6H PRN GAS 01/02/24 05/05/24 01/16/24 History sodium phosphates 19 gram-7 118 ml [place] DAILY PRN Constipation 01/02/24 05/05/24 Unknown History gram/118 mL enema (Fleet Enema) sodium zirconium cyclosilicate 10 10 g PO SUTUTHSA@1400 01/02/24 05/05/24 01/17/24 12:00 History gram oral powder packet (Lokelma) trazodone 50 mg tablet 50 mg PO BEDTIME 01/31/24 05/05/24 Unknown History dextromethorphan HBr 5 mg/5 mL 10 mg PO Q4H PRN Cough 02/06/24 05/05/24 Unknown History oral syrup acetaminophen 500 mg tablet 1,000 mg PO Q24H PRN Pain (Scale 04/17/24 05/05/24 Unknown History Score 4-6) atorvastatin 40 mg tablet 40 mg PO BEDTIME 04/17/24 05/05/24 Unknown History clonazepam 1 mg tablet 1 mg PO BID PRN Anxiety 04/17/24 05/05/24 Unknown History ibuprofen 600 mg tablet 600 mg PO Q6H PRN Pain 04/17/24 05/05/24 Unknown History acetaminophen 500 mg tablet 1,000 mg PO BID 05/05/24 05/05/24 Unknown History Physical Exam Vital Signs: Last Vital Signs Temp 98.6 F 05/07/24 07:28 Pulse 66 05/07/24 07:28 Resp 16 05/07/24 07:28 BP 156/58 H 05/07/24 07:28 Pulse Ox 97 05/07/24 07:28 O2 Del Method Nasal Cannula 05/07/24 07:28 O2 Flow Rate 2 05/07/24 03:35 Oxygen Flow Rate 2 05/05/24 09:15 BMI result Body Mass Index 25.1 Const General: no acute distress, alert and awake Resp Effort & Inspection: normal respiratory effort and able to speak in complete sentences Auscultation: clear to auscultation bilaterally Cardio Rate: regular rate Rhythm: regular rhythm Heart sounds: S1 normal heart sound present GI Palpation (GI): Soft to palpation and nontender General: Yes no CVA tenderness Back/Spine/Pelvis Back: no CVA tenderness Skin Rashes: rash noted Extrem General: No edema Results Lab Results 05/07/24 07:37 05/07/24 07:37 Lab results: Chemistry 05/05/24 05/06/24 05/07/24 11:27 06:09 07:37 Sodium 125 L 123 L 130 L Potassium 5.3 H D 5.3 H 4.4 Carbon Dioxide 21 L 18 L 21 L BUN 34 H 39 H 21 H Creatinine 8.36 H* 8.88 H* 6.47 H* Calcium 8.2 L D 8.2 L 8.4 Phosphorus 4.7 H Hematology 05/05/24 05/07/24 11:27 07:37 WBC 2.9 L 3.2 L Hgb 10.1 L 10.5 L Plt Count 124 L D 133 L Assessment and Plan (1) Sinus bradycardia: Status: Acute (2) ESRD (end stage renal disease) on dialysis: Status: Acute Plan ESRD on dialysis with bradycardia Will get HD today so patient resumes his normal M,W,F schedule H&H 10.5 and 31.1; no indication for procrit at this time sodium 130 (improved post HD yesterday), K 4.4, metabolic acidosis improving calcium 8.4 no uremic symptoms on exam blood pressures elevated but improving Pt has left upper extremity AV fistula, +thrill, +bruit Discussed with Dr Mckeon Procedures Date of Service Date of Service: 05/07/24
--- NOTE | 2024-05-07 09:13 | PM.PNCARD ---
Subjective Subjective Date of Service: 05/07/24 Interval history: Patient himself states that he feels fine. No dizziness or syncope or any cardiac complaints. Review of Systems Review of Systems Yes all other systems are reviewed and are negative Constitutional: Reports as per HPI and Reports no additional constitutional complaints Eyes: Reports as per HPI and Denies no additional eye complaints Denies system reviewed and no additional complaints, except as documented and Reports as per HPI Cardiovascular: Reports as per HPI, Reports no additional cardiovascular complaints, Denies acrocyanosis, Denies cool extremities, Denies chest pain, Denies leg edema, Denies lightheadedness, Denies palpitations and Denies dyspnea Respiratory: Reports as per HPI, Denies no additional respiratory complaints and Denies dyspnea Gastrointestinal: Reports as per HPI and Denies no additional gastrointestinal complaints Genitourinary: Reports no additional male genitourinary complaints and Reports as per HPI Musculoskeletal: Reports no additional musculoskeletal complaints and Reports as per HPI Skin/Breast: Reports system reviewed and no additional complaints, except as docu Reports system reviewed and no additional complaints, except as documented and Reports as per HPI Psychiatric: Reports no additional psychiatric complaints and Reports as per HPI Endocrine: Reports no additional endocrine complaints, Reports as per HPI and Denies palpitations Hematologic/Lymphatic: Reports no additional hematologic/lymphatic complaints and Reports as per HPI Allergic/Immunologic: Reports no additional allergic/immunologic complaints and Reports as per HPI Physical Exam Vital Signs: Last Vital Signs Temp 98.6 F 05/07/24 07:28 Pulse 66 05/07/24 07:28 Resp 16 05/07/24 07:28 BP 156/58 H 05/07/24 07:28 Pulse Ox 97 05/07/24 07:28 O2 Del Method Nasal Cannula 05/07/24 07:28 O2 Flow Rate 2 05/07/24 03:35 Oxygen Flow Rate 2 05/05/24 09:15 BMI result Body Mass Index 25.1 Const General: comfortable and no acute distress Orientation/consciousness: patient oriented x3 HEENT Other: Unremarkable Head: Yes normal to inspection Neck Neck: Yes normal visual inspection Chest Chest palpation & inspection: normal inspection of the chest Resp Auscultation: clear to auscultation bilaterally Cardio Palpation: normal PMI Heart sounds: S1 normal heart sound present, S2 normal heart sound present, no gallops, Murmur heart sound present systolic II/ and at the right sternal border and no rubs GI Palpation (GI): Soft to palpation Back/Spine/Pelvis Other: unremarkable Skin General skin exam: no rashes or lesions noted Neuro General: patient oriented x3 Extrem General: Yes normal to inspection Psych Mental Status: mental status grossly normal Objective Labs and Meds 05/07/24 07:37 05/07/24 07:37 Lab results: Laboratory Results - last 24 hr 05/06/24 05/06/24 05/06/24 11:33 16:13 20:39 WBC RBC Hgb Hct MCV MCH MCHC RDW Plt Count MPV Absolute Nucleated RBC Nucleated RBC % (auto) Sodium Potassium Chloride Carbon Dioxide Anion Gap BUN Creatinine Estim Creat Clear Calc Estimated GFR POC Glucose 99 81 103 Random Glucose Calcium Phosphorus 05/07/24 05/07/24 07:35 07:37 WBC 3.2 L RBC 3.57 L Hgb 10.5 L Hct 31.1 L MCV 87.1 MCH 29.4 MCHC 33.8 RDW 14.4 Plt Count 133 L MPV 9.5 Absolute Nucleated RBC 0.000 Nucleated RBC % (auto) 0.0 Sodium 130 L Potassium 4.4 Chloride 93 L Carbon Dioxide 21 L Anion Gap 20 BUN 21 H Creatinine 6.47 H* Estim Creat Clear Calc 10.5 Estimated GFR 9 POC Glucose 71 Random Glucose 71 Calcium 8.4 Phosphorus 4.7 H Progress Note: A&P Assessment and plan (1) Sinus bradycardia: Status: Acute Plan By initial EKG, sinus bradycardia at 37/Min. Minimal criteria for LVH versus normal variant. Inferior/anterolateral T inversions. On discussion with dialysis staff, apparently, he frequently misses dialysis and then the heart rate goes down. Once he gets dialyzed, the heart rate goes up back to 60s. Currently, on telemetry, sinus rhythm in the 60s. Overall, no indication to pursue pacemaker in the setting. Advised patient do not missed dialysis and keep that as scheduled. He understands. Do not strongly feel need to hold the amlodipine and may continue that. Time Spent With Patient Time: Total time managing care of this patient today ____ minutes. Progress Note: Quality Stroke Does the patient have a stroke diagnosis?: No Procedures Date of Service Date of Service: 05/07/24
--- NOTE | 2024-05-07 09:34 | P.CDIM_ITS ---
PROVIDER RESPONSE TEXT: To clarify, the appropriate diagnosis supported by the clinical indicators: Chronic metabolic acidosis QUERY TEXT: PHYSICIAN'S DOCUMENTATION REQUEST Date of Query: 05/07/2024 08:34 AM EST Patient Name: Hamzah Lewis Admit Date: 05/05/2024 Dear Kana Gómez MD, A review of the medical record indicates additional documentation may be needed. Please review below and update the documentation accordingly. Clinical Indicators: Progress notes within the Plan: Patient from correction facility found to have mild hyperkalemia as well as metabolic acidosis. Clarify which of the following accurately represents the acuity of the Metabolic acidosis: Possible options might include: Acute metabolic acidosis Chronic metabolic acidosis Other (explain) Clinically unable to determine (explain) Thank you, Amy Noel, CCS, CDIS Use of terms such as suspected, likely, concern for, or probable (associated with a specific diagnosi s that is being evaluated, monitored, or treated as if it exists) are acceptable and can be coded in the inpatient se tting, when documented at the time of discharge. Please use your independent medical judgment in providing your response. THIS QUERY IS PART OF THE PERMANENT MEDICAL RECORD
[2024-05-07] MEDS: amLODIPine Besylate 5 MG TABLET PO (11:03)
--- NOTE | 2024-05-07 11:50 | P.DS_ITS ---
DS: Providers Provider Date of Service: 05/07/24 Date of admission: 05/05/24 14:35 Date of discharge: 05/07/24 Primary care physician: Va Kurtz MD Consults: 05/05/24 14:35 Consult to Nephrology Routine Consulting Provider: [facility] Reason for consultation: ESRD on HD 05/06/24 10:29 Consult to Cardiology Routine Consulting Provider: [facility] Reason for consultation: bradycardia -- to evaluate for pacemaker DS: Diagnosis Discharge Diagnosis (1) Sinus bradycardia: Status: Acute (2) ESRD (end stage renal disease) on dialysis: Status: Acute DS: Summary Hospital Course Hospital Course: From admission H&P: Patient is a 68-year-old male with a past medical history of ESRD on hemodial ysis Tuesday, hyperlipidemia, hypertension and GERD who was brought to [facility] ED for reported bradycardia at alf facility where he resides. The patient's last dialysis was on Tuesday, he missed his last scheduled on Tuesday. He states that he was feeling unwell yesterday and N/C did not go to dialysis. He is currently annoyed that he has to be admitted to the hospital and is not forthcoming with much more information. On review of prior hospitalization, similar findings with hyperkalemia and resultant bradycardia. ED workup showed hyperkalemia, mild at 5.3; troponin negative and EKG showing bradycardia in the 40s. Patient seen and examined in the ED around 14:30. Does not we will give much history. On the tele monitor heart rates in the 50s. Blood pressure 180s. In the ED given IV calcium gluconate and IV bicarb and 10 g of Lokelma. Now will be admitted for further care Hospital Course: Patient was admitted for asymptomatic bradycardia. He was evaluated by Cardiology and Nephrology. The patient's bradycardia improved post dialysis with heart rates in the 60s. He remained asymptomatic during his hospitalization. Per Cardiology evaluation, the patient did not have any indication for pacemaker placement. Rather his bradycardia is directly related to missed dialysis sessions and improves thereafter. He has been encouraged to continue his dialysis sessions as scheduled. He has been dialyzed today Tuesday05/07/2024 prior to discharge and should resume his normal Tuesday schedule. Should the patient have ongoing bradycardia despite being compliant with his dialysis sessions, consideration can be given for outpatient cardiac monitoring and referral to Cardiology. Final discharge diagnosis 1. sinus bradycardia 2. ESRD with noncompliance with scheduled dialysis and chronic metabolic acidosis 3. Uncontrolled hypertension 4. Diabetes mellitus 5. Hypertension 6. Mood disorder Time Attestation Discharge Coordination Time (in mins): 40 Quality: Safe Use of Opioids Does Pt have an Active Cancer Diagnosis on the Problem List?: No Quality: Stroke Does the patient have a stroke diagnosis?: No Physical Exam Vital Signs: Vital Signs: Last Vital Signs Temp 98.6 F 05/07/24 07:28 Pulse 66 05/07/24 07:28 Resp 16 05/07/24 07:28 BP 156/58 H 05/07/24 07:28 Pulse Ox 97 05/07/24 07:28 O2 Del Method Nasal Cannula 05/07/24 07:28 O2 Flow Rate 2 05/07/24 03:35 Oxygen Flow Rate 2 05/05/24 09:15 BMI result Body Mass Index 25.1 DS: Data Data Completed and Pending Completed studies during hospitalization [Text1]: Procedures Assistance with Respiratory Ventilation, Less than 24 Consecutive Hours, Continuous Positive Airway Pressure (01/26/24) Control Bleeding in Nasal Mucosa and Soft Tissue, Via Natural or Artificial Opening (04/17/24) Performance of Urinary Filtration, Intermittent, Less than 6 Hours Per Day (04/17/24) Labs on day of discharge: Laboratory Results - last 24 hr 05/06/24 05/06/24 05/07/24 16:13 20:39 07:35 WBC RBC Hgb Hct MCV MCH MCHC RDW Plt Count MPV Absolute Nucleated RBC Nucleated RBC % (auto) Sodium Potassium Chloride Carbon Dioxide Anion Gap BUN Creatinine Estim Creat Clear Calc Estimated GFR POC Glucose 81 103 71 Random Glucose Calcium Phosphorus 05/07/24 07:37 WBC 3.2 L RBC 3.57 L Hgb 10.5 L Hct 31.1 L MCV 87.1 MCH 29.4 MCHC 33.8 RDW 14.4 Plt Count 133 L MPV 9.5 Absolute Nucleated RBC 0.000 Nucleated RBC % (auto) 0.0 Sodium 130 L Potassium 4.4 Chloride 93 L Carbon Dioxide 21 L Anion Gap 20 BUN 21 H Creatinine 6.47 H* Estim Creat Clear Calc 10.5 Estimated GFR 9 POC Glucose Random Glucose 71 Calcium 8.4 Phosphorus 4.7 H Discharge Plan Discharge Anticipated Discharge Date/Time: 05/07/24 16:00 Patient Disposition: [facility] Discharge Diagnosis: Bradycardia Referrals: [facility] [Outside] - 1 Week Va Kurtz MD [Primary Care Provider] - 1 Week Discharge Medications: Continued trazodone 50 mg Tablet 50 mg PO BEDTIME dextromethorphan HBr 5 mg/5 mL Syrup 10 mg PO Q4H PRN (Reason: Cough) amlodipine 5 mg Tablet 5 mg PO BID Qty: 0 0RF Protocol: Hold for SBP< HOLD for SBP < : 90 atorvastatin 40 mg tablet 40 mg PO BEDTIME clonazepam 1 mg tablet 1 mg PO BID PRN (Reason: Anxiety) acetaminophen 500 mg Tablet 1,000 mg PO Q24H PRN (Reason: Pain (Scale Score 4-6)) Rx Instructions: DNE 3 G / 24 HRS acetaminophen 500 mg Tablet 1,000 mg PO BID isosorbide mononitrate 20 mg Tablet 40 mg PO DAILY Protocol: Hold for SBP< HOLD for SBP < : 100 sevelamer HCl 800 mg Tablet 1,600 mg PO TIDWM Rx Instructions: must administer with a meal/food aspirin 81 mg tablet,delayed release (DR/EC) 81 mg PO DAILY citalopram 20 mg tablet 20 mg PO DAILY bisacodyl 10 mg Suppository 10 mg W[place] DAILY PRN (Reason: Constipation) Rx Instructions: No BM in 8 Hrs after M.O.M Fleet Enema 19-7 gram/118 mL Enema 118 ml W[place] DAILY PRN (Reason: Constipation) Rx Instructions: (step 3) No BM in 8 Hours after Bisacodyl supp. omeprazole 20 mg Capsule,Delayed Release(Dr/Ec) 20 mg PO DAILY@0630 polyethylene glycol 3350 17 gram/dose Powder 17 g PO DAILY PRN (Reason: Constipation) ondansetron 4 mg Tablet,Disintegrating 4 mg PO Q8H PRN (Reason: Nausea/Vomiting) simethicone 80 mg Tablet,Chewable 80 mg PO Q6H PRN (Reason: GAS) Lokelma 10 gram Powder In Packet 10 g PO SUTUTHSA@1400 Rx Instructions: GIVE 2 HOURS BEFORE OR 2 HOURS AFTER TAKING OTHER MEDICATIONS Senna Plus 8.6-50 mg Capsule 1 tab-cap PO Q24H PRN (Reason: Constipation) hydralazine 10 mg Tablet 10 mg PO BID Qty: 0 0RF Protocol: Hold for SBP< HOLD for SBP < : 90 Discontinued ibuprofen 600 mg tablet 600 mg PO Q6H PRN (Reason: Pain) Discharge Orders: Discharge Order (Routine); Ordered 05/07/24 Ordered By: Kana Gómez Diet: Advance to usual diet Activity on Discharge: As tolerated Stand Alone Forms: Patient Portal Discharge page Print Language: Armenian Care Plan Goals: To stay healthy and out of the hospital. Health Concerns: see d/c summary Plan of Treatment: see d/c summary Assessment: see d/c summary Discharge Date/Time: 05/07/24 18:38
[2024-05-07 12:00] VITALS: BP 165/74; PULSE 66; RESP 16; TEMP 36.1; O2SAT 94
[2024-05-07 12:21] LABS: Glucose, Whole Blood 101 mg/dL (60-115)
--- NOTE | 2024-05-07 12:34 | MHC.CM.PN ---
Per MD, Patient is medically cleared for dc to return to LTC today. Patient will return to LTC @ [facility] today at 5 PM (after HD), via [facility] ([facility] transport auth # is [id number]).Last IMM was addressed on 05/06/2024 and CM spoke with Primary Contact//Juanita @ [phone] and informed her of the dc plan.
[2024-05-07 16:00] VITALS: BP 120/52; PULSE 70; RESP 18; TEMP 36.8; O2SAT 97
[2024-05-07 17:01] LABS: Glucose, Whole Blood 121 mg/dL (60-115)
== END 2024-05-07 18:38 | DRG 308 ==
LOC: HO.ED 13:32 → HO.EDOVER 14:38 → HO.IMC 18:12
PROVIDERS: Nurse Practitioner Family; Physician Assistant; Admitting Provider Family Medicine; Emergency Provider Emergency Medicine; PCP Internal Medicine; Visit Provider Family Medicine
DX: R00.1 Bradycardia, unspecified (principal); N18.6 End stage renal disease; I13.11 Hypertensive heart and chronic kidney disease without heart failure, with stage 5 chronic kidney disease, or end stage renal disease; E87.1 Hypo-osmolality and hyponatremia; E87.22 Chronic metabolic acidosis; E87.5 Hyperkalemia; E11.22 Type 2 diabetes mellitus with diabetic chronic kidney disease; F39 Unspecified mood [affective] disorder; Z99.2 Dependence on renal dialysis; Z20.822 Contact with and (suspected) exposure to COVID-19; Z91.158 Patient's noncompliance with renal dialysis for other reason; Z89.511 Acquired absence of right leg below knee; Z79.82 Long term (current) use of aspirin; Z79.899 Other long term (current) drug therapy
CPT/HCPCS: 0241U; 36415; 71045; 80048; 80076; 82947; 83036; 83735; 83880; 84100; 84484; 85025; 85027; 85610; 90999; 93005; 99285; J0613; J1644

== ENCOUNTER → 2024-05-05 14:35 | Outpatient (BNV) | payer OTHER, SELFPAY | PROVIDERS: Admitting Provider Family Medicine; Emergency Provider Emergency Medicine; PCP Internal Medicine; Visit Provider Internal Medicine Cardiovascular Disease | DX: R00.1 Bradycardia, unspecified (principal) | CPT/HCPCS: 93010; 99222 ==

== ENCOUNTER → 2024-05-05 14:35 | Outpatient (BNV) | payer OTHER, SELFPAY | PROVIDERS: Admitting Provider Family Medicine; Emergency Provider Emergency Medicine; PCP Internal Medicine; Visit Provider Nurse Practitioner Family | DX: N18.6 End stage renal disease (principal); Z99.2 Dependence on renal dialysis; R00.1 Bradycardia, unspecified | CPT/HCPCS: 90935 ==

== ENCOUNTER → 2024-05-05 14:35 | Outpatient (BNV) | payer OTHER, SELFPAY | PROVIDERS: Admitting Provider Family Medicine; Emergency Provider Emergency Medicine; PCP Internal Medicine; Visit Provider Family Medicine | DX: R00.1 Bradycardia, unspecified (principal); N18.6 End stage renal disease; Z99.2 Dependence on renal dialysis | CPT/HCPCS: 99223; 99232 ==

== ENCOUNTER 2024-05-08 17:35 | Emergency (ER) | payer OTHER, SELFPAY ==
[2024-05-08 17:43] VITALS: BP 116/45; BP 130/49; PULSE 56; PULSE 58; RESP 20; TEMP 36.6; O2SAT 95; O2SAT 96; BMI 29.1
--- NOTE | 2024-05-08 18:06 | ECG_ITS ---
Test Reason : CHEST PAIN Blood Pressure : / mmHG Vent. Rate : 055 BPM Atrial Rate : 055 BPM P-R Int : 268 ms QRS Dur : 110 ms QT Int : 506 ms P-R-T Axes : 048 -35 -37 degrees QTc Int : 484 ms Sinus bradycardia with 1st degree A-V block Left axis deviation Minimal voltage criteria for LVH, may be normal variant ( Junior product ) Nonspecific ST and T wave abnormality Prolonged QT Abnormal ECG When compared with ECG of 05-MAY-2024 09:56, DC interval has increased Vent. rate has increased BY 18 BPM Referred By: Jennifer Hernandez Electronically Signed By:ROSA JIMENEZ
--- NOTE | 2024-05-08 18:07 | ED.GENADULT ---
HPI - General Adult General Chief complaint: General Medical Stated complaint: pulled out dialysis shunt. from snf History of Present Illness HPI narrative: patient is 68-year-old history of trying to pulled out his own dialysis catheter As reported by detention. Patient had dialysis yesterday. Might have taken out his dialysis catheter today. Subsequently it started bleeding. The blood was squirting out. Pressure was applied. Patient was sent to the ED for further evaluation. Patient denies having any complaints. he is not sure if he had a catheter in there. But it just came out. No fever no chills no chest pain or shortness breath no nausea no vomiting no systemic complaints. Related Data Home Medications ?Medication ?Instructions ?Recorded ?Confirmed aspirin 81 mg tablet,delayed 81 mg PO DAILY 01/02/24 05/05/24 release bisacodyl 10 mg rectal suppository 10 mg DE DAILY PRN Constipation 01/02/24 05/05/24 citalopram 20 mg tablet 20 mg PO DAILY 01/02/24 05/05/24 isosorbide mononitrate 20 mg tablet 40 mg PO DAILY 01/02/24 05/05/24 omeprazole 20 mg capsule,delayed 20 mg PO DAILY@0630 01/02/24 05/05/24 release ondansetron 4 mg disintegrating 4 mg PO Q8H PRN Nausea/Vomiting 01/02/24 05/05/24 tablet polyethylene glycol 3350 17 17 g PO DAILY PRN Constipation 01/02/24 05/05/24 gram/dose oral powder sennosides 8.6 mg-docusate sodium 1 tab-cap PO Q24H PRN Constipation 01/02/24 05/05/24 50 mg capsule (Senna Plus) sevelamer HCl 800 mg tablet 1,600 mg PO TIDWM 01/02/24 05/05/24 simethicone 80 mg chewable tablet 80 mg PO Q6H PRN GAS 01/02/24 05/05/24 sodium phosphates 19 gram-7 118 ml DE DAILY PRN Constipation 01/02/24 05/05/24 gram/118 mL enema (Fleet Enema) sodium zirconium cyclosilicate 10 10 g PO SUTUTHSA@1400 01/02/24 05/05/24 gram oral powder packet (L[place]elak) trazodone 50 mg tablet 50 mg PO BEDTIME 01/31/24 05/05/24 dextromethorphan HBr 5 mg/5 mL 10 mg PO Q4H PRN Cough 02/06/24 05/05/24 oral syrup acetaminophen 500 mg tablet 1,000 mg PO Q24H PRN Pain (Scale 04/17/24 05/05/24 Score 4-6) atorvastatin 40 mg tablet 40 mg PO BEDTIME 04/17/24 05/05/24 clonazepam 1 mg tablet 1 mg PO BID PRN Anxiety 04/17/24 05/05/24 acetaminophen 500 mg tablet 1,000 mg PO BID 05/05/24 05/05/24 Previous Rx's ?Medication ?Instructions ?Recorded hydralazine 10 mg tablet 10 mg PO BID #0 tabs 01/20/24 amlodipine 5 mg tablet 5 mg PO BID #0 tabs 02/13/24 Allergies Allergy/AdvReac Type Severity Reaction Status Date / Time garlic Allergy Severe Hives Verified 05/08/24 17:46 onion Allergy Severe Hives Verified 05/08/24 17:46 Peppers, Green Allergy Severe Hives Verified 05/08/24 17:46 Review of Systems Review of Systems: No fever no chills no chest pain Yes all other systems are reviewed and are negative [facility] Past Medical History Attestation statement: The following information was validated with the patient. Medical History Abnormal EKG Renal failure, chronic Junctional bradycardia End stage renal disease on dialysis Pulmonary edema Dialysis patient, noncompliant Anemia in chronic kidney disease (CKD) Bradycardia Dialysis patient, noncompliant Diabetes mellitus Hypertension Below-knee amputation of right lower extremity Hyperlipidemia Hypertension Peripheral vascular disease Chronic kidney disease on chronic dialysis Diabetes Family History Family History Unknown No problems noted. Social History Social History Household Members: None Household Members Other:: LTC [facility] Do you presently have visiting nurse or other home services: No Comment: 1:1 sitter Patient Tobacco Use Status: Never used Tobacco Smoked in Last 30 Days: No Use of substances other than those prescribed or required for medical reasons: No Advance Directives: Yes Advance Directives on File: Yes Advance Directives Date on File: 01/17/24 service: No Physical Exam ED Vital Signs: Vital Signs - 24 hr 05/08/24 17:43 05/08/24 18:53 Temperature 97.9 F 97.7 F Pulse Rate 56 56 Respiratory Rate 20 12 Blood Pressure 116/45 L 118/48 L Pulse Oximetry 95 97 Oxygen Delivery Method Nasal Cannula Nasal Cannula Oxygen Flow Rate 2 BMI result Body Mass Index 29.1 Appearance: Alert. Oriented X3. No acute distress. Eyes: Pupils equal, round and reactive to light. ENT: Pharynx normal. Neck: Normal inspection. Neck supple. No lymph nodes noted. No crepitus CVS: Normal heart rate and rhythm. Pulses normal. Normal S1 and S2 Respiratory: No respiratory distress. Breath sounds normal. No Wheezing. No rales Abdomen: Soft and nontender. No rigidity. No distention. good BS x4 Skin: Skin warm and dry. Normal skin color. Normal skin turgor. Extremities: No lower extremity edema. Neurovascular intact to all extremities. No Lacerations. No Rash Neuro: Oriented X 3. No motor deficit. No sensory deficit. Moving all extermities. No slurred speech Medical Decision Making Medical Decision Making MDM Narrative: Examination of the left upper extremity shows a nice thrill over the Fistula. There is no gross bleeding noted. There is no catheter noted in the chest in the neck in the arm. Patient's electrolytes showed a slightly low sodium which is chronic. Creatinine elevated as expected from history of end-stage renal disease. Patient's potassium is less than 5. He is well-appearing no acute distress. Will discharge patient home. Patient's case was discussed with Dr. Degroot from Nephrology agreed that the likely there was no catheter but more likely patient had a Band-Aid over the fistula site. It might a came off and it started bleeding. Currently bleeding has been controlled. patient monitor in the emergency department for 2 hours. In no distress. Differential Diagnosis Differential Diagnoses: The differential diagnosis associated with the presentation includes Bleeding fistula, catheter pulled, electrolyte disturbance Admission/Observation Consideration of admission/observation: Escalation of care including admission/observation considered Consult Healthcare Provider Management of the patient was discussed with: Vending Service Technician ( nephrology) Lab Data [facility] Lab Attestation statement: I reviewed the patient's lab results. 05/08/24 18:46 05/08/24 18:46 Labs: Lab Results 05/08/24 05/08/24 05/08/24 Range/Units 18:46 18:46 18:50 WBC 2.6 L (4.8-10.8) X10*3/uL RBC 3.63 L (4.60-5.80) X10*6/uL Hgb 10.8 L (14.0-18.0) g/dl Hct 32.4 L (42.0-52.0) % MCV 89.3 (80.0-98.0) fL MCH 29.8 (27.0-33.0) pg MCHC 33.3 (31.0-36.0) g/dl RDW 14.4 (11.0-16.0) % Plt Count 147 L (160-400) X10*3/uL MPV 9.5 (9.4-12.4) fL Immature Gran % (Auto) 0.4 (0.0-0.4) % Neut % (Auto) 53.0 (45-73) % Lymph % (Auto) 27.0 (20-40) % Taylor % (Auto) 13.7 H (2-11) % Eos % (Auto) 5.1 H (0-4) % Baso % (Auto) 0.8 (0-2) % Lymph # (Auto) 0.7 L (1.2-4.9) X10*3/uL Taylor # (Auto) 0.4 (0.1-1.2) X10*3/uL Eos # (Auto) 0.1 (0.0-0.4) X10*3/uL Baso # (Auto) 0.0 (0.0-0.2) X10*3/uL Abs Immat Gran (auto) 0.01 (0.00-0.03) X10*3/uL Absolute Neuts (auto) 1.4 L (2.0-8.3) x10*3/uL Absolute Nucleated RBC 0.000 (0.0-0.012) X10*3/uL Nucleated RBC % (auto) 0.0 (0.0-0.2) /100WBC VBG pH 7.31 L (7.32-7.43) VBG pCO2 47 mmHg VBG pO2 54 mmHg VBG HCO3 24 (22-26) mmol/L VBG O2 Saturation 80.0 % VBG Base Excess -2.1 mmol/L Sodium 128 L (135-145) mmol/L Potassium 4.1 (3.3-5.1) mmol/L Chloride 97 (96-108) mmol/L Carbon Dioxide 23 (22-29) mmol/L Anion Gap 12 (12-20) BUN 19 H (9-16) mg/dL Creatinine 5.75 H* (0.5-1.4) mg/dL Estim Creat Clear Calc 13.5 Estimated GFR 10 Random Glucose 126 H (60-115) mg/dL Calcium 8.6 8.4 (8.4-10.2) mg/dL Magnesium 2.1 (1.6-2.6) mg/dL Total Bilirubin 0.4 (0.0-1.0) mg/dL Direct Bilirubin 0.2 (0.0-0.5) mg/dL AST 22 (5-37) U/L ALT < 6 (0-40) U/L Alkaline Phosphatase 112 (39-117) U/L Total Protein 7.0 (6.5-8.0) g/dL Albumin 3.3 L (3.5-5.0) g/dL Independent Interpretation I performed an independent interpretation of an: EKG ( my interpretation of patient's EKG showed a sinus rhythm heart rate is 60 DE QRS QTC normal there is diffuse T-wave flattening and T-wave inversion noted it is not significantly changed from previous.) External Record Review External record reviewed: Inpatient record Chronic Conditions History of end-stage renal disease Social Determinants Patient?s care significantly limited by Social Determinants of Health including: Low income and Unemployment Discharge Plan Discharge Clinical Impression: Dialysis AV fistula malfunction Patient Disposition: Home, Self-Care Instructions: Arteriovenous Graft Creation for Hemodialysis (DC) Additional Instructions: please go to dialysis tomorrow Prescriptions: No Action trazodone 50 mg Tablet 50 mg PO BEDTIME dextromethorphan HBr 5 mg/5 mL Syrup 10 mg PO Q4H PRN (Reason: Cough) amlodipine 5 mg Tablet 5 mg PO BID Qty: 0 0RF Protocol: Hold for SBP< HOLD for SBP < : 90 atorvastatin 40 mg tablet 40 mg PO BEDTIME clonazepam 1 mg tablet 1 mg PO BID PRN (Reason: Anxiety) acetaminophen 500 mg Tablet 1,000 mg PO Q24H PRN (Reason: Pain (Scale Score 4-6)) Rx Instructions: DNE 3 G / 24 HRS acetaminophen 500 mg Tablet 1,000 mg PO BID isosorbide mononitrate 20 mg Tablet 40 mg PO DAILY Protocol: Hold for SBP< HOLD for SBP < : 100 sevelamer HCl 800 mg Tablet 1,600 mg PO TIDWM Rx Instructions: must administer with a meal/food aspirin 81 mg tablet,delayed release (DR/EC) 81 mg PO DAILY citalopram 20 mg tablet 20 mg PO DAILY bisacodyl 10 mg Suppository 10 mg DE DAILY PRN (Reason: Constipation) Rx Instructions: No BM in 8 Hrs after M.O.M Fleet Enema 19-7 gram/118 mL Enema 118 ml DE DAILY PRN (Reason: Constipation) Rx Instructions: (step 3) No BM in 8 Hours after Bisacodyl supp. omeprazole 20 mg Capsule,Delayed Release(Dr/Ec) 20 mg PO DAILY@0630 polyethylene glycol 3350 17 gram/dose Powder 17 g PO DAILY PRN (Reason: Constipation) ondansetron 4 mg Tablet,Disintegrating 4 mg PO Q8H PRN (Reason: Nausea/Vomiting) simethicone 80 mg Tablet,Chewable 80 mg PO Q6H PRN (Reason: GAS) Lokelma 10 gram Powder In Packet 10 g PO SUTUTHSA@1400 Rx Instructions: GIVE 2 HOURS BEFORE OR 2 HOURS AFTER TAKING OTHER MEDICATIONS Senna Plus 8.6-50 mg Capsule 1 tab-cap PO Q24H PRN (Reason: Constipation) hydralazine 10 mg Tablet 10 mg PO BID Qty: 0 0RF Protocol: Hold for SBP< HOLD for SBP < : 90 Referrals: Va Kurtz MD [Primary Care Provider] - Print Language: Persian
--- NOTE | 2024-05-08 18:08 | PC.NURSE ---
Addendum entered by María Elena Alves RN 05/08/24 18:11: patient noted to have distal radial pulses Original Note: patient presents to the ED from [facility], patient was found to have pulled out his dialysis port by nurse on duty, blood was spurting around room, pressure applied, bleeding controlled by the time patient arrived to ED. per nurse at facility patient has pulled his dialysis catheter out before. patient states it fell out and started bleeding. patient VSS, resp even and unlabored. dressing unwrapped, bleeding has stopped. patient noted to have fistula on left side +thrill. facility staff unsure why fistula is not being used. patient is alert and oriented, at times is refusing to answer questions from staff, patient appears to be angry at hospital transfer, will not explain further
[2024-05-08 18:51] LABS: MANUAL DIFF FLAG NO
[2024-05-08 18:53] VITALS: BP 118/48; PULSE 56; RESP 12; TEMP 36.5; O2SAT 97
[2024-05-08 18:54] LABS: Basophils Percent Auto 0.8 % (0-2); Eosinophils Absolute Auto 0.1 X10*3/uL (0.0-0.4); Eosinophils Percent Auto 5.1 % (0-4); Hematocrit 32.4 % (42.0-52.0); Hemoglobin 10.8 g/dl (14.0-18.0); Imm Gran Abs Auto 0.01 X10*3/uL (0.00-0.03); Imm Gran Pct Auto 0.4 % (0.0-0.4); Lymphocytes Absolute Auto 0.7 X10*3/uL (1.2-4.9); Mean Corpuscular HGB Conc 33.3 g/dl (31.0-36.0); Mean Corpuscular Hemoglobin 29.8 pg (27.0-33.0); Mean Corpuscular Volume 89.3 fL (80.0-98.0); Mean Platelet Volume 9.5 fL (9.4-12.4); Monocytes Absolute Auto 0.4 X10*3/uL (0.1-1.2); Monocytes Percent Auto 13.7 % (2-11); Neutrophils Absolute Auto 1.4 x10*3/uL (2.0-8.3); Platelet Count 147 X10*3/uL (160-400); Red Blood Count 3.63 X10*6/uL (4.60-5.80); Red Cell Distribution Width 14.4 % (11.0-16.0); White Blood Count 2.6 X10*3/uL (4.8-10.8)
[2024-05-08 18:56] LABS: Venous Blood Gas Refer to POC result
[2024-05-08 18:56] LABS: VBG Base Excess -2.1 mmol/L; VBG HCO3 24 mmol/L (22-26); VBG pCO2 47 mmHg; VBG pH 7.31 (7.32-7.43); VBG pO2 54 mmHg
[2024-05-08 19:08] LABS: Calcium 8.4 mg/dL (8.4-10.2)
[2024-05-08 19:19] LABS: Creatinine Clr Calc Pharmacy 13.5; Estimated Glomerular Filt Rate 10
[2024-05-08 19:21] LABS: Albumin Level 3.3 g/dL (3.5-5.0); Alkaline Phosphatase 112 U/L (39-117); Anion Gap 12 (12-20); Aspartate Amino Transferase 22 U/L (5-37); Bilirubin Direct 0.2 mg/dL (0.0-0.5); Bilirubin Total 0.4 mg/dL (0.0-1.0); Blood Urea Nitrogen 19 mg/dL (9-16); Calcium 8.6 mg/dL (8.4-10.2); Carbon Dioxide 23 mmol/L (22-29); Chloride 97 mmol/L (96-108); Glucose Random 126 mg/dL (60-115); Magnesium 2.1 mg/dL (1.6-2.6); Potassium 4.1 mmol/L (3.3-5.1); Sodium 128 mmol/L (135-145)
[2024-05-08 19:51] LABS: Alanine Aminotransferase < 6 U/L (0-40)
[2024-05-08 20:29] VITALS: BP 149/50; PULSE 58; RESP 20; TEMP 36.7; O2SAT 99
[2024-05-08 22:00] VITALS: BP 149/50; PULSE 58; RESP 20; TEMP 36.7; O2SAT 99
--- NOTE | 2024-05-08 22:03 | PC.NURSE ---
report called to Carla at [facility], all questions answered. patient taken by EMS back to faculty
== END 2024-05-08 22:04 | disposition home or self-care (01) ==
PROVIDERS: Emergency Provider Emergency Medicine Emergency Medical Services; PCP Internal Medicine
DX: T82.41XA Breakdown (mechanical) of vascular dialysis catheter, initial encounter (principal); R00.1 Bradycardia, unspecified; R07.89 Other chest pain; Y82.8 Other medical devices associated with adverse incidents; Y92.9 Unspecified place or not applicable; Z79.899 Other long term (current) drug therapy
CPT/HCPCS: 36415; 80048; 80076; 82310; 82803; 83735; 85025; 93005; 99284

== ENCOUNTER → 2024-05-08 18:06 | Outpatient (BNV) | payer OTHER, SELFPAY | PROVIDERS: Emergency Provider Emergency Medicine Emergency Medical Services; PCP Internal Medicine; Visit Provider Internal Medicine | DX: R07.9 Chest pain, unspecified (principal) | CPT/HCPCS: 93010 ==

== ENCOUNTER 2024-06-25 10:05 | Inpatient (IN) | payer OTHER, SELFPAY ==
[2024-06-25] VITALS (11 sets, daily range): BP systolic 107–141; BP diastolic 49–77; PULSE 55–74; RESP 16–24; TEMP 36.2–37.7; O2SAT 85–100; BMI 28.1; BMI 27.7; BMI 27.5
--- NOTE | 2024-06-25 | ECG_ITS ---
Test Reason : sepsis Blood Pressure : */* mmHG Vent. Rate : 73 BPM Atrial Rate : 73 BPM P-R Int : 230 ms QRS Dur : 100 ms QT Int : 410 ms P-R-T Axes : 26 -33 -29 degrees QTcB Int : 451 ms Sinus rhythm with 1st degree A-V block Left axis deviation Left ventricular hypertrophy ( Romhilt-Cody ) Nonspecific T wave abnormality Abnormal ECG When compared with ECG of 08-May-2024 18:32, No significant change was found Referred By: Generic ED Physician Electronically Signed By: Moise Byrne
--- NOTE | ~2024-06-25 | XR_ITS ---
EXAMINATION: XR CHEST CLINICAL INFORMATION: fever COMPARISON: 05/05/2024. TECHNIQUE: Frontal view of the chest was obtained. FINDINGS: Cardiac silhouette appears enlarged. Hilar contours are somewhat obscured. Mediastinal contours are stable with calcification of the aortic arch. There are patchy opacities throughout both lungs with hilar involvement and prominence of the bronchovascular interstitium. There are no effusions or definite Keith lines. Overall the appearance is quite similar to the prior radiograph. There is no pneumothorax. There is a stent within the left subclavian region. Soft tissues otherwise normal. Degenerative changes of the spine. XR/XR chest 1V IMPRESSION: 1. Patchy opacities throughout both lungs suggestive of atypical pneumonia versus pulmonary edema. Lack of pleural effusions or definite Keith lines with favor pneumonia over edema. Would correlate with the clinical presentation. 2. Cardiomegaly, stable. 3. Stent in the left subclavian region. Electronically signed by: Marcelino Cast MD 06/25/2024 11:53 AM [facility]
[2024-06-25 10:32] LABS: Glucose, Whole Blood 95 mg/dL (60-115)
--- NOTE | 2024-06-25 10:38 | ED.GENADULT ---
HPI - General Adult General Chief complaint: Dyspnea Stated complaint: SEPSIS ALERT, FEVER ABD PAIN Time Seen by Provider: 06/25/24 10:38 History of Present Illness ED Provider: Karo IZAGUIRRE narrative: The patient is a 68-year-old male who was sent to the hospital from his senior living. The patient is a dialysis patient. He gets dialysis on Mondays, Wednesdays, and Fridays. He normally wears oxygen at the facility. He normally wears 2-1/2-3 L of oxygen nasal cannula with oxygen saturations between 93 and 96%. This morning his nurse felt that he seemed to have some increased work of breathing and at some point measured his respiratory rate at 33. His temperature was 99.7 degrees. They put him on an oxygen mask and called 911. The nurse with whom I spoke said that the patient's mental status has been gradually deteriorating over a long period of time. Here the patient is denying any pain. Related Data Home Medications ?Medication ?Instructions ?Recorded ?Confirmed aspirin 81 mg tablet,delayed 81 mg PO DAILY 01/02/24 06/25/24 release bisacodyl 10 mg rectal suppository 10 mg CO DAILY PRN Constipation, 01/02/24 06/25/24 no BM 8 hours after MoM citalopram 20 mg tablet 20 mg PO DAILY 01/02/24 06/25/24 isosorbide mononitrate 20 mg tablet 40 mg PO DAILY 01/02/24 06/25/24 omeprazole 20 mg capsule,delayed 20 mg PO DAILY@0630 01/02/24 06/25/24 release ondansetron 4 mg disintegrating 4 mg PO Q8H PRN Nausea/Vomiting 01/02/24 06/25/24 tablet polyethylene glycol 3350 17 17 g PO DAILY PRN Constipation 01/02/24 06/25/24 gram/dose oral powder sennosides 8.6 mg-docusate sodium 1 tab-cap PO Q24H PRN Constipation 01/02/24 06/25/24 50 mg capsule (Senna Plus) sevelamer HCl 800 mg tablet 1,600 mg PO TIDWM 01/02/24 06/25/24 simethicone 80 mg chewable tablet 80 mg PO Q6H PRN GAS 01/02/24 06/25/24 sodium phosphates 19 gram-7 118 ml CO DAILY PRN Constipation, 01/02/24 06/25/24 gram/118 mL enema (Fleet Enema) no BM 8 hours after bisacodyl supp sodium zirconium cyclosilicate 10 10 g PO SUTUTHSA@1400 01/02/24 06/25/24 gram oral powder packet (Lokelma) trazodone 50 mg tablet 50 mg PO BEDTIME 01/31/24 06/25/24 dextromethorphan HBr 5 mg/5 mL 10 mg PO Q4H PRN Cough 02/06/24 06/25/24 oral syrup acetaminophen 500 mg tablet 1,000 mg PO Q24H PRN Breakthrough 04/17/24 06/25/24 Pain atorvastatin 40 mg tablet 40 mg PO BEDTIME 04/17/24 06/25/24 clonazepam 1 mg tablet 1 mg PO BID PRN Anxiety 04/17/24 06/25/24 acetaminophen 500 mg tablet 1,000 mg PO BID 05/05/24 06/25/24 nystatin 100,000 unit/gram topical 1 appl topical BID 06/25/24 06/25/24 powder Previous Rx's ?Medication ?Instructions ?Recorded hydralazine 10 mg tablet 10 mg PO BID #0 tabs 01/20/24 amlodipine 5 mg tablet 5 mg PO BID #0 tabs 02/13/24 Allergies Allergy/AdvReac Type Severity Reaction Status Date / Time garlic Allergy Severe Hives Verified 06/25/24 10:22 onion Allergy Severe Hives Verified 06/25/24 10:22 Peppers, Green Allergy Severe Hives Verified 06/25/24 10:22 [facility] Past Medical History Medical History Abnormal EKG Renal failure, chronic Junctional bradycardia End stage renal disease on dialysis Pulmonary edema Dialysis patient, noncompliant Anemia in chronic kidney disease (CKD) Bradycardia Dialysis patient, noncompliant Diabetes mellitus Hypertension Below-knee amputation of right lower extremity Hyperlipidemia Hypertension Peripheral vascular disease Chronic kidney disease on chronic dialysis Diabetes Family History Family History Unknown No problems noted. Social History Social History Household Members: None Household Members Other:: LTC [facility]: [facility] Do you presently have visiting nurse or other home services: No Alcohol intake: unknown Comment: 1:1 sitter Patient Tobacco Use Status: Never used Tobacco Advance Directives Date on File: 01/17/24 service: No Physical Exam ED Vital Signs: Vital Signs - 24 hr 06/25/24 10:17 06/25/24 10:44 06/25/24 11:12 Temperature 99.8 F 99.8 F Pulse Rate 74 74 72 Respiratory Rate 17 17 24 H Blood Pressure 138/77 138/77 141/57 H Pulse Oximetry 94 94 95 Oxygen Delivery Method Nasal Cannula Nasal Cannula Nasal Cannula Oxygen Flow Rate 4 06/25/24 12:51 06/25/24 12:52 06/25/24 14:35 Temperature 98.9 F 98.4 F Pulse Rate 69 65 Respiratory Rate 21 H 18 Blood Pressure 138/61 138/61 136/51 L Pulse Oximetry 96 95 Oxygen Delivery Method Nasal Cannula Nasal Cannula Oxygen Flow Rate 4 2 BMI result Body Mass Index 28.1 Const Other: The patient is a chronically ill 68-year-old. He looks quite chronically ill. He is not exhibiting overt signs of respiratory distress. He is denying any pain. HENMT Other: Face is symmetrical. Mucous membranes moist. Eyes General: appearance normal, both eyes and all related structures Sclerae: sclerae normal Resp Other: Slight tachypnea. Slight crackles at the bases. Cardio Rate: regular rate Rhythm: regular rhythm Heart sounds: S1 normal heart sound present and S2 normal heart sound present GI Other: Abdomen is soft and nontender Skin Other: Lower legs are fairly swollen Neuro Other: The patient is awake but seems to have dementia. He answers only simple questions and gives very simple answers. He seems to have symmetrical strength in the face and in the extremities. Extrem Other: Peripheral edema of both lower legs Medications Administered Generic Name Dose Route Start Last Admin Trade Name Freq PRN Reason Stop Dose Admin Heparin Sodium (Porcine) 5,000 unit 06/25/24 15:45 06/25/24 17:06 Heparin Sodium,Porcine 5,000 Unit/Ml Vial SUBCUT Not Given Q8H KIA Sevelamer Carbonate 1,600 mg 06/25/24 17:00 06/25/24 17:07 Sevelamer Carbonate Tablet 800 Mg Tablet PO Not Given TIDWM KIA Sodium Chloride 3 ml 06/25/24 16:00 06/25/24 17:07 0.9 % Sodium Chloride Flush 3 Ml Syringe IVFLUSH 3 ml QSHIFT KIA Administration Discontinued Medications Generic Name Dose Route Start Last Admin Trade Name Olman PRN Reason Stop Dose Admin Furosemide 40 mg 06/25/24 11:49 06/25/24 12:52 Furosemide 40 Mg/4 Ml Vial IVPUSH 06/25/24 11:50 40 mg STAT STA Administration Protocol Medical Decision Making Medical Decision Making [facility] Narrative: The patient is a 68-year-old male who was a dialysis patient. He normally gets dialysis on Mondays, Wednesdays, and Fridays. This Tuesday morning he was somewhat short of breath at his senior living and he was sent here by ambulance. We looked for a fever in this patient but did not find 1. His rectal temperature did not reveal a fever. White count is 5.4. Differential shows no left shift. The patient's proBNP is higher than it has been before as is his troponin (although his troponin is not rising). Chest x-ray is consistent with pulmonary edema. My overall impression is that the patient likely has fluid overload and will need dialysis. He was given IV furosemide. I contacted Dr. Mckeon of Nephrology. The patient will be admitted the medical service with a plan to receive dialysis. Lab Data 06/25/24 10:36 06/25/24 10:37 Labs: Lab Results 06/25/24 06/25/24 06/25/24 Range/Units 10:28 10:36 10:37 WBC 5.4 (4.8-10.8) X10*3/uL RBC 3.64 L (4.60-5.80) X10*6/uL Hgb 10.9 L (14.0-18.0) g/dl Hct 32.3 L (42.0-52.0) % MCV 88.7 (80.0-98.0) fL MCH 29.9 (27.0-33.0) pg MCHC 33.7 (31.0-36.0) g/dl RDW 15.1 (11.0-16.0) % Plt Count 266 D (160-400) X10*3/uL MPV 8.8 L (9.4-12.4) fL Immature Gran % (Auto) 0.4 (0.0-0.4) % Neut % (Auto) 66.1 (45-73) % Lymph % (Auto) 23.8 (20-40) % Pershing % (Auto) 7.2 (2-11) % Eos % (Auto) 1.8 (0-4) % Baso % (Auto) 0.7 (0-2) % Lymph # (Auto) 1.3 (1.2-4.9) X10*3/uL Pershing # (Auto) 0.4 (0.1-1.2) X10*3/uL Eos # (Auto) 0.1 (0.0-0.4) X10*3/uL Baso # (Auto) 0.0 (0.0-0.2) X10*3/uL Abs Immat Gran (auto) 0.02 (0.00-0.03) X10*3/uL Absolute Neuts (auto) 3.6 (2.0-8.3) x10*3/uL Absolute Nucleated RBC 0.000 (0.0-0.012) X10*3/uL Nucleated RBC % (auto) 0.0 (0.0-0.2) /100WBC Sodium 130 L (135-145) mmol/L Potassium 4.4 (3.3-5.1) mmol/L Chloride 93 L (96-108) mmol/L Carbon Dioxide 23 (22-29) mmol/L Anion Gap 18 (12-20) BUN 34 H (9-16) mg/dL Creatinine 8.01 H* (0.5-1.4) mg/dL Estim Creat Clear Calc 9.5 Estimated GFR 7 POC Glucose 95 (60-115) mg/dL Random Glucose 93 (60-115) mg/dL Lactic Acid 1.0 (0.5-2.0) mmol/L Calcium 9.0 D (8.4-10.2) mg/dL Total Bilirubin 0.4 (0.0-1.0) mg/dL AST 30 (5-37) U/L ALT < 6 (0-40) U/L Alkaline Phosphatase 114 (39-117) U/L Troponin I High Sens 357.5 H* D (<3.5-35.0) ng/L C-Reactive Protein 2.28 H (< or = 0.50) mg/dL B-Natriuretic Peptide 8570 H (<100) pg/mL Total Protein 7.6 (6.5-8.0) g/dL Albumin 3.2 L (3.5-5.0) g/dL Lipase 13 (8-78) U/L Influenza Type A (PCR) (Negative) Influenza Type B (PCR) (Negative) RSV RNA Qual (PCR) (Negative) SARS-CoV-2 RNA (RT-PCR) (Negative) 06/25/24 06/25/24 Range/Units 10:58 12:46 WBC (4.8-10.8) X10*3/uL RBC (4.60-5.80) X10*6/uL Hgb (14.0-18.0) g/dl Hct (42.0-52.0) % MCV (80.0-98.0) fL MCH (27.0-33.0) pg MCHC (31.0-36.0) g/dl RDW (11.0-16.0) % Plt Count (160-400) X10*3/uL MPV (9.4-12.4) fL Immature Gran % (Auto) (0.0-0.4) % Neut % (Auto) (45-73) % Lymph % (Auto) (20-40) % Pershing % (Auto) (2-11) % Eos % (Auto) (0-4) % Baso % (Auto) (0-2) % Lymph # (Auto) (1.2-4.9) X10*3/uL Pershing # (Auto) (0.1-1.2) X10*3/uL Eos # (Auto) (0.0-0.4) X10*3/uL Baso # (Auto) (0.0-0.2) X10*3/uL Abs Immat Gran (auto) (0.00-0.03) X10*3/uL Absolute Neuts (auto) (2.0-8.3) x10*3/uL Absolute Nucleated RBC (0.0-0.012) X10*3/uL Nucleated RBC % (auto) (0.0-0.2) /100WBC Sodium (135-145) mmol/L Potassium (3.3-5.1) mmol/L Chloride (96-108) mmol/L Carbon Dioxide (22-29) mmol/L Anion Gap (12-20) BUN (9-16) mg/dL Creatinine (0.5-1.4) mg/dL Estim Creat Clear Calc Estimated GFR POC Glucose (60-115) mg/dL Random Glucose (60-115) mg/dL Lactic Acid (0.5-2.0) mmol/L Calcium (8.4-10.2) mg/dL Total Bilirubin (0.0-1.0) mg/dL AST (5-37) U/L ALT (0-40) U/L Alkaline Phosphatase (39-117) U/L Troponin I High Sens 362.4 H* (<3.5-35.0) ng/L C-Reactive Protein (< or = 0.50) mg/dL B-Natriuretic Peptide (<100) pg/mL Total Protein (6.5-8.0) g/dL Albumin (3.5-5.0) g/dL Lipase (8-78) U/L Influenza Type A (PCR) NEGATIVE (Negative) Influenza Type B (PCR) NEGATIVE (Negative) RSV RNA Qual (PCR) NEGATIVE (Negative) SARS-CoV-2 RNA (RT-PCR) NEGATIVE (Negative) Discharge Plan Discharge Clinical Impression: Pulmonary edema, Chronic renal failure Patient Disposition: Home, Self-Care Interventions: Admission Worksheet (ED) Last Done: 06/25/24 15:38 Discharge Date/Time: 06/25/24 16:43
[2024-06-25 10:45] LABS: MANUAL DIFF FLAG NO
[2024-06-25 10:46] LABS: Basophils Percent Auto 0.7 % (0-2); Eosinophils Absolute Auto 0.1 X10*3/uL (0.0-0.4); Eosinophils Percent Auto 1.8 % (0-4); Hematocrit 32.3 % (42.0-52.0); Hemoglobin 10.9 g/dl (14.0-18.0); Imm Gran Abs Auto 0.02 X10*3/uL (0.00-0.03); Imm Gran Pct Auto 0.4 % (0.0-0.4); Lymphocytes Absolute Auto 1.3 X10*3/uL (1.2-4.9); Lymphocytes Percent Auto 23.8 % (20-40); Mean Corpuscular HGB Conc 33.7 g/dl (31.0-36.0); Mean Corpuscular Hemoglobin 29.9 pg (27.0-33.0); Mean Corpuscular Volume 88.7 fL (80.0-98.0); Mean Platelet Volume 8.8 fL (9.4-12.4); Monocytes Absolute Auto 0.4 X10*3/uL (0.1-1.2); Monocytes Percent Auto 7.2 % (2-11); Neutrophils Absolute Auto 3.6 x10*3/uL (2.0-8.3); Neutrophils Percent Auto 66.1 % (45-73); Platelet Count 266 X10*3/uL (160-400); Red Blood Count 3.64 X10*6/uL (4.60-5.80); Red Cell Distribution Width 15.1 % (11.0-16.0); White Blood Count 5.4 X10*3/uL (4.8-10.8)
[2024-06-25 11:15] LABS: Alanine Aminotransferase < 6 U/L (0-40); Albumin Level 3.2 g/dL (3.5-5.0); Alkaline Phosphatase 114 U/L (39-117); Anion Gap 18 (12-20); Aspartate Amino Transferase 30 U/L (5-37); Bilirubin Total 0.4 mg/dL (0.0-1.0); Blood Urea Nitrogen 34 mg/dL (9-16); Carbon Dioxide 23 mmol/L (22-29); Chloride 93 mmol/L (96-108); Creatinine Clr Calc Pharmacy 9.5; Estimated Glomerular Filt Rate 7; Glucose Random 93 mg/dL (60-115); Potassium 4.4 mmol/L (3.3-5.1); Sodium 130 mmol/L (135-145); Total Protein 7.6 g/dL (6.5-8.0)
[2024-06-25 11:30] LABS: Troponin-I High Sensitivity 357.5 ng/L (<3.5-35.0)
[2024-06-25 11:46] LABS: Influenza A PCR NEGATIVE (Negative); Influenza B PCR NEGATIVE (Negative); Resp Syncy Virus RNA Qual PCR NEGATIVE (Negative); SARS COV2 PCR INHOUSE NEGATIVE (Negative)
[2024-06-25 11:56] LABS: C Reactive Protein 2.28 mg/dL (< or = 0.50); Lipase 13 U/L (8-78)
--- NOTE | 2024-06-25 12:01 | PHA.MEDREC ---
Pharmacy Consult ? Medication Reconciliation Pharmacy has completed the medication reconciliation, utilized list from [facility].
--- OUTSIDE RECORDS SUMMARY | 2024-06-25 12:23 | XMS_ITS | Encounter Summary ---
Author Organization [facility], Address [address] [address] Phone Care Team Providers Care Quality Engineer Name Role Phone Je Clement DO Primary Care Provider [phone] Encounter Details Date Type Department Care Team (Late Contact Info) Description 06/18/2024 Orders Only [facility] [address] [place] [address] Slava Luna MD [address] [facility] [place] [phone] Social History Tobacco Use Types Packs/Day Years Used Date Smoking Tobacco: Never Smokeless Tobacco: Never Alcohol Use Standard Drinks/Week Comments Not Currently 0 (1 standard drink = 0.6 oz pur e alcohol) Sex and Gender Information Value Date Recorded Sex Assigned at Not on file Legal Sex Male 2:38 PM EST Gender Identity Not on file Sexual Orientation Not on file documented as of this encounter Plan of Treatment Upcoming Encounters Date Type Department Care Team (Late Contact Info) Description 07/19/2024 11:00 AM EST Procedure visit [facility], - [facility] Center [address] [place] [address] [place] [address] documented as of this encounter Procedures Procedure Name Priority Date/Time Associated Diagnosis Comments CHEMISTRY Routine 06/18/2024 documented in this encounter Results * [facility] (06/18/2024) Calcium 8.8 8.4 - 10.2 mg/dL [facility] 06/18/2024 06/19/2024 12: 00 PM EST Narrative [facility] - 06/19/2024 Unless otherwise specified, test(s) performed at: [facility], [address] [place] [id number] SENIOR DESIGN ENGINEERING SPECIALIST: Linwood Garcia M.D. For any questions, please call customer service at FREQUENCY:OTHER Resulting Agency Comment Specimen source: Serum Slava Luna MD LAB BLOOD ORDERABLES Final Result [employer] See order comments or contact performing lab Unknown, [place] documented in this encounter Visit Diagnoses Not on filedocumented in this encounter Care Teams Quality Engineer Relationship Specialty Start Date End Date Je Clement DO [address] [place] [address] PCP - General Internal Medicine 06/02/22 documented as of this encounter
--- OUTSIDE RECORDS SUMMARY | 2024-06-25 12:23 | XMS_ITS | Encounter Summary ---
Author Organization [facility] Address [address] [place] [address] Care Team Providers Care Automotive Production Worker Name Role Phone Sandra Kurtz MD Primary Care Provider + Encounter Details Date Type Department Care Team (Late st Contact Info) Description 04/24/2024 Lab Requisition [facility] - Main Lab [address] [place] [address] Sandra Kurtz MD [address] [phone] Other specified disorders of kidney and ureter Social History Tobacco Use Types Packs/Day Years Used Date Smoking Tobacco: Never Assessed Sex and Gender Information Value Date Recorded Sex Assigned at Not on file Gender Identity Not on file Sexual Orientation Not on file documented as of this encounter Plan of Treatment Not on file documented as of this encounter Procedures Procedure Name Priority Date/Time Associated Diagnosis Comments COMPLETE BLOOD COUNT Routine 04/24/2024 5:20 AM EST Other specified disorders of kidney and ureter COMPREHENSIVE METABOLIC PANEL Routine 04/24/2024 5:20 AM EST Other specified disorders of kidney and ureter documented in this encounter Results * (ABNORMAL) Comprehensive metabolic panel (04/24/2024 5:20 AM EST) Sodium 134 133 - 145 mmol/L LAB CHEMISTRY METHOD 04/24/2024 11:12 AM EST [facility] Potassium 4.0 3.5 - 5.5 mmol/L LAB CHEMISTRY METHOD 04/24/2024 11:12 AM EST [facility] Chloride 97 96 - 110 mmol/L LAB CHEMISTRY METHOD 04/24/2024 11:12 AM [facility] CO2 27 21 - 32 mmol/L LAB CHEMISTRY METHOD 04/24/2024 11:12 AM [facility] Anion Gap 10 3 - 11 LAB CHEMISTRY METHOD 04/24/2024 11:12 AM [facility] Glucose 99 70 - 100 mg/dL LAB CHEMISTRY METHOD 04/24/2024 11:12 AM [facility] BUN 22 5 - 25 mg/dL LAB CHEMISTRY METHOD 04/24/2024 11:12 AM [facility] Creatinine 5.50(H) 0.70 - 1.30 mg/dL LAB CHEMISTRY METHOD 04/24/2024 11:12 AM [facility] Comment:Results verified by repeat testing eGFR 11(L) >=60 mL/min/1. 73m2 LAB CHEMISTRY METHOD 04/24/2024 11:12 AM [facility] Comment:Calculation based on the??Chronic Kidney Disease Epidemiology Collaboration (CKD-EPI) equation refit??without adjustment for race. BUN/Creatinine Ratio 4.0 LAB CHEMISTRY METHOD 04/24/2024 11:12 AM [facility] Calcium 9.2 8.5 - 10.5 mg/dL LAB CHEMISTRY METHOD 04/24/2024 11:12 AM [facility] AST (SGOT) 15 10 - 42 unit/L LAB CHEMISTRY METHOD 04/24/2024 11:12 AM [facility] ALT (SGPT) 12 10 - 60 unit/L LAB CHEMISTRY METHOD 04/24/2024 11:12 AM [facility] Alkaline Phosphatase 150(H) 42 - 121 unit/L LAB CHEMISTRY METHOD 04/24/2024 11:12 AM [facility] Total Protein 7.0 6.0 - 8.0 g/dL LAB CHEMISTRY METHOD 04/24/2024 11:12 AM [facility] Albumin 3.2 3.2 - 5.0 g/dL LAB CHEMISTRY METHOD 04/24/2024 11:12 AM [facility] Total Bilirubin 0.3 0.0 - 1.4 mg/dL LAB CHEMISTRY METHOD 04/24/2024 11:12 AM [facility] Blood Venous blood specimen / Unknown Venipuncture / Unknown 04/24/2024 5:20 AM EST 04/24/2024 9:41 AM EST Sandra Kurtz MD LAB BLOOD ORDERA BLES [facility] [address] [place] [address], * (ABNORMAL) Complete blood count (04/24/2024 5:20 AM EST) WBC 3.9(L) 4.8 - 10.8 K/mcL LAB HEMETOLOGY METHOD 04/24/2024 10:34 AM [facility] RBC 3.60(L) 4.50 - 5.50 M/mcL LAB HEMETOLOGY METHOD 04/24/2024 10:34 AM [facility] Hemoglobin 10.4(L) 13.5 - 17.5 g/dL LAB HEMETOLOGY METHOD 04/24/2024 10:34 AM [facility] Hematocrit 33.8(L) 42.0 - 54.0 % LAB HEMETOLOGY METHOD 04/24/2024 10:34 AM [facility] MCV 94.9 79.0 - 98.0 FL LAB HEMETOLOGY METHOD 04/24/2024 10:34 AM [facility] MCH 29.2 27.0 - 32.0 pcg LAB HEMETOLOGY METHOD 04/24/2024 10:34 AM [facility] MCHC 30.8(L) 32.0 - 37.0 g/dL LAB HEMETOLOGY METHOD 04/24/2024 10:34 AM EST [facility] RDW 14.7 11.0 - 15.0 % LAB HEMETOLOGY METHOD 04/24/2024 10:34 AM EST [facility] Platelets 226 130 - 400 K/mcL LAB HEMETOLOGY METHOD 04/24/2024 10:34 AM EST [facility] MPV 9.8 7.0 - 11.0 FL LAB HEMETOLOGY METHOD 04/24/2024 10:34 AM EST [facility] NRBC 0.0 <1.0 % LAB HEMETOLOGY METHOD 04/24/2024 10:34 AM EST [facility] NRBC Absolute 0.00 <0.10 K/mcL LAB HEMETOLOGY METHOD 04/24/2024 10:34 AM [facility] Blood Venous blood specimen / Unknown Venipuncture / Unknown 04/24/2024 5:20 AM EST 04/24/2024 9:41 AM EST Sandra Kurtz MD LAB BLOOD ORDERA BLES [facility] [address] [place] [address], documented in this encounter Visit Diagnoses Diagnosis Other specified disorders of kidney and ureter documented in this encounter Care Teams Automotive Production Worker Relationship Specialty Start Date End Date Sandra Kurtz MD [address] [place] [address] PCP - General Family Medicine 04/04/24 documented as of this encounter
--- OUTSIDE RECORDS SUMMARY | 2024-06-25 12:23 | XMS_ITS | Encounter Summary ---
Author Organization [facility], Address [address] [address] Phone Care Team Providers Care Operations Agent Name Role Phone Je Clement DO Primary Care Provider [phone] Encounter Details Date Type Department Care Team (Late Contact Info) Description 06/06/2024 Orders Only [facility] [address] [place] [address] Slava Luna MD [address] [facility] [place] [place] [phone] Social History Tobacco Use Types Packs/Day Years [...] visit [facility], - Vascular Access Center [address] [place] [address] [place] [phone] documented as of this encounter Procedures Procedure Name Priority Date/Time Associated Diagnosis Comments HD KINETICS Routine 06/06/2024 POST CHEMISTRY Routine 06/06/2024 IMMUNO CHEMISTRY Routine 06/06/2024 HEMATOLOGY Routine 06/06/2024 CHEMISTRY Routine 06/06/2024 CHEMISTRY Routine 06/06/2024 [facility] RESULTS Routine 06/06/2024 documented in this encounter Results * [facility] Results (06/06/2024) Pathologist [facility] spKt/V (Daugirdas II) 1.63 [facility] eKt/V (Tattersall) 1.40 [facility] Center WSTDKT/V 2.5 [facility] Center eKdrt/V 1.42 [facility] nPCR_HD 0.55 [facility] Center spKt/V Gotch 1.67 [facility] ge Center eKt/V Gotch 1.42 [facility] e Center PCR 30.81 [facility] eNPCR 0.52 [facility] Center 06/06/2024 06/06/2024 [facility] Ordering Provider LAB BLOOD ORDERABLES Final Result [facility] Contact Performing lab Unknown, [place] * HD KINETICS (06/06/2024) [facility] % Urea Reduction 76 65 - 80 % [facility] 06/06/2024 06/07/2024 1:1 6 PM EST Narrative Resulting Agency Comment Specimen source: Plasma Slava Luna MD LAB BLOOD ORDERABLES Final Result [facility] [employer] See order comments or contact performing lab Unknown, [place] * POST CHEMISTRY (06/06/2024) Pathologist [facility] BUN Post Dialysis 6 6 - 19 mg/dL [facility] 06/06/2024 06/07/2024 1:1 6 PM EST Narrative [facility] - 06/07/2024 Unless otherwise specified, test(s) performed at: [facility], [address] [place] [id number] DENTAL TECHNICIAN: Linwood Garcia M.D. For any questions, please call customer service at FREQUENCY:MONTHLY Resulting Agency Comment Specimen source: Plasma Slava Luna MD LAB BLOOD ORDERABLES Final Result Performing Organization Address [facility]/ZIP Co de Phone Number [facility] See order comments or contact performing lab Unknown, [place] * IMMUNO CHEMISTRY (06/06/2024) [facility] Hep B Surface Ag Negative Negative [facility] 06/06/2024 06/07/2024 8:3 5 AM EST Narrative Resulting Agency Comment Specimen source: Serum Slava Luna MD LAB BLOOD ORDERABLES Final Result Performing Organization Address [facility] Co de Phone Number [facility] See order comments or contact performing lab Unknown, [place] * (ABNORMAL) [facility] (06/06/2024) [facility] BUN 25(H) 6 - 19 mg/dL [facility] Creatinine 6.51(H) 0.60 - 1.30 mg/dL [facility] BUN/Creatinine Ratio 3.8(L) 10.0 - 20.0 [facility] Sodium 130(L) 136 - 145 mEq/L [facility] Potassium 4.1 3.5 - 5.1 mEq/L [facility] Bicarbonate (CO2) 21(L) 22 - 29 mEq/L [facility] Calcium 9.9 8.4 - 10.2 mg/dL [facility] Corrected Calcium 10.5(H) 8.4 - 10.2 mg/dL [facility] Comment: Corrected Calcium is not equivalent to measured Ionized Calcium. Phosphorus 5.9(H) 2.6 - 4.5 mg/dL [facility] Calcium Phosphorus Product 58(H) 0 - 54 [facility] Calcium Phosporus Product, Cor 62(H) 0 - 54 [facility] ALT (SGPT) 5(L) 7 - 52 U/L [facility] Albumin 3.3(L) 3.5 - 5.2 g/dL [facility] Magnesium 2.0 1.6 - 2.6 mg/dL [facility] Ferritin 1,185(H) 22 - 322 ng/mL [facility] Iron 61 45 - 160 mcg/dL [facility] UIBC 176 155 - 355 mcg/dL [facility] TIBC 237 185 - 515 mcg/dL [facility] Iron Saturation (TSat) 26 20 - 55 % [facility] 06/06/2024 06/07/2024 8:3 5 AM EST Narrative [facility] - 06/07/2024 Unless otherwise specified, test(s) performed at: [facility], [address] [place] [address] DENTAL TECHNICIAN: Linwood Garcia M.D. For any questions, please call customer service at FREQUENCY:MONTHLY Resulting Agency Comment Specimen source: Serum Slava Luna MD LAB BLOOD ORDERABLES Final Result Performing Organization Address [facility] de Phone Number [facility] See order comments or contact performing lab Unknown, [place] * (ABNORMAL) HEMATOLOGY (06/06/2024) Hemoglobin 10.3(L) 14.0 - 18.0 g/dL [facility] Hemoglobin x 3 30.9(L) 42.0 - 54.0 % [facility] 06/06/2024 06/07/2024 9:0 9 AM EST Narrative [facility] - 06/07/2024 Unless otherwise specified, test(s) performed at: [facility], [address] [place], [place] [id number] DENTAL TECHNICIAN: Linwood Garcia M.D. For any questions, please call customer service at FREQUENCY:MONTHLY Resulting Agency Comment Specimen source: Blood Slava Luna MD LAB BLOOD ORDERABLES Final Result Performing Organization Address City/[facility]/ZIP Co de Phone Number [employer] See order comments or contact performing lab Unknown, [place] * (ABNORMAL) [facility] (06/06/2024) PTH 89(H) 16 - 80 pg/mL [facility] 06/06/2024 06/07/2024 9:1 0 AM EST Narrative [facility] - 06/07/2024 Unless otherwise specified, test(s) performed at: [facility], [address] [place], [place] [id number] DENTAL TECHNICIAN: Linwood Garcia M.D. For any questions, please call customer service at FREQUENCY:MONTHLY Resulting Agency Comment Specimen source: Plasma us Slava Luna MD LAB BLOOD ORDERABLES Final Result [facility] [employer] See order comments or contact performing lab Unknown, [place] documented in this encounter Visit Diagnoses Not on filedocumented in this encounter Care Teams Operations Agent Relationship Specialty Start Date End Date Je Clement DO [address] [place] [address] PCP - General Internal Medicine 06/02/22 documented as of this encounter
--- OUTSIDE RECORDS SUMMARY | 2024-06-25 12:23 | XMS_ITS | Encounter Summary ---
Author Organization [facility], Address [address] [address] Phone Care Team Providers Care Command And Control Systems Integrator Name Role Phone Je Clement DO Primary Care Provider [phone] Encounter Details Date Type Department Care Team ([facility] Contact Info) Description 05/30/2024 Orders Only [facility] [address] [place] [address] Slava Luna MD [address] [facility] [place] [phone] Social History Tobacco Use Types Packs/Day Years [...] visit [facility], - Vascular Access Center [address] [place] [address] [place] [address] documented as of this encounter Procedures Procedure Name Priority Date/Time Associated Diagnosis Comments HEMATOLOGY Routine 05/30/2024 documented in this encounter Results * (ABNORMAL) HEMATOLOGY (05/30/2024) Hemoglobin 9.9(L) 14.0 - 18.0 g/dL [facility] Hemoglobin x 3 29.7(L) 42.0 - 54.0 % [facility] 05/30/2024 05/31/2024 9:4 7 AM EST Adina DICKERSON - 05/31/2024 Unless otherwise specified, test(s) performed at: [facility], [address] [place] [address] GENOMICS SCIENTIST: Linwood Garcia M.D. For any questions, please call customer service at FREQUENCY:OTHER Resulting Agency Comment Specimen source: Blood Slava Luna MD LAB BLOOD ORDERABLES Final Result [facility] See order comments or contact performing lab Unknown, [place] documented in this encounter Visit Diagnoses Not on filedocumented in this encounter Care Teams Command And Control Systems Integrator Relationship Specialty Start Date End Date Je Clement DO [address] [place] [address] PCP - General Internal Medicine 06/02/22 documented as of this encounter
--- OUTSIDE RECORDS SUMMARY | 2024-06-25 12:23 | XMS_ITS | Encounter Summary ---
Author Organization [facility], Address [address] [address] Phone Care Team Providers Care Clay Hoister Name Role Phone Je Clement DO Primary Care Provider [phone] Encounter Details Date Type Department Care Team ([facility] Contact Info) Description 06/20/2024 Orders Only [facility] [address] [place] [address] Slava Luna MD [address] [facility] [address] [place] [phone] Social History Tobacco Use Types Packs/Day Years [...] visit [facility], - [facility] Access Center [address] [place] [address] [place] [address] documented as of this encounter Procedures Procedure Name Priority Date/Time Associated Diagnosis Comments HEMATOLOGY Routine 06/20/2024 documented in this encounter Results * (ABNORMAL) HEMATOLOGY (06/20/2024) Hemoglobin 10.5(L) 14.0 - 18.0 g/dL [facility] Hemoglobin x 3 31.5(L) 42.0 - 54.0 % [facility] 06/20/2024 06/21/2024 8:4 6 AM EST Adina DICKERSON - 06/21/2024 Unless otherwise specified, test(s) performed at: [facility], [address] [place] [address] SOAP GRINDER: Linwood Garcia M.D. For any questions, please call customer service at FREQUENCY:OTHER Resulting Agency Comment Specimen source: Blood Slava Luna MD LAB BLOOD ORDERABLES Final Result [facility] See order comments or contact performing lab Unknown, [place] documented in this encounter Visit Diagnoses Not on filedocumented in this encounter Care Teams Clay Hoister Relationship Specialty Start Date End Date Je Clement DO [address] [place] [address] PCP - General Internal Medicine 06/02/22 documented as of this encounter
--- OUTSIDE RECORDS SUMMARY | 2024-06-25 12:23 | XMS_ITS | Encounter Summary ---
Author Organization [facility], Address [address] [place] [address] Phone Care Team Providers Care Stand In Name Role Phone Je Clement DO Primary Care Provider [phone] Encounter Details Date Type Department Care Team (Late st Contact Info) Description 06/20/2024 Treatment [facility], [address] [place] [phone] Nick Luna MD [address] [place] [address] [place] [address] Social History Tobacco Use Types Packs/Day Years [...] on file documented as of this encounter Miscellaneous Notes * Dialysis Note - Nick Luna MD - 06/20/2024 12:00 AM EST Patient: Hamzah Lewis : 1955 Note Type: Dialysis Rounds-Basic Service Date: 06/20/2024 This patient was personally seen for a basic visit as part of routine monthly dialysis care for end stage renal disease. Attending Textile Stylist: NICK LUNA Dialysis Location: [facility] Schedule: Shift: 1 HOME MEDICATIONS [facility] Outpatient Medications acetaminophen 500 mg capsule Take 2 capsule by mouth twice a day as needed for pain. [as needed for pain] amlodipine 5 mg tablet Take 1 tablet by mouth twice a day. [hold for SBP<90] Aspirin Childrens 81 mg tablet,chewable Take 1 tablet by mouth once a day. [for anticoagulant] bisacodyl suppository 10 mg Insert 1 rectally as directed. [if no bowel movement for 8hrs after milk of magnesia] citalopram capsule 20 mg 1 tablet by mouth once a day. clonazepam 1 mg tablet Take 1 tablet by mouth twice a day as directed. docusate-senna 50mg-8.6mg tablet Take 1 capsule by mouth as directed. [before dinner for constipation] hydralazine 10 mg tablet Take 1 tablet by mouth twice a day. [hold for SBP<90] ibuprofen 200 mg capsule Take 3 capsule by mouth every six hours as needed for pain. isosorbide mononitrate 20 mg tablet Take 2 tablet by mouth once a day. Lipitor 40 mg tablet Take 1 tablet by mouth every evening. Lokelma 10 gram powder in packet Take 1 packet by mouth as directed. [Daily on non-dialysis days] omeprazole 20 mg capsule,delayed release(DR/EC) Take 1 capsule by mouth once a day. ondansetron HCl 4 mg tablet Take 1 tablet by mouth every eight hours. [as needed for nausea/vomiting] polyethylene glycol 3350 17 gram/dose powder Take dissolved in water once a day as needed. [for constipation] Renvela 800 mg tablet Take 2 tablet by mouth three times a day with meals. simethicone 80 mg tablet,chewable 1 tablet by mouth four times a day as needed. [for gas] trazodone 50 mg tablet Take 1 tablet by mouth every night at bedtime. [facility] Allergies Allergen: garlic Reaction: Unknown Allergen: Insulins Reaction: Hives Allergen: Levaquin Reaction: Unknown Allergen: Onion Reaction: Unknown DIALYSIS PRESCRIPTION Treatment Data Treatment Date: 06/20/2024 started at: 11:41 AM Dialysate / Machine Temp (prescribed): 37.0*C Dialysate / Machine Temp (actual): 37.0*C BFR (prescribed): 450 BFR (actual): 450 DFR (prescribed): Manual 500 DFR (actual): 500 Prescribed Time: 03:30 EDW (kg): 83.0 Dialyzer: 160NRe Optiflux Dialysate: 2.0 K, 2.50 Ca, 1.0 Mg, 100 Dextrose ([id number]) Sodium: 130 Bicarb: 32 Pre Dialysis Vitals Pre BP Sit: 126/60 Pre Wt (kg): 84.2 EDW Deviation (kg): 1.2 Temp: 96.0*F Current Dialysis Vitals BP Sit: 135/66 AP/BAIT PACKER: -- Pulse: 60 TREATMENT MEDICATIONS ORDERS Cinacalcet (Sensipar) 120 mg ORAL 3X Week Post Dialysis,with snack 04/20/2024 - 04/19/2025 Heparin Sodium (Porcine) 1,000 Units/mL Systemic 1000 units IVP Every Treatment 05/11/2024 - 05/10/2025 Iron Sucrose (Venofer) 50 mg IVP 1X Week During Dialysis 06/13/2024 - 06/12/2025 BP AND FLUID ASSESSMENT Post BP Sit 128/72 - 06/18/2024 156/107 - 06/15/2024 130/57 - 06/13/2024 Post Wt (kg) 82.0 - 06/18/2024 81.0 - 06/15/2024 81.6 - 06/13/2024 EDW (kg) 83.0 - 06/18/2024 83.0 - 06/15/2024 83.0 - 06/13/2024 Deviation (kg) -1.0 - 06/18/2024 -2.0 - 06/15/2024 -1.4 - 06/13/2024 ADEQUACY ASSESSMENT Missed Treatments 0 - Last 30 days 2 - Last 60 days Most recently missed on 05/07/2024 spKt/V (Daugirdas II) 1.63 (06/06/24) 1.80 (05/09/24) 1.54 (04/11/24) eKdrt/V 1.42 (06/06/24) 1.36 (04/11/24) 1.27 (03/07/24) % Urea Reduction 76 (06/06/24) 78 (05/09/24) 73 (04/11/24) BUN 25 (06/06/24) 23 (05/09/24) 33 (04/11/24) BUN Post Dialysis 6 (06/06/24) 5 (05/09/24) 9 (04/11/24) Creatinine 6.51 (06/06/24) 6.92 (05/09/24) 6.74 (04/11/24) Bicarbonate (CO2) 21 (06/06/24) 21 (05/09/24) 21 (04/11/24) Sodium 130 (06/06/24) 128 (05/09/24) 125 (04/11/24) ACCESS ASSESSMENT AVFistula Standard Left Upper Arm Active (In Use) - 04/29/2014 Placed - 10/08/2013 Access Flow 1887 (05/13/24) 1735 (04/09/24) 1553 (03/05/24) ANEMIA ASSESSMENT Hemoglobin 11.0 (06/13/24) 10.3 (06/06/24) 9.9 (05/30/24) Iron Saturation (TSat) 26 (06/06/24) 23 (05/09/24) 36 (04/11/24) Ferritin 1,185 (06/06/24) 720 (05/09/24) 758 (04/11/24) Iron 61 (06/06/24) 56 (05/09/24) 101 (04/11/24) TIBC 237 (06/06/24) 242 (05/09/24) 281 (04/11/24) Reticulocyte Hemoglobin 30.5 (05/09/24) 31.2 (04/23/24) 32.1 (02/15/24) MCV 92 (05/09/24) 97 (02/15/24) BMM ASSESSMENT Calcium 8.8 06/18/24 9.9 06/06/24 8.6 05/09/24 Corrected Calcium 10.5 06/06/24 9.0 05/09/24 8.8 04/11/24 Phosphorus 5.9 06/06/24 5.1 05/09/24 5.3 04/11/24 Calcium Phosphorus Product 58 06/06/24 44 05/09/24 46 04/11/24 PTH 89 06/06/24 329 05/09/24 145 04/11/24 Vitamin D, 25-OH, Total 26.9 02/15/24 Magnesium 2.0 06/06/24 2.0 05/09/24 2.0 04/11/24 Alkaline Phosphatase 110 05/09/24 139 02/15/24 Aluminum 6 02/15/24 NUTRITION ASSESSMENT COMMENTS: improving Albumin 3.3 06/06/24 3.5 05/09/24 3.7 04/11/24 Potassium 4.1 06/06/24 4.2 05/09/24 4.8 04/11/24 eNPCR 0.52 06/06/24 0.63 04/11/24 0.57 03/07/24 Hemoglobin A1C 5.3 05/09/24 5.7 02/15/24 TRANSPLANT STATUS COMMENT COMMENTS: not a candidate ADDITIONAL LABS WBC 4.25 (05/09/24) 4.29 (02/15/24) Hepatitis B Surface Ab 16 (02/15/24) ADDITIONAL COMMENT COMMENTS: 06/20/24: Recent labs reviewed. Current events noted. Patient seen during treatment. Stable treatment. No changes. 06/08/24: stable treatment; no changes in regimen. 05/30/24: Recent events noted. Meds and labs reviewed. Patient seen. Case discussed with charge nurse. Based on findings, recent history, active issues, etc. changes in dialysis regimen were made accordingly. Overall, stable treatment. 05/11/24: reviewed active issues; discussed holiday schedule with patient; nurse input noted. Overall stable. 05/02/24: stable treatment; no changes 04/23/24: Overall, clinically stable. Recent events and active issues reviewed. Available data including the most recent labs and active medication list were noted. The patient's case was discussed with the charge nurse and changes in prescription made accordingly. 03/28/24: Patient seen and evaluated during treatment. Recent events and active issues addressed. Discussed with charge nurse. Discussed plans with patient. Reviewed the most recent laboratory data and active medication list. 03/09/24: stable treatment; no changes; discussed with charge nurse 02/22/24: Recent data reviewed. Medications reviewed. Dialysis prescription reviewed. Discussed recent events and active issues with the patient and charge nurse. Appropriate changes in regimen including in center medications and treatment made accordingly. Signed by: NICK LUNA MD on 06/20/2024 at 12:38:15 PM Transcribed by: NICK LUNA MD on 06/20/2024 at 12:38:15 PM documented in this encounter Plan of Treatment Upcoming Encounters Date Type Department Care Team (Late st Contact Info) Description 07/19/2024 11:00 AM EST Procedure visit [facility] [address] [phone] documented as of this encounter Visit Diagnoses Not on filedocumented in this encounter Care Teams Stand In Relationship Specialty Start Date End Date Je Clement DO [address] [place] [address] PCP - General Internal Medicine 06/02/22 documented as of this encounter
--- OUTSIDE RECORDS SUMMARY | 2024-06-25 12:23 | XMS_ITS | Encounter Summary ---
Author Organization [facility], Address [address] [place] [address] Phone Care Team Providers Care Senior Backup Administrator Name Role Phone Je Clement DO Primary Care Provider [phone] Encounter Details Date Type Department Care Team (Late st Contact Info) Description 05/30/2024 Treatment [facility], [address] [place] [phone] Nick Luna MD [address] [place] [address] [place] [address] Social History Tobacco Use Types Packs/Day Years [...] Dialysis Note - Nick Luna MD - 05/30/2024 12:00 AM EST Patient: Hamzah Lewis : 1955 Note Type: Dialysis Rounds-Comp Service Date: 05/30/2024 This patient was personally seen for a complete visit as part of routine monthly dialysis care for end stage renal disease. Attending Local Telephone Operator: NICK LUNA Dialysis Location: [facility] Schedule: Shift: 1 HOME MEDICATIONS [facility] Outpatient Medications acetaminophen 500 mg capsule [...] by mouth every night at bedtime. [facility] Allergies Allergen: garlic Reaction: Unknown Allergen: Insulins Reaction: Hives Allergen: Levaquin Reaction: Unknown Allergen: Onion Reaction: Unknown DIALYSIS PRESCRIPTION Treatment Data Treatment Date: 05/30/2024 started at: 10:52 AM Dialysate / Machine Temp (prescribed): 37.0*C Dialysate / Machine Temp (actual): 37.2*C BFR (prescribed): 450 BFR (actual): 450 DFR (prescribed): Manual 500 DFR (actual): 500 Prescribed Time: 03:30 EDW (kg): 83.0 Dialyzer: 160NRe Optiflux Dialysate: 2.0 K, 2.50 Ca, 1.0 Mg, 100 Dextrose ([id number]) Sodium: 130 Bicarb: 32 Pre Dialysis Vitals Pre BP Sit: 132/60 Pre Wt (kg): 84.4 EDW Deviation (kg): 1.4 Temp: 96.0*F Current Dialysis Vitals BP Sit: 177/76 AP/PROMOTION SPECIALIST: 190/190 Pulse: 61 TREATMENT MEDICATIONS ORDERS Cinacalcet (Sensipar) 120 mg ORAL 3X Week Post Dialysis,with snack 04/20/2024 - 04/19/2025 Heparin Sodium (Porcine) 1,000 Units/mL Systemic 1000 units IVP Every Treatment 05/11/2024 - 05/10/2025 Iron Sucrose (Venofer) 100 mg IVP 3X Week During Dialysis 05/14/2024 - 06/04/2024 Mircera 60 mcg IVP Every 2 weeks During Dialysis 05/23/2024 - 05/22/2025 Vitamin D (Calcitriol) Oral 2.0 mcg ORAL Every Treatment 02/15/2024 - 02/13/2025 BP AND FLUID ASSESSMENT Post BP Sit 165/61 - 05/28/2024 140/66 - 05/25/2024 154/73 - 05/22/2024 Post Wt (kg) 83.1 - 05/28/2024 82.1 - 05/25/2024 81.7 - 05/22/2024 EDW (kg) 83.0 - 05/28/2024 83.5 - 05/25/2024 83.5 - 05/22/2024 Deviation (kg) 0.1 - 05/28/2024 -1.4 - 05/25/2024 -1.8 - 05/22/2024 ADEQUACY ASSESSMENT Missed Treatments 2 - Last 30 days 5 - Last 60 days Most recently missed on 05/07/2024 spKt/V (Daugirdas II) 1.80 (05/09/24) 1.54 (04/11/24) 1.43 (03/07/24) eKdrt/V 1.36 (04/11/24) 1.27 (03/07/24) 1.53 (02/20/24) % Urea Reduction 78 (05/09/24) 73 (04/11/24) 70 (03/07/24) BUN 23 (05/09/24) 33 (04/11/24) 30 (03/07/24) BUN Post Dialysis 5 (05/09/24) 9 (04/11/24) 9 (03/07/24) Creatinine 6.92 (05/09/24) 6.74 (04/11/24) 7.09 (03/07/24) Bicarbonate (CO2) 21 (05/09/24) 21 (04/11/24) 21 (03/07/24) Sodium 128 (05/09/24) 125 (04/11/24) 129 (03/07/24) ACCESS ASSESSMENT AVFistula Standard Left Upper Arm Active (In Use) - 04/29/2014 Placed - 10/08/2013 Access Flow 1887 (05/13/24) 1735 (04/09/24) 1553 (03/05/24) ANEMIA ASSESSMENT Hemoglobin 10.7 (05/15/24) 11.0 (05/09/24) 10.6 (05/02/24) Iron Saturation (TSat) 23 (05/09/24) 36 (04/11/24) 26 (03/07/24) Ferritin 720 (05/09/24) 758 (04/11/24) 1,012 (03/07/24) Iron 56 (05/09/24) 101 (04/11/24) 66 (03/07/24) TIBC 242 (05/09/24) 281 (04/11/24) 258 (03/07/24) Reticulocyte Hemoglobin 30.5 (05/09/24) 31.2 (04/23/24) 32.1 (02/15/24) MCV 92 (05/09/24) 97 (02/15/24) BMM ASSESSMENT Calcium 8.6 05/09/24 8.6 04/11/24 8.3 03/07/24 Corrected Calcium 9.0 05/09/24 8.8 04/11/24 8.8 03/07/24 Phosphorus 5.1 05/09/24 5.3 04/11/24 4.1 03/07/24 Calcium Phosphorus Product 44 05/09/24 46 04/11/24 34 03/07/24 PTH 329 05/09/24 145 04/11/24 254 03/07/24 Vitamin D, 25-OH, Total 26.9 02/15/24 Magnesium 2.0 05/09/24 2.0 04/11/24 2.0 03/07/24 Alkaline Phosphatase 110 05/09/24 139 02/15/24 Aluminum 6 02/15/24 NUTRITION ASSESSMENT COMMENTS: improving Albumin 3.5 05/09/24 3.7 04/11/24 3.4 03/07/24 Potassium 4.2 05/09/24 4.8 04/11/24 4.8 03/07/24 eNPCR 0.63 04/11/24 0.57 03/07/24 0.64 02/20/24 Hemoglobin A1C 5.3 05/09/24 5.7 02/15/24 TRANSPLANT STATUS COMMENT COMMENTS: not a candidate ADDITIONAL LABS WBC 4.25 (05/09/24) 4.29 (02/15/24) Hepatitis B Surface Ab 16 (02/15/24) ADDITIONAL COMMENT COMMENTS: 05/30/24: Recent events noted. Meds and labs [...] accordingly. Signed by: NICK LUNA MD on 05/30/2024 at 02:03:02 PM Transcribed by: NICK LUNA MD on 05/30/2024 at 02:03:02 PM documented in this encounter Plan of Treatment Upcoming Encounters Date Type Department Care Team (Late st Contact Info) Description 07/19/2024 11:00 AM EST Procedure visit [facility] [address] [place] [address] documented as of this encounter Visit Diagnoses Not on filedocumented in this encounter Care Teams Senior Backup Administrator Relationship Specialty Start Date End Date Je Clement DO [address] [place] [address] PCP - General Internal Medicine 06/02/22 documented as of this encounter
--- OUTSIDE RECORDS SUMMARY | 2024-06-25 12:23 | XMS_ITS | Encounter Summary ---
Author Organization [facility], Address [address] [address] Phone Care Team Providers Care Motor Runner Name Role Phone Je Clement DO Primary Care Provider [phone] Encounter Details Date Type Department Care Team ([facility] Contact Info) Description 06/13/2024 Orders Only [facility] [address] [place] [address] Slava Luna MD [address] [place] [phone] Social History Tobacco Use Types Packs/Day Years [...] visit [facility], - [facility] Center [address] [place] [address] [place] [phone] documented as of this encounter Procedures Procedure Name Priority Date/Time Associated Diagnosis Comments HEMATOLOGY Routine 06/13/2024 documented in this encounter Results * (ABNORMAL) HEMATOLOGY (06/13/2024) Hemoglobin 11.0(L) 14.0 - 18.0 g/dL [facility] Hemoglobin x 3 33(L) 42.0 - 54.0 % [facility] 06/13/2024 06/14/2024 9:4 9 AM EST Adina DICKERSON - 06/14/2024 Unless otherwise specified, test(s) performed at: [facility], [address] [place] [address] SEARCH ENGINE OPTIMIZATION SPECIALIST: Linwood Garcia M.D. For any questions, please call customer service at FREQUENCY:OTHER Resulting Agency Comment Specimen source: Blood us Slava Luna MD LAB BLOOD ORDERABLES Final Result [facility] See order comments or contact performing lab Unknown, [place] documented in this encounter Visit Diagnoses Not on filedocumented in this encounter Care Teams Motor Runner Relationship Specialty Start Date End Date Je Clement DO [address] [place] [address] PCP - General Internal Medicine 06/02/22 documented as of this encounter
--- OUTSIDE RECORDS SUMMARY | 2024-06-25 12:23 | XMS_ITS | Encounter Summary ---
Author Organization [facility], Address [address] [place] [address] Phone Care Team Providers Care Steam Distribution Supervisor Name Role Phone Je Clement DO Primary Care Provider [phone] Encounter Details Date Type Department Care Team (Late st Contact Info) Description 06/08/2024 Treatment [facility], [address] [place] [phone] Nick Luna MD [address] [place] [address] [place] [address] Social History Tobacco Use Types Packs/Day Years [...] Dialysis Note - Nick Luna MD - 06/08/2024 12:00 AM EST Patient: Hamzah Lewis : 1955 Note Type: Dialysis Rounds-Basic Service Date: 06/08/2024 This patient was personally seen for a basic visit as part of routine monthly dialysis care for end stage renal disease. Attending Spray Gun Operator: NICK LUNA Dialysis Location: [facility] Schedule: Shift: 1 HOME MEDICATIONS [facility] Medications acetaminophen 500 mg capsule [...] by mouth every night at bedtime. [facility] Allergies Allergen: garlic Reaction: Unknown Allergen: Insulins Reaction: Hives Allergen: Levaquin Reaction: Unknown Allergen: Onion Reaction: Unknown DIALYSIS PRESCRIPTION Treatment Data Treatment Date: 06/08/2024 started at: 11:58 AM Dialysate / Machine Temp (prescribed): 37.0*C Dialysate / Machine Temp (actual): 37.0*C BFR (prescribed): 450 BFR (actual): 450 DFR (prescribed): Manual 500 DFR (actual): 500 Prescribed Time: 03:30 EDW (kg): 83.0 Dialyzer: 160NRe Optiflux Dialysate: 2.0 K, 2.50 Ca, 1.0 Mg, 100 Dextrose ([id number]) Sodium: 130 Bicarb: 32 Pre Dialysis Vitals Pre BP Sit: 112/57 Pre Wt (kg): 83.0 EDW Deviation (kg): 0.0 Temp: 96.0*F Current Dialysis Vitals BP Sit: 175/71 AP/INSULATOR TECHNICIAN: 203/193 Pulse: 60 TREATMENT MEDICATIONS ORDERS Cinacalcet (Sensipar) 120 mg ORAL 3X Week Post Dialysis,with snack 04/20/2024 - 04/19/2025 Heparin Sodium (Porcine) 1,000 Units/mL Systemic 1000 units IVP Every Treatment 05/11/2024 - 05/10/2025 Mircera 60 mcg IVP Every 2 weeks During Dialysis 05/23/2024 - 05/22/2025 Vitamin D (Calcitriol) Oral 2.0 mcg ORAL Every Treatment 02/15/2024 - 02/13/2025 BP AND FLUID ASSESSMENT Post BP Sit 113/63 - 06/06/2024 149/82 - 06/04/2024 129/56 - 06/01/2024 Post Wt (kg) 81.7 - 06/06/2024 82.7 - 06/04/2024 82.7 - 06/01/2024 EDW (kg) 83.0 - 06/06/2024 83.0 - 06/04/2024 83.0 - 06/01/2024 Deviation (kg) -1.3 - 06/06/2024 -0.3 - 06/04/2024 -0.3 - 06/01/2024 ADEQUACY ASSESSMENT Missed Treatments 0 - Last 30 days 5 - Last 60 days Most recently missed on 05/07/2024 spKt/V (Daugirdas II) 1.80 (05/09/24) 1.54 (04/11/24) 1.43 (03/07/24) eKdrt/V 1.36 (04/11/24) 1.27 (03/07/24) 1.53 (02/20/24) % Urea Reduction 76 (06/06/24) 78 (05/09/24) [...] 1735 (04/09/24) 1553 (03/05/24) ANEMIA ASSESSMENT Hemoglobin 10.3 (06/06/24) 9.9 (05/30/24) 10.7 (05/15/24) Iron Saturation (TSat) 26 (06/06/24) 23 (05/09/24) 36 (04/11/24) Ferritin 1,185 (06/06/24) 720 (05/09/24) 758 (04/11/24) Iron 61 (06/06/24) 56 (05/09/24) 101 (04/11/24) TIBC 237 (06/06/24) 242 (05/09/24) 281 (04/11/24) Reticulocyte Hemoglobin 30.5 (05/09/24) 31.2 (04/23/24) 32.1 (02/15/24) MCV 92 (05/09/24) 97 (02/15/24) BMM ASSESSMENT Calcium 9.9 06/06/24 8.6 05/09/24 8.6 04/11/24 Corrected Calcium 10.5 06/06/24 9.0 05/09/24 8.8 [...] 4.1 06/06/24 4.2 05/09/24 4.8 04/11/24 eNPCR 0.63 04/11/24 0.57 03/07/24 0.64 02/20/24 Hemoglobin A1C 5.3 05/09/24 5.7 02/15/24 TRANSPLANT STATUS COMMENT COMMENTS: not a candidate ADDITIONAL LABS WBC 4.25 (05/09/24) 4.29 (02/15/24) Hepatitis B Surface Ab 16 (02/15/24) ADDITIONAL COMMENT COMMENTS: 06/08/24: stable treatment; no changes in regimen. [...] accordingly. Signed by: NICK LUNA MD on 06/08/2024 at 03:34:04 PM Transcribed by: NICK LUNA MD on 06/08/2024 at 03:34:04 PM documented in this encounter Plan of Treatment Upcoming Encounters Date Type Department Care Team (Late st Contact Info) Description 07/19/2024 11:00 AM EST Procedure visit [facility] [address] [place] [address] documented as of this encounter Visit Diagnoses Not on filedocumented in this encounter Care Teams Steam Distribution Supervisor Relationship Specialty Start Date End Date Je Clement DO [address] [place] [address] PCP - General Internal Medicine 06/02/22 documented as of this encounter
--- OUTSIDE RECORDS SUMMARY | 2024-06-25 12:23 | XMS_ITS | Encounter Summary ---
Author Organization [facility] Address [address] [place] [phone] Care Team Providers Care Soaping Department Supervisor Name Role Phone Sandra Kurtz MD Primary Care Provider + Encounter Details Date Type Department Care Team (Late st Contact Info) Description 04/04/2024 Lab Requisition [facility] - Main Lab [address] [facility] [place] [address] Sandra Kurtz MD [address] [id number] End stage renal disease (CMS/HCC) Social History Tobacco Use Types Packs/Day Years Used Date Smoking Tobacco: Never Assessed Sex and Gender Information Value Date Recorded Sex Assigned at Not on file Gender Identity Not on file Sexual Orientation Not on file documented as of this encounter Plan of Treatment Not on file documented as of this encounter Visit Diagnoses Diagnosis End stage renal disease (CMS/HCC) End stage renal disease documented in this encounter Care Teams Soaping Department Supervisor Relationship Specialty Start Date End Date Sandra Kurtz MD [address] [place] [address] PCP - General Family Medicine 04/04/24 documented as of this encounter
--- OUTSIDE RECORDS SUMMARY | 2024-06-25 12:24 | XMS_ITS | Data Portability ---
Author Organization [employer] [facility], [place] in - [employer] Address [address] [place] [address] Care Team Providers Care Electroneurodiagnostic Technician Name Role Phone [facility] Referring Provider Assessment No assessment recorded. Plan of Treatment Reminders Order Date Submit Date Provider Last Modified By Organization Details Last Modified Time Details Appointments None record ed. Lab None record ed. Referral None record ed. Procedures None record ed. Surgeries None record ed. Imaging None record ed. Medication Orders None record ed. Patient TargetsNo targets recorded. Patient InstructionsNo instructions recorded. Reason for Referral None Reported. Medical Equipment None Reported. Medications Name Sig Start Date Stop Date Status Note LastModified by Organization Details LastModified Time citalopram 40 mg tablet active Not Available Not Available No t Available trazodone 50 mg tablet active Not Available Not Available No t Available clonazepam 0.5 mg tablet active Not Available Not Availabl e Not Available isosorbide mononitrate ER 60 mg tablet,extend ed release 24 hr active Not Available Not Available Not Available clonidine HCl 0.2 mg tablet active Not Available Not Availabl e Not Available trazodone 100 mg tablet active Not Available Not Available No t Available nifedipine ER 90 mg tablet,extend ed release 24 hr active Not Available Not Available Not Available gabapentin 100 mg capsule active Not Available Not Available Not Available sodium polystyrene sulfonate oral powder active Not Available Not Available Not Available losartan 100 mg tablet active Not Available Not Available No t Available glipizide 5 mg tablet active Not Available Not Available No t Available simethicone 80 mg chewable tablet active Not Available Not Available Not Available sevelamer carbonate 800 mg tablet TAKE 2 TABLETS BY MOUTH THREE TIMES DAILY WITH MEALS active Not Available Not Available No t Available Vitals Date Recorded Heart rate Body temperature Respiratory rate Systolic blood pressure Diastolic blood pressure Provider Name and Address Organization Details Last Updated DateTime 3 116 /min 98.8 [degF] 20 /min 194 mm[Hg] 99 mm[Hg] Not Available [facility] - production 3 19:46:03 Social History None recorded. Functional Status None recorded. Mental Status None recorded. Family History Nothing Reported. Medical History No medical history recorded. Past Encounters Encounter ID Performer Location Encounter Start Date Encounter Closed Date Diagnosis/Indication Diagnosis SNOMED-CT Code Diagnosis ICD10 Code Diagnosis Note [id number] Ruben Allan MD [address] [address] 06/13/2022 19:45:58 06/15/2022 20:16:35 Abdominal pain 39284799 R10.9 Patient with end stage renal disease presents with acute severe abdominal pain and vomiting. He was transferre d to the ED for pain control and workup. Health Concerns Section Related Observation LastModified by Organization Detai ls LastModified Time None Recorded Concern Status LastModified by Organization Details LastModified Time None Recorded Advance Directives Directive None Recorded Payers Encounter Date Sequence Insurance Name Policy Number Policy Lozano Covered Member ID Lozano Member ID Guarantor Name 06/13/2022 1 [facility] - DOS PRIOR TO 2022 - DUAL ELIGIBLE (MEDICARE REPLACEMENT/ADV ANTAGE - HMO) Hamzah Lewis [id number] Hamzah Lewis Notes Date Note Type Note Provider Name and Address Organization Details Recorded Time 06/13/2022 text/html [facility] Nursing Assessment: Patient Reports: Vague abdominal pain greater than 24 hours; Nausea with or without vomiting; Inability to tolerate foods, fluids or daily medications Denies: Constipation Diarrhea ? no blood in stool Chief Complaints: Abdominal Pain, Nausea/Vomiting PMH: Diabetes Allergies: insulin Comments: Members calling in to place a referral. Member with 2 day hx of abdominal pain, n/v, denies diarrhea. Denies fever/chills. Would like to be evaluated. ................... ................... ................... ................... ................... ................... ................... ........ Bush Hog Operator Note: Community Bush Hog Operator Mer Moy SC6 dispatched to a [facility] for a 66 yom C/O N/V and abd pain. Upon arrival, the pt was sitting in his wheelchair, awake and alert, FERRER X4, obviously not feeling well. He was visibly crying and stated he had just vomited and that his abdomen was extremely painful. He stated he had been vomiting since 5 AM that day, and that he had sharp, constant, periumbilical pain. He was a Tuesday dialysis pt (visit on Tuesday). He stated he had similar episodes (to a lesser degree) in the past, 2 of which were in the past 3 months. He was transported to the ED for both and was dialyzed. His paperwork showed a hx of hyperkalemia as well. Pt also stated that he was dizzy. C consulted; CMP and volume analysis ordered. Pt was informed of [facility] capabilities for pain mgmt, and he decided he wished to be transported by EMS. 4 mg PO ondansetron given. 911 was called; Kevin BONNER arrived and transported the pt to [facility] ED. ................... ................... ................... ................... ................... ................... ................... ........ Disposition: Fulfilled Ruben Allan MD [address] [facility],[address], [place], [address], STEVE - YOHODAFNE VERDE 06/13/2022 19:47:02
--- OUTSIDE RECORDS SUMMARY | 2024-06-25 12:24 | XMS_ITS | Clinical Summary ---
Author Organization [facility], Address [address] [place] [address] Phone Care Team Providers Care Forest Officer Name Role Phone ColinJe degroot Primary Care Provider [phone] Allergies Active Allergy Reactions Criticality Noted Date Comments Garlic Hives Medium 06/30/2022 Insulin Hives Medium 06/30/2022 Levofloxacin Other (see comments) Low 06/30/2022 Pt does not remember Onion Hives,Other (see comments) Medium 06/30/2022 Other Hives Medium 06/30/2022 peppers Other reaction(s): peppers, spicy foods Medications omeprazole OTC (PriLOSEC OTC) 20 MG EC tablet Take 1 tablet by mouth every morning Active acetaminophen (TYLENOL) 325 MG tablet Take 2 tablets by mouth 3 (three) times a day Active citalopram (CeleXA) 40 MG tablet Take 20 mg by mouth 1 (one) time each day Active sevelamer carbonate (RENVELA) 800 MG tablet Take 1,600 mg by mouth in the morning and 1,600 mg at noon and 1,600 mg in the evening. Take with meals. Swallow tablet whole; do not crush, break, or chew.. Active simethicone (MYLICON) 80 MG chewable tablet Chew 80 mg every 6 (six) hours if needed 09/10/19 Active clonazePAM (KlonoPIN) 0.5 MG tablet Take 1 mg by mouth in the morning and 1 mg in the evening. 07/09/19 20 Active Aspirin Adult Low Dose 81 MG EC tablet 11/19/19 23 Active atorvastatin (LIPITOR) 80 MG tablet 40 mg 1 (one) time each day 11/19/19 23 Active isosorbide mononitrate (IMDUR) 60 MG 24 hr tablet Take 40 mg by mouth 1 (one) time each day Active polyethylene glycol (GLYCOLAX) 17 GM/SCOOP powder 1 (one) time each day 11/12/19 23 Active Senexon-S 8.6-50 MG per tablet 1 tablet 1 (one) time each day 11/12/19 23 Active amLODIPine (NORVASC) 5 MG tablet Take 5 mg by mouth in the morning and 5 mg in the evening. Active bisacodyl (FLEET) 10 MG/30ML enema Insert 10 mg into the rectum if needed for constipation Active Sodium Zirconium Cyclosilicate (Lokelma) 10 g pack Take by mouth 4 (four) times a week Non hd days Active ondansetron ODT (ZOFRAN-ODT) 4 MG dispersible tablet 08/11/19 24 Active ibuprofen (ADVIL,MOTRIN) 800 MG tablet Take 600 mg by mouth every 6 (six) hours if needed for mild pain Active traZODone (DESYREL) 50 MG tablet Take 50 mg by mouth every night Active hydrALAZINE (APRESOLINE) 10 MG tablet 10 mg in the morning and 10 mg in the evening. 04/22/20 24 Active ammonium lactate (AMLACTIN) 12 % cream 03/27/20 24 Active Phenylephrine-DM- GG (TUSSIN CF PO) Take 10 mL by mouth every 4 (four) hours if needed Active Active Problems Problem Noted Date Diagnosed Date Bradycardia 04/26/2024 Epistaxis 04/26/2024 Bilateral cataracts 05/10/2023 Accessory navicular bone of foot 09/27/2022 Abnormal gait 09/27/2022 Anxiety 09/27/2022 Arteriosclerotic gangrene 09/27/2022 Cardiac murmur 09/27/2022 Cardiomyopathy 09/27/2022 Aphakia 09/27/2022 Cerebrovascular accident 09/27/2022 Disorder of amputation stump 09/27/2022 Gastroesophageal reflux disease 09/27/2022 Gastrointestinal hemorrhage 09/27/2022 History of cerebrovascular accident 09/27/2022 Hypertensive urgency 09/27/2022 Legal blindness 09/27/2022 Low back pain 09/27/2022 Macular edema due to diabetes mellitus Nicotine dependence 09/27/2022 Refusal of treatment by patient 09/27/2022 Congestive heart failure 09/27/2022 Acute depression 07/01/2022 Dependence on renal dialysis 06/30/2022 End stage renal disease 06/30/2022 Type 2 diabetes mellitus wit h diabetic chronic kidney disease 06/30/2022 Hypertension 06/30/2022 Hyperlipidemia 06/30/2022 Status post BKA 06/30/2022 Coronary artery disease due to lipid rich plaque 06/30/2022 Peripheral neuropathy 06/30/2022 Anemia 06/30/2022 Malignant neoplasm of transverse colon 0 Type 2 diabetes mellitus 03/22/2014 Encounters Date Type Department Care Team Description 06/20/2024 Orders Only [facility] [address] [address] Slava Luna MD 06/20/2024 Treatment [facility], [address] [place] [address] Slava Luna MD 06/18/2024 Orders Only [facility] [address] [address] Slava Luna MD 06/13/2024 Orders Only [facility] [address] [address] Slava Luna MD 06/08/2024 Treatment [facility], [address] [place] [address] Slava Luna MD 06/06/2024 Orders Only [facility] [address] [address] Slava Luna MD 05/30/2024 Orders Only [facility] [address] [address] Slava Luna MD 05/30/2024 Treatment [facility], [address] [place] [address] Slava Luna MD 05/15/2024 Orders Only [facility] [address] [address] Slava Luna MD 05/11/2024 Treatment [facility], [address] [place] [address] Slava Luna MD 05/09/2024 Orders Only [facility] [address] [address] Slava Luna MD 05/02/2024 Orders Only [facility] [address] [address] Slava Luna MD 05/02/2024 Treatment [facility], [address] [place] [address] Slava Luna MD 04/27/2024 Telephone [facility] [address] [place] [address] [place] [address] Ludmila Cartagena post op call 04/26/2024 11:00 AM EST Procedure visit [facility] [address] [place] [address] [place] [address] Morgan Pike MD End stage renal disease (HCC) (Primary Dx) 04/25/2024 Orders Only [facility] [address] [address] Slava Luna MD 04/24/2024 Telephone [facility] [address] [place] [address] Martha Cornejo 04/23/2024 Orders Only [facility] [address] [address] Slava Luna MD 04/23/2024 Treatment [facility], [address] [place] [address] Slava Luna MD 04/23/2024 Documentation Only [facility], [address] [place] [address] Rosario Taylor [place] 04/11/2024 Orders Only [facility] [address] [address] Slava Luna MD 04/04/2024 Orders Only [facility] [address] [address] Slava Luna MD 03/28/2024 Orders Only [facility] [address] [address] Slava Luna MD 03/28/2024 Treatment [facility], [address] [place] [address] Slava Luna MD from Last 3 Months Social History Tobacco Use Types Packs/Day Years Used Date Smoking Tobacco: Never Smokeless Tobacco: Never Tobacco Cessation:Counseling Given: Not Answered Alcohol Use Standard Drinks/Week Comments Not Currently 0 (1 standard drink = 0.6 oz pur e alcohol) Sex and Gender Information Value Date Recorded Sex Assigned at Not on file Legal Sex Male 2:38 PM EST Gender Identity Not on file Sexual Orientation Not on file Last Filed Vital Signs Vital Sign Reading Time Taken Comments Blood Pressure 158/65 04/26/2024 10:08 AM EST Pulse 60 04/26/2024 10:08 AM EST Temperature 36.5 ??C (97.7 ??F) 04/26/2024 10:[address] Respiratory Rate 16 04/26/2024 10:08 AM EST Oxygen Saturation 95% 04/26/2024 10:08 AM EST Inhaled Oxygen Concentration - - Weight 72.6 kg (160 lb) 04/26/2024 10:08 AM EST Height 172.7 cm (5' 8 ) 04/26/2024 10:08 AM EST Body Mass Index 24.33 04/26/2024 10:08 AM EST Plan of Treatment Upcoming Encounters Date Type Department Care Team (Late st Contact Info) Description 07/19/2024 11:00 AM EST Procedure visit [facility] [address] [place] [address] Health Maintenance Due Date Last Done Comments Hepatitis B Vaccine (1 of 5 - Risk Dialysis 4-dose series) 1975 08/15/2017, 04/12/2017, 03/09/2017, Additional history exists Colorectal Cancer Screening: Annual FOBT 2006 Colorectal Cancer Screening: Colonoscopy 2006 Colorectal Cancer Screening: Sigmoidoscopy 2006 Diabetes: Ophthalmology Exam 06/30/2022 Diabetes: Pedal Pulse Checked 06/30/2022 Diabetes: Sensory Foot Exam 06/30/2022 Diabetes: Visual Foot Exam 06/30/2022 Diabetes: Hemoglobin A1C 08/07/2024 024, 02/15/2024, 05/11/2023, Additional history exists Pneumococcal Vaccine: 65+ Years Completed 11/09/2022, 06/25/2019, 10/11/2018, Additional history exists Influenza Vaccine Completed 03/07/2024, , 03/05/2022, Additional history exists Procedures Procedure Name Priority Date/Time Associated Diagnosis Comments HEMATOLOGY Routine 06/20/2024 CHEMISTRY Routine 06/18/2024 HEMATOLOGY Routine 06/13/2024 [facility] RESULTS Routine 06/06/2024 HD KINETICS Routine 06/06/2024 POST CHEMISTRY Routine 06/06/2024 IMMUNO CHEMISTRY Routine 06/06/2024 CHEMISTRY Routine 06/06/2024 HEMATOLOGY Routine 06/06/2024 CHEMISTRY Routine 06/06/2024 HEMATOLOGY Routine 05/30/2024 HEMATOLOGY Routine 05/15/2024 IMMUNO CHEMISTRY Routine 05/09/2024 SPECIAL CHEMISTRY Routine 05/09/2024 CHEMISTRY Routine 05/09/2024 [facility] BIA LAB RESULTS Routine 05/09/2024 HD KINETICS Routine 05/09/2024 POST CHEMISTRY Routine 05/09/2024 CHEMISTRY Routine 05/09/2024 HEMATOLOGY Routine 05/09/2024 HEMATOLOGY Routine 05/02/2024 HEMATOLOGY Routine 04/25/2024 HEMATOLOGY Routine 04/23/2024 [facility] BIA LAB RESULTS Routine 04/11/2024 HD KINETICS Routine 04/11/2024 CHEMISTRY Routine 04/11/2024 IMMUNO CHEMISTRY Routine 04/11/2024 CHEMISTRY Routine 04/11/2024 HEMATOLOGY Routine 04/11/2024 POST CHEMISTRY Routine 04/11/2024 HEMATOLOGY Routine 04/04/2024 HEMATOLOGY Routine 03/28/2024 from Last 3 Months Results * (ABNORMAL) HEMATOLOGY (06/20/2024) Only the most recent of12 resultswithin the time period is included. Hemoglobin 10.5(L) 14.0 - 18.0 g/dL [facility] Hemoglobin x 3 31.5(L) 42.0 - 54.0 % [facility] 06/20/2024 06/21/2024 8:4 6 AM EST Narrative [facility] - 06/21/2024 Unless otherwise specified, test(s) performed at: [facility], [address] [place], [place] [id number] PRIMER EXPEDITOR AND DRIER: Linwood Garcia M.D. For any questions, please call customer service at FREQUENCY:OTHER Resulting Agency Comment Specimen source: Blood Slava Luna MD LAB BLOOD ORDERABLES Final Result Performing Organization Address [facility] de Phone Number [employer] See order comments or contact performing lab Unknown, [place] * [facility] Chemistry (06/18/2024) Only the most recent of7 resultswithin the time period is included. Calcium 8.8 8.4 - 10.2 mg/dL [facility] 06/18/2024 06/19/2024 12: 00 PM EST Narrative [facility] - 06/19/2024 Unless otherwise specified, test(s) performed at: [facility], [address] [place] [id number] [employer]IM[employer] EXPEDITOR [employer] DRIER: Linwood Garcia M.D. For any questions, please call customer service at FREQUENCY:OTHER Resulting Agency Comment Specimen source: Serum Slava Luna MD LAB BLOOD ORDERABLES Final Result Performing Organization Address City/[facility]/ZIP Co de Phone Number [employer] See order comments or contact performing lab Unknown, [place] * HD KINETICS (06/06/2024) Only the most recent of3 resultswithin the time period is included. % Urea Reduction 76 65 - 80 % [facility] 06/06/2024 06/07/2024 1:1 6 PM EST Narrative Resulting Agency Comment Specimen source: Plasma Slava Luna MD LAB BLOOD ORDERABLES Final Result Performing Organization Address [facility] de Phone Number [facility] See order comments or contact performing lab Unknown, [place] * POST CHEMISTRY (06/06/2024) Only the most recent of3 resultswithin the time period is included. Pathologist [facility] BUN Post Dialysis 6 6 - 19 mg/dL [facility] 06/06/2024 06/07/2024 1:1 6 PM EST Narrative [facility] - 06/07/2024 Unless otherwise specified, test(s) performed at: [facility], [address] [place] [address] PRIMER EXPEDITOR [employer] DRIER: Linwood Garcia M.D. For any questions, please call customer service at FREQUENCY:MONTHLY Resulting Agency Comment Specimen source: Plasma Slava Luna MD LAB BLOOD ORDERABLES Final Result Performing Organization Address [facility] de Phone Number [facility] See order comments or contact performing lab Unknown, [place] * IMMUNO CHEMISTRY (06/06/2024) Only the most recent of3 resultswithin the time period is included. Pathologist [facility] Hep B Surface Ag Negative Negative [facility] 06/06/2024 06/07/2024 8:3 5 AM EST Narrative Resulting Agency Comment Specimen source: Serum Result [facility] Slava Luna MD LAB BLOOD ORDERABLES Final Result Performing Organization Address [facility] de Phone Number [facility] See order comments or contact performing lab Unknown, [place] * [facility] Results (06/06/2024) Only the most recent of3 resultswithin the time period is included. Pathologist [facility] spKt/V (Daugirdas II) 1.63 [facility] eKt/V (Tattersall) 1.40 [facility] WSTDKT/V 2.5 [facility] eKdrt/V 1.42 [facility] nPCR_HD 0.55 [facility] spKt/V Gotch 1.67 [facility] eKt/V Gotch 1.42 [facility] PCR 30.81 [facility] eNPCR 0.52 [facility] 06/06/2024 06/06/2024 [facility] Ordering Provider LAB BLOOD ORDERABLES Final Result [facility] Contact Performing lab Unknown, [place] * SPECIAL CHEMISTRY (05/09/2024) Hemoglobin A1C 5.3 4.8 - 5.9 % [facility] 05/09/2024 05/10/2024 8:2 8 AM EST Narrative [facility] - 05/10/2024 Unless otherwise specified, test(s) performed at: [facility], [address] [place] [address] PRIMER EXPEDITOR [employer] DRIER: Linwood Garcia M.D. For any questions, please call customer service at FREQUENCY:MONTHLY Resulting Agency Comment Specimen source: Blood Slava Luna MD LAB BLOOD BANK TEST ORDERA BLES Final Result [facility] See order comments or contact performing lab Unknown, [place] from Last 3 Months Insurance [facility] [employer] DUAL SNP ([id number]) [place] [id number] [facility] ([id number]) [place] [id number] Care Teams Forest Officer Relationship Specialty Start Date End Date Je Clement DO [address] [place] [address] PCP - General Internal Medicine 06/02/22
--- OUTSIDE RECORDS SUMMARY | 2024-06-25 12:24 | XMS_ITS | Encounter Summary ---
Author Organization [facility] Address [address] [place] [address] Phone Care Team Providers Care Wood Car Builder Name Role Phone Je Clement DO Primary Care Provider [phone] Encounter Details Date Type Department Care Team (Late Contact Info) Description 04/23/2024 Documentation Only [facility] [address] [place] [address] Rosario Taylor [place] [address] [place] [id number] Social History Tobacco Use Types Packs/Day Years Used Date Smoking Tobacco: Former Cigarettes Smokeless Tobacco: Never Alcohol Use Standard Drinks/Week [...] visit [facility] [address] [place] [address] documented as of this encounter Visit Diagnoses Not on filedocumented in this encounter Care Teams Wood Car Builder Relationship Specialty Start Date End Date Je Clement DO [address] [place] [address] PCP - General Internal Medicine 06/02/22 documented as of this encounter
--- OUTSIDE RECORDS SUMMARY | 2024-06-25 12:24 | XMS_ITS | Encounter Summary ---
Author Organization [facility], Address [address] [place] [address] Phone Care Team Providers Care Stress Analyst Name Role Phone Je Clement DO Primary Care Provider [phone] Encounter Details Date Type Department Care Team (Late Contact Info) Description 09/10/2022 Documentation Only [facility] [address] [place] [address] Rosario Taylor [place] [address] [place] [phone] Social History Tobacco Use Types Packs/Day Years Used Date Smoking Tobacco: Every Day Cigarettes Alcohol Use Standard Drinks/Week Comments Never 0 (1 standard drink = 0.6 oz [...] visit [facility] [address] [place] [address] documented as of this encounter Visit Diagnoses Not on filedocumented in this encounter Care Teams Stress Analyst Relationship Specialty Start Date End Date Je Clement DO [address] [place] [address] PCP - General Internal Medicine 06/02/22 documented as of this encounter
--- OUTSIDE RECORDS SUMMARY | 2024-06-25 12:24 | XMS_ITS | Encounter Summary ---
Author Organization [facility] Address [address] [place] [address] Phone Care Team Providers Care Oxygen Equipment Technician Name Role Phone Je Clement DO Primary Care Provider [phone] Encounter Details Date Type Department Care Team (Late st Contact Info) Description 03/22/2022 Telephone [facility] [address] [place] [address] Rayshawn Ochoa MD [address] [place] [address], [address] [address] Social History Tobacco Use Types Packs/Day Years Used Date Smoking Tobacco: Never Assessed Sex and Gender Information Value Date Recorded Sex Assigned at Not on file Legal Sex Male 2:38 PM EST Gender Identity Not on file Sexual Orientation Not on file documented as of this encounter Miscellaneous Notes * Telephone Encounter - Mercedes Cornejo - 03/22/2022 3:20 PM EDT Pts called, the pt was just d/c from the hospital today and she is having a hard time taking care of him by herself because he is still not in good condition. She would like to know if he can beadmitted to a full stack software engineer care facility. I have advised her to speak with the staff at the dialysis center as well. She can be reached at [phone] documented in this encounter Plan of Treatment Upcoming Encounters Date Type Department Care Team (Late st Contact Info) Description 07/19/2024 11:00 AM EST Procedure visit [facility] - [facility] [address] [place] [address] documented as of this encounter Visit Diagnoses Not on filedocumented in this encounter Care Teams Oxygen Equipment Technician Relationship Specialty Start Date End Date Je Clement DO [address] [place] [address] PCP - General Internal Medicine 06/02/22 documented as of this encounter
--- OUTSIDE RECORDS SUMMARY | 2024-06-25 12:24 | XMS_ITS | Clinical Summary ---
Author Organization [facility] Address [address] [place] [address] Phone Care Team Providers Care Process Trainer Name Role Phone Sandra Kurtz MD Primary Care Provider + Encounters Date Type Department Care Team Description 04/24/2024 Lab Requisition [facility] Lab [address] [place] [address] Sandra Kurtz MD Other specified disorders of kidney and ureter 04/04/2024 Lab Requisition [facility] Lab [address] [place] [address] Sandra Kurtz MD End stage renal disease (CMS/HCC) from Last 3 Months Social History Tobacco Use Types Packs/Day Years Used Date Smoking Tobacco: Never Assessed Sex and Gender Information Value Date Recorded Sex Assigned at Not on file Gender Identity Not on file Sexual Orientation Not on file Plan of Treatment Health Maintenance Due Date Last Done Comments COVID-19 Vaccine (#1) 1962 Pneumococcal Vaccine: 65+ Ye ars (1 of 2 - PCV) 10/20/1963 Diabetes: Annual Foot Exam 10/20/1967 Diabetes: Annual Retina Eye Exam 10/20/1967 DTaP,Tdap,and Td Vaccines (1 - Tdap) 1976 Zoster Vaccines (1 of 2) 1976 RSV Immunization Patients 60 + Years Old (1 - Risk 60-74 years 1-dose series) 2017 Cholesterol Screening (Lipid Panel) 04/24/2022 Colorectal Cancer Screening: Colonoscopy 04/24/2022 Depression Screening 04/24/2022 Hepatitis C Screening 04/24/2022 Social Influencers of Health Screening 04/24/2022 Falls Risk Assessment 2022 Influenza Vaccine (#1) 2024 Diabetes: Annual Urine Albumin-Creatinine Ratio (uACR) 04/04/2024 Diabetes: Blood Sugar Contro l Test (HGBA1C) 04/04/2024 Diabetes: Annual GFR (Glomer ular Filtration Rate) 04/24/2025 04/24/2024 Hypertension/CHF/CAD Annual BMP Blood Test 04/24/2025 04/24/2024 HIB Vaccines Aged Out No longer eligi ble based on patient's age to complete this topic HPV Vaccines Aged Out No longer eligi ble based on patient's age to complete this topic Hepatitis A Vaccines Aged Out No long er eligible based on patient's age to complete this topic Hepatitis B Vaccines Aged Out No long er eligible based on patient's age to complete this topic IPV Vaccines Aged Out No longer eligi ble based on patient's age to complete this topic MMR Vaccines Aged Out No longer eligi ble based on patient's age to complete this topic Meningococcal ACWY Vaccine Aged Out N o longer eligible based on patient's age to complete this topic RSV Immunization Patients Un vern 20 months Aged Out No longer eligible b ased on patient's age to complete this topic Varicella Vaccines Aged Out No longer eligible based on patient's age to complete this topic Procedures Procedure Name Priority Date/Time Associated Diagnosis Comments COMPREHENSIVE METABOLIC PANEL Routine 04/24/2024 5:20 AM EST Other specified disorders of kidney and ureter COMPLETE BLOOD COUNT Routine 04/24/2024 5:20 AM EST Other specified disorders of kidney and ureter from Last 3 Months Results * (ABNORMAL) Complete blood count (04/24/2024 5:20 AM EST) WBC 3.9(L) 4.8 - 10.8 K/[facility] LAB HEMETOLOGY METHOD 04/24/2024 10:34 AM EST [facility] RBC 3.60(L) 4.50 - 5.50 M/[facility] LAB HEMETOLOGY METHOD 04/24/2024 10:34 AM EST [facility] Hemoglobin 10.4(L) 13.5 - 17.5 g/dL LAB HEMETOLOGY METHOD 04/24/2024 10:34 AM EST [facility] LAB Hematocrit 33.8(L) 42.0 - 54.0 % LAB HEMETOLOGY METHOD 04/24/2024 10:34 AM [facility] LAB MCV 94.9 79.0 - 98.0 [place] LAB HEMETOLOGY METHOD 04/24/2024 10:34 AM [facility] LAB MCH 29.2 27.0 - 32.0 pcg LAB HEMETOLOGY METHOD 04/24/2024 10:34 AM [facility] MCHC 30.8(L) 32.0 - 37.0 g/dL LAB HEMETOLOGY METHOD 04/24/2024 10:34 AM [facility] RDW 14.7 11.0 - 15.0 % LAB HEMETOLOGY METHOD 04/24/2024 10:34 AM [facility] Platelets 226 130 - 400 K/mcL LAB HEMETOLOGY METHOD 04/24/2024 10:34 AM EST [facility] MPV 9.8 7.0 - 11.0 FL LAB HEMETOLOGY METHOD 04/24/2024 10:34 AM [facility] NRBC 0.0 <1.0 % LAB HEMETOLOGY METHOD 04/24/2024 10:34 AM [facility] LAB NRBC Absolute 0.00 <0.10 K/mcL LAB HEMETOLOGY METHOD 04/24/2024 10:34 AM [facility] Blood Venous blood specimen / Unknown Venipuncture / Unknown 04/24/2024 5:20 AM EST 04/24/2024 9:41 AM EST Sandra Kurtz MD LAB BLOOD ORDERA BLES [facility] [address] [place] [address], * (ABNORMAL) Comprehensive metabolic panel (04/24/2024 5:20 AM EST) Sodium 134 133 - 145 mmol/L LAB CHEMISTRY METHOD 04/24/2024 11:12 AM [facility] Potassium 4.0 3.5 - 5.5 mmol/L LAB CHEMISTRY METHOD 04/24/2024 11:12 AM [facility] Chloride 97 96 - 110 mmol/L LAB CHEMISTRY METHOD 04/24/2024 11:12 AM [facility] CO2 27 21 - 32 mmol/L LAB CHEMISTRY METHOD 04/24/2024 11:12 AM [facility] Anion Gap 10 3 - 11 LAB CHEMISTRY METHOD 04/24/2024 11:12 AM [facility] Glucose 99 70 - 100 mg/dL LAB CHEMISTRY METHOD 04/24/2024 11:12 AM [facility] BUN 22 5 - 25 mg/dL LAB CHEMISTRY METHOD 04/24/2024 11:12 AM [facility] Creatinine 5.50(H) 0.70 - 1.30 mg/dL LAB CHEMISTRY METHOD 04/24/2024 11:12 AM [facility] Comment:Results verified by repeat testing eGFR 11(L) >=60 mL/min/1. 73m2 LAB CHEMISTRY METHOD 04/24/2024 11:12 AM [facility] Comment:Calculation based on the??Chronic Kidney Disease Epidemiology Collaboration (CKD-EPI) equation refit??without adjustment for race. BUN/Creatinine Ratio 4.0 LAB CHEMISTRY METHOD 04/24/2024 11:12 AM [facility] Calcium 9.2 8.5 - 10.5 mg/dL LAB CHEMISTRY METHOD 04/24/2024 11:12 AM [facility] AST (SGOT) 15 10 - 42 unit/L LAB CHEMISTRY METHOD 04/24/2024 11:12 AM [facility] ALT (SGPT) 12 10 - 60 unit/L LAB CHEMISTRY METHOD 04/24/2024 11:12 AM EST [facility] Alkaline Phosphatase 150(H) 42 - 121 unit/L LAB CHEMISTRY METHOD 04/24/2024 11:12 AM EST [facility] Total Protein 7.0 6.0 - 8.0 g/dL LAB CHEMISTRY METHOD 04/24/2024 11:12 AM EST [facility] Albumin 3.2 3.2 - 5.0 g/dL LAB CHEMISTRY METHOD 04/24/2024 11:12 AM EST [facility] Total Bilirubin 0.3 0.0 - 1.4 mg/dL LAB CHEMISTRY METHOD 04/24/2024 11:12 AM [facility] Blood Venous blood specimen / Unknown Venipuncture / Unknown 04/24/2024 5:20 AM EST 04/24/2024 9:41 AM EST Sandra Kurtz MD LAB BLOOD ORDERA BLES [facility] [address] [place] [address], from Last 3 Months Care Teams Process Trainer Relationship Specialty Start Date End Date Sandra Kurtz MD [address] [place] [address] PCP - General Family Medicine 04/04/24
[2024-06-25 12:52] LABS: B Type Natriuretic Peptide 8570 pg/mL (<100)
[2024-06-25] MEDS: Furosemide 40 MG/4 ML VIAL IVPUSH (12:52)
[2024-06-25 13:21] LABS: Troponin-I High Sensitivity 362.4 ng/L (<3.5-35.0)
--- NOTE | 2024-06-25 14:49 | PM.IMHP ---
History of Present Illness Date of Service: 06/25/24 Chief Complaint: Shortness of breath 68-year-old gentleman with past medical history significant for end-stage renal disease on hemodialysis Tuesday, hyperlipidemia, hypertension, GERD brought in from [facility] via EMS from [facility] since nurse noted patient to be tachypneic and short of breath, his temp was 99.7 degrees patient chronically on 2-3 L of oxygen via nasal cannula , patient was placed on oxygen mask and sent to [facility] emergency room, at present patient is awake denies shortness of breath, denies chest pain, denies fever, no chills, no abdominal pain, no nausea, no vomiting he feels tired, his workup in the emergency room showed BNP 8 500 with baseline around 1999, chest x-ray showed patchy opacities throughout both lungs suggestive of atypical pneumonia versus pulmonary edema, no pleural effusion or Keith B lines noted, troponin elevated but flat, EKG showed sinus rhythm with first-degree AV block, left ventricular hypertrophy, normal WBC, sodium 130, table blood pressure 136/51, pulse of 95% on 4 L, respiratory rate of 18, patient treated in the emergency room with IV Lasix 40 mg and now being admitted to [facility] for urgent hemodialysis due to fluid overload. Review of Systems Review of Systems: General no headache no dizziness no fever chills. CVS no chest pain, no palpitation. Respiratory no cough no shortness of breath Gastrointestinal no nausea, no vomiting, no abdominal pain Musculoskeletal no pain All other system reviewed and are negative. [facility] Medical History Abnormal EKG Renal failure, chronic Junctional bradycardia End stage renal disease on dialysis Pulmonary edema Dialysis patient, noncompliant Anemia in chronic kidney disease (CKD) Bradycardia Dialysis patient, noncompliant Diabetes mellitus Hypertension Below-knee amputation of right lower extremity Hyperlipidemia Hypertension Peripheral vascular disease Chronic kidney disease on chronic dialysis Diabetes Family History Unknown No problems noted. Social History Household Members: None Household Members Other:: LTC Housing: Assisted Housing Other:: [facility] Do you presently have visiting nurse or other home services: No Alcohol intake: unknown Comment: 1:1 sitter Patient Tobacco Use Status: Never used Tobacco Smoked in Last 30 Days: No Use of substances other than those prescribed or required for medical reasons: No Advance Directives: Yes Advance Directives on File: Yes Advance Directives Date on File: 01/17/24 service: No Meds Allergies Allergy/AdvReac Type Severity Reaction Status Date / Time garlic Allergy Severe Hives Verified 06/25/24 10:22 onion Allergy Severe Hives Verified 06/25/24 10:22 Peppers, Green Allergy Severe Hives Verified 06/25/24 10:22 Active Medications: Current Medications Acetaminophen (Acetaminophen 325 Mg Tablet) 650 mg PO Q6H PRN PRN Reason: Pain, Mild 1-3,fever,headache Calcium Carbonate (Calcium Carbonate 750 Mg Tab.Chew) 750 mg PO Q4H PRN PRN Reason: Heartburn Magnesium Hydroxide (Milk Of Magnesia 30 Ml Oral.Susp) 30 ml PO DAILY PRN PRN Reason: Constipation Melatonin (Melatonin 3 Mg Tablet) 6 mg PO BEDTIME PRN PRN Reason: Insomnia Ondansetron HCl (Ondansetron Hcl 4 Mg/2 Ml Vial) 4 mg IVPUSH Q8H PRN PRN Reason: Nausea and Vomiting Sodium Chloride (0.9 % Sodium Chloride Flush 3 Ml Syringe) 3 ml IVFLUSH [facility] Medications ?Medication ?Instructions ?Recorded ?Confirmed ?Last Taken ?Type aspirin 81 mg tablet,delayed 81 mg PO DAILY 01/02/24 06/25/24 01/17/24 12:00 History release bisacodyl 10 mg rectal suppository 10 mg IL DAILY PRN Constipation, 01/02/24 06/25/24 Unknown History no BM 8 hours after MoM citalopram 20 mg tablet 20 mg PO DAILY 01/02/24 06/25/24 01/17/24 12:00 History isosorbide mononitrate 20 mg tablet 40 mg PO DAILY 01/02/24 06/25/24 01/17/24 12:00 History omeprazole 20 mg capsule,delayed 20 mg PO DAILY@0630 01/02/24 06/25/24 01/17/24 12:00 History release ondansetron 4 mg disintegrating 4 mg PO Q8H PRN Nausea/Vomiting 01/02/24 06/25/24 Unknown History tablet polyethylene glycol 3350 17 17 g PO DAILY PRN Constipation 01/02/24 06/25/24 Unknown History gram/dose oral powder sennosides 8.6 mg-docusate sodium 1 tab-cap PO Q24H PRN Constipation 01/02/24 06/25/24 Unknown History 50 mg capsule (Senna Plus) sevelamer HCl 800 mg tablet 1,600 mg PO TIDWM 01/02/24 06/25/24 01/17/24 12:00 History simethicone 80 mg chewable tablet 80 mg PO Q6H PRN GAS 01/02/24 06/25/24 01/16/24 History sodium phosphates 19 gram-7 118 ml IL DAILY PRN Constipation, 01/02/24 06/25/24 Unknown History gram/118 mL enema (Fleet Enema) no BM 8 hours after bisacodyl supp sodium zirconium cyclosilicate 10 10 g PO SUTUTHSA@1400 01/02/24 06/25/24 01/17/24 12:00 History gram oral powder packet (Lokelma) trazodone 50 mg tablet 50 mg PO BEDTIME 01/31/24 06/25/24 Unknown History dextromethorphan HBr 5 mg/5 mL 10 mg PO Q4H PRN Cough 02/06/24 06/25/24 Unknown History oral syrup acetaminophen 500 mg tablet 1,000 mg PO Q24H PRN Breakthrough 04/17/24 06/25/24 Unknown History Pain atorvastatin 40 mg tablet 40 mg PO BEDTIME 04/17/24 06/25/24 Unknown History clonazepam 1 mg tablet 1 mg PO BID PRN Anxiety 04/17/24 06/25/24 Unknown History acetaminophen 500 mg tablet 1,000 mg PO BID 05/05/24 06/25/24 Unknown History nystatin 100,000 unit/gram topical 1 appl topical BID 06/25/24 06/25/24 Unknown History powder Physical Exam Vital Signs and Narrative: Vital Signs: Last Vital Signs Temp 98.4 F 06/25/24 14:35 Pulse 65 06/25/24 14:35 Resp 18 06/25/24 14:35 BP 136/51 L 06/25/24 14:35 Pulse Ox 95 06/25/24 14:35 O2 Del Method Nasal Cannula 06/25/24 14:35 O2 Flow Rate 2 02/03/25 14:35 Oxygen Flow Rate 4 06/25/24 10:17 BMI result Body Mass Index 28.1 Const: Other: General awake alert, resting comfortably in no acute distress. Neck supple no JVD. CVS regular rate rhythm, Respiratory lungs bilateral crackles, no respiratory distress, no wheeze Gastrointestinal abdomen soft, non tender, bowel sounds audible, no guarding , no rigidity. Extremities right BKA, left lower leg no edema. Neuro non focal Skin no rash Results Labs 06/25/24 10:36 06/25/24 10:37 Labs: Laboratory Results - last 24 hr 06/25/24 06/25/24 06/25/24 10:28 10:36 10:37 MCV 88.7 MCH 29.9 MCHC 33.7 RDW 15.1 Plt Count 266 D MPV 8.8 L Immature Gran % (Auto) 0.4 Neut % (Auto) 66.1 Lymph % (Auto) 23.8 [place] % (Auto) 7.2 Eos % (Auto) 1.8 Baso % (Auto) 0.7 Lymph # (Auto) 1.3 [place] # (Auto) 0.4 Eos # (Auto) 0.1 Baso # (Auto) 0.0 Abs Immat Gran (auto) 0.02 Absolute Neuts (auto) 3.6 Absolute Nucleated RBC 0.000 Nucleated RBC % (auto) 0.0 Anion Gap 18 Estim Creat Clear Calc 9.5 Estimated GFR 7 POC Glucose 95 Random Glucose 93 Lactic Acid 1.0 Calcium 9.0 D Total Bilirubin 0.4 AST 30 ALT < 6 Alkaline Phosphatase 114 Troponin I High Sens 357.5 H* D C-Reactive Protein 2.28 H B-Natriuretic Peptide 8570 H Total Protein 7.6 Albumin 3.2 L Lipase 13 Influenza Type A (PCR) Influenza Type B (PCR) RSV RNA Qual (PCR) SARS-CoV-2 RNA (RT-PCR) 06/25/24 06/25/24 10:58 12:46 MCV MCH MCHC RDW Plt Count MPV Immature Gran % (Auto) Neut % (Auto) Lymph % (Auto) [place] % (Auto) Eos % (Auto) Baso % (Auto) Lymph # (Auto) [place] # (Auto) Eos # (Auto) Baso # (Auto) Abs Immat Gran (auto) Absolute Neuts (auto) Absolute Nucleated RBC Nucleated RBC % (auto) Anion Gap Estim Creat Clear Calc Estimated GFR POC Glucose Random Glucose Lactic Acid Calcium Total Bilirubin AST ALT Alkaline Phosphatase Troponin I High Sens 362.4 H* C-Reactive Protein B-Natriuretic Peptide Total Protein Albumin Lipase Influenza Type A (PCR) NEGATIVE Influenza Type B (PCR) NEGATIVE RSV RNA Qual (PCR) NEGATIVE SARS-CoV-2 RNA (RT-PCR) NEGATIVE Imaging Radiologist's Impressions: Impressions Chest X-Ray 06/25/24 11:30 IMPRESSION: 1. Patchy opacities throughout both lungs suggestive of atypical pneumonia versus pulmonary edema. Lack of pleural effusions or definite Keith lines with favor pneumonia over edema. Would correlate with the clinical presentation. 2. Cardiomegaly, stable. 3. Stent in the left subclavian region. Electronically signed by: Marcelino Cast MD 06/25/2024 11:53 AM [facility] Assessment and Plan (1) Chronic renal failure: Status: Acute (2) Pulmonary edema: Status: Acute (3) Hypoxia: Status: Acute Plan 68-year-old gentleman resident of [facility] with past medical history significant for hypertensive chronic kidney disease on hemodialysis Tuesday, peripheral vascular disease status post right BKA, chronic diastolic CHF, anemia of chronic disease, type 2 diabetes mellitus without complications, anxiety disorder, hyperlipidemia, history of GERD, history of unspecified bradycardia was sent to [facility] ED since noted to have shortness of breath and tachycardia in the emergency room workup suggestive of fluid overload patient is due for hemodialysis therefore will be admitted to [facility] for urgent hemodialysis. Acute Shortness of breath due to fluid overload Urgent hemodialysis, normal potassium Nephrology consult Echo April 15 showed EF 65-70%, no wall motion abnormality no history of CHF, elevated BNP due to renal disease. Chronic hypoxic respiratory failure Continue home oxygen Chronic hyponatremia stable Elevated troponin 357.5> 362.4, no chest pain EKG with no acute ischemia likely secondary to renal disease History of hypertension continue home medications hydralazine and amlodipine follow BP closely Mood disorder continue home medications History of diabetes mellitus, hemoglobin A1c 5.0 on 05/05/2024, not on home medications. Full code Heparin subQ In my clinical judgment patient require 2 night inpatient hospitalization for management of fluid overload requiring urgent hemodialysis and close fluid management and expert consultation. Quality Stroke Does the patient have a stroke diagnosis?: No VTE Prior VTE?: No VTE Risk Level:: Medical - moderate - high VTE Device Contraindication: Treatment Not Indicated VTE Drug Contraindication: N/A - Med Ordered
[2024-06-25] MEDS: 0.9 % Sodium Chloride Flush 3 ML SYRINGE IVFLUSH ×2 (17:07→22:47)
[2024-06-25] MEDS: Acetaminophen 325 MG TABLET 975 MG PO (20:08)
[2024-06-25] MEDS: hydrALAZINE HCl 10 MG TABLET PO (22:45)
[2024-06-25] MEDS: traZODone HCL 50 MG TABLET PO (22:46)
[2024-06-25] MEDS: Atorvastatin Calcium 40 MG TABLET PO (22:46)
[2024-06-25] MEDS: amLODIPine Besylate 5 MG TABLET PO (22:46)
[2024-06-25] MEDS: Heparin Sodium,Porcine 5,000 UNIT/ML VIAL 5000 UNIT SUBCUT (22:53)
[2024-06-26 03:24] VITALS: BP 129/56; PULSE 54; RESP 16; TEMP 36.2; O2SAT 93
[2024-06-26] MEDS: Omeprazole 20 MG CAPSULE.DR PO (05:05)
[2024-06-26 07:08] VITALS: BP 136/63; PULSE 58; RESP 18; TEMP 36.6; O2SAT 97
[2024-06-26] MEDS: Heparin Sodium,Porcine 5,000 UNIT/ML VIAL 5000 UNIT SUBCUT (07:15)
[2024-06-26] MEDS: hydrALAZINE HCl 10 MG TABLET PO (07:59)
[2024-06-26] MEDS: Acetaminophen 325 MG TABLET 975 MG PO (07:59)
[2024-06-26] MEDS: Escitalopram Oxalate 10 MG TABLET PO (07:59)
[2024-06-26] MEDS: Aspirin Enteric Coated 81 MG TABLET.DR PO (07:59)
[2024-06-26] MEDS: Sevelamer Carbonate Tablet 800 MG TABLET 1600 MG PO ×2 (07:59→12:50)
[2024-06-26] MEDS: amLODIPine Besylate 5 MG TABLET PO (07:59)
[2024-06-26] MEDS: 0.9 % Sodium Chloride Flush 3 ML SYRINGE IVFLUSH (08:02)
--- NOTE | 2024-06-26 09:10 | MHC.CM.PN ---
CM met with Patient at bedside and addressed IMM with him, providing Patient with the original and a copy has been placed on the chart. Patient is a LTC Resident and [facility] bed hold @ [facility] and returning there, once medically cleared is Patient's goal. CM has initiated and will follow for dc planning. HCP is /Juanita and Patient will transport back to LTC via BLS. Patient goes to [facility] M/W/F.
[2024-06-26 09:39] LABS: Anion Gap 22 (12-20); Blood Urea Nitrogen 21 mg/dL (9-16); Calcium 8.6 mg/dL (8.4-10.2); Carbon Dioxide 24 mmol/L (22-29); Chloride 94 mmol/L (96-108); Creatinine Clr Calc Pharmacy 11.9; Estimated Glomerular Filt Rate 10; Glucose Random 93 mg/dL (60-115); Potassium 3.9 mmol/L (3.3-5.1); Sodium 136 mmol/L (135-145)
--- NOTE | 2024-06-26 10:50 | MHC.CM.PN ---
Addendum entered by Bhumika Spencer 06/26/24 11:25: [facility] transport auth # is [id number]. Original Note: Per MD in ROUNDS, Patient is medically cleared for dc today, to return to LTC @ [facility]. Patient will return to LTC today at 3:30 PM, via BLS/[facility]. Patient is aware of and in agreement with the dc plan. CM left a message for Patient's /HCP/Juanita @ [phone], informing her of the dc plan.
[2024-06-26 11:18] VITALS: BP 126/59; PULSE 59; RESP 18; TEMP 36.6; O2SAT 96
--- NOTE | 2024-06-26 11:43 | PM.DS ---
DS: Providers Provider Date of Service: 06/26/24 Date of admission: 06/25/24 14:40 Date of discharge: 06/26/24 Primary care physician: None Physician Consults: 06/25/24 17:31 Consult to Wound Care Routine Reason for consultation: area to coccyx and above right stump DS: Diagnosis Discharge Diagnosis (1) Chronic renal failure: Status: Acute (2) Pulmonary edema: Status: Acute (3) Hypoxia: Status: Acute DS: Summary Hospital Course Hospital Course: History of presenting illness: Date of Service: 06/25/24 Chief Complaint: Shortness of breath 68-year-old gentleman with past medical history significant for end-stage renal disease on hemodialysis Tuesday, hyperlipidemia, hypertension, GERD brought in from [facility] via EMS from [facility] since nurse noted patient to be tachypneic and short of breath, his temp was 99.7 degrees patient chronically on 2-3 L of oxygen via nasal cannula , patient was placed on oxygen mask and sent to [facility] emergency room, at present patient is awake denies shortness of breath, denies chest pain, denies fever, no chills, no abdominal pain, no nausea, no vomiting he feels tired, his workup in the emergency room showed BNP 8 500 with baseline around 1999, chest x-ray showed patchy opacities throughout both lungs suggestive of atypical pneumonia versus pulmonary edema, no pleural effusion or Keith B lines noted, troponin elevated but flat, EKG showed sinus rhythm with first-degree AV block, left ventricular hypertrophy, normal WBC, sodium 130, table blood pressure 136/51, pulse of 95% on 4 L, respiratory rate of 18, patient treated in the emergency room with IV Lasix 40 mg and now being admitted to [facility] for urgent hemodialysis due to fluid overload. Hospital course: 68-year-old gentleman resident of [facility] facility with past medical history significant for hypertensive chronic kidney disease on hemodialysis Tuesday, Tuesday, peripheral vascular disease status post right BKA, chronic diastolic CHF, anemia of chronic disease, type 2 diabetes mellitus without complications, anxiety disorder, hyperlipidemia, history of GERD, history of unspecified bradycardia presented to [facility] ED since noted to have shortness of breath and tachypnea with temp of 99.7 degrees at rehab facility , workup in the emergency room showed a chest x-ray with patchy opacity throughout both lungs concerning for pulmonary edema Therefore urgent hemodialysis arranged and patient admitted to [facility] Acute Shortness of breath due to fluid overload/pulmonary edema underwent hemodialysis, patient feeling better with no symptoms of shortness of breath tachypnea tachycardia therefore being discharged back to rehab facility With recommendation to follow low-sodium, low phosphorus and low potassium diet and restrict fluid intake to avoid recurrent episodes of fluid overload, last echo April 15 showed EF 65-70%, no wall motion abnormality no history of CHF, elevated BNP due to renal disease, in regard to chronic hypoxic respiratory failure recommend to continue home oxygen 2-3 L.. Chronic hyponatremia stable Elevated troponin 357.5> 362.4, no chest pain, EKG with no acute ischemia likely secondary to renal disease. History of hypertension continue home medications hydralazine and amlodipine . Mood disorder continue home medications. History of diabetes mellitus, hemoglobin A1c 5.0 on 05/05/2024, not on home medications. Time Attestation Discharge Coordination Time (in mins): 40 Quality: Safe Use of Opioids Does Pt have an Active Cancer Diagnosis on the Problem List?: No Quality: Stroke Does the patient have a stroke diagnosis?: No Physical Exam Vital Signs: Vital Signs: Last Vital Signs Temp 97.9 F 06/26/24 11:18 Pulse 59 06/26/24 11:18 Resp 18 06/26/24 11:18 BP 126/59 L 06/26/24 11:18 Pulse Ox 96 06/26/24 11:18 O2 Del Method Nasal Cannula 06/26/24 11:18 O2 Flow Rate 2 06/26/24 11:18 Oxygen Flow Rate 4 06/25/24 10:17 BMI result Body Mass Index 27.5 Const: Other: General awake alert, resting comfortably in no acute distress. Neck supple no JVD. CVS regular rate rhythm, Respiratory lungs clear , no respiratory distress, no wheeze Gastrointestinal abdomen soft, non tender, bowel sounds audible, no guarding , no rigidity. Extremities right BKA, left lower leg no edema. Neuro non focal Skin no rash DS: Data Data Completed and Pending Completed studies during hospitalization [Text1]: Procedures Assistance with Respiratory Ventilation, Less than 24 Consecutive Hours, Continuous Positive Airway Pressure (01/26/24) Control Bleeding in Nasal Mucosa and Soft Tissue, Via Natural or Artificial Opening (04/17/24) Performance of Urinary Filtration, Intermittent, Less than 6 Hours Per Day (05/05/24) Labs on day of discharge: Laboratory Results - last 24 hr 06/25/24 06/25/24 06/25/24 10:37 10:58 12:46 Hold Purple Top Sodium Potassium Chloride Carbon Dioxide Anion Gap BUN Creatinine Estim Creat Clear Calc Estimated GFR Random Glucose Calcium Troponin I High Sens 362.4 H* C-Reactive Protein 2.28 H B-Natriuretic Peptide 8570 H Lipase 13 Influenza Type A (PCR) NEGATIVE Influenza Type B (PCR) NEGATIVE RSV RNA Qual (PCR) NEGATIVE SARS-CoV-2 RNA (RT-PCR) NEGATIVE 06/26/24 09:03 Hold Purple Top SEE NOTE Sodium 136 Potassium 3.9 Chloride 94 L Carbon Dioxide 24 Anion Gap 22 H BUN 21 H Creatinine 5.87 H* Estim Creat Clear Calc 11.9 Estimated GFR 10 Random Glucose 93 Calcium 8.6 Troponin I High Sens C-Reactive Protein B-Natriuretic Peptide Lipase Influenza Type A (PCR) Influenza Type B (PCR) RSV RNA Qual (PCR) SARS-CoV-2 RNA (RT-PCR) Discharge Plan Discharge Patient Disposition: [facility] Discharge Diagnosis: Pulmonary edema/fluid overload End-stage renal disease on hemodialysis Chronic hypoxic respiratory failure Referrals: [facility] [Outside] - 1 Week Physician,None [Primary Care Provider] - 1 Week Discharge Medications: Continued trazodone 50 mg Tablet 50 mg PO BEDTIME dextromethorphan HBr 5 mg/5 mL Syrup 10 mg PO Q4H PRN (Reason: Cough) amlodipine 5 mg Tablet 5 mg PO BID Qty: 0 0RF Protocol: Hold for SBP< HOLD for SBP < : 90 atorvastatin 40 mg tablet 40 mg PO BEDTIME clonazepam 1 mg tablet 1 mg PO BID PRN (Reason: Anxiety) acetaminophen 500 mg Tablet 1,000 mg PO Q24H PRN (Reason: Breakthrough Pain) Rx Instructions: DNE 3 G / 24 HRS acetaminophen 500 mg Tablet 1,000 mg PO BID isosorbide mononitrate 20 mg Tablet 40 mg PO DAILY Protocol: Hold for SBP< HOLD for SBP < : 100 sevelamer HCl 800 mg Tablet 1,600 mg PO TIDWM Rx Instructions: must administer with a meal/food aspirin 81 mg tablet,delayed release (DR/EC) 81 mg PO DAILY citalopram 20 mg tablet 20 mg PO DAILY bisacodyl 10 mg Suppository 10 mg IA DAILY PRN (Reason: Constipation, no BM 8 hours after MoM) Rx Instructions: No BM in 8 Hrs after M.O.M Fleet Enema 19-7 gram/118 mL Enema 118 ml IA DAILY PRN (Reason: Constipation, no BM 8 hours after bisacodyl supp) Rx Instructions: (step 3) No BM in 8 Hours after Bisacodyl supp. omeprazole 20 mg Capsule,Delayed Release(Dr/Ec) 20 mg PO DAILY@0630 polyethylene glycol 3350 17 gram/dose Powder 17 g PO DAILY PRN (Reason: Constipation) ondansetron 4 mg Tablet,Disintegrating 4 mg PO Q8H PRN (Reason: Nausea/Vomiting) simethicone 80 mg Tablet,Chewable 80 mg PO Q6H PRN (Reason: GAS) Lokelma 10 gram Powder In Packet 10 g PO SUTUTHSA@1400 Rx Instructions: GIVE 2 HOURS BEFORE OR 2 HOURS AFTER TAKING OTHER MEDICATIONS Senna Plus 8.6-50 mg Capsule 1 tab-cap PO Q24H PRN (Reason: Constipation) hydralazine 10 mg Tablet 10 mg PO BID Qty: 0 0RF Protocol: Hold for SBP< HOLD for SBP < : 90 nystatin 100,000 unit/gram Powder 1 appl TOPICAL BID Rx Instructions: apply to neck Discharge Orders: Discharge Order (Routine); Ordered 06/26/24 Ordered By: Dagmar Argueta Diet: Advance to usual diet Activity on Discharge: As tolerated Stand Alone Forms: Patient Portal Discharge page Print Language: Burundian Care Plan Goals: Recommend compliance with renal diet including low-sodium, low phosphorous and low-potassium and limit fluid intake Continue hemodialysis Wednesdays and Fridays Continue home oxygen as before Health Concerns: Resume all home medications Plan of Treatment: Outpatient follow-up with primary care physician and for hemodialysis Wednesdays and Fridays Assessment: As above
[2024-06-26] MEDS: Sodium Zirconium Cyclosilicate 10 GM POWD.PACK PO (14:59)
[2024-06-26 15:12] VITALS: BP 123/58; PULSE 61; RESP 18; TEMP 36.7; O2SAT 95
--- NOTE | 2024-06-26 15:52 | HO.WOUND ---
Wound Consult: Initial 68yr old?male admitted to [facility] on 06/25/24 - See progress notes and H&P for detailed history.? Wound consult placed for Coccyx and Right Residual leg.? Patient set for d/c to facility chart review and discussion with direct care team and photo reviewed. Right Residual Leg Etiology: ?Abrasion ?Present on Admission Wound Bed: partial thickness tissue loss - pink resurafcing tissue Drainage / Odor: None Edges: ?attached Shannon wound: ?scar tissue and previous injury noted Goals of Treatment: ? Foam dressing for moist wound healing Sacrum Etiology: ?Deep tissue Injury - ?Present on Admission Wound Bed: dark tissue noted with partial thickness tissue loss - pink resurafcing tissue Drainage / Odor: None Edges: ?attached Shannon wound: previous injury noted - MASD Goals of Treatment: ?barrier cream to protect from friction and moisture and allow for moist healing. Recommendations: 1. Turn and Reposition every 2 hours and as needed for patient comfort.? Use pillows or wedges to support off loading positions. 2. Off Load all bony prominences with use of pillows and heel boots if needed.? Apply Preventative foams where needed. ? 3. Monitor for incontinence and moisture control, use barrier creams when needed for prevention and treatment. 4. Provide adequate and supplemental nutrition.? 5. Continue low air loss mattress. 6. When applicable maintain blood glucose levels per Providers order. 7. Right Residual Leg - Cleanse with Ns moist gauze, apply skin prep allow to dry. cover with foam dressing. Change every 5 days and PRN. 8. Sacrum - Off Load Pressure with Q2 hr turns and use of pillows - Cleanse with PH balance spray or wipes, pat dry. ?Apply thin layer of barrier cream to area. Reapply thin layer PRN after each episode of incontinence. Re-consult wound care Nurse for wound deterioration or wound changes.
== END 2024-06-26 16:34 | DRG 640 ==
LOC: HO.ED 14:40 → HO.EDOVER 14:56 → HO.IMC 15:36
PROVIDERS: Admitting Provider Hospitalist; Emergency Provider Emergency Medicine; PCP Internal Medicine; Visit Provider Hospitalist
DX: E87.70 Fluid overload, unspecified (principal); N18.6 End stage renal disease; I13.2 Hypertensive heart and chronic kidney disease with heart failure and with stage 5 chronic kidney disease, or end stage renal disease; J96.11 Chronic respiratory failure with hypoxia; I50.32 Chronic diastolic (congestive) heart failure; E87.1 Hypo-osmolality and hyponatremia; E11.22 Type 2 diabetes mellitus with diabetic chronic kidney disease; Z99.2 Dependence on renal dialysis; D63.1 Anemia in chronic kidney disease; E11.51 Type 2 diabetes mellitus with diabetic peripheral angiopathy without gangrene; Z20.822 Contact with and (suspected) exposure to COVID-19; Z89.511 Acquired absence of right leg below knee; Z99.81 Dependence on supplemental oxygen; Z79.82 Long term (current) use of aspirin; Z79.899 Other long term (current) drug therapy
CPT/HCPCS: 0241U; 36415; 71045; 80048; 80053; 82947; 83605; 83690; 83880; 84484; 85025; 86140; 87040; 93005; 99285; J1644; J1940

== ENCOUNTER → 2024-06-25 10:50 | Outpatient (BNV) | payer OTHER, SELFPAY | PROVIDERS: Emergency Provider Emergency Medicine; Visit Provider Radiology Diagnostic Radiology | DX: I51.7 Cardiomegaly (principal); R91.8 Other nonspecific abnormal finding of lung field | CPT/HCPCS: 71045 ==

== ENCOUNTER → 2024-06-25 14:40 | Outpatient (BNV) | payer OTHER, SELFPAY | PROVIDERS: Admitting Provider Hospitalist; Emergency Provider Emergency Medicine; Visit Provider Hospitalist | DX: N18.9 Chronic kidney disease, unspecified (principal); J81.1 Chronic pulmonary edema; R09.02 Hypoxemia | CPT/HCPCS: 99223; 99239 ==

== ENCOUNTER 2024-07-22 10:22 | Emergency (ER) | payer OTHER, SELFPAY ==
--- NOTE | ~2024-07-22 | XR_ITS ---
CLINICAL HISTORY: inspiratory crackles Single view of the chest. COMPARISON: XR chest dated 06/25/24 at 11:34 EST FINDINGS: Left subclavian stent present. Low lung volumes. Cardiomegaly, stable. Multifocal patchy airspace opacities. No definite pleural effusion. No pneumothorax. Marginal osteophytes present throughout the mid to lower thoracic spine. No acute fracture identified. IMPRESSION: 1. Multifocal airspace opacities suggestive of pulmonary edema and/or multifocal infection. 2. Stable cardiomegaly. This document has been electronically signed by: Duke Mcbride MD on 07/22/2024 13:19:36
[2024-07-22 10:35] VITALS: BP 168/68
[2024-07-22 10:53] VITALS: BP 178/70; PULSE 63; RESP 95; TEMP 36.4; BMI 30.4
--- NOTE | 2024-07-22 11:00 | ECG_ITS ---
Test Reason : BACK PAIN, DIALYSIS Blood Pressure : */* mmHG Vent. Rate : 62 BPM Atrial Rate : 62 BPM P-R Int : 238 ms QRS Dur : 104 ms QT Int : 486 ms P-R-T Axes : 61 112 11 degrees QTcB Int : 493 ms Sinus rhythm with 1st degree A-V block Right axis deviation Nonspecific T wave abnormality Prolonged QT Abnormal ECG When compared with ECG of 25-Jun-2024 10:49, QRS axis Shifted right Nonspecific T wave abnormality, improved in Anterior leads Nonspecific T wave abnormality now evident in Lateral leads Referred By: Ryan Albarado Electronically Signed By: ZAID ADRIAN MD
--- NOTE | 2024-07-22 11:04 | PC.NURSE ---
coming from [facility] for suicidal ideation planning to jump out window. states they have been withholding his medications and he refused to go to dialysis on tuesday. ems states last dialysis on tuesday. only belonging is t-shirt which has been placed in [facility].
--- NOTE | 2024-07-22 11:06 | ED_ITS ---
HPI - General Adult General Chief complaint: General Medical Stated complaint: NAUSEA SI Time Seen by Provider: 07/22/24 10:37 Source: patient and EMS Mode of arrival: EMS Limitations: no limitations History of Present Illness ED Provider: Ryan Albarado DO HPI narrative: 68-year-old male who is a resident at [facility] who has a past medical history of end-stage renal disease on dialysis Tuesday, Tuesday and Tuesday, right-sided below-knee amputation secondary to diabetes, congestive heart failure, depression, anxiety reportedly on clonazepam, GERD, hypertension and hyperlipidemia presents to the emergency department via EMS due to suicidal ideations with plan to jump out of the window. Patient denies current suicidal ideations or homicidal ideations. He states he simply is upset because there with holding his ?anxiety medications?. He states this has been ongoing for the past month. States he refused to go to his last dialysis session because of this as well. Otherwise he reports unchanged chronic lower back pain today and denies chest pain, difficulty breathing, headache, abdominal pain, nausea, vomiting or diarrhea. Patient is chronically on 2 L of supplemental oxygen. Although the patient denies suicidal or homicidal ideations he does report seeing ?shadows? over the past couple of months but no other visual hallucinations, auditory hallucinations and he denies illicit drug use, alcohol use and tobacco use. Related Data Home Medications ?Medication ?Instructions ?Recorded ?Confirmed aspirin 81 mg tablet,delayed 81 mg PO DAILY 01/02/24 06/25/24 release bisacodyl 10 mg rectal suppository 10 mg WY DAILY PRN Constipation, 01/02/24 06/25/24 no BM 8 hours after MoM citalopram 20 mg tablet 20 mg PO DAILY 01/02/24 06/25/24 isosorbide mononitrate 20 mg tablet 40 mg PO DAILY 01/02/24 06/25/24 omeprazole 20 mg capsule,delayed 20 mg PO DAILY@0630 01/02/24 06/25/24 release ondansetron 4 mg disintegrating 4 mg PO Q8H PRN Nausea/Vomiting 01/02/24 06/25/24 tablet polyethylene glycol 3350 17 17 g PO DAILY PRN Constipation 01/02/24 06/25/24 gram/dose oral powder sennosides 8.6 mg-docusate sodium 1 tab-cap PO Q24H PRN Constipation 01/02/24 06/25/24 50 mg capsule (Senna Plus) sevelamer HCl 800 mg tablet 1,600 mg PO TIDWM 01/02/24 06/25/24 simethicone 80 mg chewable tablet 80 mg PO Q6H PRN GAS 01/02/24 06/25/24 sodium phosphates 19 gram-7 118 ml WY DAILY PRN Constipation, 01/02/24 06/25/24 gram/118 mL enema (Fleet Enema) no BM 8 hours after bisacodyl supp sodium zirconium cyclosilicate 10 10 g PO SUTUTHSA@1400 01/02/24 06/25/24 gram oral powder packet (Lokelma) trazodone 50 mg tablet 50 mg PO BEDTIME 01/31/24 06/25/24 dextromethorphan HBr 5 mg/5 mL 10 mg PO Q4H PRN Cough 02/06/24 06/25/24 oral syrup acetaminophen 500 mg tablet 1,000 mg PO Q24H PRN Breakthrough 04/17/24 06/25/24 Pain atorvastatin 40 mg tablet 40 mg PO BEDTIME 04/17/24 06/25/24 clonazepam 1 mg tablet 1 mg PO BID PRN Anxiety 04/17/24 06/25/24 acetaminophen 500 mg tablet 1,000 mg PO BID 05/05/24 06/25/24 nystatin 100,000 unit/gram topical 1 appl topical BID 06/25/24 06/25/24 powder Previous Rx's ?Medication ?Instructions ?Recorded hydralazine 10 mg tablet 10 mg PO BID #0 tabs 01/20/24 amlodipine 5 mg tablet 5 mg PO BID #0 tabs 02/13/24 Allergies Allergy/AdvReac Type Severity Reaction Status Date / Time garlic Allergy Severe Hives Verified 07/22/24 10:54 onion Allergy Severe Hives Verified 07/22/24 10:54 Peppers, Green Allergy Severe Hives Verified 07/22/24 10:54 Review of Systems 2 Review of Systems: Yes all other systems are reviewed and are negative [facility] Past Medical History Medical History Abnormal EKG Renal failure, chronic Junctional bradycardia End stage renal disease on dialysis Pulmonary edema Dialysis patient, noncompliant Anemia in chronic kidney disease (CKD) Bradycardia Dialysis patient, noncompliant Diabetes mellitus Hypertension Below-knee amputation of right lower extremity Hyperlipidemia Hypertension Peripheral vascular disease Chronic kidney disease on chronic dialysis Diabetes Family History Family History Unknown No problems noted. Social History Social History Household Members: Other Household Members Other:: LTC Housing: Long Term Housing Other:: [facility] Do you presently have visiting nurse or other home services: No Alcohol intake: unknown Comment: 1:1 sitter Patient Tobacco Use Status: Never used Tobacco Advance Directives: Yes Advance Directives on File: Yes Advance Directives Date on File: 01/17/24 Do you have a plan to hurt others: No Plan service: No Physical Exam ED Vital Signs: Vital Signs - 24 hr 07/22/24 10:53 07/22/24 13:56 Temperature 97.6 F 97.7 F Pulse Rate 63 62 Respiratory Rate 95 H 14 Blood Pressure 178/70 H 155/67 H Pulse Oximetry 94 Oxygen Delivery Method Nasal Cannula Room Air BMI result Body Mass Index 30.4 Constitutional: ?Alert, oriented, speaking in full sentences HEENT: ?Normocephalic, atraumatic. ?Moist mucous membranes Eyes: ?PERRL, EOMI Neck: ?Supple, nontender Chest: ?No chest wall tenderness Respiratory: ?Mild bibasilar inspiratory crackles, no increased work of breathing Cardio: ?Regular rate and rhythm, systolic murmur appreciated, palpable thrill over left upper arm fistula site GI: ?Soft, nondistended, nontender Back: ?Normal range of motion, nontender Skin: ?No rash, no lesions Neuro: ?Alert and oriented to person, place and time, moves all 4 extremities, no focal deficits Extremities: ?No swelling or tenderness, full range of motion, chronic right- sided BKA Psych: ?Flat affect, overt eyes when speaking, otherwise calm, alert and cooperative, appropriate behavior Medications Administered Discontinued Medications Generic Name Dose Route Start Last Admin Trade Name Freq PRN Reason Stop Dose Admin Acetaminophen 975 mg 07/22/24 10:59 07/22/24 11:24 Acetaminophen 325 Mg Tablet PO 07/22/24 11:00 975 mg ONCE ONE Administration Medical Decision Making Medical Decision Making [facility] Narrative: Patient presenting with reports of suicidal ideations from facility as well as concerns that he is not receiving his anxiety medications. He appears clinically well otherwise today, has mild hypertension which is chronic but otherwise unremarkable vital signs. He did miss a dialysis session and we will evaluate for signs of pulmonary edema and electrolyte derangements. If medically clear, the patient will be evaluated by psychiatric crisis team specialist. The patient has remained stable throughout his stay in the emergency department. He does have chronic and unchanged abnormalities in lab work consistent with ESRD and does not require emergent dialysis. He does have pulmonary edema on chest x-ray but no respiratory symptoms and again not requiring acute intervention at this time. Was evaluated at length by behavioral health specialist and all parties agree that the patient is not actively suicidal and has no current means to harm himself. The patient is stable for discharge back to facility with return precautions provided. Admission/Observation Consideration of admission/observation: Escalation of care including admission/observation considered Lab Data [facility] Lab Attestation statement: I reviewed the patient's lab results. Labs show a baseline anemia of 9.6, no leukocytosis, chronic hyponatremia, elevated BUN and creatinine consistent with ESRD, negative tox screen. 07/22/24 11:30 07/22/24 11:30 Labs: Lab Results 07/22/24 Range/Units 11:30 WBC 4.7 L (4.8-10.8) X10*3/uL RBC 3.24 L (4.60-5.80) X10*6/uL Hgb 9.6 L (14.0-18.0) g/dl Hct 28.5 L (42.0-52.0) % MCV 88.0 (80.0-98.0) fL MCH 29.6 (27.0-33.0) pg MCHC 33.7 (31.0-36.0) g/dl RDW 14.8 (11.0-16.0) % Plt Count 169 D (160-400) X10*3/uL MPV 9.0 L (9.4-12.4) fL Immature Gran % (Auto) 0.2 (0.0-0.4) % Neut % (Auto) 81.8 H (45-73) % Lymph % (Auto) 10.2 L (20-40) % Hardin % (Auto) 4.7 (2-11) % Eos % (Auto) 2.5 (0-4) % Baso % (Auto) 0.6 (0-2) % Lymph # (Auto) 0.5 L (1.2-4.9) X10*3/uL Hardin # (Auto) 0.2 (0.1-1.2) X10*3/uL Eos # (Auto) 0.1 (0.0-0.4) X10*3/uL Baso # (Auto) 0.0 (0.0-0.2) X10*3/uL Abs Immat Gran (auto) 0.01 (0.00-0.03) X10*3/uL Absolute Neuts (auto) 3.9 (2.0-8.3) x10*3/uL Absolute Nucleated RBC 0.000 (0.0-0.012) X10*3/uL Nucleated RBC % (auto) 0.0 (0.0-0.2) /100WBC Sodium 125 L (135-145) mmol/L Potassium 4.3 (3.3-5.1) mmol/L Chloride 92 L (96-108) mmol/L Carbon Dioxide 18 L (22-29) mmol/L Anion Gap 19 (12-20) BUN 41 H (9-16) mg/dL Creatinine 7.73 H* (0.5-1.4) mg/dL Estim Creat Clear Calc 9.9 Estimated GFR 7 Random Glucose 126 H (60-115) mg/dL Calcium 8.0 L D (8.4-10.2) mg/dL Total Bilirubin 0.4 (0.0-1.0) mg/dL AST 17 (5-37) U/L ALT < 6 (0-40) U/L Alkaline Phosphatase 131 H (39-117) U/L Total Protein 7.2 (6.5-8.0) g/dL Albumin 3.1 L (3.5-5.0) g/dL Salicylates < 5.0 L (15-30) mg/dL Acetaminophen 7 (<30) mcg/mL Ethyl Alcohol < 10 mg/dL Independent Interpretation I performed an independent interpretation of an: EKG and Plain X-Ray Interpretation: Normal sinus rhythm at 62 beats per minute, prolonged WY interval, mild prolongation of QTC, normal axis, no diagnostic ST or T-wave abnormalities. Chest x-ray per my independent interpretation shows chronic mild bilateral pulmonary edema without pleural effusions. Similar to prior film dated 06/25/2024. Discharge Plan Discharge Clinical Impression: Depression Qualifiers: Depression Type: other depression Qualified Code(s): F32.89 - Other specified depressive episodes Patient Disposition: Xfer SNF Transfer Details: Medically and psychiatrically cleared, no active suicidal ideations and no means for harm. Safety precautions while in Room at senior living facility. Instructions: Depression (ED) Additional Instructions: Evaluated for suicidal ideations. No active suicidal ideations here, no active plan. Appears to be exhibiting depression and anxiety consistent with medical history. After discussion with care team specialist, safe for discharge to senior living facility. Please ensure safety precautions while on room including no metal silverware, replace with plastic and ensure there are no other sharp objects for the patient to reach. Prescriptions: No Action trazodone 50 mg Tablet 50 mg PO BEDTIME dextromethorphan HBr 5 mg/5 mL Syrup 10 mg PO Q4H PRN (Reason: Cough) amlodipine 5 mg Tablet 5 mg PO BID Qty: 0 0RF Protocol: Hold for SBP< HOLD for SBP < : 90 atorvastatin 40 mg tablet 40 mg PO BEDTIME clonazepam 1 mg tablet 1 mg PO BID PRN (Reason: Anxiety) acetaminophen 500 mg Tablet 1,000 mg PO Q24H PRN (Reason: Breakthrough Pain) Rx Instructions: DNE 3 G / 24 HRS acetaminophen 500 mg Tablet 1,000 mg PO BID isosorbide mononitrate 20 mg Tablet 40 mg PO DAILY Protocol: Hold for SBP< HOLD for SBP < : 100 sevelamer HCl 800 mg Tablet 1,600 mg PO TIDWM Rx Instructions: must administer with a meal/food aspirin 81 mg tablet,delayed release (DR/EC) 81 mg PO DAILY citalopram 20 mg tablet 20 mg PO DAILY bisacodyl 10 mg Suppository 10 mg WY DAILY PRN (Reason: Constipation, no BM 8 hours after MoM) Rx Instructions: No BM in 8 Hrs after M.O.M Fleet Enema 19-7 gram/118 mL Enema 118 ml WY DAILY PRN (Reason: Constipation, no BM 8 hours after bisacodyl supp) Rx Instructions: (step 3) No BM in 8 Hours after Bisacodyl supp. omeprazole 20 mg Capsule,Delayed Release(Dr/Ec) 20 mg PO DAILY@0630 polyethylene glycol 3350 17 gram/dose Powder 17 g PO DAILY PRN (Reason: Constipation) ondansetron 4 mg Tablet,Disintegrating 4 mg PO Q8H PRN (Reason: Nausea/Vomiting) simethicone 80 mg Tablet,Chewable 80 mg PO Q6H PRN (Reason: GAS) Lokelma 10 gram Powder In Packet 10 g PO SUTUTHSA@1400 Rx Instructions: GIVE 2 HOURS BEFORE OR 2 HOURS AFTER TAKING OTHER MEDICATIONS Senna Plus 8.6-50 mg Capsule 1 tab-cap PO Q24H PRN (Reason: Constipation) hydralazine 10 mg Tablet 10 mg PO BID Qty: 0 0RF Protocol: Hold for SBP< HOLD for SBP < : 90 nystatin 100,000 unit/gram Powder 1 appl TOPICAL BID Rx Instructions: apply to neck Print Language: Divehi
[2024-07-22] MEDS: Acetaminophen 325 MG TABLET 975 MG PO (11:24)
[2024-07-22 11:34] LABS: MANUAL DIFF FLAG NO
[2024-07-22 11:35] LABS: Basophils Percent Auto 0.6 % (0-2); Eosinophils Absolute Auto 0.1 X10*3/uL (0.0-0.4); Eosinophils Percent Auto 2.5 % (0-4); Hematocrit 28.5 % (42.0-52.0); Hemoglobin 9.6 g/dl (14.0-18.0); Imm Gran Abs Auto 0.01 X10*3/uL (0.00-0.03); Imm Gran Pct Auto 0.2 % (0.0-0.4); Lymphocytes Absolute Auto 0.5 X10*3/uL (1.2-4.9); Lymphocytes Percent Auto 10.2 % (20-40); Mean Corpuscular HGB Conc 33.7 g/dl (31.0-36.0); Mean Corpuscular Hemoglobin 29.6 pg (27.0-33.0); Monocytes Absolute Auto 0.2 X10*3/uL (0.1-1.2); Monocytes Percent Auto 4.7 % (2-11); Neutrophils Absolute Auto 3.9 x10*3/uL (2.0-8.3); Neutrophils Percent Auto 81.8 % (45-73); Platelet Count 169 X10*3/uL (160-400); Red Blood Count 3.24 X10*6/uL (4.60-5.80); Red Cell Distribution Width 14.8 % (11.0-16.0); White Blood Count 4.7 X10*3/uL (4.8-10.8)
[2024-07-22 12:01] LABS: Acetaminophen LAB 7 mcg/mL (<30); Salicylate < 5.0 mg/dL (15-30)
[2024-07-22 12:04] LABS: Alanine Aminotransferase < 6 U/L (0-40); Albumin Level 3.1 g/dL (3.5-5.0); Alkaline Phosphatase 131 U/L (39-117); Anion Gap 19 (12-20); Aspartate Amino Transferase 17 U/L (5-37); Bilirubin Total 0.4 mg/dL (0.0-1.0); Blood Urea Nitrogen 41 mg/dL (9-16); Carbon Dioxide 18 mmol/L (22-29); Chloride 92 mmol/L (96-108); Creatinine Clr Calc Pharmacy 9.9; Estimated Glomerular Filt Rate 7; Ethanol < 10 mg/dL; Glucose Random 126 mg/dL (60-115); Potassium 4.3 mmol/L (3.3-5.1); Sodium 125 mmol/L (135-145); Total Protein 7.2 g/dL (6.5-8.0)
[2024-07-22 13:56] VITALS: BP 155/67; PULSE 62; RESP 14; TEMP 36.5; O2SAT 94
[2024-07-22 17:28] VITALS: BP 155/67; PULSE 62; RESP 14; TEMP 36.5; O2SAT 94
== END 2024-07-22 17:29 | disposition skilled nursing facility (03) ==
PROVIDERS: Emergency Provider Emergency Medicine; PCP Internal Medicine
DX: R11.2 Nausea with vomiting, unspecified (principal); F32.89 Other specified depressive episodes; R45.851 Suicidal ideations; R94.31 Abnormal electrocardiogram [ECG] [EKG]; I50.9 Heart failure, unspecified; I10 Essential (primary) hypertension; M54.50 Low back pain, unspecified; Z51.81 Encounter for therapeutic drug level monitoring; Z79.899 Other long term (current) drug therapy; Z99.81 Dependence on supplemental oxygen
CPT/HCPCS: 36415; 71045; 80053; 80143; 80179; 80307; 85025; 93005; 99285; S9485

== ENCOUNTER → 2024-07-22 11:00 | Outpatient (BNV) | payer OTHER, SELFPAY | PROVIDERS: Emergency Provider Emergency Medicine; PCP Internal Medicine; Visit Provider Radiology Diagnostic Radiology | DX: R09.89 Other specified symptoms and signs involving the circulatory and respiratory systems (principal) | CPT/HCPCS: 71045 ==

== ENCOUNTER → 2024-07-22 11:00 | Outpatient (BNV) | payer OTHER, SELFPAY | PROVIDERS: Emergency Provider Emergency Medicine; PCP Internal Medicine; Visit Provider Internal Medicine Cardiovascular Disease | DX: I44.0 Atrioventricular block, first degree (principal) | CPT/HCPCS: 93010 ==